=== PATIENT | male | born 1955 | race Caucasian/White ===

== ENCOUNTER 2017-07-10 15:06 | Inpatient (IN) | payer MEDICARE, SELFPAY ==
[2017-07-10 15:08] VITALS: BP 120/97; PULSE 87; RESP 18; TEMP 36.6; O2SAT 98; BMI 23.3
--- NOTE | 2017-07-10 15:22 | CT_ITS ---
STUDY: CT ABDOMEN AND PELVIS WITH CONTRAST REASON FOR EXAM: Male, 62 years old. Right flank pain RADIATION DOSAGE (If Supplied By Facility): CTDIvol = ( 12.96 ) mGy, DLP = ( 643.78 ) mGycm TECHNIQUE: Transaxial images were obtained from the dome of the diaphragm to the symphysis pubis without oral contrast. 100CC ml of Isovue 250 contrast was administered. Sagittal and coronal images were reconstructed. Individualized dose optimization techniques were used for this CT. COMPARISON: None. FINDINGS: There is a small right pleural effusion with overlying atelectasis. There are questionable filling defects in the right lower lobe segmental and subsegmental pulmonary arteries. If there is concern for pulmonary embolus, a CT angiogram can be performed. The visualized portions of the heart and pericardium are within normal limits. There are no calcified gallstones present. The liver is within normal limits. There are no suspicious hepatic lesions. There is a small amount of perisplenic fluid. The spleen is normal in size. The pancreas is within normal limits. The adrenal glands are within normal limits. There are no obstructing renal stones. There is no hydronephrosis. There are no focal renal lesions. Normal visualized stomach. There is no bowel obstruction or inflammation. There is a large amount of stool in the colon, consistent with constipation. There is soft tissue density in the sigmoid colon (image 80 series 2) and beyond this point, there is no significant constipation. Therefore, this is suspicious for a sigmoid mass causing a partial colonic obstruction with resultant constipation proximal to this lesion. The appendix is not visualized, but there are no findings to suggest acute appendicitis. The aorta is normal in caliber. There is no abdominal or pelvic free air, fluid collection or lymphadenopathy. There are no destructive osseous lesions. CT/Abdomen/Pelvis WITH Contrast IMPRESSION: No bowel obstruction or inflammation. Large amount of stool throughout most of the colon, consistent with constipation. There is prominent soft tissue density in the sigmoid colon and beyond this point the constipation resolves. Therefore, this is suspicious for a sigmoid mass causing partial obstruction with resultant proximal constipation. Questionable pulmonary emboli in the right lower lobe. If indicated a CT angiogram of the chest can be performed. Small amount of perisplenic fluid. Small right pleural effusion. N.B. : The above information has been verbally conveyed by Jaison Jones to Dr. Dmitri Rapp, Referring Physician, on 07/10/2017 18:51:49 (ET). Electronically Signed: Jaison Jones, at 18:51 EST Tel , Service support , N.B. : The above information has been verbally conveyed by Jaison Jones to Dr. Dmitri Rapp, Referring Physician, on 07/10/2017 18:51:49 (ET).
[2017-07-10 15:45] VITALS: BP 141/83; PULSE 79; RESP 12; O2SAT 99
--- NOTE | 2017-07-10 15:53 | ED.DCSUM_ITS ---
- ER Visit Summary Date of Service: 07/10/17 Chief Complaint: Atraumatic right flank/abdominal pain History of Present Illness: The patient is a 62 M depression and chronic back pain presents with pain that is different than his chronic back pain. He localizes the pain to the right flank/right side of the abdomen. He denies any radiation to the groin or testicle. He denies dysuria, frequency, urgency hematuria. He has no history of renal ureterolithiasis. He denies nausea, vomiting or diarrhea. He denies any change in the color, consistency, caliber or frequency of his bowel movements. He denies any blood or mucus in his stool. He does report a 35 pound unintentional weight loss with night sweats. He is a non-smoker. Patient denies any ocular, visual auditory symptoms. He denies any cardiac or respiratory symptoms. He denies any skin lesions. He denies prior history of pain in this area. Please read written note for complete detail Physical Examination: Patient is thin but well-developed. Vital signs remarkable blood pressure 141/83. Head is atraumatic normocephalic. Pupils are equal round reactive. Extraocular muscles are intact. TMs are pearly white with landmarks noted. Nares patent with no drainage. Posterior pharynx without erythema or exudate. Uvula is midline. There is no dysphonia or dysphasia. Trachea is midline. There is no stridor with auscultation of the neck. Heart is regular without murmur, gallop or rub. S1 and S2 are normal. Lungs are clear to auscultation with good movement of air bilaterally. Abdomen is soft and nontender. There is no guarding or peritoneal findings. There is no palpable pulsatile mass. There is no abdominal bruit. Wilhelm sign is negative. Negative Rovsing sign. There is no evidence of inguinal or umbilical hernia. There is no CVA tenderness noted. There are no skin lesions noted. He has a depressed affect. Neuro exam is nonfocal. Test Results: BC is normal. BMP is marked for CO2 33. Hepatic is remarkable and alk phos of 220 and AST of 50 which are both slightly elevated. Albumin is low at 2.5. UA is negative. CT of the abdomen and pelvis with p.o. and IV contrast reveals a questionable peripheral pulmonary embolus right lower lobe and there is a pleural effusion. The abdominal portion reveals an area of the sigmoid on image 80 that is concerning for cancer. Emergency Department Course and Treatment: Since patient reports a 35 pound unintentional weight loss with night sweats and abdominal pain a CT of the abdomen with p.o. and IV contrast was obtained to evaluate for malignancy. Appropriate blood work was ordered. Treatment Plan: Hospitalist was paged for admission for CTA in the morning after IV hydration. He will require anticoagulation because of concern for pulmonary embolus. He also will need a bowel prep for colonoscopy to evaluate this area of abnormality noted in the sigmoid colon. Disposition: Admission MedSurg Impression: 1. Unintentional weight loss with night sweats 2. Possible sigmoid mass/cancer 3. Right pleural effusion 4. Possible peripheral pulmonary embolus right lower lobe 5. Depression 6. Chronic back pain This note was generated with [employer] dictation software. It may contain incorrect words, spelling, and punctuation that were not noted in review of the chart prior to signing ED Disposition - Plan for ED Patient: Chief Complaint: Flank Pain Referrals: Sherman Cardona MD [Primary Care Provider] -
[2017-07-10 15:58] LABS: Absolute Lymphocyte Count 2.07 X10^3/ul (0.83-4.51); Absolute Neutrophil Count 3.4 X10^3/uL (2.0-7.7); Eosinophil# 0.13 X10^3/uL; Eosinophils% 2.1 % (0-5); Hematocrit 40.9 % (40-54); Hemoglobin 13.6 g/dl (13.0-16.5); Lymphocyte # 2.07 X10^3/ul (4.0); Mean Corp Hgb Conc 33.3 g/gl (32-36); Mean Corpuscular Hgb 32.4 pg (27.0-32.0); Mean Corpuscular Volume 97.4 fL (80-94); Mean Platelet Vol. 9.7 fl (6.2-12.0); Monocyte# 0.68 X10^3/uL; Monocyte% 10.8 % (0-10); Neutrophil # 3.39 X10^3/uL (2.7-7.7); Neutrophil % 53.9 % (47-70); Platelet Count 228 K/mm3 (150-450); RBC Distribution Width CV 13.2 % (11.6-14.6); RBC Distribution Width SD 46.8 fl (35.1-43.9); White Blood Count 6.3 K/mm3 (4.4-11.0)
[2017-07-10 16:00] LABS: POSITIVE COUNT NO; POSITIVE DIFFERENTIAL NO; POSITIVE MORPHOLOGY NO
[2017-07-10 16:20] LABS: Bacteria 0 SEEN /hpf (None Seen); Mucous, Urine 0 SEEN /hpf (<or=2+); Red Blood Cells-Urine 0 SEEN /hpf (0-5); Squamous Epithelial Cells - UA 0 SEEN /hpf (0-5); White Blood Cells 0 SEEN /hpf (0-5)
[2017-07-10 16:22] LABS: ALB/GLOB Ratio 0.5 RATIO (0.9-2.4); AST(SGOT) 50 U/L (15-37); Alanine Aminotransfer ALT/SGPT 47 U/L (12-78); Albumin, Serum 2.5 g/dL (3.4-5.0); Alkaline Phosphatase 220 U/L (45-117); Anion Gap 4 (5-15); BUN 9 mg/dL (7-18); BUN/Creat Ratio 10.4 RATIO (10-20); Calcium,Total 8.8 mg/dL (8.5-10.1); Chloride 102 mmol/L (98-107); Creatinine, Serum 0.86 mg/dL (0.70-1.30); EST Glomerular Filtration Rate 95 mL/min (>60); Est Glom Filt Rate - Afr Amer 115 mL/min (>60); Estimated Creatinine Clearance 91.96 ml/min; Globulin 4.7 g/dL (2.2-4.2); Glucose 100 mg/dL (70-110); Potassium 3.7 mmol/L (3.5-5.1); Protein, Total 7.2 g/dL (6.4-8.2); Sodium Level 139 mmol/L (136-145)
[2017-07-10 16:26] LABS: Color, Urine Yellow (Yellow); Glucose, Dipstick Normal (Normal); Ketone-Dipstick Negative (Negative); Leukocyte Esterase-Dipstick Negative /ul (Negative); Nitrite-Dipstick Negative (Negative); Occult Blood-Urine Negative /ul (Negative); Protein-Dipstick Negative (Negative); Urine Bilirubin Dipstick Negative (Negative); Urine Clarity Clear (Clear); Urine Urobilinogen Normal (Normal)
[2017-07-10 16:45] VITALS: BP 103/59; PULSE 68; RESP 16; O2SAT 99
[2017-07-10 17:45] VITALS: BP 128/58; PULSE 68; RESP 16; O2SAT 99
[2017-07-10 18:55] VITALS: BP 145/63; PULSE 73; RESP 14; O2SAT 99
[2017-07-10 19:18] VITALS: BMI 23.3
[2017-07-10 20:20] VITALS: BMI 22.8
[2017-07-10 20:21] VITALS: BP 128/71; PULSE 70; RESP 16; TEMP 36.5; O2SAT 98
[2017-07-10] MEDS: ALPRAZolam 0.5 MG Tablet 1 MG PO (21:37)
[2017-07-10] MEDS: 0.9% Normal Saline 1,000 ML 100 ML IV (21:37)
[2017-07-10] MEDS: oxyCODONE 5 MG Tablet 10 MG PO (21:37)
[2017-07-10] MEDS: Electrolyte Solution/Peg's 4000 ML 2000 ML PO (21:37)
[2017-07-10] MEDS: Hydroxychloroquine 200 MG Tablet PO (21:47)
[2017-07-10] MEDS: Enoxaparin 80 MG/0.8 ML Syringe 70 MG SC (21:47)
[2017-07-10] MEDS: Propranolol 10 MG Tablet 20 MG PO (21:47)
--- NOTE | 2017-07-10 22:06 | HP.PCM_ITS ---
Problem List (1) Abnormal CT scan, pelvis Status: Acute (2) Possible pulmonary embolism Status: Acute History of Present Illness Date of Admission: 07/10/17 Chief Complaint: Abnormal CT of the pelvis, possible pulmonary embolism The patient is a 62 year old M who was seen in the emergency room at [facility] with a chief complaint of right lower back pain which had been persistent for the last 4 days. Patient also complained of right lower quadrant abdominal pain in addition to the right lower back pain. Patient has been treated for chronic pain for several years due to degenerative disc disease of the cervical and lumbar spine and is being seen by pain management. Workup in the emergency room included a CT of the abdomen and pelvis which showed an abnormality in the sigmoid colon suggestive of a sigmoid mass. The scan also showed an abnormality in the right lower lung field which indicated a possible pulmonary emboli but again, the appropriate imaging testing was not performed (CTA of the chest). There is also noted to be a right pleural effusion. Patient has no complaints of any shortness of breath or chest pain. Patient's labs were unremarkable except for an elevated alkaline phosphatase at 220 and an AST of 50. There is an overlying history with the patient of severe depression, he gave the emergency room physician information that he has lost 35 pounds over the last 9 months-this weight loss may be secondary to poor oral intake from depression. Patient will be admitted to the [facility] floor for possible sigmoid colon mass and possible PE, he will undergo a CTA of the chest tomorrow and I contacted his furnace packer (Dr. Jimenez), he will perform a colonoscopy on the patient tomorrow. Patient and the patient's state that the patient underwent a colonoscopy last year but they are not sure when and to their knowledge it was normal. Past Medical History Past Medical History (Chronic Problems): Chronic Problems Anxiety disorder (Chronic) Chronic back pain (Chronic) Chronic fatigue syndrome (Chronic) COLD (chronic obstructive lung disease) (Chronic) Depression (Chronic) Gastroesophageal reflux disease (Chronic) Allergies fentanyl Allergy (Verified 07/10/17 15:28) Unknown Penicillins Allergy (Verified 07/10/17 15:28) Unknown cefdinir [From Omnicef] Adverse Reaction (Verified 07/10/17 15:28) Unknown cephalexin monohydrate [From Keflex] Adverse Reaction (Verified 07/10/17 15:28) Unknown citalopram hydrobromide [From Celexa] Adverse Reaction (Verified 07/10/17 15:28) Unknown doxycycline Adverse Reaction (Verified 07/10/17 15:28) Unknown duloxetine HCl [From Cymbalta] Adverse Reaction (Verified 07/10/17 15:28) Unknown escitalopram oxalate [From Lexapro] Adverse Reaction (Verified 07/10/17 15:28) Unknown fluoxetine HCl [From Prozac] Adverse Reaction (Verified 07/10/17 15:28) Unknown iodine Adverse Reaction (Verified 07/10/17 15:28) Unknown lithium Adverse Reaction (Verified 07/10/17 15:) Unknown mirtazapine [From Remeron] Adverse Reaction (Verified 07/10/17 15:28) Unknown moxifloxacin HCl [From Avelox] Adverse Reaction (Verified 07/10/17 15:28) Unknown oxymorphone HCl [From Opana] Adverse Reaction (Verified 07/10/17 15:28) Unknown paroxetine HCl [From Paxil] Adverse Reaction (Verified 07/10/17 15:28) Unknown prednisolone Adverse Reaction (Verified 07/10/17 15:28) Unknown quetiapine fumarate [From Seroquel] Adverse Reaction (Verified 07/10/17 15:28) Unknown sertraline HCl [From Zoloft] Adverse Reaction (Verified 07/10/17 15:28) Unknown trazodone Adverse Reaction (Verified 07/10/17 15:28) Unknown venlafaxine HCl [From Effexor] Adverse Reaction (Verified 07/10/17 15:28) Unknown Home Medications: Ambulatory Orders Medication Instructions Recorded ALPRAZolam [Xanax] 1 mg PO TID 04/08/14 BuPROPion (XL) [Wellbutrin Xl] 150 mg PO DAILY 04/08/14 Hydroxychloroquine [Plaquenil] 200 mg PO BID 04/08/14 Ketotifen Fumarate [Allergy Eye 10 ml OP DAILY 04/08/14 Drops] Lansoprazole [Prevacid] 30 mg PO DAILY 04/08/14 Mometasone Furoate [Nasonex] 1 spray NASAL DAILY 04/08/14 Oxycodone HCl [Roxicodone] 10 mg PO TID 04/08/14 Polyethylene Glycol 3350 [Miralax] 17 gm PO DAILY 04/08/14 Polyvinyl Alcohol/Povidone/Pf 1 each OP DAILY 04/08/14 [Refresh Classic Eye Drops] Propylene Glycol/Peg 400 [Systane 15 ml OP DAILY 04/08/14 Liquid Gel Eye Drops] Sodium Chloride [Saline Nasal Mist] 126 ml NS 4X/DAY 04/08/14 Tamsulosin HCl [Flomax] 0.4 mg PO DAILY 04/08/14 Zolpidem Tartrate [Ambien Cr] 10 mg PO QHS PRN PRN 04/08/14 Aripiprazole [Abilify] 10 mg PO DAILY 11/08/15 Cyclobenzaprine [Flexeril] 5 mg PO TID PRN PRN 07/10/17 Propranolol HCl [Inderal (Beta 20 mg PO BID 07/10/17 Ulises)] Temazepam [Restoril] 30 mg PO QHS PRN PRN 07/10/17 Surgical History: cataract, herniorrhaphy - Umbilical hernia repair, - - Cervical neck surgery, laminectomy, back surgery, [place] surgery Psychiatric History: Depression Lives: Spouse/ Significant Other Smoking Status: Former smoker Tobacco Use: Non-smoker Alcohol: None Drugs: None - *Family History Maternal History Items: No pertinent history Paternal History Items: Cancer - Head and neck cancer Review of Systems Constitutional: Reports: Fatigue. Denies: Anorexia, Chills, Fever, Night Sweats , Malaise, Weakness, Weight Change Eyes: Denies: Blurred vision, Cataracts, Conjunctivae Inflammation, Double vision, Drainage HEENT: Denies: Difficulty Swallowing, Dysphasia, Ear Pain, Eye Pain, Hearing Changes, Nasal bleeding, Nasal Congestion, Post Nasal Drip Cardiovascular: Denies: Chest Pain, Claudication, Chest Pressure, Chest Tightness, Edema, Heaviness, Palpitations, Paroxysmal Noc. Dyspnea, Syncope Respiratory: Denies: Cough, Hemoptysis, Pleuritic Pain, Shortness of Breath, Shortness of breath at rest, Shortness of breath upon exertion, Sputum production, Wheezing Gastrointestinal: Reports: Abdominal Pain - Right lower quadrant abdominal pain ?4 days, Constipation. Denies: Diarrhea, Hematemesis, Hematochezia, Nausea, Melena, Vomiting Genitourinary: Denies: Dysuria, Frequency, Hematuria, Hesitancy, Incontinence, Nocturia, Retention, Urgency Musculoskeletal: Reports: Back Pain, Joint Pain, Neck Pain. Denies: Foot Pain, Hand Pain, Joint stiffness, Joint swelling, Leg Pain Skin: Denies: Dryness, Jaundice, Pruritis, Rash Neurological: Denies: Blurred vision, Double vision, Slurred speech, Difficulty swallowing, Focal weakness, Headaches, Numbness, Tingling, Tremor Psychiatric: Reports: Depression. Denies: Anxiety, Homicidal Ideations, Suicidal Ideations Endocrine: Reports: Change in Body Habitus - Weight loss over the past year of 35 pounds. Denies: Heat/ Cold Intolerance, Polydipsia, Polyuria Hematologic/ Lymphatic: Denies: Adenopathy, Anemia, Easy Bruising, Easy Bleeding , Petechiae, Purpura VTE Information - Inpt Only VTE Present on Admission: No VTE Mechan Device Prophylaxis: None VTE Pharm Prophylaxis ordered?: No Reason prophylaxis not ordered:: Medical Contraindication - Patient will receive full dose Lovenox Patient Problems: Active and Suspected Problems Abnormal CT scan, pelvis (Acute) Possible pulmonary embolism (Acute) - Physical Exam General: Alert, Oriented x3, Cooperative, No apparent distress, Well developed, - - Patient appears markedly depressed HEENT: Atraumatic, PERRLA, EOMI, Normocephalic Oral: Moist Mucosa Neck: Supple, No JVD, Negative Carotid Bruits, No Nuchal Rigidity, Trachea Midline, Thyroid Normal Size and Texture Lungs: Clear to auscultation, Normal air movement, No rhonchi, No wheeze, No rales Cardiovascular: Regular rate, Regular Rhythm, Normal S1, Normal S2, No murmurs, No Ectopic Activity, PMI Normal, No rub noted, No Gallop Abdomen: Bowel Sounds Present, Soft, Non Tender, Non-Distended, No hernias noted Extremities: No clubbing, No cyanosis, No edema, Capillary Refill Less than 3 Seconds Skin: No rashes, No breakdown Musculoskeletal: No Tenderness to Palpation of Joints or Extremities Neurological: Cranial nerves II-XII grossly intact, Neuro grossly intact, Motor Exam 5/5 strength throughout, Sensory exam intact to light touch and pain, Coordination normal Psych/Mental Status: Appropriate, Flat Affect, Depressed Vital Signs Temp Pulse Resp BP Pulse Ox 97.7 F L 70 16 128/71 H 98 07/10/17 20:21 07/10/17 20:21 07/10/17 20:21 07/10/17 20:21 07/10/17 20:21 Oxygen Delivery Method Room Air Weight: 72.3 kg Body Mass Index (BMI) 22.8 Assessment/Plan Active and Suspected Problems Abnormal CT scan, pelvis (Acute) Possible pulmonary embolism (Acute) #1 possible sigmoid colon mass-patient will be admitted to [facility], he will be prepped for colonoscopy tomorrow, gastroenterology will see the patient #2 possible right pulmonary emboli-patient will undergo a CTA of the chest tomorrow, I will give the patient 1 dose of Lovenox this evening of 70 mg subcu #3 right pleural effusion-etiology unclear, patient may need this tapped if it does not resolve #4 right lower back pain-probably secondary to degenerative joint disease of the lumbar spine which is chronic in this patient #5 severe depression #6 chronic pain syndrome Code Visit Inpatient E&M: 79809 Init Hosp L3
[2017-07-10] MEDS: Magnesium Citrate 300 ML PO (23:57)
[2017-07-11] VITALS (12 sets, daily range): BP systolic 114–143; BP diastolic 57–81; PULSE 65–72; RESP 16–18; TEMP 36.1–36.9; O2SAT 96–100; BMI 22.8
--- NOTE | 2017-07-11 05:55 | CT_ITS ---
STUDY: CTA CHEST REASON FOR EXAM: Male, 62 years old. Shortness of breath. Possible right pulmonary embolism on prior CT. RADIATION DOSAGE (If Supplied By Facility): CTDIvol = ( 17.59 ) mGy, DLP = ( 710.56 ) mGycm TECHNIQUE: The examination was performed with the intravenous administration of 75ML ml of Isovue 370 contrast material. Post-processing of the angiographic images was performed, with multiplanar reformation and 3D reconstruction. Individualized dose optimization techniques were used for this CT. COMPARISON: Abdominal CT dated 07/10/2017 FINDINGS: distal segmental and subsegmental pulmonary emboli posteriorly in the right lower lobe. There are no additional pulmonary emboli. There is no evidence of thoracic aortic aneurysm or dissection. The heart is normal in size. There are coronary artery calcifications noted. There is a small right pleural effusion with overlying atelectasis. The lungs are otherwise clear. There are no destructive osseous lesions. CT/CTA Chest W/WO Contrast IMPRESSION: Distal segmental and subsegmental pulmonary emboli posteriorly in the right lower lobe. No additional pulmonary emboli. Small right pleural effusion with overlying atelectasis. Otherwise, clear lungs. N.B. : The above information has been verbally conveyed by Jaison covarrubias , Covering Physician, on 07/11/2017 17:47:30 (ET). Electronically Signed: Jaison Jones, at 17:37 EST Tel , Service support , N.B. : The above information has been verbally conveyed by Jaison covarrubias , Covering Physician, on 07/11/2017 17:47:30 (ET).
[2017-07-11] MEDS: ALPRAZolam 0.5 MG Tablet 1 MG PO ×3 (05:57→22:35)
[2017-07-11] MEDS: oxyCODONE 5 MG Tablet 10 MG PO ×3 (05:57→22:35)
[2017-07-11] MEDS: 0.9% Normal Saline 1,000 ML 100 ML IV ×3 (05:58→22:34)
[2017-07-11] MEDS: Electrolyte Solution/Peg's 4000 ML 2000 ML PO (05:58)
[2017-07-11] MEDS: Propranolol 10 MG Tablet 20 MG PO ×2 (09:04→23:08)
--- NOTE | 2017-07-11 09:23 | PCM.PROGNOTE ---
Patient Problems: Active and Suspected Problems Abnormal CT scan, pelvis (Acute) Possible pulmonary embolism (Acute) Subjective: Chief complaint: Follow-up after admission for possible sigmoid colon mass and suspected pulmonary embolism. Patient seen and examined. No acute events overnight. This morning, he complained of low back pain but this has been chronic. He denied abdominal pain, nausea vomiting. Denied chest pain or shortness of breath. Denied cough or sputum production. Denies fever or chills. Vital signs are stable. - Physical Exam General: Alert, Oriented x3, Cooperative, No apparent distress HEENT: Atraumatic, PERRLA, EOMI Oral: Moist Mucosa, No Gingival or Mucosal Lesions/ Ulcerations Neck: Supple, No JVD, Negative Carotid Bruits, Trachea Midline, Thyroid Normal Size and Texture Lungs: Clear to auscultation, No rhonchi, No wheeze, No rales, Diminished Cardiovascular: Regular rate, Regular Rhythm, Normal S1, Normal S2, PMI Normal Abdomen: Bowel Sounds Present, Soft, Non Tender, Non-Distended, No Hepato-splenomegaly Extremities: No clubbing, No cyanosis, No edema Skin: No rashes, No breakdown Lymphatic: No Cervical, Supraclavicular, or Inguinal Adenopathy Neurological: Cranial nerves II-XII grossly intact, Motor Exam 5/5 strength throughout Psych/Mental Status: Flat Affect, Alert and oriented to time, place, person, mood and affect Vital Signs Temp Pulse Resp BP Pulse Ox 98.5 F 66 18 116/73 97 07/11/17 08:52 07/11/17 08:52 07/11/17 08:52 07/11/17 08:52 07/11/17 08:52 Oxygen Delivery Method Room Air Weight: 159 lb 6.307 oz Body Mass Index (BMI) 22.8 Intake and Output for Last 24 Hours 07/09/17 07/10/17 07/11/17 23:59 23:59 23:59 Intake Total 3675 / 3675 Balance 3675 / 3675 Clinical Impression(s) from Imaging Studies Abdomen/Pelvis CT 07/10/17 15:22 IMPRESSION: No bowel obstruction or inflammation. Large amount of stool throughout most of the colon, consistent with constipation. There is prominent soft tissue density in the sigmoid colon and beyond this point the constipation resolves. Therefore, this is suspicious for a sigmoid mass causing partial obstruction with resultant proximal constipation. Questionable pulmonary emboli in the right lower lobe. If indicated a CT angiogram of the chest can be performed. Small amount of perisplenic fluid. Small right pleural effusion. N.B. : The above information has been verbally conveyed by Jaison Jones to Dr. Dmitri Rapp, Referring Physician, on 07/10/2017 18:51:49 (ET). Electronically Signed: Jaison Jones, at 18:51 EST Tel , Service support , N.B. : The above information has been verbally conveyed by Jaison Jones to Dr. Dmitri Rapp, Referring Physician, on 07/10/2017 18:51:49 (ET). Assessment/Plan Active and Suspected Problems Abnormal CT scan, pelvis (Acute) Possible pulmonary embolism (Acute) This is a 62 years old male patient presented to the emergency room because of right lower back pain and he was found to have possible sigmoid colon mass on CT scan abdomen as well as suspected pulmonary embolism. #1 possible sigmoid colon mass: This is an incidental finding on CT scan abdomen and pelvis done for low back pain. CT scan abdomen and pelvis with contrast reviewed, revealed large amount of stool/constipation, suspicious sigmoid colon mass with partial obstruction, questionable right lower lobe PE as well as small right pleural effusion. Patient reported losing weight. Malignancy is in the differential diagnosis. He is on IV fluids. Vital signs are stable. Routine blood work was unremarkable. Gastroenterology consulted, plan for colonoscopy today. #2 suspected pulmonary embolism: CT abdomen revealed possible right lower lobe PE. Patient's vital signs are stable, no tachycardia and pulse ox is normal on room air. Plan to do CTA chest after colonoscopy today to rule out pulmonary embolism. #3 small right-sided pleural effusion: Unclear etiology. No clinical evidence of pneumonia. Could be due to the suspected pulmonary embolism. Plan for CTA chest as above. #4 low back pain/chronic back pain: This is chronic. CT scan abdomen revealed no evidence of destructive bone lesions. Patient denies history of trauma or fall. He is on oxycodone as needed for pain. #5 rheumatoid arthritis: Continue Plaquenil and oxycodone. #6 anxiety/depression: Continue Xanax, Abilify, Wellbutrin and Restoril. #7 GERD: Continue Protonix. #8 DVT prophylaxis: SCDs. This note was generated with [employer] dictation software. It may contain incorrect words, spelling, and punctuation that were not noted in checking the note before signing. Code Visit Inpatient E&M: 75826 Subs Hosp L2
--- NOTE | 2017-07-11 09:32 | PN_ITS ---
Patient Problems: Active and Suspected Problems Abnormal CT scan, pelvis (Acute) Possible pulmonary embolism (Acute) Subjective: Chief complaint: Follow-up after admission for possible sigmoid colon mass and suspected pulmonary embolism. Patient seen and examined. No acute events overnight. This morning, he complained of low back pain but this has been chronic. He denied abdominal pain , nausea vomiting. Denied chest pain or shortness of breath. Denied cough or sputum production. Denies fever or chills. Vital signs are stable. - Physical Exam General: Alert, Oriented x3, Cooperative, No apparent distress HEENT: Atraumatic, PERRLA, EOMI Oral: Moist Mucosa, No Gingival or Mucosal Lesions/ Ulcerations Neck: Supple, No JVD, Negative Carotid Bruits, Trachea Midline, Thyroid Normal Size and Texture Lungs: Clear to auscultation, No rhonchi, No wheeze, No rales, Diminished Cardiovascular: Regular rate, Regular Rhythm, Normal S1, Normal S2, PMI Normal Abdomen: Bowel Sounds Present, Soft, Non Tender, Non-Distended, No Hepato- splenomegaly Extremities: No clubbing, No cyanosis, No edema Skin: No rashes, No breakdown Lymphatic: No Cervical, Supraclavicular, or Inguinal Adenopathy Neurological: Cranial nerves II-XII grossly intact, Motor Exam 5/5 strength throughout Psych/Mental Status: Flat Affect, Alert and oriented to time, place, person, mood and affect Vital Signs Temp Pulse Resp BP Pulse Ox 98.5 F 66 18 116/73 97 07/11/17 08:52 07/11/17 08:52 07/11/17 08:52 07/11/17 08:52 07/11/17 08:52 Oxygen Delivery Method Room Air Weight: 159 lb 6.307 oz Body Mass Index (BMI) 22.8 Intake and Output for Last 24 Hours 07/09/17 07/10/17 07/11/17 23:59 23:59 23:59 Intake Total 3675 / 3675 Balance 3675 / 3675 Clinical Impression(s) from Imaging Studies Abdomen/Pelvis CT 07/10/17 15:22 IMPRESSION: No bowel obstruction or inflammation. Large amount of stool throughout most of the colon, consistent with constipation. There is prominent soft tissue density in the sigmoid colon and beyond this point the constipation resolves. Therefore, this is suspicious for a sigmoid mass causing partial obstruction with resultant proximal constipation. Questionable pulmonary emboli in the right lower lobe. If indicated a CT angiogram of the chest can be performed. Small amount of perisplenic fluid. Small right pleural effusion. N.B. : The above information has been verbally conveyed by Jaison Jones to Dr. Dmitri Rapp, Referring Physician, on 07/10/2017 18:51:49 (ET). Electronically Signed: Jaison Jones, at 18:51 EST Tel , Service support , N.B. : The above information has been verbally conveyed by Jaison Jones to Dr. Dmitri Rapp, Referring Physician, on 07/10/2017 18:51:49 (ET). Assessment/Plan Active and Suspected Problems Abnormal CT scan, pelvis (Acute) Possible pulmonary embolism (Acute) This is a 62 years old male patient presented to the emergency room because of right lower back pain and he was found to have possible sigmoid colon mass on CT scan abdomen as well as suspected pulmonary embolism. #1 possible sigmoid colon mass: This is an incidental finding on CT scan abdomen and pelvis done for low back pain. CT scan abdomen and pelvis with contrast reviewed, revealed large amount of stool/constipation, suspicious sigmoid colon mass with partial obstruction, questionable right lower lobe PE as well as small right pleural effusion. Patient reported losing weight. Malignancy is in the differential diagnosis. He is on IV fluids. Vital signs are stable. Routine blood work was unremarkable. Gastroenterology consulted, plan for colonoscopy today. #2 suspected pulmonary embolism: CT abdomen revealed possible right lower lobe PE. Patient's vital signs are stable, no tachycardia and pulse ox is normal on room air. Plan to do CTA chest after colonoscopy today to rule out pulmonary embolism. #3 small right-sided pleural effusion: Unclear etiology. No clinical evidence of pneumonia. Could be due to the suspected pulmonary embolism. Plan for CTA chest as above. #4 low back pain/chronic back pain: This is chronic. CT scan abdomen revealed no evidence of destructive bone lesions. Patient denies history of trauma or fall. He is on oxycodone as needed for pain. #5 rheumatoid arthritis: Continue Plaquenil and oxycodone. #6 anxiety/depression: Continue Xanax, Abilify, Wellbutrin and Restoril. #7 GERD: Continue Protonix. #8 DVT prophylaxis: SCDs. This note was generated with [employer] dictation software. It may contain incorrect words, spelling, and punctuation that were not noted in checking the note before signing. Code Visit Inpatient E&M: 85959 Subs Hosp L2
--- NOTE | 2017-07-11 09:54 | CASEMGMT ---
DC Plan: Home on discharge. Will continue to follow and assist with dc planning if needs arise. Jennifer COLLINSN RN ACM
[2017-07-11] MEDS: CYCLOBENZAPRINE HCL 5 MG TABLET PO (10:28)
--- NOTE | 2017-07-11 13:22 | PCM.OP.BLANK ---
Operative Report Date of Procedure: 07/11/17 Preop diagnosis: [Patient with abdominal pain and abnormal CAT scan] Postop diagnosis: [Colonoscopy to the cecum multiple diverticuli to the left colon] Anesthesia:[Provided the MAC] Instrument: Olympus adjustable pediatric colonoscope] Informed consent was taken prior to procedure. The patient was brought to the endoscopy suite and placed in the left shoulder down. Anesthesia provided the MAC. Rectal exam was performed prior to inserting the scope. The colonoscope was passed into the rectum the rectal mucosa was normal moving up the left colon numerous diverticuli was myochosis noted. The splenic flexure into the transverse colon mucosa was normal down the right colon the cecum was well-visualized the appendiceal orifice was photographed the patient had an excellent preparation. No large polyps seen in the right colon back across the transverse colon mucosa was normal. Below the splenic flexure detail examination was made to the descending and sigmoid colon area there was no evidence of any mass-effect. There were numerous diverticuli down to the sigmoid retroflexion performed in the rectum showed internal hemorrhoids. Impression: Abdominal pain and obstipation multiple diverticuli of the left colon no evidence of diverticulitis Plan: Repeat a colonoscopy in 5 years CC copy: Dr. Sherman Cardona
--- NOTE | 2017-07-11 13:27 | OP.PCM_ITS ---
Operative Report Date of Procedure: 07/11/17 Preop diagnosis: [Patient with abdominal pain and abnormal CAT scan] Postop diagnosis: [Colonoscopy to the cecum multiple diverticuli to the left colon] Anesthesia:[Provided the MAC] Instrument: Olympus adjustable pediatric colonoscope] Informed consent was taken prior to procedure. The patient was brought to the endoscopy suite and placed in the left shoulder down. Anesthesia provided the MAC. Rectal exam was performed prior to inserting the scope. The colonoscope was passed into the rectum the rectal mucosa was normal moving up the left colon numerous diverticuli was myochosis noted. The splenic flexure into the transverse colon mucosa was normal down the right colon the cecum was well- visualized the appendiceal orifice was photographed the patient had an excellent preparation. No large polyps seen in the right colon back across the transverse colon mucosa was normal. Below the splenic flexure detail examination was made to the descending and sigmoid colon area there was no evidence of any mass-effect. There were numerous diverticuli down to the sigmoid retroflexion performed in the rectum showed internal hemorrhoids. Impression: Abdominal pain and obstipation multiple diverticuli of the left colon no evidence of diverticulitis Plan: Repeat a colonoscopy in 5 years CC copy: Dr. Sherman Cardona
--- NOTE | 2017-07-11 14:48 | NURSING ---
This RN called radiology and notified them that patient is ordered to have CTA to check for PE and that colonoscopy is complete and he is on the unit. Understanding verbalized.
[2017-07-11] MEDS: Tamsulosin HCl 0.4 MG Capsule PO (14:59)
[2017-07-11] MEDS: ARIPiprazole 10 MG Tablet PO (14:59)
[2017-07-11] MEDS: Pantoprazole Sodium 40 MG Tablet 30 MG PO (14:59)
[2017-07-11] MEDS: Hydroxychloroquine 200 MG Tablet PO ×2 (15:00→23:08)
[2017-07-11] MEDS: Enoxaparin 80 MG/0.8 ML Syringe 70 MG SC (18:28)
[2017-07-11] MEDS: Temazepam 15 MG Capsule 30 MG PO (23:09)
[2017-07-12 04:25] VITALS: BP 131/72; PULSE 72; RESP 16; TEMP 36.4; O2SAT 95
[2017-07-12] MEDS: Enoxaparin 80 MG/0.8 ML Syringe 70 MG SC (05:55)
[2017-07-12] MEDS: ALPRAZolam 0.5 MG Tablet 1 MG PO ×2 (05:56→14:20)
[2017-07-12] MEDS: oxyCODONE 5 MG Tablet 10 MG PO ×2 (05:56→14:20)
--- NOTE | 2017-07-12 06:02 | NURSING ---
Patient education about lovenox started, patient was able to give injection to himself with the guidance with this RN, teach back method completed and patient was able to verbalize 2 topics covered. Lovenox handout given.
[2017-07-12 07:10] LABS: Absolute Lymphocyte Count 2.25 X10^3/ul (0.83-4.51); Absolute Neutrophil Count 3.3 X10^3/uL (2.0-7.7); Eosinophil# 0.17 X10^3/uL; Eosinophils% 2.8 % (0-5); Hematocrit 36.3 % (40-54); Hemoglobin 11.9 g/dl (13.0-16.5); Lymphocyte # 2.25 X10^3/ul (4.0); Lymphocyte % 37.3 % (19-41); Mean Corp Hgb Conc 32.8 g/gl (32-36); Mean Corpuscular Hgb 31.6 pg (27.0-32.0); Mean Corpuscular Volume 96.5 fL (80-94); Mean Platelet Vol. 9.5 fl (6.2-12.0); Monocyte# 0.34 X10^3/uL; Monocyte% 5.6 % (0-10); Neutrophil # 3.27 X10^3/uL (2.7-7.7); Neutrophil % 54.1 % (47-70); Platelet Count 220 K/mm3 (150-450); RBC Distribution Width CV 13.2 % (11.6-14.6); RBC Distribution Width SD 46.2 fl (35.1-43.9); Red Blood Count 3.76 M/mm3 (4.6-6.2)
[2017-07-12 07:11] LABS: POSITIVE COUNT NO; POSITIVE DIFFERENTIAL NO; POSITIVE MORPHOLOGY NO
[2017-07-12 07:41] LABS: Anion Gap 7 (5-15); BUN 5 mg/dL (7-18); BUN/Creat Ratio 8.8 RATIO (10-20); Calcium,Total 7.6 mg/dL (8.5-10.1); Chloride 109 mmol/L (98-107); Creatinine, Serum 0.57 mg/dL (0.70-1.30); EST Glomerular Filtration Rate 155 mL/min (>60); Est Glom Filt Rate - Afr Amer 188 mL/min (>60); Estimated Creatinine Clearance 137.41 ml/min; Glucose 107 mg/dL (70-110); Potassium 3.6 mmol/L (3.5-5.1); Sodium Level 143 mmol/L (136-145)
[2017-07-12 08:10] VITALS: BP 134/70; PULSE 66; RESP 18; TEMP 36.6; O2SAT 97
--- NOTE | 2017-07-12 08:28 | PCM.DC ---
- Discharge Diagnoses Current Active Problems: Current Active and Chronic Problems Abnormal CT scan, pelvis (Acute) Possible pulmonary embolism (Acute) You will use the following diet at home:: Regular Your food should be the consistency of: Regular Discharge Activity: Return to Normal Activity Weight Bearing Status: Weight bearing as tolerated Call your doctor if you observe: Fever of 101 or Higher, Shortness of breath, Dizziness, Fainting spells, Chest pain, Increased palpitations (irregular heartbeat), Uncontrolled pain Instructions: Discharge Instructions for Pulmonary Embolism, Treating Constipation, Discharge Instructions: Eating a High Fiber Diet Allergies/Adverse Reactions: Allergies fentanyl Allergy (Verified 07/10/17 15:) Unknown Penicillins Allergy (Verified 07/10/17 15:) Unknown cefdinir [From Omnicef] Adverse Reaction (Verified 07/10/17) Unknown cephalexin monohydrate [From Keflex] Adverse Reaction (Verified 07/10/17 15:) Unknown citalopram hydrobromide [From Celexa] Adverse Reaction (Verified 07/10/17 15:) Unknown doxycycline Adverse Reaction (Verified 07/10/17:) Unknown duloxetine HCl [From Cymbalta] Adverse Reaction (Verified 07/10/17 15:28) Unknown escitalopram oxalate [From Lexapro] Adverse Reaction (Verified 07/10/17 15:) Unknown fluoxetine HCl [From Prozac] Adverse Reaction (Verified 07/10/17 15:28) Unknown iodine Adverse Reaction (Verified 07/10/17 15:28) Unknown lithium Adverse Reaction (Verified 07/10/17 15:28) Unknown mirtazapine [From Remeron] Adverse Reaction (Verified 07/10/17 15:28) Unknown moxifloxacin HCl [From Avelox] Adverse Reaction (Verified 07/10/17 15:28) Unknown oxymorphone HCl [From Opana] Adverse Reaction (Verified 07/10/17 15:28) Unknown paroxetine HCl [From Paxil] Adverse Reaction (Verified 07/10/17 15:28) Unknown prednisolone Adverse Reaction (Verified 07/10/17 15:28) Unknown quetiapine fumarate [From Seroquel] Adverse Reaction (Verified 07/10/17 15:28) Unknown sertraline HCl [From Zoloft] Adverse Reaction (Verified 07/10/17 15:28) Unknown trazodone Adverse Reaction (Verified 07/10/17 15:28) Unknown venlafaxine HCl [From Effexor] Adverse Reaction (Verified 07/10/17 15:28) Unknown Medications to take at Discharge ALPRAZolam [Xanax] 1 mg PO 4X/DAY 04/08/14 BuPROPion (XL) [Wellbutrin Xl] 150 mg PO DAILY 04/08/14 Hydroxychloroquine [Plaquenil] 200 mg PO BID 04/08/14 Ketotifen Fumarate [Allergy Eye Drops] 10 ml OP DAILY 04/08/14 Lansoprazole [Prevacid] 30 mg PO DAILY 04/08/14 Mometasone Furoate [Nasonex] 1 spray NASAL DAILY 04/08/14 Oxycodone HCl [Roxicodone] 10 mg PO TID 04/08/14 Polyethylene Glycol 3350 [Miralax] 17 gm PO DAILY 04/08/14 Polyvinyl Alcohol/Povidone/Pf [Refresh Classic Eye Drops] 1 each OP DAILY 04/08/14 Propylene Glycol/Peg 400 [Systane Liquid Gel Eye Drops] 15 ml OP DAILY 04/08/14 Sodium Chloride [Saline Nasal Mist] 126 ml NS 4X/DAY 04/08/14 Tamsulosin HCl [Flomax] 0.4 mg PO DAILY 04/08/14 Zolpidem Tartrate [Ambien Cr] 10 mg PO QHS PRN PRN 04/08/14 Aripiprazole [Abilify] 10 mg PO DAILY 11/08/15 Cyclobenzaprine [Flexeril] 5 mg PO TID PRN PRN 07/10/17 Propranolol HCl [Inderal (Beta Ulises)] 20 mg PO BID 07/10/17 Temazepam [Restoril] 30 mg PO QHS PRN PRN 07/10/17 Apixaban [Eliquis] 10 mg PO BID #90 tab 07/12/17 Magnesium Hydroxide [Milk Of Magnesia] 30 ml PO DAILY PRN PRN #30 udc 07/12/17 Senna/Docusate Sodium [Senokot-S, Sharon-Colace] 2 tab PO BID #30 tab 07/12/17 The following prescriptions were given: Magnesium Hydroxide [Milk Of Magnesia] 30 ml PO DAILY PRN PRN #30 udc PRN Reason: Constipation Apixaban [Eliquis] 10 mg PO BID #90 tab Senna/Docusate Sodium [Senokot-S, Sharon-Colace] 2 tab PO BID #30 tab Primary Care Physician: Sherman Cardona MD [Primary Care Provider] - Please follow up with your Primary Care Physician in: 2 weeks.
[2017-07-12] MEDS: Propranolol 10 MG Tablet 20 MG PO (09:50)
[2017-07-12] MEDS: Hydroxychloroquine 200 MG Tablet PO (09:50)
[2017-07-12] MEDS: Tamsulosin HCl 0.4 MG Capsule PO (09:51)
[2017-07-12] MEDS: Pantoprazole Sodium 40 MG Tablet PO (09:51)
[2017-07-12] MEDS: ARIPiprazole 10 MG Tablet PO (09:51)
--- NOTE | 2017-07-12 11:22 | CASEMGMT ---
Patient is being discharged on Eliquis. BRIT MACK called [facility] to inquire about cost. Cost is $[address] Batres updated along with 30 day free trial voucher. Dr. Batres stated he was okay with patient discharging with 30day free trial and to follow-up with PCP for continued management. BRIT MACK updated the patient regarding the cost of medication and explained and gave patient a voucher for 30-day free trial. BRIT MACK encouraged patient to follow-up with PCP in next week or 2 to discuss medication management. Patient voiced understanding.
[2017-07-12 14:20] VITALS: BP 141/70; PULSE 65; RESP 16; TEMP 36.6; O2SAT 98
--- NOTE | 2017-07-12 15:54 | PCM.DC.SUM ---
Discharge Date and Diagnosis Date of Admission: 07/10/17 Date of Discharge: 07/12/17 - Primary Discharge Diagnosis #1 right lower lobe distal segmental and subsegmental pulmonary emboli. #2 small right-sided pleural effusion/atelectasis, attributed to acute PE. #3 severe constipation. #4 Suspected sigmoid colon mass, ruled out by colonoscopy. - Secondary Discharge Diagnosis Chronic Problems Anxiety disorder (Chronic) Chronic back pain (Chronic) Chronic fatigue syndrome (Chronic) COLD (chronic obstructive lung disease) (Chronic) Depression (Chronic) Gastroesophageal reflux disease (Chronic) Hospital Course and Treatment Imaging Results: Clinical Impression(s) from Imaging Studies Abdomen/Pelvis CT 07/10/17 15:22 IMPRESSION: No bowel obstruction or inflammation. Large amount of stool throughout most of the colon, consistent with constipation. There is prominent soft tissue density in the sigmoid colon and beyond this point the constipation resolves. Therefore, this is suspicious for a sigmoid mass causing partial obstruction with resultant proximal constipation. Questionable pulmonary emboli in the right lower lobe. If indicated a CT angiogram of the chest can be performed. Small amount of perisplenic fluid. Small right pleural effusion. N.B. : The above information has been verbally conveyed by Jaison Jones to Dr. Dmitri Rapp, Referring Physician, on 07/10/2017 18:51:49 (ET). Electronically Signed: Jaison Jones, at 18:51 EST Tel , Service support , N.B. : The above information has been verbally conveyed by Jaison Jones to Dr. Dmitri Rapp, Referring Physician, on 07/10/2017 18:51:49 (ET). Chest CTA 07/11/17 05:55 IMPRESSION: Distal segmental and subsegmental pulmonary emboli posteriorly in the right lower lobe. No additional pulmonary emboli. Small right pleural effusion with overlying atelectasis. Otherwise, clear lungs. N.B. : The above information has been verbally conveyed by Jaison Jones to , Covering Physician, on 07/11/2017 17:47:30 (ET). Electronically Signed: Jaison Jones, at 17:37 EST Tel , Service support , N.B. : The above information has been verbally conveyed by Jaison Jones to , Covering Physician, on 07/11/2017 17:47:30 (ET). Dr. Jimenez, gastroenterology. Operations: None Procedures: Colonoscopy Summary of Care Provided: Patient seen and examined on the day of discharge and appeared to be stable to be discharged home. He has no complaints. Has been able to move his bowels after he received the GoLYTELY yesterday. Denied chest pain or shortness of breath. Vital signs are stable. - Physical Exam General: Alert, Oriented x3, Cooperative, No apparent distress. HEENT: Atraumatic, PERRLA, EOMI. Neck: Supple, No JVD, Negative Carotid Bruits, Trachea Midline, Thyroid Normal. Lungs: Diminished breath sounds bilateral, otherwise clear, No rhonchi, No wheeze, No rales. Cardiovascular: Regular rate, Regular Rhythm, Normal S1, Normal S2, PMI Normal. Abdomen: Bowel Sounds Present, Soft, Non Tender, Non-Distended, No Hepato-splenomegaly. Extremities: No clubbing, No cyanosis, No edema Skin: No rashes, No breakdown Neurological: Neuro grossly intact Vital Signs are stable. Hospital course: The patient is a 62 year old M admitted because of right lower back pain for evaluation. Initial CT scan abdomen and pelvis with contrast revealed large amount of stool/constipation suspicion of sigmoid colon mass and partial obstruction as well as questionable right lower lobe pulmonary embolism and small right-sided pleural effusion. Patient receiving GoLYTELY and was able to have multiple large bowel movements. He underwent colonoscopy that revealed multiple left colonic diverticula without evidence of diverticulitis and there was no evidence of sigmoid or colon mass. CTA chest done and revealed distal segmental and subsegmental right lower lobe pulmonary emboli. Patient was started on Lovenox injections twice a day for acute PE. This acute pulmonary was not considered unprovoked secondary to sedentary life, patient has been an active at home. There was no recent surgery and no history of cancer. And discharged home in a stable medical condition, discharged on Eliquis 10 mg p.o. twice daily for 7 days for loading dose followed by maintenance dose of 5 mg p.o. twice daily to complete 3 months of treatment, discharged on Senokot twice daily scheduled as well as as needed milk of magnesia for constipation, continuing his home medication without any changes, recommended follow-up with PCP in 2 weeks. Discharge Activity: Return to Normal Activity Weight Bearing Status: Weight bearing as tolerated Call your doctor if you observe: Fever of 101 or Higher, Shortness of breath, Dizziness, Fainting spells, Chest pain, Increased palpitations (irregular heartbeat), Uncontrolled pain Home Medications: Medications to take at Discharge ALPRAZolam [Xanax] 1 mg PO 4X/DAY 04/08/14 BuPROPion (XL) [Wellbutrin Xl] 150 mg PO DAILY 04/08/14 Hydroxychloroquine [Plaquenil] 200 mg PO BID 04/08/14 Ketotifen Fumarate [Allergy Eye Drops] 10 ml OP DAILY 04/08/14 Lansoprazole [Prevacid] 30 mg PO DAILY 04/08/14 Mometasone Furoate [Nasonex] 1 spray NASAL DAILY 04/08/14 Oxycodone HCl [Roxicodone] 10 mg PO TID 04/08/14 Polyethylene Glycol 3350 [Miralax] 17 gm PO DAILY 04/08/14 Polyvinyl Alcohol/Povidone/Pf [Refresh Classic Eye Drops] 1 each OP DAILY 04/08/14 Propylene Glycol/Peg 400 [Systane Liquid Gel Eye Drops] 15 ml OP DAILY 04/08/14 Sodium Chloride [Saline Nasal Mist] 126 ml NS 4X/DAY 04/08/14 Tamsulosin HCl [Flomax] 0.4 mg PO DAILY 04/08/14 Zolpidem Tartrate [Ambien Cr] 10 mg PO QHS PRN PRN 04/08/14 Aripiprazole [Abilify] 10 mg PO DAILY 11/08/15 Cyclobenzaprine [Flexeril] 5 mg PO TID PRN PRN 07/10/17 Propranolol HCl [Inderal (Beta Ulises)] 20 mg PO BID 07/10/17 Temazepam [Restoril] 30 mg PO QHS PRN PRN 07/10/17 Apixaban [Eliquis] 10 mg PO BID #90 tab 07/12/17 Magnesium Hydroxide [Milk Of Magnesia] 30 ml PO DAILY PRN PRN #30 udc 07/12/17 Senna/Docusate Sodium [Senokot-S, Sharon-Colace] 2 tab PO BID #30 tab 07/12/17 Following Prescrptions Were Given to Patient: Magnesium Hydroxide [Milk Of Magnesia] 30 ml PO DAILY PRN PRN #30 udc PRN Reason: Constipation Apixaban [Eliquis] 10 mg PO BID #90 tab Senna/Docusate Sodium [Senokot-S, Sharon-Colace] 2 tab PO BID #30 tab Primary Care Physician: Sherman Cardona MD [Primary Care Provider] - Please follow up with your Primary Care Physician in: 2 weeks. Patient Instructions: Treating Constipation, Discharge Instructions for Pulmonary Embolism, Discharge Instructions: Eating a High Fiber Diet Disposition: Home Minutes spent on discharge:: 34 Patient Condition:: Stable Meaningful Use Info Meaningful Use Diagnoses (Choose all that apply): None applicable Code Visit Inpatient E&M: 22734 Disch Hosp
--- NOTE | 2017-07-12 16:03 | DS.PCM_ITS ---
Discharge Date and Diagnosis Date of Admission: 07/10/17 Date of Discharge: 07/12/17 - Primary Discharge Diagnosis #1 right lower lobe distal segmental and subsegmental pulmonary emboli. #2 small right-sided pleural effusion/atelectasis, attributed to acute PE. #3 severe constipation. #4 Suspected sigmoid colon mass, ruled out by colonoscopy. - Secondary Discharge Diagnosis Chronic Problems Anxiety disorder (Chronic) Chronic back pain (Chronic) Chronic fatigue syndrome (Chronic) COLD (chronic obstructive lung disease) (Chronic) Depression (Chronic) Gastroesophageal reflux disease (Chronic) Hospital Course and Treatment Imaging Results: Clinical Impression(s) from Imaging Studies Abdomen/Pelvis CT 07/10/17 15:22 IMPRESSION: No bowel obstruction or inflammation. Large amount of stool throughout most of the colon, consistent with constipation. There is prominent soft tissue density in the sigmoid colon and beyond this point the constipation resolves. Therefore, this is suspicious for a sigmoid mass causing partial obstruction with resultant proximal constipation. Questionable pulmonary emboli in the right lower lobe. If indicated a CT angiogram of the chest can be performed. Small amount of perisplenic fluid. Small right pleural effusion. N.B. : The above information has been verbally conveyed by Jaison Jones to Dr. Dmitri Rapp, Referring Physician, on 07/10/2017 18:51:49 (ET). Electronically Signed: Jaison Jones, at 18:51 EST Tel , Service support , N.B. : The above information has been verbally conveyed by Jaison Jones to Dr. Dmitri Rapp, Referring Physician, on 07/10/2017 18:51:49 (ET). Chest CTA 07/11/17 05:55 IMPRESSION: Distal segmental and subsegmental pulmonary emboli posteriorly in the right lower lobe. No additional pulmonary emboli. Small right pleural effusion with overlying atelectasis. Otherwise, clear lungs. N.B. : The above information has been verbally conveyed by Jaison Jones to , Covering Physician, on 07/11/2017 17:47:30 (ET). Electronically Signed: Jaison Jones, at 17:37 EST Tel , Service support , N.B. : The above information has been verbally conveyed by Jaison Jones to , Covering Physician, on 07/11/2017 17:47:30 (ET). Dr. Jimenez, gastroenterology. Operations: None Procedures: Colonoscopy Summary of Care Provided: Patient seen and examined on the day of discharge and appeared to be stable to be discharged home. He has no complaints. Has been able to move his bowels after he received the GoLYTELY yesterday. Denied chest pain or shortness of breath. Vital signs are stable. - Physical Exam General: Alert, Oriented x3, Cooperative, No apparent distress. HEENT: Atraumatic, PERRLA, EOMI. Neck: Supple, No JVD, Negative Carotid Bruits, Trachea Midline, Thyroid Normal. Lungs: Diminished breath sounds bilateral, otherwise clear, No rhonchi, No wheeze, No rales. Cardiovascular: Regular rate, Regular Rhythm, Normal S1, Normal S2, PMI Normal. Abdomen: Bowel Sounds Present, Soft, Non Tender, Non-Distended, No Hepato- splenomegaly. Extremities: No clubbing, No cyanosis, No edema Skin: No rashes, No breakdown Neurological: Neuro grossly intact Vital Signs are stable. Hospital course: The patient is a 62 year old M admitted because of right lower back pain for evaluation. Initial CT scan abdomen and pelvis with contrast revealed large amount of stool/constipation suspicion of sigmoid colon mass and partial obstruction as well as questionable right lower lobe pulmonary embolism and small right-sided pleural effusion. Patient receiving GoLYTELY and was able to have multiple large bowel movements. He underwent colonoscopy that revealed multiple left colonic diverticula without evidence of diverticulitis and there was no evidence of sigmoid or colon mass. CTA chest done and revealed distal segmental and subsegmental right lower lobe pulmonary emboli. Patient was started on Lovenox injections twice a day for acute PE. This acute pulmonary was not considered unprovoked secondary to sedentary life, patient has been an active at home. There was no recent surgery and no history of cancer. And discharged home in a stable medical condition, discharged on Eliquis 10 mg p.o. twice daily for 7 days for loading dose followed by maintenance dose of 5 mg p.o. twice daily to complete 3 months of treatment, discharged on Senokot twice daily scheduled as well as as needed milk of magnesia for constipation, continuing his home medication without any changes, recommended follow-up with PCP in 2 weeks. Discharge Activity: Return to Normal Activity Weight Bearing Status: Weight bearing as tolerated Call your doctor if you observe: Fever of 101 or Higher, Shortness of breath, Dizziness, Fainting spells, Chest pain, Increased palpitations (irregular heartbeat), Uncontrolled pain Home Medications: Medications to take at Discharge ALPRAZolam [Xanax] 1 mg PO 4X/DAY 04/08/14 BuPROPion (XL) [Wellbutrin Xl] 150 mg PO DAILY 04/08/14 Hydroxychloroquine [Plaquenil] 200 mg PO BID 04/08/14 Ketotifen Fumarate [Allergy Eye Drops] 10 ml OP DAILY 04/08/14 Lansoprazole [Prevacid] 30 mg PO DAILY 04/08/14 Mometasone Furoate [Nasonex] 1 spray NASAL DAILY 04/08/14 Oxycodone HCl [Roxicodone] 10 mg PO TID 04/08/14 Polyethylene Glycol 3350 [Miralax] 17 gm PO DAILY 04/08/14 Polyvinyl Alcohol/Povidone/Pf [Refresh Classic Eye Drops] 1 each OP DAILY Propylene Glycol/Peg 400 [Systane Liquid Gel Eye Drops] 15 ml OP DAILY 04/08/14 Sodium Chloride [Saline Nasal Mist] 126 ml NS 4X/DAY 04/08/14 Tamsulosin HCl [Flomax] 0.4 mg PO DAILY 04/08/14 Zolpidem Tartrate [Ambien Cr] 10 mg PO QHS PRN PRN 04/08/14 Aripiprazole [Abilify] 10 mg PO DAILY 11/08/15 Cyclobenzaprine [Flexeril] 5 mg PO TID PRN PRN 07/10/17 Propranolol HCl [Inderal (Beta Ulises)] 20 mg PO BID 07/10/17 Temazepam [Restoril] 30 mg PO QHS PRN PRN 07/10/17 Apixaban [Eliquis] 10 mg PO BID #90 tab 07/12/17 Magnesium Hydroxide [Milk Of Magnesia] 30 ml PO DAILY PRN PRN #30 udc 07/12/17 Senna/Docusate Sodium [Senokot-S, Sharon-Colace] 2 tab PO BID #30 tab 07/12/17 Following Prescrptions Were Given to Patient: Magnesium Hydroxide [Milk Of Magnesia] 30 ml PO DAILY PRN PRN #30 udc PRN Reason: Constipation Apixaban [Eliquis] 10 mg PO BID #90 tab Senna/Docusate Sodium [Senokot-S, Sharon-Colace] 2 tab PO BID #30 tab Primary Care Physician: Sherman Cardona MD [Primary Care Provider] - Please follow up with your Primary Care Physician in: 2 weeks. Patient Instructions: Treating Constipation, Discharge Instructions for Pulmonary Embolism, Discharge Instructions: Eating a High Fiber Diet Disposition: Home Minutes spent on discharge:: 34 Patient Condition:: Stable Meaningful Use Info Meaningful Use Diagnoses (Choose all that apply): None applicable Code Visit Inpatient E&M: 17657 Disch Hosp
== END 2017-07-12 15:00 | disposition home or self-care (01) | DRG 176 ==
LOC: ED 15:55 → MS2 20:02
PROVIDERS: Internal Medicine Gastroenterology; Admitting Provider Internal Medicine; Emergency Provider Emergency Medicine; Family Provider Family Medicine; PCP Family Medicine; Visit Provider Hospitalist
PROC: 0DJD8ZZ Inspection of Lower Intestinal Tract, Via Natural or Artificial Opening Endoscopic (ICD-10-PCS; CPT 45378; principal; 2017-07-11 12:55)
DX: I26.99 Other pulmonary embolism without acute cor pulmonale (principal); J90 Pleural effusion, not elsewhere classified; F32.9 Major depressive disorder, single episode, unspecified; K59.00 Constipation, unspecified; F41.9 Anxiety disorder, unspecified; G89.29 Other chronic pain; M54.5 Low back pain; R53.82 Chronic fatigue, unspecified; J44.9 Chronic obstructive pulmonary disease, unspecified; K21.9 Gastro-esophageal reflux disease without esophagitis; K57.30 Diverticulosis of large intestine without perforation or abscess without bleeding; K64.8 Other hemorrhoids; M06.9 Rheumatoid arthritis, unspecified; Z87.891 Personal history of nicotine dependence
CPT/HCPCS: 36415; 71275; 74177; 80048; 80053; 81001; 85025; 97802; 99283; J7030; J7050; Q9967; A4216

== ENCOUNTER → 2017-08-13 14:01 | Outpatient (CLI) | payer MEDICARE, SELFPAY ==
[2017-08-13 15:10] LABS: Amphetamine Urine VISTA NEGATIVE (<1000 ng/mL); Barbiturate Urine VISTA NEGATIVE (< 200 ng/mL); Benzodiazepine Urine VISTA POSITIVE (< 200 ng/mL); Cocaine Urine VISTA NEGATIVE (< 300 ng/mL); Ecstacy Urine VISTA POSITIVE (< 500 ng/mL); Methadone Urine VISTA NEGATIVE (< 300 ng/mL); PCP Urine VISTA NEGATIVE (< 25 ng/mL); THC Urine VISTA NEGATIVE (< 50 ng/mL); Vista UDS pH Range 6
== END ==
PROVIDERS: Family Provider Family Medicine; PCP Family Medicine; Visit Provider Anesthesiology Pain Medicine
DX: F11.20 Opioid dependence, uncomplicated (principal)
CPT/HCPCS: 80307

== ENCOUNTER → 2018-04-16 13:45 | Outpatient (CLI) | payer MEDICARE, SELFPAY ==
[2018-04-16 15:45] LABS: Anion Gap 6 (5-15); BUN 8 mg/dL (7-18); BUN/Creat Ratio 8.4 RATIO (10-20); Calcium,Total 8.6 mg/dL (8.5-10.1); Chloride 102 mmol/L (98-107); Creatinine, Serum 0.95 mg/dL (0.70-1.30); EST Glomerular Filtration Rate 85 mL/min (>60); Est Glom Filt Rate - Afr Amer 102 mL/min (>60); Glucose 213 mg/dL (74-106); Potassium 3.6 mmol/L (3.5-5.1); Sodium Level 136 mmol/L (136-145)
== END ==
PROVIDERS: Family Provider Family Medicine; PCP Family Medicine; Referring Provider Family Medicine; Visit Provider Family Medicine
DX: G25.0 Essential tremor (principal)
CPT/HCPCS: 36415; 80048

== ENCOUNTER → 2018-07-14 11:57 | Outpatient (CLI) | payer MEDICARE, SELFPAY | PROVIDERS: Family Provider Family Medicine; PCP Family Medicine; Referring Provider Nurse Practitioner Family; Visit Provider Nurse Practitioner Family | DX: Z12.5 Encounter for screening for malignant neoplasm of prostate (principal) | CPT/HCPCS: 36415; 84153; G0103 ==

== ENCOUNTER → 2018-07-31 09:07 | Outpatient (CLI) | payer MEDICARE, SELFPAY ==
--- NOTE | 2018-07-31 09:11 | RAD_ITS ---
STUDY: X-RAY - ESOPHAGUS (BARIUM SWALLOW) WITH FLUOROSCOPY REASON FOR EXAM: Male, 63 years old. One month history of dysphagia for solids. TECHNIQUE: 20 view(s) of the esophagus were obtained following swallowing of barium. FLUOROSCOPY TIME (if supplied): (0:33) minutes/seconds COMPARISON: None. FINDINGS: There is no demonstrated esophageal foreign body. There is no demonstrated stricture or mucosal abnormality. Normal gastroesophageal junction, without a demonstrated hiatal hernia. The patient ingested a 12 mm tablet of barium without any difficulty. There is atherosclerotic calcification of the aortic arch with tortuosity of the descending aorta. Normal visualized pulmonary parenchyma. There are diffuse degenerative changes of the visualized thoracic spine. RAD/Esophagus Only IMPRESSION: Normal plain film x-ray examination (barium swallow) of the esophagus. Electronically Signed: Oz Kelly MD at 11:17 EST , Service support ,
== END ==
PROVIDERS: Family Provider Family Medicine; PCP Family Medicine; Referring Provider Family Medicine; Visit Provider Family Medicine
DX: R13.10 Dysphagia, unspecified (principal)
CPT/HCPCS: 74220

== ENCOUNTER → 2018-08-11 14:09 | Outpatient (CLI) | payer MEDICARE, SELFPAY ==
--- NOTE | 2018-08-11 14:19 | CDU_ITS ---
Reason For Study: Amaurosis Fugax Rt. Velocities/BP Lt. Velocities/BP Prox CCA 59.3/11.4 cm/sec. Prox CCA 75.6/23.5 cm/sec. Mid CCA 71.5/12.3 cm/sec. Mid CCA 104/31.4 cm/sec. Dist CCA 64.5/11.1 cm/sec. Dist CCA 81.7/27.5 cm/sec. Prox ECA 415/38.2 cm/sec. Prox ICA 526/178 cm/sec. Rt. Vert. 47.1/15.3 cm/sec. Mid ICA 209/61.3 cm/sec. Dist ICA 110/41.6 cm/sec. Lt. ICA/CCA = 6.44. Prox ECA 229/24.9 cm/sec. Lt. Vert. 74.5/27 cm/sec. Right Extracranial There is heterogeneous, irregular atherosclerotic plaque noted in the right common carotid artery. The right internal carotid artery is occluded. There is heterogeneous, irregular atherosclerotic plaque noted in the right external carotid artery. Antegrade flow is noted in the right vertebral artery. Left Extracranial There is heterogeneous, irregular atherosclerotic plaque noted in the left common carotid artery. There is heterogeneous, irregular atherosclerotic plaque noted in the left internal carotid artery. There is heterogeneous, irregular atherosclerotic plaque noted in the left external carotid artery. Antegrade flow is noted in the left vertebral artery. Procedure Carotid Duplex 54790. Exam performed in department. Interpretation Summary Irregular plague mid right common carotid artery Extensive irregular plague at the proximal right external carotid with >50% stenosis. Extensive plague at the proximal right internal carotid with no flow identified/occlusion Irregular plague within the left common carotid Extensive irregular plague within the proximal left external carotid with >50% stenosis. Extensive irregular plague within the left internal carotid with >80% stenosis. Patent and antegrade bilateral vertebrals. Ordering Physician: Sherman Cardona Referring Physician: Sherman Cardona Performed By: Lakshmi Langston RVT and Student
== END ==
PROVIDERS: Family Provider Family Medicine; PCP Family Medicine; Referring Provider Family Medicine; Visit Provider Family Medicine
DX: G45.3 Amaurosis fugax (principal)
CPT/HCPCS: 93880

== ENCOUNTER → 2018-08-13 08:19 | Outpatient (CLI) | payer MEDICARE, SELFPAY ==
[2018-08-13 07:54] VITALS: BMI 24.0
[2018-08-13 08:41] LABS: Hematocrit 45.7 % (40-54); Hemoglobin 15.5 g/dl (13.0-16.5); Mean Corp Hgb Conc 33.9 g/gl (32-36); Mean Corpuscular Volume 97.4 fL (80-94); Platelet Count 210 K/mm3 (150-450); RBC Distribution Width CV 13.4 % (11.6-14.6); RBC Distribution Width SD 47.1 fl (35.1-43.9); Red Blood Count 4.69 M/mm3 (4.6-6.2); White Blood Count 6.3 K/mm3 (4.4-11.0)
[2018-08-13 08:42] LABS: Scan Indicated on CBC? Y/N NO
[2018-08-13 08:57] LABS: ALB/GLOB Ratio 0.6 RATIO (0.9-2.4); AST(SGOT) 51 U/L (15-37); Alanine Aminotransfer ALT/SGPT 45 U/L (16-61); Albumin, Serum 2.9 g/dL (3.2-5.0); Alkaline Phosphatase 204 U/L (45-117); Anion Gap 7 (5-15); BUN 9 mg/dL (7-18); BUN/Creat Ratio 10.2 RATIO (10-20); Calcium,Total 8.8 mg/dL (8.5-10.1); Chloride 106 mmol/L (98-107); Creatinine, Serum 0.89 mg/dL (0.70-1.30); EST Glomerular Filtration Rate 92 mL/min (>60); Est Glom Filt Rate - Afr Amer 111 mL/min (>60); Glucose 125 mg/dL (74-106); Potassium 4.1 mmol/L (3.5-5.1); Protein, Total 7.9 g/dL (6.4-8.2); Sodium Level 140 mmol/L (136-145)
== END ==
PROVIDERS: Family Provider Family Medicine; PCP Family Medicine; Referring Provider Surgery; Visit Provider Surgery
DX: Z01.818 Encounter for other preprocedural examination (principal); I65.23 Occlusion and stenosis of bilateral carotid arteries
CPT/HCPCS: 36415; 80053; 85027

== ENCOUNTER → 2018-08-14 08:11 | Outpatient (CLI) | payer MEDICARE, SELFPAY ==
[2018-08-13 07:54] VITALS: BMI 24.0
--- NOTE | 2018-08-14 08:13 | CT_ITS ---
STUDY: CTA NECK WITH CONTRAST REASON FOR EXAM: Male, 63 years old. Critical carotid stenosis. RADIATION DOSAGE (If Supplied By Facility): CTDIvol = ( 21.33 ) mGy, DLP = ( 574.48 ) mGycm TECHNIQUE: CT angiography with multi-detector data acquisition was performed from the aortic arch to the skull base following intravenous administration of Isovue 370 100CC IV. MIP images were reconstructed from the axial data set. Post-processing of the angiographic images was performed, with multiplanar reformation and 3D reconstruction. Individualized dose optimization techniques were used for this CT. COMPARISON: None. FINDINGS: AORTIC ARCH: There is atherosclerotic calcific plaque formation of the aortic arch and great vessels arising from the aortic arch, without a hemodynamically significant stenosis. There is a bovine origin of the great vessels with a common origin of the brachiocephalic and left common carotid artery. Normal origin of the left subclavian artery. RIGHT CAROTID ARTERIES: There is atherosclerotic plaque formation of the common carotid artery, but without a hemodynamically significant stenosis. Normal right common carotid bulb. There is complete occlusion of the origin of the right internal carotid artery without demonstrated arterial flow. Normal visualized cervical portion of the right internal carotid artery. There is extensive atherosclerotic plaque formation of the origin of the right external carotid artery with an estimated stenosis of greater than 70%. LEFT CAROTID ARTERIES: There is atherosclerotic plaque formation of the common carotid artery, but without a hemodynamically significant stenosis. Normal left common carotid bulb. There is severe atherosclerotic plaque formation of the origin of the left internal carotid artery with a near complete occlusion. Normal visualized cervical portion of the left internal carotid artery. There is severe atherosclerotic plaque formation of the origin of the left external carotid artery with a near complete occlusion. VERTEBRAL ARTERIES: Normal bilateral vertebral arteries. CT/CTA Neck W/WO Contrast IMPRESSION: There is occlusion of the right internal carotid artery at its origin. Near occlusion of the left internal carotid artery at its origin. High-grade stenosis at the origin of the right and left external carotid arteries. Electronically Signed: Oz Kelly MD at 9:31 EST , Service support ,
== END ==
PROVIDERS: Family Provider Family Medicine; PCP Family Medicine; Referring Provider Surgery; Visit Provider Surgery
DX: I65.23 Occlusion and stenosis of bilateral carotid arteries (principal)
CPT/HCPCS: 70498; Q9967

== ENCOUNTER 2018-08-24 09:53 | Inpatient (IN) | payer MEDICARE, SELFPAY ==
[2018-08-13 07:54] VITALS: BMI 24.0
[2018-08-18 08:31] LABS: Cholesterol 154 mg/dL (200); High Density Lipoprotein 82 mg/dL; Triglycerides 76 mg/dL; Very Low Density Lipoprotein 15 mg/dL (5-40)
[2018-08-20 15:21] VITALS: BP 151/94; PULSE 95; RESP 16; TEMP 37.4; O2SAT 97; BMI 24.0
[2018-08-24] VITALS (30 sets, daily range): BP systolic 79–132; BP diastolic 38–84; PULSE 50–78; RESP 12–18; TEMP 36.2–36.8; O2SAT 97–100; BMI 24.0
--- NOTE | 2018-08-24 06:46 | DCINST_ITS ---
Discharge Diet: Light diet - advance as tolerated - if you have questions about your diet instructions, please talk to you doctor. Discharge Activity: May Not Drive - for 5-7 days or while taking narcotic pain medicine. May shower in (days): 3 - May shower on Lifting Restrictions: 10 pounds Call your doctor if your incision/area has: Continuous Slow Oozing, Sudden Increased Bleeding, Increased Pain/ Swelling, Increased Redness, Foul Smelling Discharge Call your doctor if you observe: Fever of 101 or Higher Suture Line Care: Avoid Pulling/Pushing, Avoid Pinching/Bending Additional Dressing/Incision Instructions:: Leave steri-strips in place for 1 week. You may apply a dry gauze dressing and tape to your incision as needed to protect from clothing Allergies/Adverse Reactions: Allergies fentanyl Allergy (Verified 08/20/18 15:05) Unknown Penicillins Allergy (Verified 08/20/18 15:05) Unknown cefdinir [From Omnicef] Adverse Reaction (Verified 08/20/18 15:05) Unknown cephalexin monohydrate [From Keflex] Adverse Reaction (Verified 08/20/18 15:05) Unknown citalopram hydrobromide [From Celexa] Adverse Reaction (Verified 08/20/18 15:05) Unknown doxycycline Adverse Reaction (Verified 08/20/18 15:05) Unknown duloxetine HCl [From Cymbalta] Adverse Reaction (Verified 08/20/18 15:05) Unknown escitalopram oxalate [From Lexapro] Adverse Reaction (Verified 08/20/18 15:05) Unknown fluoxetine HCl [From Prozac] Adverse Reaction (Verified 08/20/18 15:05) Unknown lithium Adverse Reaction (Verified 08/20/18 15:05) Unknown mirtazapine [From Remeron] Adverse Reaction (Verified 08/20/18 15:05) Unknown moxifloxacin HCl [From Avelox] Adverse Reaction (Verified 08/20/18 15:05) Unknown oxymorphone HCl [From Opana] Adverse Reaction (Verified 08/20/18 15:05) Unknown paroxetine HCl [From Paxil] Adverse Reaction (Verified 08/20/18 15:05) Unknown prednisolone Adverse Reaction (Verified 08/20/18 15:05) Unknown quetiapine fumarate [From Seroquel] Adverse Reaction (Verified 08/20/18 15:05) Unknown sertraline HCl [From Zoloft] Adverse Reaction (Verified 08/20/18 15:05) Unknown trazodone Adverse Reaction (Verified 08/20/18 15:05) Unknown venlafaxine HCl [From Effexor] Adverse Reaction (Verified 08/20/18 15:05) Unknown Medications to take at Discharge ALPRAZolam [Xanax] 1 mg PO 4X/DAY 04/08/14 Hydroxychloroquine [Plaquenil] 200 mg PO BID 04/08/14 Lansoprazole [Prevacid] 30 mg PO DAILY 04/08/14 Mometasone Furoate [Nasonex] 1 spray NASAL DAILY 04/08/14 Oxycodone HCl [Roxicodone] 10 mg PO 4X/DAY 04/08/14 Polyethylene Glycol 3350 [Miralax] 17 gm PO DAILY 04/08/14 Polyvinyl Alcohol/Povidone/Pf [Refresh Classic Eye Drops] 1 ea OP DAILY 04/08/14 Sodium Chloride [Saline Nasal Mist] 126 ml NS 4X/DAY 04/08/14 Tamsulosin HCl [Flomax] 0.4 mg PO DAILY 04/08/14 Zolpidem Tartrate [Ambien Cr] 10 mg PO QHS PRN PRN 04/08/14 buPROPion XL [Wellbutrin Xl] 150 mg PO DAILY 04/08/14 Aripiprazole [Abilify] 10 mg PO DAILY 11/08/15 Propranolol HCl [Inderal (Beta Ulises)] 20 mg PO BID 07/10/17 rosuvastatin 20 mg tablet 20 mg PO DAILY 08/17/18 Aspirin E.C. [Ecotrin] 81 mg PO DAILY@0800 08/20/18 Carboxymethylcellulos/Glycerin [Refresh Optive Gel Eye Drops] 10 ml OP QHS 08/20/18 Clopidogrel Bisulfate [Plavix] 75 mg PO DAILY 08/20/18 Multivitamin [Daily Multiple Vitamin] 1 each PO DAILY 08/20/18 Nortriptyline HCl [Pamelor] 25 mg PO QHS 08/20/18 Primary Care Physician: Sherman Cardona MD [Primary Care Provider] - Test Results: Test results from this visit will be discussed in further detail at your follow- up appointment, if applicable. Please Follow Up With: Gabriel Irving MD - [phone] When: Call to make an appointment to be seen in about 10 days.
--- NOTE | 2018-08-24 06:49 | OP.PCM_ITS ---
Problem List (1) Carotid stenosis, bilateral Status: Acute Report of Operation Date of Procedure: 08/24/18 Pre-Operative Diagnosis: Occlusion right internal carotid. High-grade 90% stenosis left internal carotid Post-Operative Diagnosis: Same Surgery/Procedure Performed:: Right radial arterial line placement. Left carotid endarterectomy with bovine patch angioplasty Description of Surgical Findings:: At the bedside timeout and informed consent was obtained. Elías test was performed demonstrating adequate ulnar flow. The right wrist was gently extended and prepped with Betadine. 1% lidocaine was used as local anesthetic. Under ultrasound guidance a 20-gauge aero kit Angiocath was advanced into the right radial artery but I could not advanced with seldinger technique. That d evice was removed. I then utilized a 20-gauge Angiocath and was able to nicely advanced this with good arterial flow. It was secured to the skin with 3-0 silk. It was connected to pressure tubing. OpSite dressing and Thea wrap applied. No apparent complication good waveform obtained hand was viable. He was subsequently taken the operating for planned definitive left carotid endarterectomy. Timeout and informed consent was obtained. 63-year-old gentleman was taken the operating room placed by the table and underwent general endotracheal intubation anesthesia. Clindamycin 900 g given preoperatively. The left neck was sterilely prepped and draped. An oblique incision was made along the anterior border the sternocleidomastoid. Sharp dissection carried down through the substance tissue. Platysma was incised. The sternocleidomastoid was reflected laterally. Crossing facial vein was secured with 3-0 Vicryl ligatures. Sharp and blunt dissection used to identify the common carotid circumferential control was obtained and a Dial tie Dacron tape was placed. Dissection was performed cephalad. The vagus nerve was carefully dissected free from the carotid bulb. A Dacron tape and Carley tourniquet tourniquet was placed on the internal carotid. A vessel loop around the external carotid. A Dial tie of 3-0 Vicryl around the superior thyroid. The patient received 8000 units of heparin intravenously. Peripheral vascular clamps were placed in the internal carotid common carotid and external carotid. 11 blade was used to make an arteriotomy. The plaque was very soft with large areas of plaque hemorrhage high-grade stenosis and debris. A #10 USCI style shunt was placed cephalad and proximally. Shunt was secured. An endarterectomy was performed the layer of the external elastic lamina. The plaque was sharply transected proximally. He was nicely feathered at the internal carotid and an inversion endarterectomy was performed of the external carotid. Further debris was carefully removed. The internal carotid plaque was secured with a 7-0 Prolene tacking suture. The vessel was copiously irrigated felt that I had a gross degree of plaque removed. A 8 cm x 0.8 cm piece of bovine patch Vascu-Guard was selected. Reference number of [id number] expiry date 03/11/2023, [id number]. PN number [id number] It was shaped to form. The patch angioplasty was created with running 6-0 Prolene. Prior to completion the shunt was removed the vessel was copiously irrigated there is adequate antegrade flow and retrograde flow. Patch angioplasty was completed. Initial flow was instilled from the external carotid, carotid finally internal carotid. Several repair sutures of 7-0 Prolene were placed. Patient then received an aliquot a total of 31 g of protamine. Surgicel was used however the patient had diffuse bleeding fall services so then I placed Gelfoam. Pressure continued to be held. The neck was closed in layers with a platysmal layer of running 3-0 Vicryl and then 2 subdermal layers of running 5-0 Vicryl. The kleber-incisional area was anesthetized with 0.5% Marcaine a total of 10 cc was used. Steri-Strips Telfa tape dressings applied. Sponge and instrument and needle counts were reported the surgeon be correct. Specimen is plaque. Drains none. Blood loss 200 cc. He awoke neurologically intact and he was taken to the recovery room in satisfactory condition without apparent complication. Gabriel Irving M.D., F.A.C.S. Type of Anesthesia:: General Anesthesiologist: Js Booth
--- NOTE | 2018-08-24 07:15 | PLAQ_PTH ---
PATIENT: VINCENZO SUERO LOC: MS3 U#:[id number] AGE/SX: 63/M ROOM: [facility] RE08/24/[address]: Dr. Gabriel Irving MD : 1955 BED: 3 DIS: 08/25/2018 SPEC #: [id number] RECD: 08/24/18 12:46 STATUS: GELY REPaige #: [id number] JUANIS: 08/24/18 07:[address]: Gabriel Irving DEPT: SURGICAL PATHOLOGY RECD BY: Bi Felciiano ENTERED: 08/24/18 14:54 SP TYPE: PLAQUE OTHR DR: Dr. Sherman Cardona MD Tissues: PLAQUE Procedures: Decalcification bone/plaque Surgery Specimen Level III HEADER OPERATION: Left carotid endarterectomy with patch angioplasty PRE-OP DIAGNOSIS: Carotid stenosis, bilateral; history of pulmonary embolism TISSUE SUBMITTED: Plaque, left carotid artery MICROSCOPIC DIAGNOSIS Left carotid artery, plaque: Atheromatous plaque with chronic hemorrhage and calcification. CE:kenan 08/27/18 GROSS DESCRIPTION Received in fixative is one container labeled with the patient's name and designated plaque left carotid artery. The specimen consists of a tubular piece of cain, indurated tissue measuring 2.2 cm in length and 1 cm in diameter. The specimen focally cuts with gritty sensation. The lumen is almost completely obliterated. The entire specimen is submitted in one cassette after decalcification. / SJ:kenan 08/24/18 TC: 5 CPT: 34076, 26672
[2018-08-24] MEDS: Heparin Injection (Vial) 5,000 UNIT/ML VIAL 5000 UNIT (09:30)
[2018-08-24] MEDS: Bupivacaine Mpf 0.5% 30 ML VIAL (09:49)
[2018-08-24] MEDS: oxyCODONE 5 MG Tablet 10 MG PO ×3 (12:36→22:22)
--- NOTE | 2018-08-24 12:42 | SUR.PHASEI ---
Addendum entered by Emeli Burton 08/24/18 15:52: AT 1458, SPOKE WITH DR SHAI MIRANDA ENVIRONMENTAL SUSTAINABILITY MANAGER, UPDATING PATIENT NOW HAS HAD CONSECUTIVE SBP IN 103-114, MAP >65. LEFT NECK SITE HAS HAD SOME DRAINAGE SINCE PACU ARRIVAL BUT MARKED, NOT EXCESSIVE. SITE MILDLY EDEMATOUS BEFORE, NO HEMATOMA. PATIENT ABLE TO SWALLOW, NEURO CHECKS REMAIN NEGATIVE. DR GIBBONS GAVE ORDER TO D/C PATIENT FROM PACU TO MED-SURG FLOOR PER PATITO, ENVIRONMENTAL SUSTAINABILITY MANAGER. LUNGS REMAIN CLEAR, DENIES DIFFICULTY BREATHING, SOB, OTHER C/O. DENIES URGE TO VOID. WILL D/C ARTERIAL LINE AND TRANSFER PER PROTOCOL. Original Note: Addendum entered by Emeli Burton 08/24/18 13:41: AT 1325, CALLED DR GIBBONS TO UPDATE: ART SBP MAINTAINING HIGH 90-LOW 100'S, NIBP IN MID-HIGH 80'S OFF NEOSYNEPHRINE GTT FOR ALMOST 30 MINUTES. PATIENT DENIES NECK PAIN, ABLE TO SWALLOW, SOME ADDITIONAL SEEPING TO LEFT NECK BANDAGE, NO INCREASING EDEMA OR S/S HEMATOMA. ALSO REVIEWED ALL INFO WITH DR NEWMAN, ANESTHESIA. DR GIBBONS ORDERED 500 ML NSS BOLUS AND REEVALUATE. Original Note: PACU: IMMEDIATE POST-OP, HELP PRESSURE FOR 30 MINUTES, NOTED MILDLY EDEMATOUS AROUND INCISION, SOME FIRMNESS NOTED RIGHT SIDE OF INCISION, HELD PRESSURE FOR AN ADDITIONAL 30 MINUTES. NO CHANGE IN MILD EDEMA AROUND INCISION AND FIRMNESS RESOLVED. NEURO CHECKS REMAIN INTACT, ABLE TO SWALLOW. DR GIBBONS WAS NOTIFIED THAT BP WAS BELOW 100 AT 1023, DR NEWMAN HAD ALSO BEEN CONSULTED, REMAINS ON NEOSYNEPHRINE GTT TO KEEP SBP BETWEEN 100-120. DR GIBBONS DID STOP IN TO PACU TO EVALUATE PATIENT, NO NEW ORDERS OTHER THAN TO REMAIN IN PACU UNTIL CECE GTT WEANED OFF. PATIENT REPORTS MILD SORE THROAT WHICH IS HELPED WITH ICE CHIPS/SIPS. DID REQUEST HIS NORMAL PO PAIN MEDICATION, OXYCODONE, AT HOME FOR CHRONIC BACK PAIN. ASSISTED TO REPOSITION.
--- NOTE | 2018-08-24 15:56 | SUR.PHASEI ---
AT 1548, NURSE TO NURSE HANDOFF WITH JESS MS 3 RN, AT BEDSIDE REVIEWING LEFT NECK INCISION WHICH IS SOFT, DRAINAGE MARKED, NO HEMATOMA, NEURO EXAM NEGATIVE, PATIENT ABLE TO SWALLOW WITHOUT DIFFICULTY.
[2018-08-24] MEDS: Tamsulosin HCl 0.4 MG Capsule PO (17:04)
[2018-08-24] MEDS: ALPRAZolam 0.5 MG Tablet 1 MG PO ×2 (17:08→22:22)
[2018-08-24] MEDS: Lactated Ringers 1,000 ML 30 ML IV (17:11)
[2018-08-24] MEDS: Atorvastatin Calcium 40 MG Tablet PO (22:23)
[2018-08-24] MEDS: Hydroxychloroquine 200 MG Tablet PO (22:24)
[2018-08-24] MEDS: Nortriptyline 25 MG Capsule PO (22:24)
[2018-08-24] MEDS: Zolpidem Tartrate 5 MG Tablet PO (22:27)
[2018-08-25 02:13] VITALS: BP 96/52; PULSE 76; RESP 18; TEMP 36.4; O2SAT 99
[2018-08-25 02:15] VITALS: PULSE 76
--- NOTE | 2018-08-25 07:13 | PCM.PN.SRG ---
Subjective: Patient evaluated resting comfortably in bed. He notes sore throat and slight discomfort in the left neck. He denies nausea, vomiting. He has been up and walking without balance changes. He denies numbness/tingling of his extremities. He denies vision changes. His pain is minimal. - Physical Exam General: Alert, Oriented x3, Cooperative HEENT: Atraumatic, PERRLA, EOMI, Normocephalic Neck: - - Left lateral neck with moderate amount of swelling. Steri-strips intact. Tender to palpation. Lungs: Clear to auscultation, Normal air movement Cardiovascular: Regular rate, No murmurs Neurological: Cranial nerves II-XII grossly intact Vital Signs Temp Pulse Resp BP Pulse Ox 97.5 F L 76 18 96/52 L 99 08/25/18 02:13 08/25/18 02:15 08/25/18 02:13 08/25/18 02:13 08/25/18 02:13 Oxygen Delivery Method Room Air Weight: 167 lb 12.348 oz Body Mass Index (BMI) 24.0 Intake and Output for Last 24 Hours 08/23/18 08/24/18 08/25/18 23:59 23:59 23:59 Intake Total 5918 / 5918 1969 / 1969 Output Total 450 / 450 1275 / 1275 Balance 5468 / 5468 695 / 695 Medical Necessity - Tobacco Use Smoking Status: Former smoker Assessment/Plan All Active Problems Carotid stenosis, bilateral (Acute) Sleep apnea (Acute) History of pulmonary embolism (Acute ~06/2017) Abnormal CT scan, pelvis (Acute) I am following this patient in conjunction with Dr. Irving S/p left carotid endarterectomy Patient recovering well Ready for discharge Code Visit Inpatient E&M: 37555 Subs Hosp L1 - POST-OP/NO CHARGE
[2018-08-25] MEDS: Aspirin E.C. 81 MG Tablet PO (07:52)
[2018-08-25 08:13] VITALS: BP 132/78; PULSE 69; RESP 18; TEMP 37.3; O2SAT 99
[2018-08-25] MEDS: oxyCODONE 5 MG Tablet 10 MG PO (09:06)
[2018-08-25] MEDS: Polyethylene Glycol 3350 17 GM PACKET PO (09:07)
[2018-08-25] MEDS: ARIPiprazole 10 MG Tablet PO (09:07)
[2018-08-25] MEDS: Hydroxychloroquine 200 MG Tablet PO (09:08)
[2018-08-25] MEDS: Propranolol 10 MG Tablet 20 MG PO (09:08)
[2018-08-25] MEDS: buPROPion (XL) 150 MG TABLET.XL PO (09:08)
[2018-08-25] MEDS: Pantoprazole Sodium 40 MG Tablet PO (09:09)
[2018-08-25] MEDS: ALPRAZolam 0.5 MG Tablet 1 MG PO (09:15)
--- NOTE | 2018-08-25 11:20 | CASEMGMT ---
RN FREDERICK Face to Face with patient for initial transition planning/care coordination assessment. RN CM introduced self and role at [facility]. Patient lying in bed, alert and oriented. Patient willing to participate in assessment and is able to answer all questions appropriately. Care providers, pharmacy, and demographics verified. Patient wishes to discharge home, denies need for home health at this time. Patient states he has no further needs or concerns at this time. CM to follow for discharge planning needs that may arise. PCP: Dulce Specialists: Chuckie, pain management; Tony, gastroenterology Preferred Pharmacy: [facility] Insurance: [facility] Prescription Benefit: Yes Living Will/HPOA: yes, Qiana David HPOA LNOK: Living Arrangements: Patient lives with in split level home. Patient states he is independent at home. Transportation: self/ DME/HHC: Patient states he has a cane and Cpap at home. Denies home oxygen or nebulizer. Denies previous HHC/SNF. Disposition Plan: Patient to discharge home with family support and follow-up plans in place. Nita TADEO, RN, CM
[2018-08-25 13:13] VITALS: BP 121/56; PULSE 81; RESP 18; TEMP 37.1; O2SAT 98
== END 2018-08-25 13:15 | disposition home or self-care (01) | DRG 39 ==
LOC: MS3OUT 04-08 16:24 → MS3 04-09 07:11 → MS3OUT 04-09 07:12
PROVIDERS: Admitting Provider Surgery; Family Provider Family Medicine; PCP Family Medicine; Referring Provider Surgery; Visit Provider Surgery
PROC: 03CL0ZZ Extirpation of Matter from Left Internal Carotid Artery, Open Approach (ICD-10-PCS; CPT 35301; principal; 2018-08-24 06:55)
DX: I65.23 Occlusion and stenosis of bilateral carotid arteries (principal); F32.9 Major depressive disorder, single episode, unspecified; K21.9 Gastro-esophageal reflux disease without esophagitis; F41.9 Anxiety disorder, unspecified; J44.9 Chronic obstructive pulmonary disease, unspecified; J45.909 Unspecified asthma, uncomplicated; R25.1 Tremor, unspecified; G47.30 Sleep apnea, unspecified; Z87.891 Personal history of nicotine dependence; Z86.711 Personal history of pulmonary embolism; Z79.02 Long term (current) use of antithrombotics/antiplatelets; Z79.899 Other long term (current) drug therapy; Z85.828 Personal history of other malignant neoplasm of skin; Z86.718 Personal history of other venous thrombosis and embolism
CPT/HCPCS: 00350; 35301; 36620; 36415; 80061; 88304; 88311; J7040; J7120; J2405

== ENCOUNTER → 2018-08-28 13:22 | Outpatient (CLI) | payer MEDICARE, SELFPAY ==
[2018-08-24 15:54] VITALS: BMI 24.0
[2018-08-28 12:44] VITALS: BMI 24.0
--- NOTE | 2018-08-28 13:24 | CT_ITS ---
STUDY: CT BRAIN WITHOUT CONTRAST REASON FOR EXAM: Male, 63 years old. Headaches. Recent left-sided carotid endarterectomy. RADIATION DOSAGE (If Supplied By Facility): CTDIvol = ( 60.81 ) mGy, DLP = ( 1135.50 ) mGycm TECHNIQUE: Transaxial CT imaging of the brain was performed without administration of intravenous contrast material. Individualized dose optimization techniques were used for this CT. COMPARISON: None. FINDINGS: Normal soft tissue structures. Normal calvarium. There is mild cerebral atrophy with widening of the extra-axial spaces and ventricular dilatation. Normal white matter tracts of the cerebral hemispheres. Normal basal ganglia and thalami. Normal brainstem. Normal cerebellum. There is no intracranial hemorrhage. There are no findings of an acute ischemic infarction. Atherosclerotic calcification of the cavernous portions of the internal carotid arteries bilaterally. Normal visualized paranasal sinuses. CT/Brain/Head without Contrast IMPRESSION: Chronic involutional changes of the brain. Electronically Signed: Oz Kelly, at 14:30 EST , Service support ,
== END ==
PROVIDERS: Family Provider Family Medicine; PCP Family Medicine; Referring Provider Surgery; Visit Provider Surgery
DX: H57.12 Ocular pain, left eye (principal); R51 Headache; Z98.890 Other specified postprocedural states
CPT/HCPCS: 70450

== ENCOUNTER → 2018-10-15 | Outpatient (CLI) | payer MEDICARE, SELFPAY ==
[2018-08-28 12:44] VITALS: BMI 24.0
[2018-10-15 16:08] LABS: Anion Gap 7 (5-15); BUN 9 mg/dL (7-18); BUN/Creat Ratio 9.3 RATIO (10-20); Calcium,Total 9.2 mg/dL (8.5-10.1); Chloride 104 mmol/L (98-107); Creatinine, Serum 0.97 mg/dL (0.70-1.30); EST Glomerular Filtration Rate 83 mL/min (>60); Est Glom Filt Rate - Afr Amer 101 mL/min (>60); Glucose 133 mg/dL (74-106); PSA,Total- Diagnostic 0.53 ng/mL (0.0-4.0); Potassium 4.3 mmol/L (3.5-5.1); Sodium Level 143 mmol/L (136-145)
== END | disposition home or self-care (01) ==
LOC: MFPLAB 14:11
PROVIDERS: Family Provider Family Medicine; PCP Family Medicine; Referring Provider Family Medicine; Visit Provider Family Medicine
DX: N40.0 Benign prostatic hyperplasia without lower urinary tract symptoms (principal); E78.5 Hyperlipidemia, unspecified
CPT/HCPCS: 36415; 80048; 84153

== ENCOUNTER → 2019-04-15 | Outpatient (CLI) | payer MEDICARE, SELFPAY ==
[2018-08-28 12:44] VITALS: BMI 24.0
[2019-04-15 18:43] LABS: Anion Gap 6 (5-15); BUN 11 mg/dL (7-18); BUN/Creat Ratio 10.8 RATIO (10-20); Chloride 98 mmol/L (98-107); Cholesterol 150 mg/dL (200); Creatinine, Serum 1.02 mg/dL (0.70-1.30); EST Glomerular Filtration Rate 78 mL/min (>60); Est Glom Filt Rate - Afr Amer 95 mL/min (>60); Glucose 109 mg/dL (74-106); High Density Lipoprotein 87 mg/dL; Potassium 4.7 mmol/L (3.5-5.1); Sodium Level 134 mmol/L (136-145); Triglycerides 57 mg/dL; Very Low Density Lipoprotein 11 mg/dL (5-40)
== END | disposition home or self-care (01) ==
LOC: MFPLAB 14:04
PROVIDERS: Family Provider Family Medicine; PCP Family Medicine; Referring Provider Family Medicine; Visit Provider Family Medicine
DX: I10 Essential (primary) hypertension (principal)
CPT/HCPCS: 36415; 80048; 80061

== ENCOUNTER → 2019-08-30 | Outpatient (CLI) | payer MEDICARE, SELFPAY ==
[2018-08-28 12:44] VITALS: BMI 24.0
--- NOTE | 2019-08-30 13:40 | CDU_ITS ---
Reason For Study: Stenosis Rt. Velocities/BP Lt. Velocities/BP Prox CCA 68/9 cm/sec. Prox CCA 146/30 cm/sec. Mid CCA 72/10 cm/sec. Mid CCA 110/30 cm/sec. Dist CCA 67/8 cm/sec. Dist CCA 138/28 cm/sec. Rt ICA: No Flow. Prox ICA 127/30 cm/sec. Prox ECA 418/34 cm/sec. Mid ICA 140/45 cm/sec. Rt. Vert. 50/11 cm/sec. Dist ICA 124/45 cm/sec. Lt. ICA/CCA = 1.3. Prox ECA 109/14 cm/sec. Lt. Vert. 151/41 cm/sec. Right Extracranial There is homogeneous, irregular atherosclerotic plaque noted in the right common carotid artery. There is heterogeneous, irregular atherosclerotic plaque noted in the right internal carotid artery. The right internal carotid artery is occluded. There is heterogeneous, irregular atherosclerotic plaque noted in the right external carotid artery. Antegrade flow is noted in the right vertebral artery. Left Extracranial There is heterogeneous, smooth atherosclerotic plaque noted in the left common carotid artery. There is heterogeneous, smooth atherosclerotic plaque noted in the left internal carotid artery. There is heterogeneous, irregular atherosclerotic plaque noted in the left external carotid artery. Antegrade flow is noted in the left vertebral artery. Procedure Carotid Duplex [id number]. Exam performed in department. Interpretation Summary Irregular plaque within the right common carotid and right internal carotid and external carotid with no flow identified within the right internal carotid artery. >50% stenosis right external carotid Postoperative changes of the left carotid bulb and proximal internal carotid. No hemodynamically significant plaque of the internal carotid. 50-69% stenosis left internal carotid Patent antegrade right vertebral >50% stenosis left vertebral Marked improvement left carotid from 08/11/18 Ordering Physician: Gabriel Irving Referring Physician: Sherman Cardona Performed By: Lorenza Leger, LIZETTE, RVT
== END | disposition home or self-care (01) ==
LOC: CVS 13:40
PROVIDERS: PCP Family Medicine; Referring Provider Surgery; Visit Provider Surgery
DX: I65.23 Occlusion and stenosis of bilateral carotid arteries (principal)
CPT/HCPCS: 93880

== ENCOUNTER → 2019-09-02 | Outpatient (CLI) | payer MEDICARE, SELFPAY ==
[2018-08-28 12:44] VITALS: BMI 24.0
[2019-09-02 16:25] LABS: Anion Gap 3 (5-15); BUN 20 mg/dL (7-18); BUN/Creat Ratio 18.5 RATIO (10-20); Chloride 105 mmol/L (98-107); Creatinine, Serum 1.08 mg/dL (0.70-1.30); EST Glomerular Filtration Rate 73 mL/min (>60); Est Glom Filt Rate - Afr Amer 88 mL/min (>60); Glucose 81 mg/dL (74-106); Potassium 5.1 mmol/L (3.5-5.1); Sodium Level 137 mmol/L (136-145)
== END | disposition home or self-care (01) ==
LOC: MFPLAB 13:55
PROVIDERS: PCP Family Medicine; Referring Provider Family Medicine; Visit Provider Nurse Practitioner Family
DX: I10 Essential (primary) hypertension (principal)
CPT/HCPCS: 36415; 80048

== ENCOUNTER → 2020-04-12 | Outpatient (CLI) | payer MEDICARE, SELFPAY ==
[2019-09-17 14:43] VITALS: BMI 24.0
[2020-04-12 16:15] LABS: Anion Gap 5 (5-15); BUN 17 mg/dL (7-18); Chloride 102 mmol/L (98-107); Cholesterol 156 mg/dL (200); Creatinine, Serum 1.31 mg/dL (0.70-1.30); EST Glomerular Filtration Rate 58 mL/min (>60); Est Glom Filt Rate - Afr Amer 71 mL/min (>60); Glucose 194 mg/dL (74-106); High Density Lipoprotein 90 mg/dL; Potassium 4.1 mmol/L (3.5-5.1); Sodium Level 133 mmol/L (136-145); Triglycerides 67 mg/dL; Very Low Density Lipoprotein 13 mg/dL (5-40)
== END | disposition home or self-care (01) ==
LOC: MFPLAB 14:08
PROVIDERS: PCP Family Medicine; Referring Provider Family Medicine; Visit Provider Family Medicine
DX: I10 Essential (primary) hypertension (principal)
CPT/HCPCS: 36415; 80048; 80061

== ENCOUNTER → 2020-04-28 11:53 | Outpatient (CLI) | payer MEDICARE, SELFPAY ==
[2019-09-17 14:43] VITALS: BMI 24.0
--- NOTE | 2020-04-28 14:05 | NEURO_ITS ---
NCS and/or EMG Patient Report Ordering Doctor: Cata Black DATE OF SERVICE: 04/28/20 Indication: Intermittent, bilateral hand numbness. Symptoms are most prominent at night, often awakening him from sleep. Evaluate for median neuropathy at the wrist. Of note, the patient has a history of prior neck surgery (C4-6 decompression and fusion). Findings: Nerve conduction studies were performed in the right and left upper extremities. The right median motor study recording the abductor pollicis brevis showed a normal amplitude, normal distal latency and normal conduction velocity. The right ulnar motor study recording the abductor digiti minimi showed a normal amplitude, normal distal latency and normal conduction velocity. No conduction block or focal slowing was present across the elbow. The right median sensory response recording digit two showed a normal amplitude, latency and conduction velocity. The right ulnar sensory response recording digit five showed a normal amplitude, latency and conduction velocity. The right radial sensory response recording over the extensor snuff box showed a normal am plitude, latency and conduction velocity. Right median-ulnar mixed palmar latencies showed a normal median latency compared to the ulnar. The left median motor study recording the abductor pollicis brevis showed a normal amplitude, normal distal latency and normal conduction velocity. The left ulnar motor study recording the abductor digiti minimi showed a normal amplitude, normal distal latency and normal conduction velocity. No conduction block or focal slowing was present across the elbow. The left median sensory response recording digit two showed a normal amplitude, latency and conduction velocity. The left ulnar sensory response recording digit five showed a normal amplitude, latency and conduction velocity. The left radial sensory response recording over the extensor snuff box showed a normal amplitude, latency and conduction velocity. Left median-ulnar mixed palmar latencies showed a normal median latency compared to the ulnar. Needle EMG of the right upper extremity muscles was performed. The cervical paraspinal muscles were not examined due to his history of posterior approach neck surgery. No denervation was seen in any muscle. The right abductor pollicis brevis, first dorsal interosseous and extensor indices muscles revealed motor units which were large amplitude, long duration with reduced recruitment. All other examined muscles revealed normal motor unit morphology, activation and recruitment patterns. Limited needle EMG of the left upper extremity muscles was performed. The cervical paraspinal muscles were not examined due to his history of posterior approach neck surgery. No denervation was seen in any muscle. The right abductor pollicis brevis, first dorsal interosseous and extensor indices muscles revealed motor units which were large amplitude, long duration with reduced recruitment. Impression: This is an abnormal study. There is electrophysiologic evidence of chronic, bilateral C8/T1 radiculopathies. There is no active denervation to suggest ongoing motor axonal loss. In addition. there is no electrophysiologic evidence of median neuropathy across the wrist on either side. However, the sensitivity of electrodiagnostic testing for this diagnosis is not 100%. If there remains strong clinical suspicion for carpal tunnel syndrome, a neuromuscular ultrasound of the wrist can be considered. In cases of nerve entrapment there may be increased nerve cross-sectional area as well as focal hypoechogenicity and disruption of the internal fascicular architecture. Ron Hairston D.O.
== END ==
PROVIDERS: PCP Family Medicine; Referring Provider Family Medicine; Visit Provider Family Medicine
DX: G56.03 Carpal tunnel syndrome, bilateral upper limbs (principal)
CPT/HCPCS: 95885; 95886; 95913

== ENCOUNTER → 2020-05-01 14:10 | Outpatient (CLI) | payer MEDICARE, SELFPAY ==
[2019-09-17 14:43] VITALS: BMI 24.0
[2020-05-01 14:57] LABS: Amphetamine Urine VISTA NEGATIVE (<1000 ng/mL); Barbiturate Urine VISTA NEGATIVE (< 200 ng/mL); Benzodiazepine Urine VISTA POSITIVE (< 200 ng/mL); Cocaine Urine VISTA NEGATIVE (< 300 ng/mL); Ecstacy Urine VISTA POSITIVE (< 500 ng/mL); Methadone Urine VISTA NEGATIVE (< 300 ng/mL); PCP Urine VISTA NEGATIVE (< 25 ng/mL); THC Urine VISTA NEGATIVE (< 50 ng/mL); Vista UDS pH Range 5
== END ==
PROVIDERS: PCP Family Medicine; Referring Provider Anesthesiology Pain Medicine; Visit Provider Anesthesiology Pain Medicine
DX: M51.26 Other intervertebral disc displacement, lumbar region (principal); M96.1 Postlaminectomy syndrome, not elsewhere classified; F32.2 Major depressive disorder, single episode, severe without psychotic features
CPT/HCPCS: 80307

== ENCOUNTER 2020-09-05 12:14 | Outpatient (RCR) | payer MEDICARE, SELFPAY ==
[2020-09-05] MEDS: COVID-19 VACC, MRNA(PFIZER)/PF 30 MCG/0.3 ML SYRINGE IM (14:34)
[2020-09-26] MEDS: COVID-19 VACC, MRNA(PFIZER)/PF 30 MCG/0.3 ML SYRINGE IM (14:31)
== END 2020-12-05 23:59 ==
LOC: IMMUN 12:14
PROVIDERS: PCP Family Medicine; Visit Provider Family Medicine
DX: Z23 Encounter for immunization (principal)
CPT/HCPCS: 0001A; 0002A; 91300

== ENCOUNTER → 2020-09-19 14:28 | Outpatient (CLI) | payer OTHER, MEDICARE, SELFPAY ==
[2020-09-19 18:00] LABS: Absolute Lymphocyte Count 1.55 X10^3/uL (0.83-4.51); Absolute Neutrophil Count 3.2 X10^3/uL (2.0-7.7); Basophil# 0.01 X10^3/uL; Basophil% 0.2 % (0-1); Hematocrit 39.4 % (40-54); Hemoglobin 13.5 g/dL (13.0-16.5); Lymphocyte # 1.55 X10^3/ul (4.0); Lymphocyte % 30.1 % (19-41); Mean Corp Hgb Conc 34.3 g/dL (32-36); Mean Corpuscular Hgb 32.1 pg (27.0-32.0); Mean Corpuscular Volume 93.6 fL (80-94); Mean Platelet Vol. 10.2 fl (6.2-12.0); Monocyte# 0.42 X10^3/uL; Monocyte% 8.2 % (0-10); NRBC Flagged by Analyzer 0 % (0-5); Neutrophil # 3.16 X10^3/uL (2.7-7.7); Neutrophil % 61.3 % (47-70); Platelet Count 269 K/mm3 (150-450); RBC Distribution Width CV 12.7 % (11.6-14.6); RBC Distribution Width SD 43.5 fl (35.1-43.9); Red Blood Count 4.21 M/mm3 (4.6-6.2); White Blood Count 5.2 K/mm3 (4.4-11.0)
[2020-09-19 18:31] LABS: AST(SGOT) 55 U/L (15-37); Alanine Aminotransfer ALT/SGPT 39 U/L (16-61); Albumin, Serum 3.1 g/dL (3.2-5.0); Alkaline Phosphatase 176 U/L (45-117); Amylase 62 U/L (25-115); Anion Gap 7 (5-15); BUN 12 mg/dL (7-18); BUN/Creat Ratio 8.7 RATIO (10-20); Bilirubin, Direct 0.17 mg/dL (0.00-0.30); Calcium,Total 9.4 mg/dL (8.5-10.1); Chloride 94 mmol/L (98-107); Creatinine, Serum 1.38 mg/dL (0.70-1.30); EST Glomerular Filtration Rate 55 mL/min (>60); Est Glom Filt Rate - Afr Amer 66 mL/min (>60); Globulin 4.8 g/dL (2.2-4.2); Glucose 103 mg/dL (74-106); Lipase 65 U/L (73-393); Potassium 4.6 mmol/L (3.5-5.1); Protein, Total 7.9 g/dL (6.4-8.2); Sodium Level 130 mmol/L (136-145)
== END ==
PROVIDERS: PCP Family Medicine; Visit Provider Family Medicine
DX: R11.0 Nausea (principal)
CPT/HCPCS: 36415; 80048; 80076; 82150; 83690; 85025

== ENCOUNTER → 2020-09-25 10:43 | Outpatient (CLI) | payer MEDICARE, SELFPAY ==
[2020-05-31 13:59] VITALS: BMI 29.7
--- NOTE | 2020-09-25 10:48 | US_ITS ---
STUDY: ABDOMINAL ULTRASOUND - RIGHT UPPER QUADRANT REASON FOR VISIT: Male, 65 years old. Two-month history of nausea and vomiting. TECHNIQUE: Ultrasound evaluation of the right upper quadrant was performed with real-time and static garcia-scale imaging. TECHNICAL QUALITY: Adequate. COMPARISON: None. FINDINGS: Liver: The liver measures 14.1 cm. There is normal echogenicity of the liver. The bile ducts are within normal limits. There is hepatic color flow. The direction of portal flow is hepatopetal. There is no demonstrated mass lesion. Gallbladder: Normal distended gallbladder. The gallbladder wall measures 2 mm. There is a negative sonographic Wilhelm''s sign. There is no pericholecystic fluid. There are no gallstones. Common Bile Duct (C.B.D.): The common bile duct measures 4 mm. Pancreas: Normal size of the head, body and tail of the pancreas. There is normal echogenicity of the pancreas. There is no demonstrated pancreatic mass or cyst. Right Kidney: Normal size of the right kidney. The right kidney measures 11.4 cm x 5.3 cm x 5 cm. Normal renal cortex. The right cortex measures 1.2 cm. There is no demonstrated renal mass or cyst. There is no right hydronephrosis. US/Abdomen Limited IMPRESSION: Normal right upper quadrant ultrasound examination. Electronically Signed: Oz Kelly MD at 12:26 EDT , Service support ,
== END ==
PROVIDERS: PCP Family Medicine; Referring Provider Family Medicine; Visit Provider Family Medicine
DX: R11.0 Nausea (principal)
CPT/HCPCS: 76705

== ENCOUNTER → 2020-10-02 12:31 | Outpatient (CLI) | payer MEDICARE, SELFPAY ==
--- NOTE | 2020-10-02 12:34 | NM_ITS ---
CLINICAL: 65-year-old male with reported history of chronic nausea. RADIONUCLIDE HEPATOBILIARY SCINTIGRAPHY COMPARISON: Abdominal ultrasound report 09/25/2020 FINDINGS: Following the intravenous administration of approximately 5.0 mCi of 99m Tc Mebrofenin, hepatobiliary images reveal: 1. Relatively prompt and homogeneous radiopharmaceutical concentration is noted by a normal sized liver. No parenchymal defects are identified. 2. Gallbladder activity is identified at 30 minutes post radiopharmaceutical administration. 3. Small intestinal tract is observed at 30 minutes following tracer injection. 4. Washout of the radiopharmaceutical by the hepatic parenchyma appears qualitatively normal. NM/Hepatobilliary Imaging IMPRESSION: 1. NORMAL 99m Tc Mebrofenin hepatobiliary imaging examination. A. Visualization of the gallbladder within 60 minutes post radiopharmaceutical administration excludes acute cholecystitis with 97% certitude. (Riddhi et al, Nucl Med Maureen Gali Press pg. 35, 1980). B. Further evaluation of this individual may be undertaken utilizing CCK augmented hepatobiliary scintigraphy if clinically indicated. (Fouzia Nunez et al, J Nucl Med 32: 1695, 1990). Electronically Signed: Aguila Wei DO at 22:34 EDT Tel , Service support ,
== END ==
PROVIDERS: PCP Family Medicine; Referring Provider Family Medicine; Visit Provider Family Medicine
DX: R11.0 Nausea (principal)
CPT/HCPCS: 78226; A9537

== ENCOUNTER → 2020-10-11 13:52 | Outpatient (CLI) | payer MEDICARE, SELFPAY ==
[2020-10-11 15:34] LABS: Anion Gap 3 (5-15); BUN 12 mg/dL (7-18); Calcium,Total 9.4 mg/dL (8.5-10.1); Chloride 102 mmol/L (98-107); Cholesterol 150 mg/dL (200); EST Glomerular Filtration Rate 64 mL/min (>60); Est Glom Filt Rate - Afr Amer 78 mL/min (>60); Glucose 112 mg/dL (74-106); High Density Lipoprotein 81 mg/dL; Potassium 4.6 mmol/L (3.5-5.1); Sodium Level 135 mmol/L (136-145); Triglycerides 59 mg/dL; Very Low Density Lipoprotein 12 mg/dL (5-40)
[2020-10-12 10:00] LABS: AST(SGOT) 47 U/L (15-37); Alanine Aminotransfer ALT/SGPT 35 U/L (16-61); Albumin, Serum 3.1 g/dL (3.2-5.0); Alkaline Phosphatase 208 U/L (45-117); Bilirubin, Direct 0.12 mg/dL (0.00-0.30); Globulin 4.6 g/dL (2.2-4.2); Protein, Total 7.7 g/dL (6.4-8.2)
== END ==
PROVIDERS: PCP Family Medicine; Referring Provider Family Medicine; Visit Provider Family Medicine
DX: E78.5 Hyperlipidemia, unspecified (principal)
CPT/HCPCS: 36415; 80048; 80061; 80076

== ENCOUNTER 2021-02-02 14:26 | Emergency (ER) | payer MEDICARE, SELFPAY ==
[2021-02-02 14:30] VITALS: BP 147/74; PULSE 80; RESP 17; TEMP 36.3; O2SAT 100; BMI 26.8
--- NOTE | 2021-02-02 14:53 | EKG12_ITS ---
Test Reason : Blood Pressure : / mmHG Vent. Rate : 076 BPM Atrial Rate : 076 BPM P-R Int : 190 ms QRS Dur : 094 ms QT Int : 382 ms P-R-T Axes : 085 083 052 degrees QTc Int : 429 ms Normal sinus rhythm Normal ECG Confirmed by CAROL CUETO, CIERRA ([id number]), medical transcription editor POWER PARSONS ([id number]) on 02/06/2021 8:59:28 AM Referred By: ANOOP Confirmed By:CIERRA MEDINA MD
--- NOTE | 2021-02-02 15:22 | EDS_ITS ---
HPI History of Present Illness Chief Complaint: Chest Pain Informant: patient and spouse/S.O. Onset/Context/Timing Onset: Month(s) (1) Activity at onset: unknown Timing: Continuous Quality: Positive for Aching Location: - (Right mid back) Current Severity: Mild Maximum Severity: Severe Worsened By: Movement of Arm, Movement of Torso and Breathing; Not Worsened By Palpation Relieved By: Narcotics (Takes 10 mg oxycodone 4 times daily for chronic low back pain) Associated Symptoms: Negative for Vomiting, Diaphoresis, Dyspnea, Cough, Fever, Lightheadedness and Palpitations Narrative Narrative: Patient states he has had this pain in his right mid back for 1 month, this is the first time he has had it evaluated, states he is concerned he may have a blood clot in the lung which is why he presents for it. He states initially he thought it was a muscle pain because it has been hurting to move around, but it feels like it is on the inside and he has no reason to have new musculoskeletal pain in this area; no injury, heavy lifting, obvious strain, etc. He denies any chest discomfort. The back pain is worse when he takes a deep breath. No recent cough or fever. No recent leg pain or swelling. History of pulmonary embolism but is no longer on anticoagulants, although it appears she is on clopidogrel. [facility] Medical History Anxiety disorder Carotid stenosis COLD (chronic obstructive lung disease) Depression Gastroesophageal reflux disease Home Medications bupropion HCl 150 mg PO DAILY 04/08/14 [History Last Taken 08/24/18 05:00] hydroxychloroquine 200 mg PO BID 04/08/14 [History Last Taken 07/10/17] lansoprazole 30 mg PO DAILY 04/08/14 [History Last Taken 08/24/18 05:00] oxycodone 10 mg PO 4X/DAY 04/08/14 [History Last Taken 08/24/18 05:00] polyethylene glycol 3350 17 gm PO DAILY 04/08/14 [History Last Taken 07/10/17] tamsulosin 0.4 mg PO DAILY 04/08/14 [History Last Taken 07/10/17] zolpidem 10 mg PO QHS PRN PRN 04/08/14 [History Last Taken 07/09/17] aripiprazole 10 mg PO DAILY 11/08/15 [History Last Taken 08/24/18 05:00] propranolol 20 mg PO BID 07/10/17 [History Last Taken 08/24/18 05:00] rosuvastatin 20 mg tablet 20 mg PO DAILY 08/17/18 [History Last Taken Unknown] aspirin 81 mg PO DAILY@0800 08/20/18 [History Last Taken 08/23/18] clopidogrel 75 mg PO DAILY 08/20/18 [History Last Taken 08/23/18] nortriptyline 25 mg PO QHS 08/20/18 [History Last Taken Unknown] alprazolam 0.5 mg tablet 1 mg PO TID tab 09/17/19 [History Last Taken Unknown] amlodipine 10 mg tablet 10 mg PO ONCE tab 09/17/19 [History Last Taken Unknown] lisinopril 40 mg tablet 40 mg PO DAILY tab 09/17/19 [History Last Taken Unknown] Allergy/AdvReac Type Severity Reaction Status Date / Time fentanyl Allergy Unknown Verified 02/02/21 14:27 Penicillins Allergy Unknown Verified 02/02/21 14:27 cefdinir [From Omnicef] AdvReac Unknown Verified 02/02/21 14:27 cephalexin monohydrate AdvReac Unknown Verified 02/02/21 14:27 [From Keflex] citalopram hydrobromide AdvReac Unknown Verified 02/02/21 14:27 [From Celexa] doxycycline AdvReac Unknown Verified 02/02/21 14:27 duloxetine HCl AdvReac Unknown Verified 02/02/21 14:27 [From Cymbalta] escitalopram oxalate AdvReac Unknown Verified 02/02/21 14:27 [From Lexapro] fluoxetine HCl [From Prozac] AdvReac Unknown Verified 02/02/21 14:27 lithium AdvReac Unknown Verified 02/02/21 14:27 mirtazapine [From Remeron] AdvReac Unknown Verified 02/02/21 14:27 moxifloxacin HCl AdvReac Unknown Verified 02/02/21 14:27 [From Avelox] oxymorphone HCl [From Opana] AdvReac Unknown Verified 02/02/21 14:27 paroxetine HCl [From Paxil] AdvReac Unknown Verified 02/02/21 14:27 prednisolone AdvReac Unknown Verified 02/02/21 14:27 quetiapine fumarate AdvReac Unknown Verified 02/02/21 14:27 [From Seroquel] sertraline HCl [From Zoloft] AdvReac Unknown Verified 02/02/21 14:27 trazodone AdvReac Unknown Verified 02/02/21 14:27 venlafaxine HCl AdvReac Unknown Verified 02/02/21 14:27 [From Effexor] Family History Father Heart disease Myocardial infarction Cancer oral Mother CHF (congestive heart failure) Surgical History History of cataract extraction History of colonoscopy (~2017) History of left-sided carotid endarterectomy (~07/2018) History of lumbar laminectomy History of neck surgery History of umbilical hernia repair Social History Smoking Status: Former smoker ROS ROS ED Constitutional Constitutional ED: Denies chills or fever(s) Eyes Eyes: Denies change in vision or diplopia ENT ENT ED: Denies rhinorrhea or sore throat Cardiovascular Cardiovascular: Denies chest pain or palpitations Respiratory/Chest Respiratory/Chest: Reports other Details: Pleuritic right mid back pain but no chest discomfort or dyspnea ; Denies cough or dyspnea Gastrointestinal Gastrointestinal: Denies abdominal pain, diarrhea, nausea or vomiting Genitourinary Genitourinary ED: Denies dysuria or hematuria Musculoskeletal Musculoskeletal: Reports back pain; Denies neck pain Integumentary Denies abscess or rash Neurologic Neurologic: Denies headache(s), paresthesias or weakness Psychiatric Psychiatric: Denies depression or suicidal thoughts EXAM Physical Exam Const Vital Signs: 02/02/21 14:30 02/02/21 14:44 02/02/21 17:19 Temperature 97.3 F L Temperature Source Temporal Pulse Rate 80 76 Respiratory Rate 17 12 Respiratory Effort Normal Blood Pressure 147/74 H 134/77 H Blood Pressure Mean 98 96 Pulse Ox 100 99 Oxygen Delivery Method Room Air Room Air Positive well nourished and well developed General Appearance ED: well developed and NAD HEENT Reports moist mucous membranes normocephalic and atraumatic Eyes PERRL and EOMs intact bilaterally Neck full ROM and supple Resp normal respiratory effort and clear to auscultation bilaterally Cardio regular rate, regular rhythm and no murmurs Rate: Negative for tachycardic GI non-tender and non-distended Auscultation: normoactive bowel sounds Palpation: soft Back/Spine no CVA tenderness General Back: other FROM Extremity normal to inspection and no calf tenderness General Extremety ED: Negative for edema, pulses abnormal or tenderness General Extremity: Negative for edema or pulses abnormal Neuro oriented x3, CN's II-XII intact bilaterally and no sensory deficits noted Sensorium / Orientation: awake and alert Motor Exam: strength 5/5 throughout Skin no rashes or lesions noted and no wounds MDM MDM MDM Narrative Medical decision making narrative: Chest x-ray and EKG are both normal. Given that the patient's vital signs and appearance is unremarkable/normal, D-dimer was obtained that is significantly elevated 2.52. Therefore CT angiography of the chest is obtained and as below, negative for pulmonary embolus or other acute findings. Given his history I am more suspicious now that this is musculoskeletal in etiology. He has been treating his pain successfully when he takes his oxycodone, but since it has been persistent I recommend outpatient follow-up. Lab Data Attestation: I reviewed the patient's lab results. Labs: Laboratory Results - last 24 hr 02/02/21 02/02/21 02/02/21 14:40 14:40 15:30 WBC 6.8 RBC 4.16 L Hgb 13.0 Hct 39.6 L MCV 95.2 H MCH 31.3 MCHC 32.8 RDW Std Deviation 45.2 H RDW Coeff of Scot 12.9 Plt Count 267 MPV 9.9 Immature Gran % (Auto) 0.300 Neut % (Auto) 59.7 Lymph % (Auto) 30.2 Ralls % (Auto) 7.0 Eos % (Auto) 2.5 Baso % (Auto) 0.3 Absolute Neuts (auto) 4.0 Absolute Lymphs (auto) 2.04 Nucleated RBC % 0 D-Dimer Quant (PE/DVT) 2.52 H* Sodium 135 L Potassium 4.4 Chloride 100 Carbon Dioxide 31.0 Anion Gap 4 L BUN 17 Creatinine 1.30 Estim Creat Clear Calc 58.49 Est GFR (MDRD) Af Amer 71 Est GFR (MDRD) Non-Af 59 L BUN/Creatinine Ratio 13.1 Glucose 94 Calcium 9.2 Troponin I High Sens 6.9 Radiography Chest X-Ray - ED: 1 View, Read by ED Physician and No Acute Disease Diagnostic Testing: Radiology Impression Chest X-Ray 02/02/21 15:35 IMPRESSION: No definite acute or significant abnormality seen. Electronically Signed: Mg Headley MD at 16:05 EDT , Service support , Chest CTA 02/02/21 16:37 IMPRESSION: Normal CTA chest examination, without a demonstrated pulmonary embolism or arterial dissection. There are findings consistent with COPD. There is no evidence of acute chest disease. Electronically Signed: Mg Headley MD at 17:36 EDT , Service support , EKG Initial EKG: Attestation: I personally reviewed and interpreted this EKG as follows: Interpretation: Sinus Rhythm (76) and No Acute Injury Pattern Comments: Normal EKG Discharge Plan Triage Chief Complaint: Chest Pain ED Provider: Robb Durand Dx/Rx/DC Orders Clinical Impression: Right-sided thoracic back pain Instructions: ED Back Pain (Acute or Chronic) Prescriptions: No Action amlodipine 10 mg tablet 10 mg PO ONCE RF: 0 lisinopril 40 mg tablet 40 mg PO DAILY RF: 0 polyethylene glycol 3350 17 GM packet 17 gm PO DAILY RF: 0 tamsulosin 0.4 MG capsule 0.4 mg PO DAILY RF: 0 lansoprazole 30 MG capsule 30 mg PO DAILY RF: 0 hydroxychloroquine 200 MG tablet 200 mg PO BID RF: 0 oxycodone 5 MG tablet 10 mg PO 4X/DAY RF: 0 zolpidem 12.5 MG tablet,ext release multiphase 10 mg PO QHS PRN PRN (Reason: Insomnia) RF: 0 bupropion HCl 150 MG tablet extended release 24 hr 150 mg PO DAILY RF: 0 alprazolam 0.5 mg tablet 1 mg PO TID RF: 0 aripiprazole 2 MG tablet 10 mg PO DAILY RF: 0 propranolol 20 MG tablet 20 mg PO BID RF: 0 clopidogrel 75 MG tablet 75 mg PO DAILY RF: 0 aspirin 81 MG tablet 81 mg PO DAILY@0800 RF: 0 nortriptyline 25 MG capsule 25 mg PO QHS RF: 0 rosuvastatin [Crestor] 20 mg tablet 20 mg PO DAILY RF: 0 Primary Care Provider: Sherman Cardona Referrals: Sherman Cardona MD [Primary Care Provider] - (Call for appointment to follow-up after the weekend) Disposition Disposition: Home, Self Care
--- NOTE | 2021-02-02 15:35 | RAD_ITS ---
STUDY: X-RAY CHEST REASON FOR EXAM: Male, 65 years old. pleuritic right back pain TECHNIQUE: Single AP portable view of the chest. COMPARISON: 03/04/2016 FINDINGS: The lungs are clear and expanded. There is no demonstrated pleural abnormality. Normal size heart. Normal mediastinum and rosalia. Normal visualized pulmonary arteries. Normal visualized aortic arch and descending thoracic aorta. There are diffuse degenerative changes of the visualized thoracic spine. Normal visualized ribs, clavicles, and shoulders. There is no demonstrated abnormality of the visualized soft tissue structures of the upper abdomen. RAD/Chest 1 View (Portable) IMPRESSION: No definite acute or significant abnormality seen. Electronically Signed: Mg Headley MD at 16:05 EDT , Service support ,
[2021-02-02 15:49] LABS: Absolute Lymphocyte Count 2.04 X10^3/uL (0.83-4.51); Basophil# 0.02 X10^3/uL; Basophil% 0.3 % (0-1); Eosinophil# 0.17 X10^3/uL; Eosinophils% 2.5 % (0-5); Hematocrit 39.6 % (40-54); Lymphocyte # 2.04 X10^3/ul (0.83-4.51); Lymphocyte % 30.2 % (19-41); Mean Corp Hgb Conc 32.8 g/dL (32-36); Mean Corpuscular Hgb 31.3 pg (27.0-32.0); Mean Corpuscular Volume 95.2 fL (80-94); Mean Platelet Vol. 9.9 fl (6.2-12.0); Monocyte# 0.47 X10^3/uL; NRBC Flagged by Analyzer 0 % (0-5); Neutrophil # 4.03 X10^3/uL (2.7-7.7); Neutrophil % 59.7 % (47-70); Platelet Count 267 K/mm3 (150-450); RBC Distribution Width CV 12.9 % (11.6-14.6); RBC Distribution Width SD 45.2 fl (35.1-43.9); Red Blood Count 4.16 M/mm3 (4.6-6.2); White Blood Count 6.8 K/mm3 (4.4-11.0)
[2021-02-02 16:00] LABS: Anion Gap 4 (5-15); BUN 17 mg/dL (7-18); BUN/Creat Ratio 13.1 RATIO (10-20); Calcium,Total 9.2 mg/dL (8.5-10.1); Chloride 100 mmol/L (98-107); EST Glomerular Filtration Rate 59 mL/min (>60); Est Glom Filt Rate - Afr Amer 71 mL/min (>60); Estimated Creatinine Clearance 58.49 ml/min; Glucose 94 mg/dL (74-106); Potassium 4.4 mmol/L (3.5-5.1); Sodium Level 135 mmol/L (136-145); Troponin-I HS 6.9 pg/mL (3.0-78.5)
[2021-02-02 16:37] LABS: D-Dimer Quantitative (DVT/PE) 2.52 FEU/ug/m (0.27-0.49)
--- NOTE | 2021-02-02 16:37 | CT_ITS ---
STUDY: CTA CHEST REASON FOR EXAM: Male, 65 years old. right mid-back pain, hx PE, elevated d-dimer RADIATION DOSAGE (If Supplied By Facility): CTDIvol = ( 10.37 ) mGy, DLP = ( 388.61 ) mGycm TECHNIQUE: The examination was performed with the intravenous administration of IV 100mL Isovue-370. Post-processing of the angiographic images was performed, with multiplanar reformation and 3D reconstruction. Individualized dose optimization techniques were used for this CT. COMPARISON: None. FINDINGS: Normal enhancement of the main pulmonary artery and right and left pulmonary arteries. Normal enhancement of the bilateral peripheral pulmonary arteries. There is no demonstrated pulmonary embolism. Normal thoracic aorta and visualized great vessels. There is no demonstrated aortic dissection. Normal heart and pericardium. Normal mediastinum. Normal hilar regions. Normal visualized trachea and bronchi. The lungs are hyper expanded, with flattening of the hemidiaphragms. No infiltrates. No effusions. Normal pulmonary parenchyma. Normal pleura. Normal chest wall structures. Normal osseous structures. Normal visualized upper abdomen. CT/CTA Chest W/WO Contrast IMPRESSION: Normal CTA chest examination, without a demonstrated pulmonary embolism or arterial dissection. There are findings consistent with COPD. There is no evidence of acute chest disease. Electronically Signed: Mg Headley MD at 17:36 EDT , Service support ,
[2021-02-02 17:19] VITALS: BP 134/77; PULSE 76; RESP 12; O2SAT 99
[2021-02-02 17:47] VITALS: BP 128/70; PULSE 72; RESP 16; O2SAT 98
== END 2021-02-02 17:48 | disposition home or self-care (01) ==
PROVIDERS: Emergency Provider Emergency Medicine; PCP Family Medicine
DX: M54.6 Pain in thoracic spine (principal); Z86.711 Personal history of pulmonary embolism; F41.9 Anxiety disorder, unspecified; F32.9 Major depressive disorder, single episode, unspecified; K21.9 Gastro-esophageal reflux disease without esophagitis; J44.9 Chronic obstructive pulmonary disease, unspecified; Z79.899 Other long term (current) drug therapy; Z87.891 Personal history of nicotine dependence
CPT/HCPCS: 71045; 71275; 80048; 84484; 85025; 85379; 93005; 96360; 99284; J7030; Q9967; A4216

== ENCOUNTER → 2021-03-21 13:37 | Outpatient (CLI) | payer MEDICARE, SELFPAY ==
--- NOTE | 2021-03-21 13:39 | CDU_ITS ---
Reason For Study: STENOSIS Rt. Velocities/BP Lt. Velocities/BP Prox CCA 54.4/9.1 cm/sec. Prox CCA 99.8/32.3 cm/sec. Mid CCA 68.6/15.7 cm/sec. Mid CCA 99.8/32.3 cm/sec. Dist CCA 56.3/7.2 cm/sec. Dist CCA 137.5/35.3 cm/sec. ICA IS OCCLUDED (KNOWN). Prox ICA 109.4/34.5 cm/sec. Prox ECA 406.8/29.0 cm/sec. Mid ICA 138.6/41.8 cm/sec. Rt. Vert. 40.9/10.4 cm/sec. Dist ICA 125.8/36.3 cm/sec. Lt. ICA/CCA = 125.8/99.8=1.3. Prox ECA 99.0/13.0 cm/sec. Lt. Vert. 71.0/17.1 cm/sec. Right Extracranial There is homogeneous, smooth atherosclerotic plaque noted in the right common carotid artery. The right internal carotid artery is occluded. There is heterogeneous, irregular atherosclerotic plaque noted in the right external carotid artery. Antegrade flow is noted in the right vertebral artery. There is heterogeneous, irregular atherosclerotic plaque noted in the right bulb. Left Extracranial There is heterogeneous, irregular atherosclerotic plaque noted in the left common carotid artery. There is homogeneous, smooth atherosclerotic plaque noted in the left internal carotid artery. There is homogeneous, smooth atherosclerotic plaque noted in the left external carotid artery. The left external carotid artery is not well visualized. Antegrade flow is noted in the left vertebral artery. Procedure Carotid Duplex [id number]. This is a Carotid Duplex examination using B-mode, color flow and specral Doppler. The study was technically difficult. Due to deep respirations from back pain. Exam performed in department. VL/Carotid Duplex Ultrasound Interpretation Summary Known occlusion right internal carotid artery Greater than 50% stenosis right external carotid artery Calcific plaque left proximal and mid common carotid arteries Widely patent postoperative changes of the left carotid bulb and proximal inter nal carotid artery 50 to 69% stenosis based upon velocity left internal carotid artery however thi s may simply be a flow velocity changed based upon the patch angioplasty of the carotid bulb. Less than 50% stenosis left external carotid artery Patent antegrade vertebrals bilaterally No change from the previous study of August 30, 2019 The examination was noted to be technically difficult Ordering Physician: Gabriel Irving Referring Physician: Sherman Cardona Performed By: Paulina Damico, LIZETTE, RVT
== END ==
PROVIDERS: PCP Family Medicine; Referring Provider Surgery; Visit Provider Surgery
DX: I65.23 Occlusion and stenosis of bilateral carotid arteries (principal)
CPT/HCPCS: 93880

== ENCOUNTER → 2021-04-11 14:14 | Outpatient (CLI) | payer MEDICARE, SELFPAY ==
[2021-04-11 18:00] LABS: ALB/GLOB Ratio 0.5 RATIO (0.9-2.4); AST(SGOT) 49 U/L (15-37); Alanine Aminotransfer ALT/SGPT 35 U/L (16-61); Albumin, Serum 2.9 g/dL (3.2-5.0); Alkaline Phosphatase 216 U/L (45-117); Anion Gap 6 (5-15); BUN 14 mg/dL (7-18); BUN/Creat Ratio 11.5 RATIO (10-20); Chloride 101 mmol/L (98-107); Cholesterol 162 mg/dL (200); Creatinine, Serum 1.22 mg/dL (0.70-1.30); EST Glomerular Filtration Rate 63 mL/min (>60); Est Glom Filt Rate - Afr Amer 76 mL/min (>60); Globulin 5.4 g/dL (2.2-4.2); Glucose 87 mg/dL (74-106); High Density Lipoprotein 93 mg/dL; Potassium 4.5 mmol/L (3.5-5.1); Protein, Total 8.3 g/dL (6.4-8.2); Sodium Level 137 mmol/L (136-145); Triglycerides 53 mg/dL; Very Low Density Lipoprotein 11 mg/dL (5-40)
== END ==
LOC: MFPLAB 14:16
PROVIDERS: PCP Family Medicine; Referring Provider Family Medicine; Visit Provider Family Medicine
DX: E78.5 Hyperlipidemia, unspecified (principal)
CPT/HCPCS: 36415; 80053; 80061

== ENCOUNTER 2021-07-18 14:08 | Outpatient (CLI) | payer MEDICARE, SELFPAY ==
[2021-07-18 18:24] LABS: ALB/GLOB Ratio 0.6 RATIO (0.9-2.4); AST(SGOT) 46 U/L (15-37); Alanine Aminotransfer ALT/SGPT 31 U/L (16-61); Albumin, Serum 2.9 g/dL (3.2-5.0); Alkaline Phosphatase 221 U/L (45-117); Anion Gap 4 (5-15); BUN 15 mg/dL (7-18); Calcium,Total 9.1 mg/dL (8.5-10.1); Chloride 106 mmol/L (98-107); Creatinine, Serum 1.07 mg/dL (0.70-1.30); EST Glomerular Filtration Rate 73 mL/min (>60); Est Glom Filt Rate - Afr Amer 89 mL/min (>60); Globulin 4.9 g/dL (2.2-4.2); Glucose 94 mg/dL (74-106); Potassium 4.5 mmol/L (3.5-5.1); Protein, Total 7.8 g/dL (6.4-8.2); Sodium Level 139 mmol/L (136-145)
== END 2021-07-18 23:59 | disposition short-term general hospital (02) ==
LOC: MFPLAB 14:11
PROVIDERS: PCP Family Medicine; Referring Provider Family Medicine; Visit Provider Family Medicine
DX: I10 Essential (primary) hypertension (principal)
CPT/HCPCS: 36415; 80053

== ENCOUNTER 2021-10-09 13:40 | Outpatient (CLI) | payer MEDICARE, SELFPAY ==
[2021-10-09 15:20] LABS: Absolute Lymphocyte Count 1.41 X10^3/uL (0.83-4.51); Absolute Neutrophil Count 2.8 X10^3/uL (2.0-7.7); Basophil# 0.01 X10^3/uL; Basophil% 0.2 % (0-1); Eosinophil# 0.14 X10^3/uL; Hematocrit 33.9 % (40-54); Hemoglobin 11.2 g/dL (13.0-16.5); Lymphocyte # 1.41 X10^3/ul (0.83-4.51); Lymphocyte % 29.7 % (19-41); Mean Corpuscular Hgb 28.4 pg (27.0-32.0); Mean Corpuscular Volume 85.8 fL (80-94); Mean Platelet Vol. 10.2 fl (6.2-12.0); Monocyte# 0.34 X10^3/uL; Monocyte% 7.2 % (0-10); NRBC Flagged by Analyzer 0 % (0-5); Neutrophil # 2.83 X10^3/uL (2.7-7.7); Neutrophil % 59.7 % (47-70); Platelet Count 271 K/mm3 (150-450); RBC Distribution Width CV 14.5 % (11.6-14.6); RBC Distribution Width SD 46.1 fl (35.1-43.9); Red Blood Count 3.95 M/mm3 (4.6-6.2); White Blood Count 4.7 K/mm3 (4.4-11.0)
[2021-10-09 15:28] LABS: Erythrocyte Sedimentation Rate 44 mm/hr (0-20)
[2021-10-09 15:52] LABS: Vitamin B12 364 pg/mL (211-911); Vitamin D,25 Hydroxy 16.6 ng/mL
[2021-10-09 15:57] LABS: ALB/GLOB Ratio 0.7 RATIO (0.9-2.4); AST(SGOT) 55 U/L (15-37); Alanine Aminotransfer ALT/SGPT 38 U/L (16-61); Albumin, Serum 3.1 g/dL (3.2-5.0); Alkaline Phosphatase 173 U/L (45-117); Anion Gap 6 (5-15); BUN 17 mg/dL (7-18); BUN/Creat Ratio 15.5 RATIO (10-20); Calcium,Total 8.5 mg/dL (8.5-10.1); Chloride 102 mmol/L (98-107); EST Glomerular Filtration Rate 71 mL/min (>60); Est Glom Filt Rate - Afr Amer 86 mL/min (>60); Globulin 4.5 g/dL (2.2-4.2); Glucose 117 mg/dL (74-106); Potassium 4.2 mmol/L (3.5-5.1); Protein, Total 7.6 g/dL (6.4-8.2); Sodium Level 135 mmol/L (136-145); T4 Free Direct 1.39 ng/dL (0.76-1.46); Thyroid Stim Hormone (TSH) 1.43 uIU/mL (0.358-3.74)
== END 2021-10-09 23:59 | disposition home or self-care (01) ==
LOC: MFPLAB 13:41
PROVIDERS: PCP Family Medicine; Referring Provider Family Medicine; Visit Provider Family Medicine
DX: R53.83 Other fatigue (principal); M06.4 Inflammatory polyarthropathy
CPT/HCPCS: 36415; 80053; 82306; 82607; 84439; 84443; 85025; 85652

== ENCOUNTER → 2022-07-17 | Outpatient (CLI) | payer MEDICARE, SELFPAY ==
[2022-07-17 15:30] LABS: Absolute Lymphocyte Count 2.09 X10^3/uL (0.83-4.51); Absolute Neutrophil Count 3.1 X10^3/uL (2.0-7.7); Basophil# 0.01 X10^3/uL; Basophil% 0.2 % (0-1); Eosinophil# 0.14 X10^3/uL; Eosinophils% 2.4 % (0-5); Hemoglobin 9.9 g/dL (13.0-16.5); Lymphocyte # 2.09 X10^3/ul (0.83-4.51); Lymphocyte % 36.3 % (19-41); Mean Corp Hgb Conc 30.9 g/dL (32-36); Mean Corpuscular Hgb 26.2 pg (27.0-32.0); Mean Corpuscular Volume 84.7 fL (80-94); Mean Platelet Vol. 10.1 fl (6.2-12.0); Monocyte# 0.41 X10^3/uL; Monocyte% 7.1 % (0-10); NRBC Flagged by Analyzer 0 % (0-5); Neutrophil # 3.09 X10^3/uL (2.7-7.7); Neutrophil % 53.8 % (47-70); Platelet Count 269 K/mm3 (150-450); RBC Distribution Width CV 15.6 % (11.6-14.6); RBC Distribution Width SD 47.3 fl (35.1-43.9); Red Blood Count 3.78 M/mm3 (4.6-6.2); White Blood Count 5.8 K/mm3 (4.4-11.0)
[2022-07-17 16:16] LABS: Anion Gap 6 (5-15); BUN 15 mg/dL (7-18); BUN/Creat Ratio 12.5 RATIO (10-20); Calcium,Total 8.8 mg/dL (8.5-10.1); Chloride 103 mmol/L (98-107); Cholesterol 137 mg/dL (200); EST Glomerular Filtration Rate 64 mL/min (>60); Est Glom Filt Rate - Afr Amer 78 mL/min (>60); Glucose 105 mg/dL (74-106); High Density Lipoprotein 77 mg/dL; Potassium 4.4 mmol/L (3.5-5.1); Sodium Level 139 mmol/L (136-145); Triglycerides 52 mg/dL; Very Low Density Lipoprotein 10 mg/dL (5-40)
== END | disposition home or self-care (01) ==
LOC: MFPLAB 13:55
PROVIDERS: PCP Family Medicine; Visit Provider Family Medicine
DX: I10 Essential (primary) hypertension (principal); R11.0 Nausea
CPT/HCPCS: 36415; 80048; 80061; 85025

== ENCOUNTER 2022-08-18 07:19 | Emergency (ER) | payer MEDICARE, SELFPAY ==
[2022-08-18 07:21] VITALS: BP 162/73; PULSE 73; RESP 14; TEMP 36.1; O2SAT 98; BMI 27.9
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
[2022-08-18] MEDS: HYDROmorphone 1 MG/ML Syringe IM (08:01)
[2022-08-18] MEDS: Ondansetron 4 MG/2 ML Vial IM (08:01)
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
[2022-08-18 09:40] VITALS: BP 140/79; RESP 16; O2SAT 98
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
== END 2022-08-18 10:09 | disposition home or self-care (01) ==
PROVIDERS: Emergency Provider Emergency Medicine; PCP Family Medicine; Visit Provider Emergency Medicine
DX: S09.90XA Unspecified injury of head, initial encounter (principal); J44.9 Chronic obstructive pulmonary disease, unspecified; Z87.891 Personal history of nicotine dependence; S39.012A Strain of muscle, fascia and tendon of lower back, initial encounter; G89.29 Other chronic pain; V03.00XA Pedestrian on foot injured in collision with car, pick-up truck or van in nontraffic accident, initial encounter; Y92.481 Parking lot as the place of occurrence of the external cause
CPT/HCPCS: 70450; 71045; 72100; 96372; 99282; J2405

== ENCOUNTER → 2022-10-21 | Outpatient (CLI) | payer MEDICARE, SELFPAY ==
[2022-10-21 15:13] LABS: Hematocrit 30.8 % (40-54); Hemoglobin 9.6 g/dL (13.0-16.5); Mean Corp Hgb Conc 31.2 g/dL (32-36); Mean Corpuscular Hgb 25.2 pg (27.0-32.0); Mean Corpuscular Volume 80.8 fL (80-94); Mean Platelet Vol. 10.7 fl (6.2-12.0); Platelet Count 268 K/mm3 (150-450); RBC Distribution Width CV 17.8 % (11.6-14.6); RBC Distribution Width SD 52.3 fl (35.1-43.9); Red Blood Count 3.81 M/mm3 (4.6-6.2); White Blood Count 5.7 K/mm3 (4.4-11.0)
[2022-10-21 15:37] LABS: ALB/GLOB Ratio 0.7 RATIO (0.9-2.4); AST(SGOT) 63 U/L (15-37); Alanine Aminotransfer ALT/SGPT 50 U/L (16-61); Albumin, Serum 3.2 g/dL (3.2-5.0); Alkaline Phosphatase 168 U/L (45-117); Anion Gap 3 (5-15); BUN 23 mg/dL (7-18); BUN/Creat Ratio 18.5 RATIO (10-20); Chloride 106 mmol/L (98-107); Creatinine, Serum 1.24 mg/dL (0.70-1.30); EST Glomerular Filtration Rate 62 mL/min (>60); Est Glom Filt Rate - Afr Amer 75 mL/min (>60); Globulin 4.4 g/dL (2.2-4.2); Glucose 118 mg/dL (74-106); Potassium 4.4 mmol/L (3.5-5.1); Protein, Total 7.6 g/dL (6.4-8.2); Sodium Level 135 mmol/L (136-145); Thyroid Stim Hormone (TSH) 1.85 uIU/mL (0.358-3.74)
== END | disposition home or self-care (01) ==
LOC: MTLAB 11:57
PROVIDERS: PCP Family Medicine; Referring Provider Family Medicine; Visit Provider Family Medicine
DX: R53.83 Other fatigue (principal)
CPT/HCPCS: 36415; 80053; 84443; 85027

== ENCOUNTER 2022-10-25 10:50 | Observation (INO) | payer MEDICARE, SELFPAY ==
[2022-10-25] VITALS (14 sets, daily range): BP systolic 129–154; BP diastolic 49–77; PULSE 66–81; RESP 10–18; TEMP 36.2–36.7; O2SAT 98–100; BMI 26.6; BMI 26.5; BMI 25.5
--- NOTE | 2022-10-25 10:57 | EKG12_ITS ---
Test Reason : STROKE TEAM Blood Pressure : / mmHG Vent. Rate : 070 BPM Atrial Rate : 070 BPM P-R Int : 190 ms QRS Dur : 098 ms QT Int : 406 ms P-R-T Axes : 084 085 061 degrees QTc Int : 438 ms Sinus rhythm with occasional Premature ventricular complexes Otherwise normal ECG Confirmed by SEAN CUETO, MELITA ([id number]), editor & co founder [employer] ([id number]) on 10/28/2022 11:28:31 AM Referred By: MAGGI Confirmed By:CUCO ESTRADA MD
--- NOTE | 2022-10-25 10:57 | CT_ITS ---
STUDY: CT HEAD STROKE PROTOCOL W/O CONTRAST INJECTION REASON FOR EXAM: Male, 67 years old. Neuro deficit, acute, stroke suspected RADIATION DOSAGE (If Supplied By Facility): CTDIvol = ( 44.99 ) mGy, DLP = ( 863.6 ) mGycm TECHNIQUE: Transaxial CT imaging of the brain was performed without administration of intravenous contrast material. Individualized dose optimization techniques were used for this CT. COMPARISON: Comparison is made with prior study dated August 18, 2022. FINDINGS: Normal soft tissue structures. Normal calvarium. There is mild cerebral atrophy with widening of the extra-axial spaces and ventricular dilatation. Normal white matter tracts of the cerebral hemispheres. Normal basal ganglia and thalami. Normal brainstem. Normal cerebellum. There is no intracranial hemorrhage. There are no findings of an acute ischemic infarction. Atherosclerotic calcific plaques in the cavernous portions of the internal carotid arteries bilaterally. Normal visualized paranasal sinuses. ASPECT score: 10 CT/STROKE Brain/Head without Cont IMPRESSION: Chronic involutional changes of the brain. N.B. : The above Results were Read Back by Oz Kelly MD to Dr Dionte MD, and understanding confirmed on 10/25/2022 11:14:03 (ET). Electronically Signed: Oz Kelly MD at 11:15 EDT ,
--- NOTE | 2022-10-25 11:00 | ED.VIS.STROK ---
HPI History of Present Illness Chief Complaint: Stroke Alert Detail of Chief Complaint: With speech and facial asymmetry Informant: patient and spouse/S.O. Onset/Context/Timing Onset: - (Last known well 2030 last p.m.) Context: - (Unknown) Timing: - (Unknown) Quality and Location: Positive for Left Facial Droop Onset: October 23 at 2030. Current Severity: Mild Maximum Severity: Mild Worsened by: Nothing Relieved by: Nothing Associated Symptoms Associated Symptoms: Negative for Headache, Nausea, Vomiting or Chest Pain Narrative Narrative: Patient is a 67-year-old male with history of psychiatric disorder, COPD, GERD and pulmonary embolus who presents with facial droop, trouble with speech. He is not a good informant. He has slow psychomotor skills. There is been no change in his medication. Patient denies headache, visual, ocular auditory symptoms. Patient denies problems with coordination or balance. Patient denies cardiac or respiratory symptoms. Review of prior records indicates he has a history of pulmonary embolus June 2017. Prior similar symptoms: No Recent Illness/Hospitalization: No PFSH [facility], [facility] Medical History Anxiety disorder Carotid stenosis COLD (chronic obstructive lung disease) Depression Gastroesophageal reflux disease Home Medications bupropion HCl 150 mg 24 hr tablet, extended release 150 mg PO DAILY depression 04/08/14 [History Last Taken 08/24/18 05:00] hydroxychloroquine 200 mg tablet 200 mg PO BID ARTHRITIS 04/08/14 [History Last Taken 07/10/17] lansoprazole 30 mg capsule,delayed release 30 mg PO DAILY gerd/acid reflux 04/08/14 [History Last Taken 08/24/18 05:00] oxycodone 5 mg tablet 10 mg PO 4X/DAY pain 04/08/14 [History Last Taken 08/24/18 05:00] polyethylene glycol 3350 17 gram oral powder packet 17 g PO DAILY laxative 04/08/14 [History Last Taken 07/10/17] tamsulosin 0.4 mg capsule 0.4 mg PO DAILY prostate 04/08/14 [History Last Taken 07/10/17] zolpidem 12.5 mg tablet,extended release,multiphase 10 mg PO QHS PRN PRN Insomnia 04/08/14 [History Last Taken 01/10/18] aripiprazole 2 mg tablet 10 mg PO DAILY depression 11/08/15 [History Last Taken 08/24/18 05:00] propranolol 20 mg tablet 20 mg PO BID blood pressure 07/10/17 [History Last Taken 08/24/18 05:00] rosuvastatin 20 mg tablet (Crestor) 20 mg PO DAILY CHOLESTEROL 08/17/18 [History Last Taken Unknown] aspirin 81 mg tablet,delayed release 81 mg PO DAILY@0800 BLOOD THINNER 08/20/18 [History Last Taken 08/23/18] clopidogrel 75 mg tablet 75 mg PO DAILY BLOOD THINNER 08/20/18 [History Last Taken 08/23/18] nortriptyline 25 mg capsule 25 mg PO QHS SLEEP 08/20/18 [History Last Taken Unknown] alprazolam 0.5 mg tablet 1 mg PO TID anxiety 09/17/19 [History Last Taken Unknown] amlodipine 10 mg tablet 10 mg PO ONCE 09/17/19 [History Last Taken Unknown] lisinopril 40 mg tablet 40 mg PO DAILY 09/17/19 [History Last Taken Unknown] clonidine HCl 0.1 mg tablet 0.1 mg PO QHS 03/27/21 [History Last Taken Unknown] cyclobenzaprine 10 mg tablet 10 mg PO TID PRN Muscle Spasm #20 TABLETS 08/18/22 [Rx Last Taken Unknown] Allergy/AdvReac Type Severity Reaction Status Date / Time fentanyl Allergy Unknown Verified 08/18/22 07:20 Penicillins Allergy Unknown Verified 08/18/22 07:20 cefdinir [From Omnicef] AdvReac Unknown Verified 08/18/22 07:20 cephalexin monohydrate AdvReac Unknown Verified 08/18/22 07:20 [From Keflex] citalopram hydrobromide AdvReac Unknown Verified 08/18/22 07:20 [From Celexa] doxycycline AdvReac Unknown Verified 08/18/22 07:20 duloxetine HCl AdvReac Unknown Verified 08/18/22 07:20 [From Cymbalta] escitalopram oxalate AdvReac Unknown Verified 08/18/22 07:20 [From Lexapro] fluoxetine HCl [From Prozac] AdvReac Unknown Verified 08/18/22 07:20 lithium AdvReac Unknown Verified 08/18/22 07:20 mirtazapine [From Remeron] AdvReac Unknown Verified 08/18/22 07:20 moxifloxacin HCl AdvReac Unknown Verified 08/18/22 07:20 [From Avelox] oxymorphone HCl [From Opana] AdvReac Unknown Verified 08/18/22 07:20 paroxetine HCl [From Paxil] AdvReac Unknown Verified 08/18/22 07:20 prednisolone AdvReac Unknown Verified 08/18/22 07:20 quetiapine fumarate AdvReac Unknown Verified 08/18/22 07:20 [From Seroquel] sertraline HCl [From Zoloft] AdvReac Unknown Verified 08/18/22 07:20 trazodone AdvReac Unknown Verified 08/18/22 07:20 venlafaxine HCl AdvReac Unknown Verified 08/18/22 07:20 [From Effexor] Family History Father Heart disease Myocardial infarction Cancer oral Mother CHF (congestive heart failure) Surgical History History of cataract extraction History of colonoscopy (~2017) History of left-sided carotid endarterectomy (~07/2018) History of lumbar laminectomy History of neck surgery History of umbilical hernia repair Social History (Updated 10/25/22 @ 11:[address] Dmitri Rapp MD) household members: spouse Smoking Status: Former smoker substance use type: does not use ROS ROS ED Constitutional Constitutional ED: Denies chills, fever(s), subjective, sweats or weakness Eyes Eyes: Denies blurry vision, change in vision or diplopia ENT ENT ED: Denies ear pain, rhinorrhea or sore throat Cardiovascular Cardiovascular: Denies chest pain, palpitations, paroxysmal nocturnal dyspnea or racing heartbeat Respiratory/Chest Respiratory/Chest: Denies cough, dyspnea, dyspnea on exertion or paroxysmal nocturnal dyspnea Gastrointestinal Gastrointestinal: Denies abdominal pain, constipation, melena, nausea or vomiting Genitourinary Genitourinary ED: Denies dysuria, hematuria or other Musculoskeletal Musculoskeletal: Denies arthralgias, back pain, myalgias or neck pain Integumentary Denies rash Neurologic Neurologic: Reports paresthesias and weakness; Denies headache(s) Psychiatric Psychiatric: Reports depression Endocrine Endocrinology: Denies polydipsia, polyphagia or polyuria Hematologic/Lymphatic Hematologic/Lymphatic: Denies easy bleeding or easy bruising EXAM Physical Exam Const Vital Signs: 10/25/22 10:57 10/25/22 11:12 10/25/22 10:57 Temperature 97.6 F L Temperature Source Temporal Pulse Rate 78 72 Respiratory Rate 18 14 Blood Pressure 147/67 H 154/60 H Blood Pressure Mean 93 91 Pulse Ox 100 99 Oxygen Delivery Method Room Air Room Air Room Air 10/25/22 11:18 10/25/22 11:09 10/25/22 11:27 Temperature 97.6 F L Temperature Source Temporal Pulse Rate 78 74 Respiratory Rate 18 11 L Blood Pressure 147/67 H 154/60 H 154/68 H Blood Pressure Mean 93 91 96 Pulse Ox 100 100 Oxygen Delivery Method Room Air Room Air Positive well nourished, well developed and unkempt General Appearance ED: unkempt, well developed and NAD HEENT Reports dry mucous membranes atraumatic Mouth ED: Yes dry mucous membranes Mouth: dry mucous membranes Eyes PERRL and EOMs intact bilaterally Eyes Narrative: There is no nystagmus. General Eye ED: Negative for pale conjunctiva or scleral icterus Neck no lymphadenopathy, supple and no JVD Chest Wall inspection of chest normal and palpation of chest normal Resp normal respiratory effort and clear to auscultation bilaterally Cardio no murmurs Rate: regular rate Rhythm: regular rhythm Heart Sounds: S1 normal and S2 normal GI normal to inspection, nondistended, normoactive bowel sounds, soft to palpation, non-tender, non-distended and no masses Back/Spine no CVA tenderness Extremity normal to inspection General Extremety ED: Negative for deformity, edema or tenderness General Extremity: Negative for deformity or edema Neuro oriented x3, No CN's II-XII intact bilaterally and No no sensory deficits noted Parrish Coma Scale: document GCS findings Spontaneous Obeys Commands Oriented 15 Sensorium / Orientation: Negative for alert Psych Appearance: unkempt Mood & Affect: depressed Skin no wounds General Skin Exam: Negative for jaundice Lesions: no lesions Rashes: no rashes NIHSS NIHSS Initial: 1a Level of Consciousness: 1 1b LOC Questions (Score 2 if aphasic/stupor): 0 1c LOC Commands (Only score 1st attempt): 0 2 Best Gaze (If aphasic, use reflexive mvmts.): 0 3 Visual: 0 4 Facial Palsy: 1 5 Motor Arm Right (UN = amputation/fusion): 0 5 Motor Arm Left: 0 6 Motor Leg Right: 0 6 Motor Leg Left: 1 7 Limb ataxia (Only + if out of proportion): 0 8 Sensory (Aphasia/stupor=0 or 1, coma=2): 1 9 Best Language: 0 10 Dysarthria (mute, coma=2, intubated=UN): 1 11 Extinction and Inattention (only scored if +): 0 Total Score: 5 MDM MDM MDM Narrative Medical decision making narrative: 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 Suspect patient had a stroke. Since he was last known well at [address] of the head without contrast was ordered since his deficits are minimal. Stroke work-up was initiated. Prior records were reviewed. Of note he does have history of carotid stenosis. Since he has a history of carotid stenosis and has acute stroke findings CTA of the head neck was ordered. Contacted tool grinding technician. She informed that he is already back from scan. History & Record Review Additional record(s) reviewed:: Prior outpatient record, Prior ED visit and Prior labs Lab Data Labs: Laboratory Results - last 24 hr 10/25/22 10/25/22 10/25/22 11:00 11:00 11:00 WBC 5.8 RBC 4.10 L Hgb 10.0 L Hct 33.1 L MCV 80.7 MCH 24.4 L MCHC 30.2 L RDW Std Deviation 52.1 H RDW Coeff of Scot 17.9 H Plt Count TNP MPV 10.4 Immature Gran % (Auto) 0.200 Neut % (Auto) 58.9 Lymph % (Auto) 33.2 Frederick % (Auto) 6.2 Eos % (Auto) 1.5 Baso % (Auto) 0.0 Absolute Neuts (auto) 3.4 Absolute Lymphs (auto) 1.94 Nucleated RBC % 0 Platelet Estimate ADEQUATE PT Cancelled INR Cancelled APTT Cancelled Sodium 135 L Potassium 4.4 Chloride 106 Carbon Dioxide 27.0 Anion Gap 2 L BUN 18 Creatinine 1.00 Estim Creat Clear Calc 74.01 Est GFR (MDRD) Af Amer 96 Est GFR (MDRD) Non-Af 79 BUN/Creatinine Ratio 18.0 Glucose 116 H Calcium 9.4 Troponin I High Sens 8 POC Glucose 10/25/22 10/25/22 11:06 11:33 WBC RBC Hgb Hct MCV MCH MCHC RDW Std Deviation RDW Coeff of Scot Plt Count MPV Immature Gran % (Auto) Neut % (Auto) Lymph % (Auto) Frederick % (Auto) Eos % (Auto) Baso % (Auto) Absolute Neuts (auto) Absolute Lymphs (auto) Nucleated RBC % Platelet Estimate PT 13.1 INR 1.0 APTT 27.6 Sodium Potassium Chloride Carbon Dioxide Anion Gap BUN Creatinine Estim Creat Clear Calc Est GFR (MDRD) Af Amer Est GFR (MDRD) Non-Af BUN/Creatinine Ratio Glucose Calcium Troponin I High Sens POC Glucose 101 Radiography Diagnostic Testing: Clinical Impression(s) from Imaging Studies Brain CT 10/25/22 10:57 IMPRESSION: Chronic involutional changes of the brain. N.B. : The above Results were Read Back by Oz Kelly MD to Dr Dionte MD, and understanding confirmed on 10/25/2022 11:14:03 (ET). Electronically Signed: Oz Kelly MD at 11:15 EDT , ADDENDUM: 10/25/22 1122 IMPRESSION: Chronic involutional changes of the brain. N.B. : The above Results were Read Back by Oz Kelly MD to Dr Dionte MD, and understanding confirmed on 10/25/2022 11:14:03 (ET). Electronically Signed: Oz Kelly MD at 11:15 EDT , Head/Neck CTA 10/25/22 11:07 IMPRESSION: 1. No demonstrated intraluminal thrombus or occlusion of the major intracranial arteries of the [place] or vertebrobasilar system on the current study. 2. 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 3. The right side of the [place] is supplied through the communicating arteries and left side which remain patent. 4. There is mild atherosclerotic stenosis and beading of the P3 and P4 segments of the left posterior cerebral artery but no complete occlusion or hemodynamically significant stenosis, see images 444/594 through 488/594 series 2. 5. MRI of the brain can be obtained for further assessment of small perforating vessel disease and ischemia. N.B. : The above Results were Read Back by Caio Patiño MD to Dmitri Rapp MD, and understanding confirmed on 10/25/2022 12:04:40 (ET). Electronically Signed: Caio Patiño MD at 12:08 EDT , ADDENDUM: 10/25/22 1215 IMPRESSION: 1. No demonstrated intraluminal thrombus or occlusion of the major intracranial arteries of the [place] or vertebrobasilar system on the current study. 2. 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 3. The right side of the [place] is supplied through the communicating arteries and left side which remain patent. 4. There is mild atherosclerotic stenosis and beading of the P3 and P4 segments of the left posterior cerebral artery but no complete occlusion or hemodynamically significant stenosis, see images 444/594 through 488/594 series 2. 5. MRI of the brain can be obtained for further assessment of small perforating vessel disease and ischemia. N.B. : The above Results were Read Back by Caio Patiño MD to Dmitri Rapp MD, and understanding confirmed on 10/25/2022 12:04:40 (ET). Electronically Signed: Caio Patiño MD at 12:08 EDT , EKG Initial EKG: Attestation: I personally reviewed and interpreted this EKG as follows: Interpretation: Sinus Rhythm (This rhythm with a ventricular rate of 70. There are premature ventricular complexes noted. OK interval 290 ms per cures duration 98 ms. QT duration 406 ms. Childs is normal.) Management Discussion w/another healthcare provider: Mission Support Specialist (The neurologist at [facility] Dr. Acuña recommended aspirin and stroke work-up. If there is an LVO contact him and will arrange transfer.) and Radiologist (Received call from concrete bucket hooker regarding unenhanced scan.) Critical Care Time Critical Care Time: Yes Critical care time (excluding procedures): 30-74 minutes (33), Including time spent: (History, physical, review of documentation from prior admissions, interpretation of laboratory results, discussion with concrete bucket hooker for unenhanced scan, concrete bucket hooker for and hand scan, neurologist and hospitalist), Discussing w/Patient &/or Family/Drencher, Discussing w/Consultants (Previously documented) and Arranging Admission or Transfer Discharge Plan Triage Chief Complaint: Stroke Alert Other Complaint: Weakness ED Provider: Britney Rappo Dx/Rx/DC Orders Clinical Impression: Acute cerebrovascular accident (CVA), Sleep apnea, COLD (chronic obstructive lung disease), Depression, Gastroesophageal reflux disease, Occlusion of right internal carotid artery Prescriptions: No Action amlodipine 10 mg tablet 10 mg PO ONCE Label Comments: TAKE 1 TABLET BY MOUTH EVERY DAY lisinopril 40 mg tablet 40 mg PO DAILY Label Comments: TAKE 1 TABLET BY MOUTH EVERY DAY clonidine HCl 0.1 mg tablet 0.1 mg PO QHS polyethylene glycol 3350 17 GM packet 17 g PO DAILY tamsulosin 0.4 MG capsule 0.4 mg PO DAILY lansoprazole 30 MG capsule 30 mg PO DAILY hydroxychloroquine 200 MG tablet 200 mg PO BID oxycodone 5 MG tablet 10 mg PO 4X/DAY zolpidem 12.5 MG tablet,ext release multiphase 10 mg PO QHS PRN PRN (Reason: Insomnia) bupropion HCl 150 MG tablet extended release 24 hr 150 mg PO DAILY alprazolam 0.5 mg tablet 1 mg PO TID aripiprazole 2 MG tablet 10 mg PO DAILY propranolol 20 MG tablet 20 mg PO BID clopidogrel 75 MG tablet 75 mg PO DAILY aspirin 81 MG tablet 81 mg PO DAILY@0800 nortriptyline 25 MG capsule 25 mg PO QHS cyclobenzaprine [cyclobenzaprine] 10 mg tablet 10 mg PO TID PRN (Reason: Muscle Spasm) Qty: 20 0RF rosuvastatin [Crestor] 20 mg tablet 20 mg PO DAILY Primary Care Provider: Sherman Cardona Referrals: Sherman Cardona MD [Primary Care Provider] - Disposition Disposition: Acute Care Hospital [facility]
--- NOTE | 2022-10-25 11:07 | CT_ITS ---
STUDY: CTA HEAD AND NECK WITH CONTRAST REASON FOR EXAM: Male, 67 years old. Stroke, history of carotid stenosis RADIATION DOSAGE (If Supplied By Facility): CTDIvol = ( 21.12 ) mGy, DLP = ( 796.07 ) mGycm TECHNIQUE: CT angiography was performed with a multi-detector CT scanner. Data acquisition was obtained from the skull base through the vertex following intravenous administration of IV 100mL [id number]-370. MIP images were reconstructed from the axial data set. Post-processing of the angiographic images was performed, with multiplanar reformation and 3D reconstruction. Individualized dose optimization techniques were used for this CT. COMPARISON: CTA of the neck dated August 14, 2018. CT of the brain stroke protocol dated October 25, 2022 FINDINGS: Redemonstration of a chronic thrombotic occlusion of the right extracranial internal carotid artery as well as occlusion of the petrous and cavernous segments of the right internal carotid artery. Blood flow on the right side of the [place] is via the communicating arteries in the left side. Normal left petrous segment of the internal carotid artery. There is calcified plaque formation of the left cavernous carotid artery, with a moderate stenosis (50-75%). Normal right A1 segments of the anterior cerebral artery. Normal left A1 segments of the anterior cerebral artery. Normal intact anterior communicating artery (ACOM). Normal bilateral A2 segments of the anterior cerebral arteries. Normal right M1 and M2 segments of the middle cerebral arteries, with a normal M1 bifurcation. Normal left M1 and M2 segments of the middle cerebral arteries, with a normal M1 bifurcation. Normal right posterior communicating artery (PCOM). Normal left posterior communicating artery (PCOM). Normal bilateral vertebral arteries. Normal basilar artery with a normal basilar bifurcation. The visualized bilateral superior cerebellar (SCA) arteries are normal. Normal right P1, P2 and visualized P3 segments of the posterior cerebral arteries. There is mild atherosclerotic stenosis and beading of the P3 and P4 segments of the left posterior cerebral artery but no complete occlusion or hemodynamically significant stenosis, see images 444/594 through 488/594 series 2. There is no demonstrated aneurysm of the [place]. There is no demonstrated abnormality of the visualized brain. AORTIC ARCH: There is atherosclerotic calcific plaque formation of the aortic arch and great vessels arising from the aortic arch, without a hemodynamically significant stenosis. There is a normal origin of the brachiocephalic, left common carotid, and left subclavian arteries. Normal origins of the brachiocephalic, left common carotid, and left subclavian arteries. RIGHT CAROTID ARTERIES: There is atherosclerotic tortuous elongation of the right common carotid artery. Carotid bulb: Chronic thrombotic occlusion since the August 14, 2018 study. Right internal carotid artery:Chronic thrombotic occlusion since the August 14, 2018 study. The occlusion extends into the petrous and cavernous segments of the right internal carotid artery. There is moderate atherosclerotic plaque formation of the origin of the right external carotid artery with an estimated stenosis of 50-69% stenosis. LEFT CAROTID ARTERIES: There is atherosclerotic plaque formation of the common carotid artery, but without a hemodynamically significant stenosis. Normal left common carotid bulb. Normal origin of the left internal carotid (ICA) artery without a hemodynamically significant stenosis. There is atherosclerotic tortuous elongation of the cervical portion of the left internal carotid artery. Normal origin of the left external carotid artery (ECA). VERTEBRAL ARTERIES: Normal bilateral vertebral arteries. CT/STROKE CTA Head AND Neck W/Con IMPRESSION: 1. No demonstrated intraluminal thrombus or occlusion of the major intracranial arteries of the [place] or vertebrobasilar system on the current study. 2. 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 3. The right side of the [place] is supplied through the communicating arteries and left side which remain patent. 4. There is mild atherosclerotic stenosis and beading of the P3 and P4 segments of the left posterior cerebral artery but no complete occlusion or hemodynamically significant stenosis, see images 444/594 through 488/594 series 2. 5. MRI of the brain can be obtained for further assessment of small perforating vessel disease and ischemia. N.B. : The above Results were Read Back by Caio Patiño MD to Dmitri Rapp MD, and understanding confirmed on 10/25/2022 12:04:40 (ET). Electronically Signed: Caio Patiño MD at 12:08 EDT ,
[2022-10-25 11:09] LABS: Absolute Lymphocyte Count 1.94 X10^3/uL (0.83-4.51); Absolute Neutrophil Count 3.4 X10^3/uL (2.0-7.7); Eosinophil# 0.09 X10^3/uL; Eosinophils% 1.5 % (0-5); Hematocrit 33.1 % (40-54); Lymphocyte # 1.94 X10^3/ul (0.83-4.51); Lymphocyte % 33.2 % (19-41); Mean Corp Hgb Conc 30.2 g/dL (32-36); Mean Corpuscular Hgb 24.4 pg (27.0-32.0); Mean Corpuscular Volume 80.7 fL (80-94); Mean Platelet Vol. 10.4 fl (6.2-12.0); Monocyte# 0.36 X10^3/uL; Monocyte% 6.2 % (0-10); NRBC Flagged by Analyzer 0 % (0-5); Neutrophil # 3.44 X10^3/uL (2.7-7.7); Neutrophil % 58.9 % (47-70); POSITIVE COUNT YES; RBC Distribution Width CV 17.9 % (11.6-14.6); RBC Distribution Width SD 52.1 fl (35.1-43.9); White Blood Count 5.8 K/mm3 (4.4-11.0)
[2022-10-25 11:26] LABS: Bedside Glucose 101 mg/dL (74-106)
[2022-10-25 11:27] LABS: Anion Gap 2 (5-15); BUN 18 mg/dL (7-18); Calcium,Total 9.4 mg/dL (8.5-10.1); Chloride 106 mmol/L (98-107); EST Glomerular Filtration Rate 79 mL/min (>60); Est Glom Filt Rate - Afr Amer 96 mL/min (>60); Estimated Creatinine Clearance 74.01 ml/min; Glucose 116 mg/dL (74-106); Potassium 4.4 mmol/L (3.5-5.1); Sodium Level 135 mmol/L (136-145); Troponin-I HS 8 pg/mL (3.0-78.0)
[2022-10-25 11:36] LABS: Differential Indicated SCAN CRITERIA MET; Platelet Estimate ADEQUATE (ADEQ)
[2022-10-25 11:51] LABS: Prothrombin Time (Protime)PT. 13.1 SECONDS (11.7-14.9)
[2022-10-25 11:52] LABS: Partial Thromboplast Time 27.6 Seconds (24.1-36.2)
--- NOTE | 2022-10-25 12:00 | RAD_ITS ---
STUDY: X-RAY CHEST REASON FOR EXAM: Male, 67 years old. Neuro deficit, acute, stroke suspected TECHNIQUE: To AP portable view of the chest. COMPARISON: February 02, 2021 FINDINGS: There is hyperinflation of the lungs consistent with chronic obstructive lung disease (COPD). No visualized consolidation or infiltrates. There is no demonstrated pleural abnormality. Normal size heart. Normal mediastinum and rosalia. Normal visualized pulmonary arteries. There is atherosclerotic calcification of the aortic arch with tortuosity. There are diffuse degenerative changes of the visualized thoracic spine. Normal visualized ribs, clavicles, and shoulders. There is no demonstrated abnormality of the visualized soft tissue structures of the upper abdomen. RAD/Chest 1 View IMPRESSION: COPD. Electronically Signed: Caio Patiño MD at 12:41 EDT ,
--- NOTE | 2022-10-25 12:28 | CM.ED ---
Social Work Note Referral Source: Stroke Alert Referral Reason: emotional support SW responded to stroke alert and introduced herself and role to patient's . Patient's was agreeable to speak with SW and reviewed recent events and patient's medical history. SW provided emotional support and reviewed [facility] response to stroke alert including teleconference with [facility] neurology. SW remains available if additional needs arise. Fallon Luara CLOTH HAND, VIKTORIYA
--- NOTE | 2022-10-25 13:03 | MRI_ITS ---
STUDY: MRI BRAIN WITHOUT CONTRAST REASON FOR EXAM: Male, 67 years old. CVA TECHNIQUE: Standardized multiplanar fat and water weighted pulse sequences were obtained. Multiplanar multiecho noncontrast imaging obtained. Contrast: No contrast administered COMPARISON: No relevant prior imaging available for comparison. HEMISPHERES, CEREBELLUM AND BRAINSTEM: 1. The cerebral parenchyma, ventricular system, subarachnoid spaces have normal configuration and density. There is a normal gyral pattern. There is normal garcia/white differentiation. No midline shift.. 2. Mild involutional changes and minimal chronic deep white matter changes. 3. No intraparenchymal mass, hemorrhage, or acute territorial infarct. 4. The cerebellum, brainstem, basilar and suprasellar cisterns have normal appearance. No Chiari malformation. PITUITARY: Infundibulum and pituitary have normal configuration. Midline structures appear normal. CSF SPACES: Appropriate for age. No hydrocephalus. Basal cisterns are patent. VESSELS: 1. There are flow voids present within the LEFT cavernous and petrous vessels, there is flow signal within the OBI MCA and SLITTER CREASER SLOTTER HELPER bilaterally. There is abnormal signal in the RIGHT petrous and cavernous carotid however which may represent slow flow versus occlusion. ORBITS AND PARANASAL SINUSES: 1. Both globes, extraocular muscles, optic nerves and retrobulbar fat appear unremarkable. 2. Paranasal sinuses are clear. BONY ELEMENTS: Bony elements of the cranial vault, facial skeleton and skull base have normal appearance. SCALP AND SOFT TISSUES: Normal appearance of the soft tissues of the scalp and the visualized face OTHER: None MRI/Brain without Contrast IMPRESSION: 1. Minimal involutional changes and chronic microvascular deep white matter changes consistent with age. 2. No evidence of mass, hemorrhage, or acute territorial infarct. 3. Abnormal signal within the RIGHT petrous and cavernous carotid vessels suspicious of slow flow versus occlusion and correspond to the recent CTA findings of chronic RIGHT ICA occlusion. Electronically Signed: Aguila Woods MD at 0:32 EDT ,
--- NOTE | 2022-10-25 13:03 | ECHOD_ITS ---
Reason For Study: TIA/CVA Procedure This was a 2D Doppler, Color Flow transthoracic echocardiogram. Exam performed portable in patient room. Left Ventricle Normal LV size. The estimated ejection fraction is 60 %. Normal diastology for age. No regional wall motion abnormalities noted. Right Ventricle Normal RV size. Normal systolic function. Atria Normal left atrium. Normal right atrium. No doppler evidence for ASD. Bubble contrast study negative for right to left interatrial shunt. Mitral Valve There is no mitral valve stenosis. Trivial mitral valve insufficiency. Tricuspid Valve There is no tricuspid stenosis. Trivial tricuspid valve insufficiency. Unable to estimate RV systolic pressure due to insufficient tricuspid regurgitant envelope. Aortic Valve Trisinus/trileaflet aortic valve. There is no aortic stenosis. No aortic valve insufficiency. Pulmonic Valve There is no pulmonic valvular stenosis. No pulmonic valve insufficiency. Great Vessels Normal aortic root. Pericardium/Pleural No pericardial effusion. Medication Performed a rapid injection of agitated mix of 9 cc saline and 1cc air to assess for atrial septal defect. MMode/2D Measurements & Calculations LVIDd: 5.3 cm IVSd: 0.79 cm LAV(MOD-sp4): 52.6 ml LVIDs: 3.9 cm LVPWd: 0.82 cm FS: 26.6 % LVAd ap4: 29.8 cm2 SV(MOD-sp4): 58.0 ml SV(sp4-el): 60.3 ml LVLd ap4: 7.8 cm EDV(MOD-sp4): 95.2 ml EDV(sp4-el): 95.9 ml LVAs ap4: 16.6 cm2 LVLs ap4: 6.6 cm ESV(MOD-sp4): 37.3 ml ESV(sp4-el): 35.7 ml EF(MOD-sp4): 60.9 % EF(sp4-el): 62.8 % LA A4 area: 18.2 cm2 LA dimension(2D): 3.1 cm RA A4 area: 12.8 cm2 Time Measurements MV dec time: 0.17 sec Doppler Measurements & Calculations MV E max dov: 78.4 cm/sec Lat Peak E' Dov: 8.5 cm/sec Med Peak E' Dov: 8.4 cm/sec MV A max dov: 80.9 cm/sec E/E' lat: 9.3 E/E' med: 9.3 MV E/A: 0.97 MV V2 max: 92.1 cm/sec Ao V2 max: 123.7 cm/sec MV max P.4 mmHg MV dec slope: 464.4 cm/sec2 Ao max P.1 mmHg MV V2 mean: 59.7 cm/sec Ao V2 mean: 75.8 cm/sec MV mean P.6 mmHg Ao mean P.7 mmHg MV V2 VTI: 30.6 cm Ao V2 VTI: 25.7 cm AV (velocity ratio): 0.83 LV V1 max: 115.7 cm/sec MR max dov: 267.3 cm/sec PA V2 max: 162.9 cm/sec LV V1 max P.4 mmHg MR max P.6 mmHg PA V2 mean: 106.1 cm/sec LV V1 mean P.1 mmHg LV V1 mean: 65.1 cm/sec LV V1 VTI: 21.3 cm ECHO/Echo Complete Interpretation Summary The estimated ejection fraction is 60 %. Trivial mitral valve insufficiency. Ordering Physician: Vince Smith Referring Physician: Sherman Cardona Performed By: Leeann Matthew RCS
--- NOTE | 2022-10-25 14:52 | HP.PCM.HOS_ITS ---
HPI - General General Date of Admission: 10/25/22 HPI Narrative VINCENZO SUERO, is a 67 M who presents to the hospital with slurred speech, left facial droop, and left lower extremity weakness. He says that he has been noticing some weakness periodically throughout the last week or so and he notices that it is worse in the morning after he takes his blood pressure medications but he states that last night he went to bed and was normal and then he woke up with significant more deficits. He presented to the hospital was evaluated by teleneurology who felt that he needed to be brought in for a stroke work-up, he was outside the window for thrombolytics. Lab work was unremarkable, CTA of the head and neck demonstrated chronically occluded right carotid artery and the status post endarterectomy on the left carotid. [facility] Medical History Anxiety disorder Carotid stenosis COLD (chronic obstructive lung disease) Depression Gastroesophageal reflux disease Home Medications bupropion HCl 150 mg 24 hr tablet, extended release 150 mg PO DAILY depression 04/08/14 [History Last Taken 08/24/18 05:00] hydroxychloroquine 200 mg tablet 200 mg PO BID ARTHRITIS 04/08/14 [History Last Taken 07/10/17] lansoprazole 30 mg capsule,delayed release 30 mg PO DAILY gerd/acid reflux 04/08/14 [History Last Taken 08/24/18 05:00] oxycodone 5 mg tablet 10 mg PO 4X/DAY pain 04/08/14 [History Last Taken 08/24/18 05:00] polyethylene glycol 3350 17 gram oral powder packet 34 g PO DAILY laxative 04/08/14 [History Last Taken 07/10/17] tamsulosin 0.4 mg capsule 0.4 mg PO DAILY prostate 04/08/14 [History Last Taken 07/10/17] zolpidem 12.5 mg tablet,extended release,multiphase 10 mg PO QHS PRN PRN Insomnia 04/08/14 [History Last Taken 07/09/17] aripiprazole 2 mg tablet 10 mg PO DAILY depression 11/08/15 [History Last Taken 08/24/18 05:00] propranolol 20 mg tablet 20 mg PO BID blood pressure 07/10/17 [History Last Taken 08/24/18 05:00] rosuvastatin 20 mg tablet (Crestor) 20 mg PO DAILY CHOLESTEROL 08/17/18 [History Last Taken Unknown] aspirin 81 mg tablet,delayed release 81 mg PO DAILY@0800 BLOOD THINNER 08/20/18 [History Last Taken 08/23/18] nortriptyline 25 mg capsule 25 mg PO QHS SLEEP 08/20/18 [History Last Taken Unknown] alprazolam 0.5 mg tablet 1 mg PO TID anxiety 09/17/19 [History Last Taken Unknown] lisinopril 40 mg tablet 40 mg PO DAILY 09/17/19 [History Last Taken Unknown] clonidine HCl 0.1 mg tablet 0.1 mg PO BID 03/27/21 [History Last Taken Unknown] ferrous sulfate 325 mg (65 mg iron) tablet 325 mg PO BID supplement 10/25/22 [History Last Taken Unknown] Allergy/AdvReac Type Severity Reaction Status Date / Time fentanyl Allergy Unknown Verified 08/18/22 07:20 Penicillins Allergy Unknown Verified 08/18/22 07:20 cefdinir [From Omnicef] AdvReac Unknown Verified 08/18/22 07:20 cephalexin monohydrate AdvReac Unknown Verified 08/18/22 07:20 [From Keflex] citalopram hydrobromide AdvReac Unknown Verified 08/18/22 07:20 [From Celexa] doxycycline AdvReac Unknown Verified 08/18/22 07:20 duloxetine HCl AdvReac Unknown Verified 08/18/22 07:20 [From Cymbalta] escitalopram oxalate AdvReac Unknown Verified 08/18/22 07:20 [From Lexapro] fluoxetine HCl [From Prozac] AdvReac Unknown Verified 08/18/22 07:20 lithium AdvReac Unknown Verified 08/18/22 07:20 mirtazapine [From Remeron] AdvReac Unknown Verified 08/18/22 07:20 moxifloxacin HCl AdvReac Unknown Verified 08/18/22 07:20 [From Avelox] oxymorphone HCl [From Opana] AdvReac Unknown Verified 08/18/22 07:20 paroxetine HCl [From Paxil] AdvReac Unknown Verified 08/18/22 07:20 prednisolone AdvReac Unknown Verified 08/18/22 07:20 quetiapine fumarate AdvReac Unknown Verified 08/18/22 07:20 [From Seroquel] sertraline HCl [From Zoloft] AdvReac Unknown Verified 08/18/22 07:20 trazodone AdvReac Unknown Verified 08/18/22 07:20 venlafaxine HCl AdvReac Unknown Verified 08/18/22 07:20 [From Effexor] Family History Father Heart disease Myocardial infarction Cancer oral Mother CHF (congestive heart failure) Surgical History History of cataract extraction History of colonoscopy (~2018) History of left-sided carotid endarterectomy (~07/2018) History of lumbar laminectomy History of neck surgery History of umbilical hernia repair Social History (Updated 10/25/22 @ 11:[address] Dmitri Rapp MD) household members: spouse Smoking Status: Former smoker substance use type: does not use ROS Constitutional Constitutional: Denies chills, fatigue, fever(s) or malaise Eyes Eyes: Denies blurry vision ENT HEENT: Denies headache(s) or nasal discharge Cardiovascular Cardiovascular: Denies chest pain, dyspnea on exertion or syncope Respiratory/Chest Respiratory/Chest: Denies cough, shortness of breath at rest or shortness of breath with exertion Gastrointestinal Gastrointestinal: Denies constipation, diarrhea, nausea or vomiting Genitourinary Genitourinary: Denies dysuria Neurologic Neurologic: Reports abnormal speech, focal weakness and paresthesias LLE; Denies numbness or tremor(s) Psychiatric Psychiatric: Denies anxiety or depression Vital Signs Vital Signs Vital Signs: 10/25/22 10:57 10/25/22 11:12 10/25/22 10:57 Temperature 97.6 F L Temperature Source Temporal Pulse Rate 78 72 Respiratory Rate 18 14 Respiratory Effort Respiratory Depth Respiratory Pattern Blood Pressure 147/67 H 154/60 H Blood Pressure Mean 93 91 Blood Pressure Source Blood Pressure Position Blood Pressure Location Pulse Ox 100 99 Oxygen Delivery Method Room Air Room Air Room Air 10/25/22 11:18 10/25/22 11:09 10/25/22 11:27 Temperature 97.6 F L Temperature Source Temporal Pulse Rate 78 74 Respiratory Rate 18 11 L Respiratory Effort Respiratory Depth Respiratory Pattern Blood Pressure 147/67 H 154/60 H 154/68 H Blood Pressure Mean 93 91 96 Blood Pressure Source Blood Pressure Position Blood Pressure Location Pulse Ox 100 100 Oxygen Delivery Method Room Air Room Air 10/25/22 11:30 10/25/22 12:00 10/25/22 12:24 Temperature 97.6 F L Temperature Source Temporal Pulse Rate 79 67 66 Respiratory Rate 10 L 14 14 Respiratory Effort Respiratory Depth Respiratory Pattern Blood Pressure 139/73 H 133/58 H 132/63 H Blood Pressure Mean 95 83 86 Blood Pressure Source Blood Pressure Position Blood Pressure Location Pulse Ox 99 100 100 Oxygen Delivery Method Room Air Room Air Room Air 10/25/22 12:30 10/25/22 13:06 10/25/22 13:25 Temperature 97.2 F L Temperature Source Temporal Pulse Rate 71 69 Respiratory Rate 13 18 Respiratory Effort Respiratory Depth Respiratory Pattern Blood Pressure 137/72 H 145/73 H Blood Pressure Mean 93 97 Blood Pressure Source Monitor Blood Pressure Position Semi-Fowlers Blood Pressure Location Right Arm Pulse Ox 99 99 99 Oxygen Delivery Method Room Air Room Air Room Air 10/25/22 13:34 Temperature Temperature Source Pulse Rate Respiratory Rate Respiratory Effort Normal Non-Labored Respiratory Depth Normal Respiratory Pattern Normal Blood Pressure Blood Pressure Mean Blood Pressure Source Blood Pressure Position Blood Pressure Location Pulse Ox Oxygen Delivery Method Room Air Weight Weight: 177 lb 14.609 oz Body Mass Index (BMI) 25.5 Physical Exam Narrative General: Alert, Oriented x3, Cooperative, No apparent distress HEENT: Atraumatic, PERRLA, EOMI, Normocephalic Oral: Moist Mucosa Neck: Supple, No JVD Lungs: Clear to auscultation, Normal air movement, No rhonchi, No wheeze, No rales Cardiovascular: Regular rate, Regular Rhythm, Normal S1, Normal S2, No murmurs Abdomen: Soft, Non Tender, Non-Distended, No Hepato-splenomegaly Extremities: No edema, Capillary Refill Less than 3 Seconds Skin: No rashes, No breakdown Musculoskeletal: No Tenderness to Palpation of Joints or Extremities Neurological: Left facial droop with mumbled speech, strength is 4-5 on the left lower extremity normal on his other extremities, decreased sensation on the left lower leg compared to the right Psych/Mental Status: Flat affect Results Lab / Micro Data Result Diagrams: 10/25/22 11:00 10/25/22 11:00 Labs: Laboratory Results - last 24 hr 10/25/22 11:00: WBC 5.8, RBC 4.10 L, Hgb 10.0 L, Hct 33.1 L, MCV 80.7, MCH 24.4 L, MCHC 30.2 L, RDW Std Deviation 52.1 H, RDW Coeff of Scot 17.9 H, Plt Count TNP, MPV 10.4, Immature Gran % (Auto) 0.200, Neut % (Auto) 58.9, Lymph % (Auto) 33.2, [place] % (Auto) 6.2, Eos % (Auto) 1.5, Baso % (Auto) 0.0, Absolute Neuts (auto) 3.4, Absolute Lymphs (auto) 1.94, Nucleated RBC % 0, Platelet Estimate ADEQUATE 10/25/22 11:00: PT Cancelled, INR Cancelled, APTT Cancelled 10/25/22 11:00: Sodium 135 L, Potassium 4.4, Chloride 106, Carbon Dioxide 27.0, Anion Gap 2 L, BUN 18, Creatinine 1.00, Estim Creat Clear Calc 74.01, Est GFR (MDRD) Af Amer 96, Est GFR (MDRD) Non-Af 79, BUN/Creatinine Ratio 18.0, Glucose 116 H, Calcium 9.4, Troponin I High Sens 8 10/25/22 11:06: POC Glucose 101 10/25/22 11:33: PT 13.1, INR 1.0, APTT 27.[address] 10/25/22 10:57 IMPRESSION: Chronic involutional changes of the brain. N.B. : The above Results were Read Back by Oz Kelly MD to Dr Dionte MD, and understanding confirmed on 10/25/2022 11:14:03 (ET). Electronically Signed: Oz Kelly MD at 11:15 EDT , ADDENDUM: 10/25/22 1122 IMPRESSION: Chronic involutional changes of the brain. N.B. : The above Results were Read Back by Oz Kelly MD to Dr Dionte MD, and understanding confirmed on 10/25/2022 11:14:03 (ET). Electronically Signed: Oz Kelly MD at 11:15 EDT , Head/Neck CTA 10/25/22 11:07 IMPRESSION: 1. No demonstrated intraluminal thrombus or occlusion of the major intracranial arteries of the [place] or vertebrobasilar system on the current study. 2. 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 3. The right side of the [place] is supplied through the communicating arteries and left side which remain patent. 4. There is mild atherosclerotic stenosis and beading of the P3 and P4 segments of the left posterior cerebral artery but no complete occlusion or hemodynamically significant stenosis, see images 444/594 through 488/594 series 2. 5. MRI of the brain can be obtained for further assessment of small perforating vessel disease and ischemia. N.B. : The above Results were Read Back by Caio Patiño MD to Dmitri Rapp MD, and understanding confirmed on 10/25/2022 12:04:40 (ET). Electronically Signed: Caio Patiño MD at 12:08 EDT , ADDENDUM: 10/25/22 1215 IMPRESSION: 1. No demonstrated intraluminal thrombus or occlusion of the major intracranial arteries of the [place] or vertebrobasilar system on the current study. 2. 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 3. The right side of the [place] is supplied through the communicating arteries and left side which remain patent. 4. There is mild atherosclerotic stenosis and beading of the P3 and P4 segments of the left posterior cerebral artery but no complete occlusion or hemodynamically significant stenosis, see images 444/594 through 488/594 series 2. 5. MRI of the brain can be obtained for further assessment of small perforating vessel disease and ischemia. N.B. : The above Results were Read Back by Caio Patiño MD to Dmitri Rapp MD, and understanding confirmed on 10/25/2022 12:04:40 (ET). Electronically Signed: Caio Patiño MD at 12:08 EDT , Chest X-Ray 10/25/22 12:00 IMPRESSION: COPD. Electronically Signed: Caio Patiño MD at 12:41 EDT , Assessment & Plan Assessment/Plan (1) Acute cerebrovascular accident (CVA): PLAN: Plan 1. CVA rule out/occluded right carotid artery status post left carotid en darterectomy/HTN/HLD ? We will obtain an MRI and an echo ? He is already on Crestor as well as lisinopril and propranolol, will hold his blood pressure medication secondary to permissive hypertension ? He is on aspirin so depending on the results of the MRI may add Plavix I will also keep him on telemetry to monitor for any A-fib 2. Anxiety/depression/chronic fatigue syndrome ? Stable ? Continue with all of his home medications 3. GERD ? Stable ? Continue with PPI 4. BPH ? Stable ? Continue with Flomax DVT: Lovenox 78 minutes was spent in direct patient care including chart review and collaboration with colleagues Charges/Coding Visit Charges Inpatient E&M: 40162 Init Hosp L3
[2022-10-25] MEDS: oxyCODONE 5 MG Tablet 10 MG PO ×2 (15:27→21:11)
[2022-10-25] MEDS: Hydroxychloroquine 200 MG Tablet PO (17:02)
[2022-10-25] MEDS: Ferrous Sulfate 325 MG Tablet PO (17:02)
[2022-10-25] MEDS: Atorvastatin Calcium 40 MG Tablet PO (21:13)
[2022-10-25] MEDS: Nortriptyline 25 MG Capsule PO (21:13)
[2022-10-25] MEDS: ALPRAZolam 0.5 MG Tablet 1 MG PO (21:16)
[2022-10-25] MEDS: Zolpidem Tartrate 5 MG Tablet 10 MG PO (23:48)
[2022-10-26] VITALS (9 sets, daily range): BP systolic 122–137; BP diastolic 50–75; PULSE 70–77; RESP 16–18; TEMP 36.6–36.8; O2SAT 96–98; BMI 25.5
[2022-10-26] MEDS: ALPRAZolam 0.5 MG Tablet 1 MG PO ×2 (06:09→13:31)
[2022-10-26] MEDS: Ibuprofen 400 MG Tablet PO ×2 (07:58→17:34)
[2022-10-26] MEDS: Aspirin E.C. 81 MG Tablet PO (07:59)
[2022-10-26] MEDS: Tamsulosin HCl 0.4 MG Capsule PO (08:00)
[2022-10-26] MEDS: Hydroxychloroquine 200 MG Tablet PO ×2 (08:00→16:10)
[2022-10-26] MEDS: ARIPiprazole 10 MG Tablet PO (08:00)
[2022-10-26] MEDS: Pantoprazole Sodium 40 MG Tablet PO (08:01)
[2022-10-26] MEDS: buPROPion (XL) 150 MG TABLET.XL PO (08:01)
[2022-10-26] MEDS: 0.9% Saline Lock 10 ML Syringe IV (08:01)
[2022-10-26 08:14] LABS: Absolute Lymphocyte Count 1.49 X10^3/uL (0.83-4.51); Absolute Neutrophil Count 3.6 X10^3/uL (2.0-7.7); Basophil# 0.01 X10^3/uL; Basophil% 0.2 % (0-1); Eosinophils% 3.4 % (0-5); Hematocrit 28.8 % (40-54); Hemoglobin 8.9 g/dL (13.0-16.5); Lymphocyte # 1.49 X10^3/ul (0.83-4.51); Lymphocyte % 25.6 % (19-41); Mean Corp Hgb Conc 30.9 g/dL (32-36); Mean Corpuscular Hgb 25.2 pg (27.0-32.0); Mean Corpuscular Volume 81.6 fL (80-94); Mean Platelet Vol. 9.9 fl (6.2-12.0); Monocyte# 0.48 X10^3/uL; Monocyte% 8.2 % (0-10); NRBC Flagged by Analyzer 0 % (0-5); Neutrophil # 3.63 X10^3/uL (2.7-7.7); Neutrophil % 62.4 % (47-70); Platelet Count 229 K/mm3 (150-450); RBC Distribution Width CV 18.4 % (11.6-14.6); RBC Distribution Width SD 53.5 fl (35.1-43.9); Red Blood Count 3.53 M/mm3 (4.6-6.2); White Blood Count 5.8 K/mm3 (4.4-11.0)
[2022-10-26 08:37] LABS: Anion Gap 3 (5-15); BUN 11 mg/dL (7-18); BUN/Creat Ratio 13.4 RATIO (10-20); Calcium,Total 8.9 mg/dL (8.5-10.1); Chloride 107 mmol/L (98-107); Cholesterol 122 mg/dL (200); Creatinine, Serum 0.82 mg/dL (0.70-1.30); EST Glomerular Filtration Rate 100 mL/min (>60); Est Glom Filt Rate - Afr Amer 120 mL/min (>60); Estimated Creatinine Clearance 90.26 ml/min; Glucose 110 mg/dL (74-106); High Density Lipoprotein 67 mg/dL; Potassium 3.8 mmol/L (3.5-5.1); Sodium Level 138 mmol/L (136-145); Triglycerides 44 mg/dL; Very Low Density Lipoprotein 9 mg/dL (5-40)
[2022-10-26] MEDS: Polyethylene Glycol 3350 17 GM PACKET 34 GM PO (09:12)
[2022-10-26] MEDS: oxyCODONE 5 MG Tablet 10 MG PO ×3 (09:12→17:34)
--- NOTE | 2022-10-26 09:26 | CASEMGMT ---
Social Work Pt negative for stroke so PHQ-9 not completed. TAYLOR Childers
--- NOTE | 2022-10-26 11:44 | PCM.DC ---
Discharge Instructions Diet Discharge Diet: Low fat / Low cholesterol Activity Discharge Activity: Return to Normal Activity Dressing / Incision Call your doctor if you observe: Fever of 101 or Higher, Shortness of breath, Dizziness, Fainting spells, Swelling in the ankles, Chest pain and Increased palpitations (irregular heartbeat) Follow Up Care Test Results: Test results from this visit will be discussed in further detail at your follow-up appointment, if applicable. Discharge Plan Admission Admit Date/Time: 10/25/22 12:17 Attending Provider: Vince Smith Primary Care Provider: Sherman Cardona Discharge Orders/Prescriptions Prescriptions: New clopidogrel [Plavix] 75 mg tablet 75 mg PO DAILY Qty: 30 0RF Continued lisinopril 40 mg tablet 40 mg PO DAILY Label Comments: TAKE 1 TABLET BY MOUTH EVERY DAY clonidine HCl 0.1 mg tablet 0.1 mg PO BID polyethylene glycol 3350 17 GM packet 34 g PO DAILY tamsulosin 0.4 MG capsule 0.4 mg PO DAILY lansoprazole 30 MG capsule 30 mg PO DAILY hydroxychloroquine 200 MG tablet 200 mg PO BID oxycodone 5 MG tablet 10 mg PO 4X/DAY zolpidem 12.5 MG tablet,ext release multiphase 10 mg PO QHS PRN PRN (Reason: Insomnia) bupropion HCl 150 MG tablet extended release 24 hr 150 mg PO DAILY alprazolam 0.5 mg tablet 1 mg PO TID aripiprazole 2 MG tablet 10 mg PO DAILY propranolol 20 MG tablet 20 mg PO BID aspirin 81 MG tablet 81 mg PO DAILY@0800 nortriptyline 25 MG capsule 25 mg PO QHS ferrous sulfate 325 mg (65 mg iron) tablet 325 mg PO BID Label Comments: TAKE 1 TABLET BY MOUTH TWICE A DAY rosuvastatin [Crestor] 20 mg tablet 20 mg PO DAILY Other Ambulatory Orders: Cardiac Holter Monitor, 48 Hrs (Routine) Timeframe: 2 Days Facility: [facility] - Location: Cardiovascular Services Ordered By: Dr. Vince Smith Referrals / Follow Up: Sherman Cardona MD [Primary Care Provider] - Within 1 Week Harsha Wilburn MD [Non-Staff] - Within 3 Months Disposition Disposition (needs filled in before D/C Order can be placed): Home, Self Care
--- NOTE | 2022-10-26 12:00 | CASEMGMT ---
BRIT MACK: BRIT MACK in to complete SOLIS form at this time.? RN FREDERICK explained SOLIS for to patient, patient voiced understanding.? Patient signed SOLIS Form and filed in chart.? Patient provided with copy of signed SOLIS form.? Patient had no further questions or concerns.?? Discharge planning: Discussed any potential discharge needs with Pt. Pt denies any needs and states his spouse is available to assist him as needed upon returning home. Corby Robbins RN CM
[2022-10-26] MEDS: Ferrous Sulfate 325 MG Tablet PO ×2 (12:35→16:10)
--- NOTE | 2022-10-26 14:26 | PCM.DC.SUM ---
Providers Date of Admission: 10/25/22 Primary Care Physician: Dr. Sherman Cardona MD Reason For Visit: CVA Diagnosis Discharge Diagnosis (1) Acute cerebrovascular accident (CVA): Status: Acute Code(s): I63.9 - Cerebral infarction, unspecified Medications at Discharge Home Medications bupropion HCl 150 mg 24 hr tablet, extended release 150 mg PO DAILY depression 04/08/14 hydroxychloroquine 200 mg tablet 200 mg PO BID ARTHRITIS 04/08/14 lansoprazole 30 mg capsule,delayed release 30 mg PO DAILY gerd/acid reflux 04/08/14 oxycodone 5 mg tablet 10 mg PO 4X/DAY pain 04/08/14 polyethylene glycol 3350 17 gram oral powder packet 34 g PO DAILY laxative 04/08/14 tamsulosin 0.4 mg capsule 0.4 mg PO DAILY prostate 04/08/14 zolpidem 12.5 mg tablet,extended release,multiphase 10 mg PO QHS PRN PRN Insomnia 04/08/14 aripiprazole 2 mg tablet 10 mg PO DAILY depression 11/08/15 propranolol 20 mg tablet 20 mg PO BID blood pressure 07/10/17 rosuvastatin 20 mg tablet (Crestor) 20 mg PO DAILY CHOLESTEROL 08/17/18 aspirin 81 mg tablet,delayed release 81 mg PO DAILY@0800 BLOOD THINNER 08/20/18 nortriptyline 25 mg capsule 25 mg PO QHS SLEEP 08/20/18 alprazolam 0.5 mg tablet 1 mg PO TID anxiety 09/17/19 lisinopril 40 mg tablet 40 mg PO DAILY 09/17/19 clonidine HCl 0.1 mg tablet 0.1 mg PO BID 03/27/21 ferrous sulfate 325 mg (65 mg iron) tablet 325 mg PO BID supplement 10/25/22 clopidogrel 75 mg tablet (Plavix) 75 mg PO DAILY #30 tabs 10/26/22 Hospital Course Operations None Procedures 2-D Echocardiogram Summary of Care Provided Minutes Spent on Discharge: 32 Hospital Course: Per HPI: VINCENZO SUERO, is a 67 M who presents to the hospital with slurred speech, left facial droop, and left lower extremity weakness.? He says that he has been noticing some weakness periodically throughout the last week or so and he notices that it is worse in the morning after he takes his blood pressure medications but he states that last night he went to bed and was normal and then he woke up with significant more deficits.? He presented to the hospital was evaluated by teleneurology who felt that he needed to be brought in for a stroke work-up, he was outside the window for thrombolytics.? Lab work was unremarkable, CTA of the head and neck demonstrated chronically occluded right carotid artery and the status post endarterectomy on the left carotid. Hospital Course: 1. CVA rule out/occluded right carotid artery status post left carotid endarterectomy/HTN/HLD ?The echo is unremarkable and the MRI does not show any ischemic stroke or head bleed. There is abnormal signal within the right petrous and cavernous carotid vessels which is consistent with a right ICA occlusion ? He is already on Crestor as well as lisinopril and propranolol which she can resume on discharge ? He is on aspirin, will place him on Plavix and have him follow-up with neurology as an outpatient just to be on the safe side ? We will also recommend a 48-hour Holter monitor on discharge ? I discussed with him the plan for discharge today he expressed understanding of the risk benefits going home and would like to go home today. PT and OT did evaluate him and did not feel that any further therapy was recommended. His left lower extremity weakness has improved longer has drift on my evaluation and he says that he is feeling much better today than he was yesterday. Speech therapy does recommend outpatient skilled therapy we will get that set up as well 2. Anxiety/depression/chronic fatigue syndrome ? Stable ? Continue with all of his home medications 3. GERD ? Stable ? Continue with PPI 4. BPH ? Stable ? Continue with Flomax Physical Exam Narrative General: Alert, Oriented x3, Cooperative, No apparent distress HEENT: Atraumatic, PERRLA, EOMI, Normocephalic Oral: Moist Mucosa Neck: Supple, No JVD Lungs: Clear to auscultation, Normal air movement, No rhonchi, No wheeze, No rales Cardiovascular: Regular rate, Regular Rhythm, Normal S1, Normal S2, No murmurs Abdomen: Soft, Non Tender, Non-Distended, No Hepato-splenomegaly Extremities: No edema, Capillary Refill Less than 3 Seconds Skin: No rashes, No breakdown Musculoskeletal: No Tenderness to Palpation of Joints or Extremities Neurological: Left facial droop with mumbled speech, strength is normal and equal bilaterally in his upper and lower extremities and sensation is intact Psych/Mental Status: Flat affect Weight / BMI Weight Weight: 177 lb 14.609 oz Body Mass Index (BMI) 25.5 ABG / Lab / Microbiology Data Result Diagrams: 10/26/22 07:00 10/26/22 07:00 Laboratory: Laboratory Results - last 24 hr 10/26/22 07:00: WBC 5.8, RBC 3.53 L, Hgb 8.9 L, Hct 28.8 L, MCV 81.6, MCH 25.2 L, MCHC 30.9 L, RDW Std Deviation 53.5 H, RDW Coeff of Scot 18.4 H, Plt Count 229, MPV 9.9, Immature Gran % (Auto) 0.200, Neut % (Auto) 62.4, Lymph % (Auto) 25.6, Woods % (Auto) 8.2, Eos % (Auto) 3.4, Baso % (Auto) 0.2, Absolute Neuts (auto) 3.6, Absolute Lymphs (auto) 1.49, Nucleated RBC % 0 10/26/22 07:00: Sodium 138, Potassium 3.8, Chloride 107, Carbon Dioxide 28.0, Anion Gap 3 L, BUN 11, Creatinine 0.82, Estim Creat Clear Calc 90.26, Est GFR (MDRD) Af Amer 120, Est GFR (MDRD) Non-Af 100, BUN/Creatinine Ratio 13.4, Glucose 110 H, Calcium 8.9, Triglycerides 44, Cholesterol 122, LDL Cholesterol 46, VLDL Cholesterol 9, HDL Cholesterol 67 Radiography Diagnostic Testing: Radiology Impression Brain MRI 10/25/22 13:03 IMPRESSION: 1. Minimal involutional changes and chronic microvascular deep white matter changes consistent with age. 2. No evidence of mass, hemorrhage, or acute territorial infarct. 3. Abnormal signal within the RIGHT petrous and cavernous carotid vessels suspicious of slow flow versus occlusion and correspond to the recent CTA findings of chronic RIGHT ICA occlusion. Electronically Signed: Aguila Woods MD at 0:32 EDT , Echocardiogram 10/25/22 13:03 Interpretation Summary The estimated ejection fraction is 60 %. Trivial mitral valve insufficiency. Ordering Physician: Vince Smith Referring Physician: Sherman Cardona Performed By: Leeann Matthew RCS D/C Instructions Discharge Diet: Low fat / Low cholesterol Call your doctor if you observe: Fever of 101 or Higher, Shortness of breath, Dizziness, Fainting spells, Swelling in the ankles, Chest pain and Increased palpitations (irregular heartbeat) Meaningful Use Info Meaningful Use Diagnoses (Choose all that apply): None applicable Discharge Plan Admission Admit Date/Time: 10/25/22 12:17 Attending Provider: Vince Smith Primary Care Provider: Sherman Cardona Discharge Orders/Prescriptions Prescriptions: New clopidogrel [Plavix] 75 mg tablet 75 mg PO DAILY Qty: 30 0RF Continued lisinopril 40 mg tablet 40 mg PO DAILY Label Comments: TAKE 1 TABLET BY MOUTH EVERY DAY clonidine HCl 0.1 mg tablet 0.1 mg PO BID polyethylene glycol 3350 17 GM packet 34 g PO DAILY tamsulosin 0.4 MG capsule 0.4 mg PO DAILY lansoprazole 30 MG capsule 30 mg PO DAILY hydroxychloroquine 200 MG tablet 200 mg PO BID oxycodone 5 MG tablet 10 mg PO 4X/DAY zolpidem 12.5 MG tablet,ext release multiphase 10 mg PO QHS PRN PRN (Reason: Insomnia) bupropion HCl 150 MG tablet extended release 24 hr 150 mg PO DAILY alprazolam 0.5 mg tablet 1 mg PO TID aripiprazole 2 MG tablet 10 mg PO DAILY propranolol 20 MG tablet 20 mg PO BID aspirin 81 MG tablet 81 mg PO DAILY@0800 nortriptyline 25 MG capsule 25 mg PO QHS ferrous sulfate 325 mg (65 mg iron) tablet 325 mg PO BID Label Comments: TAKE 1 TABLET BY MOUTH TWICE A DAY rosuvastatin [Crestor] 20 mg tablet 20 mg PO DAILY Other Ambulatory Orders: Cardiac Holter Monitor, 48 Hrs (Routine) Timeframe: 2 Days Facility: [facility] - Location: Cardiovascular Services Ordered By: Dr. Vince Smith Referrals / Follow Up: Sherman Cardona MD [Primary Care Provider] - Within 1 Week Harsha Wilburn MD [Non-Staff] - Within 3 Months Disposition Disposition (needs filled in before D/C Order can be placed): Home, Self Care Charges/Coding Visit Charges Inpatient E&M: 60866 Disch Hosp >30min
== END 2022-10-26 17:50 | disposition home or self-care (01) ==
LOC: ED 12:23 → PCU 12:40
PROVIDERS: Admitting Provider Family Medicine; Emergency Provider Emergency Medicine; PCP Family Medicine; Visit Provider Family Medicine
DX: I63.231 Cerebral infarction due to unspecified occlusion or stenosis of right carotid arteries (principal); J44.9 Chronic obstructive pulmonary disease, unspecified; M62.81 Muscle weakness (generalized); G47.30 Sleep apnea, unspecified; K21.9 Gastro-esophageal reflux disease without esophagitis; F41.9 Anxiety disorder, unspecified; R47.81 Slurred speech; Z87.891 Personal history of nicotine dependence; F32.A Depression, unspecified; N40.0 Benign prostatic hyperplasia without lower urinary tract symptoms; Z79.899 Other long term (current) drug therapy; Z79.82 Long term (current) use of aspirin; Z79.02 Long term (current) use of antithrombotics/antiplatelets; R29.705 NIHSS score 5; R29.898 Other symptoms and signs involving the musculoskeletal system; G93.32 Myalgic encephalomyelitis/chronic fatigue syndrome; R29.810 Facial weakness
CPT/HCPCS: 36415; 70450; 70496; 70498; 70551; 71045; 80048; 80061; 82962; 84484; 85025; 85610; 85730; 92523; 93005; 93306; 94762; 97162; 97166; 99221; 99285; Q9967; A4216; G0378

== ENCOUNTER → 2022-11-18 | Outpatient (CLI) | payer MEDICARE, SELFPAY | END | disposition home or self-care (01) | LOC: PSN 13:44 | PROVIDERS: PCP Family Medicine; Referring Provider Family Medicine; Visit Provider Family Medicine | DX: I63.9 Cerebral infarction, unspecified (principal) | CPT/HCPCS: 93225; 93226 ==

== ENCOUNTER → 2023-02-28 | Outpatient (CLI) | payer MEDICARE, SELFPAY ==
--- NOTE | 2023-02-28 12:52 | CDU_ITS ---
Reason For Study: Occlusion and Stenosis of Carotid Artery Rt. Velocities/BP Lt. Velocities/BP Prox CCA 35/5 cm/sec. Prox CCA 61/15 cm/sec. Mid CCA 42/5 cm/sec. Mid CCA 72/21 cm/sec. Dist CCA 40/4 cm/sec. Dist CCA 92/22 cm/sec. Prox ICA 0 cm/sec. Prox ICA 110/28 cm/sec. Mid ICA 0 cm/sec. Mid ICA 86/23 cm/sec. Dist ICA 0 cm/sec. Dist ICA 84/27 cm/sec. Rt. ICA/CCA = 0. Lt. ICA/CCA = 1.5. Known Occlusion SHANEKA. Prox ECA 89/14 cm/sec. Prox ECA 264/18 cm/sec. Lt. Vert. 52/15 cm/sec. Rt. Vert. 34/11 cm/sec. Right Extracranial There is heterogeneous, irregular atherosclerotic plaque noted in the right common carotid artery. There is heterogeneous, irregular atherosclerotic plaque noted in the right internal carotid artery. The right internal carotid artery is occluded. There is heterogeneous, irregular atherosclerotic plaque noted in the right external carotid artery. Antegrade flow is noted in the right vertebral artery. Left Extracranial There is heterogeneous, irregular atherosclerotic plaque noted in the left common carotid artery. There is intimal thickening but no significant atherosclerotic plaque noted in the left internal carotid artery. There is heterogeneous, smooth atherosclerotic plaque noted in the left external carotid artery. Antegrade flow is noted in the left vertebral artery. Procedure Carotid Duplex 36428. This is a Carotid Duplex examination using B-mode, color flow and specral Doppler. Exam performed in department. VL/Carotid Duplex Ultrasound Interpretation Summary Known occlusion right internal carotid artery Greater than 50% stenosis right external carotid artery Calcific plaque left proximal and mid common carotid arteries Widely patent postoperative changes of the left carotid bulb and proximal inter nal carotid artery with less than 50% stenosis Less than 50% stenosis left external carotid artery Patent antegrade vertebrals bilaterally Stable from the previous examination of March 21, 2021 Ordering Physician: Gabriel Irving Referring Physician: Sherman Cardona Performed By: Lorenza Leger, LIZETTE, RVT
== END | disposition home or self-care (01) ==
LOC: CVS 12:51
PROVIDERS: PCP Family Medicine; Referring Provider Surgery; Visit Provider Surgery
DX: I65.22 Occlusion and stenosis of left carotid artery (principal)
CPT/HCPCS: 93880

== ENCOUNTER → 2023-08-04 | Outpatient (CLI) | payer MEDICARE, SELFPAY ==
[2023-08-04 13:05] LABS: Anion Gap 4 (5-15); BUN 14 mg/dL (7-18); BUN/Creat Ratio 16.2 RATIO (10-20); Calcium,Total 9.6 mg/dL (8.5-10.1); Chloride 98 mmol/L (98-107); Cholesterol 162 mg/dL (200); Creatinine, Serum 0.86 mg/dL (0.70-1.30); EST Glomerular Filtration Rate 93 mL/min (>60); Est Glom Filt Rate - Afr Amer 113 mL/min (>60); Glucose 98 mg/dL (74-106); High Density Lipoprotein 92 mg/dL; Potassium 3.9 mmol/L (3.5-5.1); Sodium Level 131 mmol/L (136-145); Triglycerides 57 mg/dL; Very Low Density Lipoprotein 11 mg/dL (5-40)
== END | disposition home or self-care (01) ==
PROVIDERS: PCP Family Medicine; Referring Provider Family Medicine; Visit Provider Family Medicine
DX: I10 Essential (primary) hypertension (principal)
CPT/HCPCS: 36415; 80048; 80061

== ENCOUNTER → 2023-09-09 | Outpatient (CLI) | payer MEDICARE, SELFPAY ==
--- NOTE | 2023-09-09 07:40 | RAD_ITS ---
STUDY: X-RAY - ESOPHAGUS (BARIUM SWALLOW) WITH FLUOROSCOPY REASON FOR EXAM: Male, 68 years old. Dysphagia, unspecified TECHNIQUE: 17 view(s) of the esophagus were obtained following swallowing of barium. FLUOROSCOPY TIME (if supplied): (30 seconds) minutes/seconds. COMPARISON: None. FINDINGS: There is no demonstrated esophageal foreign body. There is no demonstrated stricture or mucosal abnormality. Normal gastroesophageal junction, without a demonstrated hiatal hernia. The patient ingested a 12 mm tablet of barium without any difficulty. Normal visualized aortic arch and descending thoracic aorta. Normal visualized pulmonary parenchyma. There are degenerative changes of the visualized thoracic spine. RAD/Esophagus Dual Contrast IMPRESSION: Normal plain film x-ray examination (barium swallow) of the esophagus. Electronically Signed:
== END | disposition home or self-care (01) ==
LOC: RAD 07:40
PROVIDERS: PCP Family Medicine; Referring Provider Family Medicine; Visit Provider Family Medicine
DX: R13.10 Dysphagia, unspecified (principal)
CPT/HCPCS: 74221

== ENCOUNTER → 2024-01-13 | Outpatient (CLI) | payer MEDICARE, SELFPAY ==
--- NOTE | 2024-01-13 15:18 | MRI_ITS ---
STUDY: MRI BRAIN WITH AND WITHOUT CONTRAST (ATTENTION INTERNAL AUDITORY CANALS - I.A.C.''s) REASON FOR EXAM: Male, 68 years old. RIGHT SENSORINEURAL HEARING LOSS TECHNIQUE: Standardized multiplanar fat and water weighted pulse sequences were obtained. 17ML IV CLARISCAN was administered for the contrast portion of the examination. COMPARISON: 10/25/2022 FINDINGS: Normal bilateral temporal bones. Normal bilateral internal auditory canals. There is no demonstrated intracanalicular or cisternal vestibular schwannoma (acoustic neuroma). There is no enhancement of the bilateral VIIth or VIIIth cranial nerves. Normal bilateral cochlea, vestibules and semicircular canals. There is mild cerebral atrophy with widening of the extra-axial spaces and ventricular dilatation. Normal white matter tracts of the supratentorial brain. There is no evidence for recent intracranial ischemia or other cause of cytotoxic edema on diffusion weighted imaging (DWI). Normal bilateral basal ganglia. Normal thalami. Lack of a normal flow void within the petrous and cavernous right internal carotid artery worrisome for occlusion. Normal venous enhancement. There is no enhancing intra-axial or extra-axial abnormality. There is no extra-axial fluid accumulation. Normal sella turcica, pituitary gland, infundibular stalk, optic chiasm and hypothalamus. Normal tectal plate and pineal gland. Normal midbrain, stanton and medulla. Normal cerebellum. Normal basal cisterns. There are bilateral ocular lens implants with otherwise normal intraorbital contents. Normal visualized paranasal sinuses. Normal calvarium and skull base. Normal visualized soft tissue structures. Normal visualized upper cervical spine. MRI/Brain W/WO Contrast IMPRESSION: 1. No MR evidence of vestibular schwannoma (acoustic neuroma). 2. Mild parenchymal atrophy. 3. Suspect occluded right internal carotid artery. Electronically Signed: Aguila Ruff MD at 12:38 EDT ,
[2024-01-13 15:45] LABS: CREATININE FINGERSTICK < 1.0 mg/dL (0.70-1.30); EGFR FINGERSTICK > 60.0000 mL/min (>60)
== END | disposition home or self-care (01) ==
LOC: MRI 14:55
PROVIDERS: PCP Family Medicine; Referring Provider Otolaryngology; Visit Provider Otolaryngology
DX: Z01.812 Encounter for preprocedural laboratory examination (principal); H91.21 Sudden idiopathic hearing loss, right ear
CPT/HCPCS: 70553; A9575

== ENCOUNTER → 2024-02-05 | Outpatient (CLI) | payer MEDICARE, SELFPAY ==
[2024-02-05 14:59] LABS: Anion Gap 5 (5-15); BUN 15 mg/dL (7-18); BUN/Creat Ratio 14.7 RATIO (10-20); Calcium,Total 9.7 mg/dL (8.5-10.1); Chloride 105 mmol/L (98-107); Creatinine, Serum 1.02 mg/dL (0.70-1.30); EST Glomerular Filtration Rate 77 mL/min (>60); Est Glom Filt Rate - Afr Amer 93 mL/min (>60); Glucose 93 mg/dL (74-106); Sodium Level 139 mmol/L (136-145)
== END | disposition home or self-care (01) ==
LOC: MFPLAB 13:51
PROVIDERS: PCP Family Medicine; Visit Provider Family Medicine
DX: R03.0 Elevated blood-pressure reading, without diagnosis of hypertension (principal)
CPT/HCPCS: 36415; 80048

== ENCOUNTER → 2024-08-05 | Outpatient (CLI) | payer MEDICARE, SELFPAY ==
[2024-08-05 18:31] LABS: ALB/GLOB Ratio 0.7 RATIO (0.9-2.4); AST(SGOT) 50 U/L (15-37); Alanine Aminotransfer ALT/SGPT 49 U/L (16-61); Albumin, Serum 3.3 g/dL (3.2-5.0); Alkaline Phosphatase 157 U/L (45-117); Anion Gap 8 (5-15); BUN 14 mg/dL (7-18); BUN/Creat Ratio 14.4 RATIO (10-20); Calcium,Total 9.3 mg/dL (8.5-10.1); Chloride 105 mmol/L (98-107); Cholesterol 146 mg/dL (200); Creatinine, Serum 0.97 mg/dL (0.70-1.30); EST Glomerular Filtration Rate 82 mL/min (>60); Est Glom Filt Rate - Afr Amer 99 mL/min (>60); Globulin 4.8 g/dL (2.2-4.2); Glucose 103 mg/dL (74-106); High Density Lipoprotein 89 mg/dL; PSA,Total- Diagnostic 0.39 ng/mL (0.0-4.0); Potassium 4.2 mmol/L (3.5-5.1); Protein, Total 8.1 g/dL (6.4-8.2); Sodium Level 138 mmol/L (136-145); Triglycerides 44 mg/dL; Very Low Density Lipoprotein 9 mg/dL (5-40)
== END | disposition home or self-care (01) ==
LOC: MFPLAB 13:57
PROVIDERS: PCP Family Medicine; Referring Provider Family Medicine; Visit Provider Family Medicine
DX: N40.0 Benign prostatic hyperplasia without lower urinary tract symptoms (principal); I10 Essential (primary) hypertension
CPT/HCPCS: 36415; 80053; 80061; 84153

== ENCOUNTER → 2024-09-22 | Outpatient (CLI) | payer MEDICARE, SELFPAY ==
--- NOTE | 2024-09-22 14:24 | RAD_ITS ---
EXAM: X-ray knee 4 or more views CLINICAL HISTORY: Pain, fall on concrete, bruising COMPARISON: None available TECHNIQUE: Four views right knee FINDINGS: Deformity of the medial aspect of the patella appears nonacute, clinically correlate. No associated overlying soft tissue swelling or lipohemarthrosis identified. Suggestion of possible small joint effusion. No dislocation. Mild medial compartment joint space narrowing. The joint spaces otherwise appear within limits. Spurring along the lateral tibial spine. Vascular calcifications noted. RAD/Knee 4 or More Views IMPRESSION: Deformity of the medial aspect of the patella appears nonacute, clinically timothy elate. No associated overlying soft tissue swelling or lipohemarthrosis identified. Suggestion of possible small joint effusion. No dislocation. Reading Location: [id number]
== END | disposition home or self-care (01) ==
LOC: MTRAD 14:23
PROVIDERS: PCP Family Medicine; Referring Provider Family Medicine; Visit Provider Family Medicine
DX: M25.561 Pain in right knee (principal)
CPT/HCPCS: 73564

== ENCOUNTER → 2025-01-18 | Outpatient (CLI) | payer MEDICARE, SELFPAY ==
--- NOTE | 2025-01-18 12:53 | CDU_ITS ---
Reason For Study Reason For Study: Stenosis Rt. Velocities/BP Lt. Velocities/BP Prox CCA 30.5/5 cm/sec. Prox CCA 61.7/18.2 cm/sec. Mid CCA 53.2/8.8 cm/sec. Mid CCA 78.7/22 cm/sec. Dist CCA 43.7/6.9 cm/sec. Dist CCA 104.7/27.4 cm/sec. Right ICA, Known Occlusion. Prox ICA 81.4/11.4 cm/sec. Prox ECA 272.5/13.9 cm/sec. Mid ICA 94.9/22.5 cm/sec. Rt. Vert. 41.9/9.7 cm/sec. Dist ICA 112.1/36 cm/sec. Lt. ICA/CCA = 1.42. Prox ECA 88.8/10.2 cm/sec. Lt. Vert. 51.9/12.6 cm/sec. Right Extracranial There is heterogeneous, irregular atherosclerotic plaque noted in the right common carotid artery. There is heterogeneous, irregular atherosclerotic plaque noted in the right internal carotid artery. The right internal carotid artery is occluded. There is heterogeneous, irregular atherosclerotic plaque noted in the right external carotid artery. Antegrade flow is noted in the right vertebral artery. Left Extracranial There is heterogeneous, irregular atherosclerotic plaque noted in the left common carotid artery. There is intimal thickening but no significant atherosclerotic plaque noted in the left internal carotid artery. There is homogeneous, smooth atherosclerotic plaque noted in the left external carotid artery. Antegrade flow is noted in the left vertebral artery. Procedure Carotid Duplex 99562. This is a Carotid Duplex examination using B-mode, color flow and specral Doppler. Exam performed in department. 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 Normal left extracranial internal carotid. Patent and antegrade vertebrals bilaterally. Ordering Physician: John Sales Referring Physician: Sherman Cardona Performed By: Nita Rasmussen RVT
== END | disposition home or self-care (01) ==
PROVIDERS: PCP Family Medicine; Referring Provider Surgery Trauma Surgery; Visit Provider Surgery Trauma Surgery
DX: I65.21 Occlusion and stenosis of right carotid artery (principal)
CPT/HCPCS: 93880

== ENCOUNTER 2025-02-02 14:09 | Outpatient (CLI) | payer MEDICARE, SELFPAY ==
[2025-02-02 17:53] LABS: Hematocrit 40.8 % (40-54); Hemoglobin 14.3 g/dL (13.0-16.5); Immature Granulocytes Count 0.020 X10^3/uL (0.0-0.0); Mean Corp Hgb Conc 35.0 g/dL (32-36); Mean Corpuscular Volume 95.1 fL (80-94); Mean Platelet Vol. 10.1 fl (6.2-12.0); NRBC Flagged by Analyzer 0 % (0-5); Platelet Count 238 K/mm3 (150-450); RBC Distribution Width CV 12.6 % (11.6-14.6); RBC Distribution Width SD 43.8 fl (35.1-43.9); Red Blood Count 4.29 M/mm3 (4.6-6.2); White Blood Count 5.7 K/mm3 (4.4-11.0)
[2025-02-02 18:25] LABS: AST(SGOT) 67 U/L (<=37); Alanine Aminotransfer ALT/SGPT 56 U/L (<=46); Albumin, Serum 3.8 g/dL (3.4-4.8); Alkaline Phosphatase 179 U/L (40-129); Anion Gap 12 (5-15); BUN 10 mg/dL (4-19); BUN/Creat Ratio 11.4 RATIO (10-20); Calcium,Total 9.4 mg/dL (7.6-11.0); Carbon Dioxide 23.7 mmol/L (21.0-32.0); Chloride 94 mmol/L (98-108); Cholesterol 143 mg/dL (<=200); Globulin 3.8 g/dL (2.2-4.2); Glucose 113 mg/dL (70-99); Low Density Lipoprotein Calc. 48 mg/dL; Potassium 4.5 mmol/L (3.3-5.1); Triglycerides 44 mg/dL; Very Low Density Lipoprotein 9 mg/dL (5-40); cholesterol:hdl ratio screen 1.66
== END 2025-02-02 23:59 | disposition home or self-care (01) ==
LOC: MFPLAB 14:13
PROVIDERS: PCP Family Medicine; Referring Provider Family Medicine; Visit Provider Family Medicine
DX: D64.9 Anemia, unspecified (principal); E78.5 Hyperlipidemia, unspecified
CPT/HCPCS: 36415; 80053; 80061; 85025

== ENCOUNTER → 2025-03-03 | Outpatient (CLI) | payer MEDICARE, SELFPAY ==
[2025-03-03 15:02] LABS: PSA,Total - Annual Screen 0.37 ng/mL (0.02-4.00)
== END | disposition home or self-care (01) ==
PROVIDERS: PCP Family Medicine; Referring Provider Urology; Visit Provider Urology
DX: Z12.5 Encounter for screening for malignant neoplasm of prostate (principal)
CPT/HCPCS: 36415; 84153; G0103

== ENCOUNTER 2025-03-25 02:51 | Emergency (ER) | payer MEDICARE, SELFPAY ==
[2025-03-25 02:54] VITALS: BP 119/55; PULSE 74; RESP 18; TEMP 37.2; O2SAT 98; BMI 29.7
--- NOTE | 2025-03-25 03:14 | CT_ITS ---
PROCEDURE: BRAIN/HEAD WITHOUT CONTRAST 03/25/2025 REASON FOR EXAM: FALL TECHNIQUE: Procedure Code: CTBR Modality: CT Procedure: BRAIN/HEAD WITHOUT CONTRAST Coronal and Sagittal reconstruction series were provided. One or more dose reduction techniques were used (e.g., Automated exposure control, adjustment of the mA and/or kV according to patient size, use of iterative reconstruction technique. RADIATION DOSE SUMMARY: CTDI Vol 44.99 mGy DLP :846.73 mGycm COMPARISON: 13-Jan-2024 MRI FINDINGS: Relatively accentuated bilateral cerebral periventricular deep white matter hypodensities denoting hypoperfusion. Lee-white matter differentiation is maintained. Normal CT appearance of the posterior fossa structures. No intracerebral or extra axial hemorrhage. Dilated ventricular system, cortical sulci and extra-axial CSF spaces. No definite calvarial fractures. No midline shifts or deformity. The osseous structures in the skull base are unremarkable. Paranasal sinuses are unremarkable. Vascular atheromatous calcifications. CT/Brain/Head without Contrast IMPRESSION: No acute cerebrovascular abnormalities. If clinical symptoms persist, further e valuation with MRI may be considered as clinically warranted. No intra or extra-axial acute hemorrhage. Bilateral cerebral mild microvascular ischemic changes. stable. Brain involutional changes. Stable. Reading Location: [facility]
--- NOTE | 2025-03-25 03:14 | RAD_ITS ---
PROCEDURE: PELVIS 1 OR 2 VIEWS 03/25/2025 REASON FOR EXAM: FALL TECHNIQUE: Procedure Code: RADPEL Modality: DX Procedure: PELVIS 1 OR 2 VIEWS COMPARISON: None. FINDINGS: Mild osteopenia of the visualized bones. Degenerative joint disease. No fracture or dislocation is seen. No lytic or blastic bone lesion is noted. Moderate amount of fecal residue in the large bowels. Calcified atheromatous plaques are noted. RAD/Pelvis 1 or 2 Views IMPRESSION: No evidence for acute abnormality. Reading Location: [facility]
--- NOTE | 2025-03-25 03:14 | RAD_ITS ---
PROCEDURE: LUMBAR SPINE 2 OR 3 VIEWS 03/25/2025 REASON FOR EXAM: PAIN TECHNIQUE: Procedure Code: RADSPLL Modality: DX Procedure: LUMBAR SPINE 2 OR 3 VIEWS COMPARISON: None. FINDINGS: There are diffuse spondylotic changes. Findings are demonstrated to by diffuse disc space narrowing, osteophyte formation and degenerative endplate sclerosis. There is diffuse facet joint arthropathy with secondary bilateral neural foramina narrowing. No fracture or dislocation is seen. No aggressive lytic or blastic bony lesion is noted. Calcified atheromatous plaques are noted. RAD/Lumbar Spine 2 or 3 Views IMPRESSION: No evidence for acute abnormality. Reading Location[facility]
--- NOTE | 2025-03-25 03:14 | CT_ITS ---
PROCEDURE: SPINE CERVICAL WITHOUT CONTRAS 03/25/2025 REASON FOR EXAM: FALL TECHNIQUE: Procedure Code: CTSPC Modality: CT Procedure: SPINE CERVICAL WITHOUT CONTRAS Coronal and Sagittal reconstruction series were provided. One or more dose reduction techniques were used (e.g., Automated exposure control, adjustment of the mA and/or kV according to patient size, use of iterative reconstruction technique. RADIATION DOSE SUMMARY: CTDI Vol 32.56 mGy DLP :745.4 mGycm COMPARISON: none FINDINGS: Straightened cervical curve denoting myospasm. The examined vertebral bodies show no structural collapse or posterior neural elements fractures. Intact atlanto-axial interval. Degenerative changes of the atlanto-odontoid articulation with related capsular calcifications. Cervical spondylodegenerative changes evident by marginal osteophytic lipping and multilevel subchondral sclerosis of the examined vertebral end plates with multilevel disc spaces narrowing. Multilevel degenerative unco-vertebral arthropathy with osteophytes formation seen encroaching upon the corresponding neural exit foramina. Multilevel degenerative facet arthropathy. Multilevel diffuse disc bulges with posterior osteophytes and annular calcifications indenting the theca and encroaching upon the related neural exit foramina. No paraspinal masses. Carotid atheromatous calcifications. Neck metallic clips noted. CT/Spine Cervical without Contras IMPRESSION: Straightened cervical curve denoting myospasm. No vertebral fractures, structural collapse or dislocation. Cervical spondylodegenerative changes with multilevel uncovertebral and facet a rthropathy along with diffuse disc bulges inducing spinal canal and neural exit pathway compromise. Reading Location: [facility]
[2025-03-25] MEDS: 0.9% Normal Saline (500mL Bag) 500 ML 999 ML IV (03:26)
[2025-03-25 03:29] LABS: Mucous, Urine 0 SEEN /hpf (<or=2+); Red Blood Cells-Urine 0 SEEN /hpf (0-5); Squamous Epithelial Cells - UA 0 SEEN /hpf (0-5)
[2025-03-25 03:30] LABS: Color, Urine Yellow (Yellow); Glucose, Dipstick Normal (Normal); Ketone-Dipstick Negative (Negative); Leukocyte Esterase-Dipstick Negative /ul (Negative); Nitrite-Dipstick Negative (Negative); Occult Blood-Urine Negative /ul (Negative); Protein-Dipstick 15 mg/dl (Negative); Specific Gravity, Urine 1.010 (1.002-1.030); Urine Bilirubin Dipstick Negative (Negative)
[2025-03-25 03:32] LABS: Hematocrit 37.4 % (40-54); Hemoglobin 13.4 g/dL (13.0-16.5); Immature Granulocytes Count 0.040 X10^3/uL (0.0-0.0); Mean Corp Hgb Conc 35.8 g/dL (32-36); Mean Corpuscular Volume 95.4 fL (80-94); Mean Platelet Vol. 10.0 fl (6.2-12.0); NRBC Flagged by Analyzer 0 % (0-5); POSITIVE COUNT YES; Platelet Count 189 K/mm3 (150-450); RBC Distribution Width CV 12.6 % (11.6-14.6); RBC Distribution Width SD 43.9 fl (35.1-43.9); Red Blood Count 3.92 M/mm3 (4.6-6.2); White Blood Count 7.5 K/mm3 (4.4-11.0)
--- NOTE | 2025-03-25 03:40 | RAD_ITS ---
PROCEDURE: CHEST 1 VIEW (PORTABLE) 03/25/2025 REASON FOR EXAM: FALL TECHNIQUE: Frontal view of the chest. COMPARISON: 10/25/2022. FINDINGS: Hardware: None. Heart: The heart size is normal. Lungs: The lungs are clear. Bones: The bones are unremarkable. RAD/Chest 1 View (Portable) IMPRESSION: No Acute Findings. Reading Location[facility]
[2025-03-25 03:59] LABS: Differential Comment SCANNED; Differential Indicated SCAN CRITERIA MET; Magnesium 1.9 mg/dL (1.5-2.2)
[2025-03-25 04:03] LABS: Anion Gap 9 (5-15); BUN 13 mg/dL (4-19); BUN/Creat Ratio 15.3 RATIO (10-20); Calcium,Total 8.6 mg/dL (7.6-11.0); Carbon Dioxide 24.1 mmol/L (21.0-32.0); Chloride 92 mmol/L (98-108); Estimated Creatinine Clearance 96.61 ml/min (50-250); Glucose 117 mg/dL (70-99); Potassium 5.3 mmol/L (3.3-5.1)
--- OUTSIDE RECORDS SUMMARY | 2025-03-25 04:30 | XMS RPT_ITS | CCD ---
Author Organization [facility] Care Team Providers Care Commercial Portfolio Manager Name Role Phone Dr. Sherman Moise Primary Care Provider [phone] Dmitri Rapp Emergency Provider Dr. Vince Smith Admit Provider Dr. Vince Smith Attending Provider Dr. Vince Smith Other Provider Dr. John Long Attending Provider [phone] Sherman Moise MD Primary Care Provider Ruben Hilton Unavailable Dulce CUETO, Dr. Whitaker Primary Care Provider [phone] Dulce CUETO, Dr. Whitaker Attending Provider Dulce CUETO, Dr. Whitaker Referring Provider Dulce CUETO, Dr. Whitaker Primary Care Provider [phone] Dr. John Sales MD Attending Provider [phone] John Sales MD Referring Provider [phone] Dulce CUETO, Dr. Whitaker Attending Provider Dulce CUETO, Dr. Whitaker Referring Provider Edilma German Attending Provider Sherman Moise MD Primary Care Provider ISH CARRION Attending Unavailable ROSALIA LANE Referring Unavailabl e SHERMAN MOISE Primary Care Unavailable Estela CUETO, Dr. Gunnar Stiles Attending Provider [phone] Estela CUETO, Dr. Gunnar Stiles Referring Provider John Sales Attending Unavailable [place], John Referring Unavailable Moise, Sherman Primary Care Unavailable Moise, Sherman Referring Unavailable Moise, Sherman Attending Unavailable Moise, Sherman Primary Care Unavailable Moise, Sherman Referring Unavailable Moise, Sherman Attending Unavailable Moise, Sherman Primary Care Unavailable Moise, Sherman Primary Care Unavailable Estela, Gunnar Stiles Referring Unavailable Gunnar Palmer Attending Unavailable Henrry, John Attending Unavailable Henrry, John Referring Unavailable Moise, Sherman Primary Care Unavailable Moise, Sherman Primary Care Unavailable Moise, Sherman Referring Unavailable Edilma Serrano Attending Unavailable Moise, Sherman Primary Care Unavailable Moise, Sherman Referring Unavailable Moise, Sherman Attending Unavailable Allergies Allergy Classification Reported Allergen(s) Allergy Type Date of Onset Reaction(s) Facility (17 sources) cefdinir; Translations: [CEFDINIR] Drug Allergy 3 Other: See Comments [facility] (15 sources) Cephalexin; Translations: [cephalexin monohydrate] Drug Allergy 1 Unknown [facility] (18 sources) Citalopram; Translations: [CITALOPRAM HYDROBROMIDE] Drug Allergy 3 Unknown [facility] (17 sources) Doxycycline; Translations: [DOXYCYCLINE] Drug Allergy 3 GI Upset [facility] (15 sources) DULoxetine; Translations: [duloxetine HCl] Drug Allergy 1 Unknown [facility] (18 sources) Escitalopram; Translations: [ESCITALOPRAM OXALATE] Drug Allergy 3 Unknown [facility] (16 sources) fentaNYL Drug Allergy 9 Unknown [facility] (18 sources) FLUoxetine; Translations: [FLUOXETINE HCL] Drug Allergy 3 Mental Status Change [facility] (14 sources) [place] Drug Allergy 1 Unknown [facility] (14 sources) Mirtazapine Drug Allergy 1 Unknown [facility] (18 sources) moxifloxacin; Translations: [MOXIFLOXACIN HCL] Drug Allergy 3 Other: See Comments [facility] (15 sources) oxyMORphone; Translations: [oxymorphone HCl] Drug Allergy 1 Unknown [facility] (18 sources) PARoxetine; Translations: [PAROXETINE HCL] Drug Allergy 3 Unknown [facility] (18 sources) Penicillins; Translations: [PENICILLINS] Allergy to substance 2 Unknown [facility] (14 sources) prednisoLONE Drug Allergy 1 Unknown [facility] (15 sources) QUEtiapine; Translations: [quetiapine fumarate] Drug Allergy 1 Unknown [facility] (18 sources) Sertraline; Translations: [SERTRALINE HCL] Drug Allergy 3 Unknown [facility] (14 sources) traZODone Drug Allergy 1 Unknown [facility] (15 sources) venlafaxine; Translations: [venlafaxine HCl] Drug Allergy 1 Unknown [facility] (3 sources) Cephalexin; Translations: [CEPHALEXIN] Drug Allergy 3 Other: See Comments [facility] (3 sources) DULoxetine; Translations: [DULOXETINE] Drug Allergy 3 Unknown [facility] (3 sources) Iodine; Translations: [IODINE] Drug Allergy 9 [facility] (3 sources) oxyMORphone; Translations: [OXYMORPHONE] Drug Allergy 3 [facility] (3 sources) venlafaxine; Translations: [VENLAFAXINE ANALOGUES] Drug Allergy 3 Unknown [facility] (1 source) fentaNYL; Translations: [FENTANYL (BULK)] Drug Allergy 9 [facility] [place] [facility] (1 source) cefdinir Drug Allergy 3 [facility] (1 source) Doxycycline Drug Allergy 3 [facility] (1 source) fentaNYL Drug Allergy 3 [facility] (1 source) [place] Drug Allergy 3 [facility] (1 source) Mirtazapine Drug Allergy 3 [facility] (1 source) prednisoLONE Drug Allergy 3 [facility] (1 source) traZODone Drug Allergy 3 [facility] Repository Medications Current Medications Medication Drug Class(es) Dates Sig (Normalized) Sig (Original) 200 actuat albuterol 0.09 mg/actuat metered dose inhaler (2 sources) beta2-Adrenergic Agonist Start: 01-23-2013 take 1-2 puff(s) by inhalation four times daily as needed for wheezing albuterol 90 mcg/actuation Aero Inhale 1-2 Puffs as instructed four times daily as needed (Wheezing and shortness of Breath). 1 Inhaler 0 01/23/2013 Active Albuterol / Ipratropium (2 sources) Anticholinergic, beta2-Adrenergic Agonist Start: 01-23-2013 take 2 puff(s) by inhalation every six hours as needed albuterol-ipratr opium 18-103 mcg/actuation inhaler Inhale 2 Puffs as instructed every 6 hours as needed. 1 Inhaler 0 01/23/2013 Active ALPRAZolam 0.5 mg oral tablet (20 sources) Benzodiazepine Start: 09-17-2019 take 2 tablets by mouth three times daily Alprazolam 0.5 mg tablet Active 1 mg PO THREE TIMES A DAY September 17, 2019 2:21pm anxiety Start: 09-17-2019 take 1 mg by mouth t hree times daily Alprazolam Active 1 MG PO THREE TIMES A DAY September 17, 2019 2:21pm Start: 04-08-2014 End: 09-17-2019 take 2 tablets by mouth four times daily Alprazolam 0.5 MG tablet Discontinued 1 mg PO 4 TIMES DAILY April 08, 2014 12:00am September 17, 2019 2:25pm anxiety Start: 04-08-2014 End: 09-17-2019 take 1 mg by mouth four times daily Alprazolam Discontinued 1 MG PO 4 TIMES DAILY April 08, 2014 12:00am September 17, 2019 2:25pm take 2 tablets by mo [facility] twice daily ALPRAZolam (XANAX) 0.5 mg tablet Take 1 mg by mouth twice daily. Active amitriptyline hydrochloride 25 mg oral tablet (2 sources) Tricyclic Antidepressant amitrip tyline 25 mg tablet Take 35 mg by mouth daily at bedtime. Active ARIPiprazole 10 mg oral tablet (16 sources) Atypical Antipsychotic Start: 01-20-2023 ARIPiprazole (ABILIFY) 10 mg tablet 10 mg. 01/20/2023 Active Start: 11-08-2015 take 5 tablets by mo [facility] once daily Aripiprazole 2 MG tablet Active 10 mg PO DAILY November 08, 2015 12:00am depression Start: 11-08-2015 take 10 mg by mouth once daily Aripiprazole Active 10 MG PO DAILY November 08, 2015 12:00am ascorbic acid 1000 mg oral tablet (2 sources) Vitamin C Start: 01-12-2002 VITAMIN C 1000 MG TABLET Take one(1) tablet daily. 0 01/12/2002 Active aspirin 81 mg delayed release oral tablet (16 sources) Platelet Aggregation Inhibitor, Nonsteroidal Anti-inflammatory Drug Start: 08-20-2018 take 1 tablet by mouth once daily Aspirin 81 MG tablet Active 81 mg PO DAILY@0800 August 20, 2018 1:00am BLOOD THINNER Aspirin 81 mg Ta b Take 81 mg by mouth. Active 24 hr buPROPion hydrochloride 300 mg extended release oral tablet (15 sources) Aminoketone Start: 01-25-2025 take 1 tablet by mouth once daily buPROPion XL (WELLBUTRIN XL) 300 mg 24 hr tablet Take 1 tablet by mouth once daily. 01/25/2025 Active Start: 04-08-2014 take 1 tablet by sera once daily Bupropion Hcl 150 MG tablet extended release 24 hr Active 150 mg PO DAILY April 08, 2014 12:00am depression cholecalciferol 0.05 mg oral capsule (7 sources) Vitamin D Start: 03-06-2023 take 1 capsule by mouth once daily Cholecalciferol (Vitamin D3) 50 mcg (2,000 unit) capsule Active 50 ug PO DAILY March 06, 2023 12:00am cloNIDine hydrochloride 0.1 mg oral tablet (16 sources) Central alpha-2 Adrenergic Agonist Start: 01-08-2023 take 1 tablet by mouth once daily at bedtime cloNIDine HCl (CATAPRES) 0.1 mg tablet Take 1 tablet by mouth daily at bedtime. 01/08/2023 Active Start: 03-27-2021 take 1 tablet by sera twice daily Clonidine Hcl 0.1 mg tablet Active 0.1 mg PO TWICE A DAY March 27, 2021 12:00am clopidogrel 75 mg oral tablet (15 sources) P2Y12 Platelet Inhibitor Start: 08-20-2018 take 1 tablet by mouth once daily Clopidogrel (Plavix) 75 mg tablet Active 75 mg PO DAILY October 26, 2022 12:00am cyclobenzaprine hydrochloride 10 mg oral tablet (2 sources) Muscle Relaxant Start: 08-18-2022 take 10 mg by mouth three times daily Cyclobenzaprine Active 10 MG PO THREE TIMES A DAY August 18, 2022 1:00am ferrous sulfate 325 mg oral tablet (10 sources) Start: 10-25-2022 take 1 tablet by mouth twice daily Ferrous Sulfate 325 mg (65 mg iron) tablet Active 325 mg PO TWICE A DAY October 25, 2022 12:00am supplement hydroxychloroquine sulfate 200 mg oral tablet (16 sources) Antimalarial, Antirheumatic Agent Start: 04-08-2014 take 1 tablet by mouth twice daily Hydroxychloroquine 200 MG tablet Active 200 mg PO TWICE A DAY April 08, 2014 12:00am ARTHRITIS LACTOBAC CMB #3/FOS/PANTETHINE (PROBIOTIC & ACIDOPHILUS ORAL) (2 sources) LACTOBAC CMB #3/FOS/PANTETHINE (PROBIOTIC & ACIDOPHILUS ORAL) Take by mouth. Active LACTOBAC CMB #3/ FOS/PANTETHINE (PROBIOTIC & ACIDOPHILUS ORAL) Take by mouth. 0 Active lansoprazole 30 mg delayed release oral capsule (16 sources) Proton Pump Inhibitor Start: 04-08-2014 take 1 capsule by mouth once daily Lansoprazole 30 MG capsule Active 30 mg PO DAILY April 08, 2014 12:00am gerd/acid reflux Start: 08-16-2004 [address] Take one(1) capsule twice daily. 0 08/16/2004 Active lisinopril 40 mg oral tablet (15 sources) Angiotensin Converting Enzyme Inhibitor Start: 09-17-2019 take 1 tablet by mouth once daily Lisinopril 40 mg tablet Active 40 mg PO DAILY September 17, 2019 12:00am nortriptyline 50 mg oral capsule (15 sources) Tricyclic Antidepressant Start: 01-13-2025 take 2 capsules by mouth once daily at bedtime nortriptyline (PAMELOR) 50 mg capsule Take 100 mg by mouth daily at bedtime. 01/13/2025 Active Start: 08-20-2018 take 1 capsule by mo uth at bedtime Nortriptyline 25 MG capsule Active 25 mg PO AT BEDTIME August 20, 2018 1:00am SLEEP OMEGA-3 FATTY ACIDS/FISH OIL (OMEGA 3 FISH OIL ORAL) (2 sources) take 1000 mg by mout h once daily OMEGA-3 FATTY ACIDS/FISH OIL (OMEGA 3 FISH OIL ORAL) Take 1,000 mg by mouth once daily. Active take 1000 mg by mouth once daily OMEGA-3 FATTY ACIDS/FISH OIL (OMEGA 3 FISH OIL ORAL) Take 1,000 mg by mouth once daily. 0 Active oxyCODONE hydrochloride 5 mg oral tablet (16 sources) Opioid Agonist Start: 04-08-2014 take 2 tablets by mouth four times daily Oxycodone 5 MG tablet Active 10 mg PO 4 TIMES DAILY April 08, 2014 12:00am pain Start: 04-08-2014 take 10 mg by mouth four times daily Oxycodone Active 10 MG PO 4 TIMES DAILY April 08, 2014 12:00am OXYCODONE HCL (O XYCODONE, BULK, MISC) 10 mg three times daily. Active OXYCODONE HCL (O XYCODONE, BULK, MISC) 10 mg three times daily. 0 Active phenylephrine hydrochloride 25 mg/ml ophthalmic solution (3 sources) alpha-1 Adrenergic Agonist Start: 02-22-2025 End: 02-23-2025 PHENYLephrine 2.5 % 1 drop (AK-DILATE, CECE-SYNEPHRINE) Start: 02-03-2024 End: 02-04-2024 PHENYLephrine 2.5 % 1 Drop ( AK-DILATE, CECE-SYNEPHRINE) polyethylene glycol 3350 34485 mg powder for oral solution (16 sources) Osmotic Laxative Start: 04-08-2014 take 34 g by mouth once daily Polyethylene Glycol 3350 17 GM packet Active 34 g PO DAILY April 08, 2014 12:00am laxative Start: 04-08-2014 take 17 g by mouth once daily Polyethylene Glycol 3350 Active 17 GM PO DAILY April 08, 2014 12:00am proparacaine hydrochloride 5 mg/ml ophthalmic solution (3 sources) Local Anesthetic Start: 02-22-2025 End: 02-23-2025 proparacaine 0.5 % 1 drop (ALCAINE) Start: 02-03-2024 End: 02-04-2024 proparacaine 0.5 % 1 Drop (A LCAINE) propranolol hydrochloride 60 mg oral tablet (20 sources) beta-Adrenergic Ulises Start: 12-03-2024 take 1 tablet by mouth every twelve hours propranolol (INDERAL) 60 mg tablet Take 1 tablet by mouth every 12 hours. 12/03/2024 Active Start: 03-06-2023 take 1 tablet by sera twice daily Propranolol 40 mg tablet Active 40 mg PO TWICE A DAY March 06, 2023 12:00am Start: 07-10-2017 End: 03-06-2023 take 1 tablet by mouth twice daily Propranolol 20 MG tablet Discontinued 20 mg PO TWICE A DAY July 10, 2017 1:00am March 06, 2023 2:09pm blood pressure PROPYLENE GLYCOL/PEG 400 (SY STANE ULTRA OPHTHALMIC) (2 sources) PROPYLENE GLYCOL /PEG 400 (SYSTANE ULTRA OPHTHALMIC) Use in eyes three times daily. Active PROPYLENE GLYCOL /PEG 400 (SYSTANE ULTRA OPHTHALMIC) Use in eyes three times daily. 0 Active rosuvastatin calcium 20 mg oral tablet (16 sources) HMG-CoA Reductase Inhibitor Start: 08-17-2018 take 1 tablet by mouth once daily Rosuvastatin (Crestor) 20 mg tablet Active 20 mg PO DAILY August 17, 2018 1:00am CHOLESTEROL TETRAHYDROZOLINE HCL/ZN SULF (EYE DROPS ALLERGY RELIEF OPHTHALMIC) (2 sources) TETRAHYDROZOLINE HCL/ZN SULF (EYE DROPS ALLERGY RELIEF OPHTHALMIC) Use in eyes as needed. Active TETRAHYDROZOLINE HCL/ZN SULF (EYE DROPS ALLERGY RELIEF OPHTHALMIC) Use in eyes as needed. 0 Active tiZANidine 4 mg oral tablet (2 sources) Central alpha-2 Adrenergic Agonist take 1 tablet by mouth every six hours as needed tiZANidine (ZANAFLEX) 4 mg tablet Take 4 mg by mouth every 6 hours as needed. Active tropicamide 10 mg/ml ophthalmic solution (3 sources) Anticholinergic Start: 02-23-20 End: 02-24-20 tropicamide 1 % 1 drop (MYDRIACYL) Start: 02-03-2024 End: 02-04-2024 tropicamide 1 % 1 Drop (MYDR IACYL) VITAMIN E 400IU SOFTGEL (2 sources) Start: 01-12-2002 VITAMIN E 400I U SOFTGEL Take one(1) capsule daily. 0 01/12/2002 Active zolpidem tartrate 12.5 mg extended release oral tablet (16 sources) gamma-Aminobutyr ic Acid-ergic Agonist Start: 04-08-2014 take 10 mg by mouth at bedtime as needed Zolpidem 12.5 MG tablet,ext release multiphase Active 10 mg PO AT BEDTIME NEEDED as needed for Insomnia April 08, 2014 12:00am Start: 04-08-2014 take 10 mg by mouth at bedtime as needed Zolpidem Active 10 MG PO AT BEDTIME NEEDED April 08, 2014 12:00am take 1 tablet by sera th every twenty-four hours as needed Zolpidem 12.5 mg CR tablet Take 12.5 mg by mouth at bedtime as needed. Active Completed/Discontinued Medications Medication Drug Class(es) Dates Sig (Normalized) Sig (Original) amLODIPine 5 mg oral tablet (16 sources) Dihydropyridine Calcium Channel Ulises Start: 02-10-2025 take 2 tablets by mouth once daily Amlodipine 5 mg tablet Discontinued 10 mg PO DAILY February 10, 2025 10:47am Start: 12-13-2022 End: 02-10-2025 take 1 tablet by mouth once daily Amlodipine 5 mg tablet Discontinued 5 mg PO DAILY March 06, 2023 12:00am February 10, 2025 10:53am Start: 09-17-2019 take 10 mg by mouth once Amlod ipine Active 10 MG PO ONCE September 17, 2019 12:00am apixaban 5 mg oral tablet (14 sources) Factor Xa Inhibitor Start: 07-12-2017 End: 08-13-2018 take 2 tablets by mouth twice daily, then take 1 tablet by mouth twice daily Apixaban 5 MG tablet Discontinued 10 mg PO TWICE A DAY 90 0 July 12, 2017 1:00am August 13, 2018 9:12am Take 10 mg twice a day for 7 days then take 5 mg twice a day. Start: 07-12-2017 End: 08-13-2018 take 10 mg by mouth twice daily, then take 5 mg by mouth twice daily Apixaban Discontinued 10 MG PO TWICE A DAY July 12, 2017 1:00am August 13, 2018 9:12am Take 10 mg twice a day for 7 days then take 5 mg twice a day. betamethasone 0.5 mg/ml / clotrimazole 10 mg/ml topical cream (3 sources) Azole Antifungal, Corticosteroid Start: 02-10-2025 Clotrimazole-Betamethasone 1-0.05 % cream Discontinued 1 NMA TOPICAL TWICE A DAY February 10, 2025 12:00am carboxymethylcellulose 0.01 mg/mg ophthalmic gel (5 sources) Start: 02-10-2025 apply 1 drop(s ) into the eye(s) twice daily Carboxymethylcellulose Sodium (Refresh Liquigel) 1 % drops, liquid gel Discontinued 1 NMA OPHTHALMIC TWICE A DAY February 10, 2025 12:00am CARBOXYMETHYLCEL LULOSE SODIUM (REFRESH LIQUIGEL OPHTHALMIC) Use in eyes daily at bedtime. Active CARBOXYMETHYLCEL LULOSE SODIUM (REFRESH LIQUIGEL OPHTHALMIC) Use in eyes daily at bedtime. 0 Active carboxymethylcellulose sodium 0.01 mg/mg / glycerin 0.009 mg/mg ophthalmic gel (14 sources) Non-Standardized Chemical Allergen Start: 08-20-2018 End: 09-17-2019 apply 1 mL into the eye(s) at bedtime Carboxymethylcellulose-Glycern 10 ML drops,gel Discontinued 10 mL OP AT BEDTIME August 20, 2018 1:00am September 17, 2019 2:22pm DRY EYES methylPREDNISolone acetate 40 mg/ml injectable suspension (1 source) Corticosteroid Start: 06-07-2020 End: 06-07-2020 Depo-Medrol (methylprednisol one acetate) 40 mg/mL suspension for injection Discontinued 40 MG INTRAARTIC ONCE 1 June 07, 2020 2:11pm June 07, 2020 2:47pm mometasone furoate 0.05 mg/actuat metered dose nasal spray (19 sources) Corticosteroid Start: 02-10-2025 take 50 ug nasal route once daily Mometasone (Nasonex 24hr Allergy) 50 mcg/actuation spray,non-aerosol Discontinued 2 NMA INTRANASAL daily February 10, 2025 12:00am administer into each nostril Start: 04-08-2014 End: 09-17-2019 Mometasone 1 SPRAY spray,non -aerosol Discontinued 1 NMA NASAL DAILY April 08, 2014 12:00am September 17, 2019 2:23pm allergies Start: 04-08-2014 End: 09-17-2019 Mometasone Discontinued 1 SP RAY NASAL DAILY April 08, 2014 12:00am September 17, 2019 2:23pm MOMETASONE FUROA TE (NASONEX NASAL) Use in the nose. Active MOMETASONE FUROA TE (NASONEX NASAL) Use in the nose. 0 Active Multivitamin 1 EACH tablet (5 sources) Start: 08-20-2018 End: 09-17-2019 Multivitamin 1 EACH tablet Discontinued 1 NMA PO DAILY August 20, 2018 1:00am September 17, 2019 2:23pm SUPPLEMENT Start: 08-20-2018 End: 09-17-2019 Multivitamin 1 EACH tablet D iscontinued 1 NMA PO DAILY August 20, 2018 1:00am September 17, 2019 2:23pm Multivitamin preparation (9 sources) Start: 08-20-2018 End: 09-17-2019 Multivitamin Discontinued 1 EACH PO DAILY August 20, 2018 4:05pm September 17, 2019 2:23pm Start: 08-20-2018 End: 09-17-2019 Multivitamin Discontinued 1 EACH PO DAILY August 20, 2018 1:00am September 17, 2019 2:23pm Start: 08-20-2018 End: 09-17-2019 Multivitamin Discontinued 1 EACH PO DAILY August 20, 2018 12:00am September 17, 2019 1:23pm Multivitamin tablet (3 sources) Start: 02-10-2025 Multivitamin tablet Discontinued 1 {tbl} PO daily February 10, 2025 12:00am naproxen sodium 220 mg oral capsule (7 sources) Nonsteroidal Anti-inflammatory Drug Start: 03-06-2023 End: 02-10-2025 take 1 capsule by mouth twice daily as needed Naproxen Sodium (Aleve) 220 mg capsule Discontinued 220 mg PO TWICE A DAY as needed March 06, 2023 12:00am February 10, 2025 11:04am polyvinyl alcohol 0.014 ml/ml / povidone 6 mg/ml ophthalmic solution (14 sources) Start: 04-08-2014 End: 09-17-2019 Polyvinyl Alcohol-Povidon(Pf ) 1 EACH dropperette Discontinued 1 NMA OP DAILY April 08, 2014 12:00am September 17, 2019 2:23pm dry eyes sodium chloride 0.513 meq/ml nasal spray (16 sources) Start: 04-08-2014 End: 09-17-2019 Sodium Chloride 126 ML mist Discontinued 126 mL NS 4 TIMES DAILY April 08, 2014 12:00am September 17, 2019 2:24pm allergies sodium chloride (SALINE NASAL) 0.65 % nasal spray Use 1 [place] in the nose four times daily. Active tamsulosin hydrochloride 0.4 mg oral capsule (19 sources) alpha-Adrenergic Ulises Start: 02-10-2025 take 1 capsule by mouth once daily Tamsulosin 0.4 mg capsule Discontinued 0.4 mg PO daily February 10, 2025 12:00am Start: 04-08-2014 End: 03-06-2023 take 1 capsule by mouth once daily Tamsulosin 0.4 MG capsule Discontinued 0.4 mg PO DAILY April 08, 2014 12:00am March 06, 2023 2:11pm prostate Problems Active Problems Problem Classification Problem Date Documented Date Episodic/Chronic Acute cerebrovascular disease (15 sources) Cerebrovascular accident; Translations: [Cerebral infarction, unspecified] 10-25-2022 Chronic Adjustment disorders (2 sources) Adjustment disorder with depressed mood; Translations: [Adjustment disorder with depressed mood] Onset: 12-25-2009 12-25-2009 Chronic Anxiety disorders (14 sources) Anxiety disorder; Translations: [Anxiety disorder, unspecified] 08-24-2018 Chronic Cataract (5 sources) Bilateral pseudophakia; Translations: [Presence of intraocular lens] Onset: 07-30-2018 02-03-2024 Chronic Chronic obstructive pulmonary disease and bronchiectasis (18 sources) Chronic obstructive lung disease; Translations: [Chronic obstructive pulmonary disease, unspecified] 08-24-2018 Chronic Esophageal disorders (18 sources) Gastroesophageal reflux disease; Translations: [Gastro-esophageal reflux disease without esophagitis] 08-24-2018 Chronic Essential hypertension (7 sources) Hypertensive disorder; Translations: [Essential (primary) hypertension] 03-06-2023 Chronic Glaucoma (2 sources) Preglaucoma, unspecified, bilateral; Translations: [Preglaucoma, unspecified] Onset: 02-22-2025 02-22-2025 Chronic Hyperplasia of prostate (1 source) Benign prostatic hyperplasia without lower urinary tract symptoms; Translations: [Benign prostatic hyperplasia without lower urinary tract symptoms] Onset: 08-19-2024 Chronic Malaise and fatigue (14 sources) Chronic fatigue syndrome; Translations: [Chronic fatigue, unspecified] 08-24-2018 Chronic Miscellaneous mental health disorders (2 sources) Psychalgia; Translations: [Pain disorder with related psychological factors] Onset: 12-25-2009 12-25-2009 Chronic Mood disorders (18 sources) Depressive disorder; Translations: [Depression] 08-24-2018 Chronic Occlusion or stenosis of precerebral arteries (20 sources) Bilateral stenosis of carotid arteries; Translations: [Occlusion and stenosis of bilateral carotid arteries] Onset: 01-25-2025 08-24-2018 Chronic Other aftercare (4 sources) Drug therapy finding; Translations: [Other long-term (current) drug therapy] Onset: 07-30-2018 02-03-2024 Episodic Other circulatory disease (3 sources) Disorder of carotid artery; Translations: [Disorder of arteries and arterioles, unspecified] 02-10-2025 Chronic Other eye disorders (4 sources) Bilateral vitreous floaters; Translations: [Other vitreous opacities, bilateral] Onset: 02-03-2024 02-03-2024 Chronic Other eye disorders (1 source) Other vitreous opacities, bilateral; Translations: [Floaters, bilateral] Onset: 02-03-2024 Chronic Other eye disorders (1 source) Disorder of lacrimal gland; Translations: [Dry eye syndrome of bilateral lacrimal glands] 02-22-2025 Episodic Other eye disorders (1 source) Dry eye syndrome of bilateral lacrimal glands; Translations: [Dry eye syndrome of bilateral lacrimal glands] Onset: 02-22-2025 Episodic Other injuries and conditions due to external causes (12 sources) Closed injury of head; Translations: [Unspecified injury of head, initial encounter] 08-18-2022 Episodic Other screening for suspected conditions (not mental disorders or infectious disease) (15 sources) CT of pelvis abnormal; Translations: [Abnormal findings on diagnostic imaging of other abdominal regions, including retroperitoneum] Onset: 03-09-2025 08-24-2018 Episodic Residual codes; unclassified (14 sources) Sleep apnea; Translations: [Sleep apnea, unspecified] 08-24-2018 Chronic Residual codes; unclassified (4 sources) Sleep apnea, unspecified; Translations: [Unspecified sleep apnea] 10-25-2022 Chronic Spondylosis; intervertebral disc disorders; other back problems (4 sources) Displacement of lumbar intervertebral disc without myelopathy; Translations: [Other intervertebral disc displacement, lumbar region] Onset: 01-12-2002 01-08-2024 Chronic Spondylosis; intervertebral disc disorders; other back problems (20 sources) Thoracic back pain; Translations: [Pain in thoracic spine] Onset: 01-12-2002 02-02-2021 Episodic Sprains and strains (14 sources) Low back strain; Translations: [Strain of muscle, fascia and tendon of lower back, initial encounter] Onset: 01-12-2002 08-18-2022 Episodic Transient cerebral ischemia (2 sources) Amaurosis fugax of left eye; Translations: [Amaurosis fugax] Onset: 07-30-2018 07-30-2018 Chronic Past or Other Problems Problem Classification Problem Date Documented Da te Episodic/Chronic Other aftercare (1 source) Other long-term (current) drug therapy; Translations: [Long-term use of Plaquenil] Onset: 07-30-2018 Episodic Other eye disorders (2 sources) Dry eyes; Translations: [Dry eye syndrome of bilateral lacrimal glands] Onset: 02-03-2024 02-03-2024 Episodic Other non-traumatic joint disorders (1 source) Pain in right knee; Translations: [Pain in right knee] Onset: 09-27-2024 Episodic Pulmonary heart disease (14 sources) H/O: pulmonary embolus; Translations: [Personal history of pulmonary embolism] Onset: 06-30-2017 08-24-2018 Episodic Results Test Name Value Interpretation Reference Range Facility PSA,Total - Annual Screenon 03-03-2025 PSA,TOT SCREEN 0.37 ng/mL Normal 0.02-4.00 [facility] Comment on above: Result Comment: This test was performed using the [employer] tPSA method. Measured values of a patient??sample can vary depending on the testing procedure used. PSA values determined on patient samples by different testing procedures cannot be used interchangeably. If there is a change in PSA assays while monitoring therapy, sequential testing should be performed to confirm baseline values. Performed By: #### L 501.9910 #### [facility] [address] [place], [place], [address] OCT MACULA CIRRUS OU (BOTH E YES)on 02-22-2025 [facility] Radiology Study observation (narrative[facility] FIELD 10-2 OU (BOTH E YES)on 02-22-2025 [facility] Radiology Study observation (narrative) Lisa Jones MR/Castro 02-10-2025 MR/BMS.MARICEL [facility] [address] [place] [address] OFFICE VISIT Date of Service: 02/10/25 MR#: [id number] Acct: [id number] Name: LANG SUERO #: [id number] : 1955 Provider: DARNELL Romero Age/Sex: 70/M Location: [facility] Status: Signed Intake Vital Signs 03/06/23 14:05 02/10/25 11:05 Height 5 ft 10 in Weight: 189 lb BP 128/71 H Blood Pressure Location Lt brachial Position Sitting Respiration 14 Pulse 68 Pulse Source Monitor Temp 97.8 F Temp Source Temporal Pulse Oximetry (%) 99 Oxygen Delivery Method room air Intake Visit Reasons: Carotid artery disease Chief Complaint: carotid arteries US f/u Is patient in pain?: Yes Allergies fentanyl Allergy (Verified 03/06/23 14:07) Unknown Penicillins Allergy (Verified 03/06/23 14:07) Unknown cefdinir (From Omnicef) Adverse Reaction (Verified 03/06/23 14:07) Unknown cephalexin monohydrate (From Keflex) Adverse Reaction (Verified 03/06/23 14:07) Unknown citalopram hydrobromide (From Celexa) Adverse Reaction (Verified 03/06/23 14:07) Unknown doxycycline Adverse Reaction (Verified 03/06/23 14:07) Unknown duloxetine HCl (From Cymbalta) Adverse Reaction (Verified 03/06/23 14:07) Unknown escitalopram oxalate (From Lexapro) Adverse Reaction (Verified 03/06/23 14:07) Unknown fluoxetine HCl (From Prozac) Adverse Reaction (Verified 03/06/23 14:07) Unknown lithium Adverse Reaction (Verified 03/06/23 14:07) Unknown mirtazapine (From Remeron) Adverse Reaction (Verified 03/06/23 14:07) Unknown moxifloxacin HCl (From Avelox) Adverse Reaction (Verified 03/06/23 14:07) Unknown oxymorphone HCl (From Opana) Adverse Reaction (Verified 03/06/23 14:07) Unknown paroxetine HCl (From Paxil) Adverse Reaction (Verified 03/06/23 14:07) Unknown prednisolone Adverse Reaction (Verified 03/06/23 14:07) Unknown quetiapine fumarate (From Seroquel) Adverse Reaction (Verified 03/06/23 14:07) Unknown sertraline HCl (From Zoloft) Adverse Reaction (Verified 03/06/23 14:07) Unknown trazodone Adverse Reaction (Verified 03/06/23 14:07) Unknown venlafaxine HCl (From Effexor) Adverse Reaction (Verified 03/06/23 14:07) Unknown Medications ???Medication ???Instructions ???Recorded ???Confirmed ???Type bupropion HCl 150 mg 24 hr tablet, 150 mg PO DAILY depression 04/0802/10/25 History extended release hydroxychloroquine 200 mg tablet 200 mg PO BID ARTHRITIS 04/08/14 0 02/10/25 History lansoprazole 30 mg capsule,delayed 30 mg PO DAILY gerd/acid reflux 04/08/14 02/10/25 History release oxycodone 5 mg tablet 10 mg PO 4X/DAY pain 04/08/1401/28 History polyethylene glycol 3350 17 gram 34 g PO DAILY laxative 04/08/14 History oral powder packet zolpidem 12.5 mg tablet,extended 10 mg PO QHS PRN PRN Insomnia 03/3002/10/25 History release,multiphase aripiprazole 2 mg tablet 10 mg PO DAILY depression 11/08/15 02/10/25 History rosuvastatin 20 mg tablet (Crestor) 20 mg PO DAILY CHOLESTEROL 07/3102/10/25 History aspirin 81 mg tablet,delayed 81 mg PO DAILY@0800 BLOOD THINNER 08/20/18 02/10/25 History release nortriptyline 25 mg capsule 25 mg PO QHS SLEEP 08/20/18 History alprazolam 0.5 mg tablet 1 mg PO TID anxiety 09/17/1902/10 History lisinopril 40 mg tablet 40 mg PO DAILY 09/17/19 02/10/25 H istory clonidine HCl 0.1 mg tablet 0.1 mg PO BID 03/27/21 02/10/25 Hi story ferrous sulfate 325 mg (65 mg 325 mg PO BID supplement 10/25/22 02/10/25 History iron) tablet clopidogrel 75 mg tablet (Plavix) 75 mg PO DAILY #30 tabs 10/26/22 02/10/25 Rx cholecalciferol (vitamin D3) 50 50 mcg PO DAILY 03/06/23 02/10/25 History mcg (2,000 unit) capsule propranolol 40 mg tablet 40 mg PO BID 03/06/23 02/10/25 His tory amlodipine 5 mg tablet 10 mg PO DAILY 02/10/25 02/10/25 H istory carboxymethylcellulo se sodium 1 % 1 drp ophthalmic (eye) BID 02/10/25 History eye liquid gel drops (Refresh Liquigel) clotrimazole-betamet hasone 1 1 applic topical BID 02/10/2501/28 History %-0.05 % topical cream mometasone 50 mcg/actuation nasal 2 spray intranasal QDAY 02/10/25 02/10/25 History spray (Nasonex 24hr Allergy) multivitamin 1 tab PO QDAY 02/10/25 02/10/25 Hi story tamsulosin 0.4 mg capsule 0.4 mg PO QDAY 02/10/25 02/10/25 H istory Have you fallen in the past year?: Yes PFSH Medical History Carotid stenosis Gastroesophageal reflux disease Depression COLD (chronic obstructive lung disease) Anxiety disorder Surgical History History of left-sided carotid endarterectomy ( 07/2018) History of colonoscopy ( (more content not included)... Normal [facility] Absolute lymphocyte countOrd ered By: Sherman Moise on 02-02-2025 Lymphocytes Auto (Unsp spec) [#/Vol] 1.71 10*3/uL 0.83-4.51 [facility] Absolute neutrophil countOrd ered By: Sherman Moise on 02-02-2025 Neutrophils (Bld) [#/Vol] 3.4 10*3/uL 2.0-7.7 [facility] Anion gap in Serum or Plasma Ordered By: Sherman Moise on 02-02-2025 Anion gap [Moles/Vol] 12 mmol/L 5-15 [facility] Automated lymphocyte count a s percentage of total leukocytesOrdered By: Sherman Moise on 02-02-2025 Lymphocytes/100 WBC Auto (Unsp spec) 30.1 % 19-41 [facility] BUN/creatinine ratioOrdered By: Sherman Moise on 02-02-2025 Urea nitrogen/Creatinine [Mass ratio] 11.4 mg/mg 10-20 [facility] Basophil percentageOrdered B y: Sherman Moise on 02-02-2025 Basophils/100 WBC (Bld) 0.2 % 0-1 [facility] Bilirubin, totalOrdered By: Sherman Moise on 02-02-2025 Bilirubin [Mass/Vol] 0.45 mg/dL 0.00-1.30 [facility] CBC W/Diff, Automatedon Absolute Lymph 1.71 X10 3/uL Normal 0.83-4.51 [facility] Comment on above: Performed By: #### L 100.0100, L500.4100, L500.4050 #### [facility] [address] [place], [address] Absolute Neut 3.4 X10 3/uL Normal 2.0-7.7 [facility] Comment on above: Performed By: #### L 100.0100, L500.4100, L500.4050 #### [facility] [address] [place], [address] Basophils/100 WBC (Bld) 0.2 % Normal 0-1 [facility] Comment on above: Performed By: #### L 100.0100, L500.4100, L500.4050 #### [facility] [address] [place], [address] Eosinophils/100 WBC (Bld) 3.5 % Normal 0-5 [facility] Comment on above: Performed By: #### L 100.0100, L500.4100, L500.4050 #### [facility] [address] [place], [address] Erythrocyte distribution width (RBC) [Ratio] 12.6 % Normal 11.6-14.6 [facility] Comment on above: Performed By: #### L 100.0100, L500.4100, L500.4050 #### [facility] [address] [place], [address] Hematocrit (Bld) [Volume fraction] 40.8 % Normal 40-54 [facility] Comment on above: Performed By: #### L 100.0100, L500.4100, L500.4050 #### [facility] [address] [place], [address] Hemoglobin (Bld) [Mass/Vol] 14.3 g/dL Normal 13.0-16.5 [facility] Comment on above: Performed By: #### L 100.0100, L500.4100, L500.4050 #### [facility] [address] [place], [address] IG% 0.400 Normal 0.0-0.9 [facility] Comment on above: Result Comment: IG% - Immature Granulocytes (promyelocytes, myelocytes and metamyelocytes) > 1% indicates that a LEFT SHIFT is Present. Performed By: #### L 100.0100, L500.4100, L500.4050 #### [facility] [address] [place], [address] Lymphocytes/100 WBC (Bld) 30.1 % Normal 19-41 [facility] Comment on above: Performed By: #### L 100.0100, L500.4100, L500.4050 #### [facility] [address] [place], [address] MCH (RBC) [Entitic mass] 33.3 pg High 27.0-32.0 [facility] Comment on above: Performed By: #### L 100.0100, L500.4100, L500.4050 #### [facility] [address] [place], [address] MCHC (RBC) [Mass/Vol] 35.0 g/dL Normal 32-36 [facility] Comment on above: Performed By: #### L 100.0100, L500.4100, L500.4050 #### [facility] [address] [place], [address] MCV (RBC) [Entitic vol] 95.1 fL High 80-94 [facility] Comment on above: Performed By: #### L 100.0100, L500.4100, L500.4050 #### [facility] [address] [place], [address] Monocytes/100 WBC (Bld) 6.3 % Normal 0-10 [facility] Comment on above: Performed By: #### L 100.0100, L500.4100, L500.4050 #### [facility] [address] [place], [address] Neutrophils/100 WBC (Bld) 59.5 % Normal 47-70 [facility] Comment on above: Performed By: #### L 100.0100, L500.4100, L500.4050 #### [facility] [address] [place], [address] Nucleated RBC (Bld) [#/Vol] 0 10*3/uL Normal 0-5 [facility] Comment on above: Performed By: #### L 100.0100, L500.4100, L500.4050 #### [facility] [address] [place], [address] Platelet mean volume (Bld) [Entitic vol] 10.1 fL Normal 6.2-12.0 [facility] Comment on above: Performed By: #### L 100.0100, L500.4100, L500.4050 #### [facility] [address] [place], [address] Platelets (Bld) [#/Vol] 238 10*3/uL Normal 150-450 [facility] Comment on above: Performed By: #### L 100.0100, L500.4100, L500.4050 #### [facility] [address] [place], [address] RBC (Bld) [#/Vol] 4.29 10*6/uL Low 4.6-6.2 [facility] Comment on above: Performed By: #### L 100.0100, L500.4100, L500.4050 #### [facility] [address] [place], [address] RDW SD 43.8 fl Normal 35.1-43.9 [facility] Comment on above: Performed By: #### L 100.0100, L500.4100, L500.4050 #### [facility] [address] [place], [address] WBC (Bld) [#/Vol] 5.7 10*3/uL Normal 4.4-11.0 [facility] Comment on above: Performed By: #### L 100.0100, L500.4100, L500.4050 #### [facility] [address] [place], [address] Calculated very low density lipoprotein (VLDL) cholesterol measurementOrdered By: Sherman Moise on 02-02-2025 Calculated very low density lipoprotein (VLDL) cholesterol measurement 9 mg/dL 5-40 [facility] Carbon dioxide, total [Moles /volume] in Central venous bloodOrdered By: Sherman Moise on 02-02-2025 CO2 [Moles/Vol] 23.7 mmol/L 21.0-32.0 [facility] Chloride assayOrdered By: Darnell Moise on 02-02-2025 Chloride [Moles/Vol] 94 mmol/L Low 98-108 [facility] Comprehensive Metabolic Prof ilon 02-02-2025 Albumin [Mass/Vol] 3.8 g/dL Normal 3.4-4.8 [facility] Comment on above: Performed By: #### L 100.0100, L500.4100, L500.4050 #### [facility] [address] [place], [address] Albumin/Globulin [Mass ratio] 1.0 {ratio} Normal 0.9-2.4 [facility] Comment on above: Performed By: #### L 100.0100, L500.4100, L500.4050 #### [facility] [address] [place], [address] ALK PHOS 179 U/L High 40-129 [facility] Comment on above: Performed By: #### L 100.0100, L500.4100, L500.4050 #### [facility] [address] [place], [address] ALT [Catalytic activity/Vol] 56 U/L High <=46 [facility] Comment on above: Performed By: #### L 100.0100, L500.4100, L500.4050 #### [facility] [address] [place], [address] AST [Catalytic activity/Vol] 67 U/L High <=37 [facility] Comment on above: Performed By: #### L 100.0100, L500.4100, L500.4050 #### [facility] [address] [place], [address] Bilirubin [Mass/Vol] 0.45 mg/dL Normal 0.00-1.30 [facility] Comment on above: Performed By: #### L 100.0100, L500.4100, L500.4050 #### [facility] [address] [place], [address] BUN/CRE 11.4 RATIO Normal 10-20 [facility] Comment on above: Performed By: #### L 100.0100, L500.4100, L500.4050 #### [facility] [address] [place], [address] Calcium [Mass/Vol] 9.4 mg/dL Normal 7.6-11.0 [facility] Comment on above: Performed By: #### L 100.0100, L500.4100, L500.4050 #### [facility] [address] [place], [address] Chloride [Moles/Vol] 94 mmol/L Low 98-108 [facility] Comment on above: Performed By: #### L 100.0100, L500.4100, L500.4050 #### [facility] [address] [place], [address] CO2 [Moles/Vol] 23.7 mmol/L Normal 21.0-32.0 [facility] Comment on above: Performed By: #### L 100.0100, L500.4100, L500.4050 #### [facility] [address] [place], [address] Creatinine [Mass/Vol] 0.85 mg/dL Normal 0.70-1.20 [facility] Comment on above: Performed By: #### L 100.0100, L500.4100, L500.4050 #### [facility] [address] [place], [address] GAP 12 Normal 5-15 [facility] Comment on above: Performed By: #### L 100.0100, L500.4100, L500.4050 #### [facility] [address] [place], [address] GFR/1.73 sq M.predicted among non-blacks MDRD (S/P/Bld) [Vol rate/Area] 94 mL/min/{1.73_m2} Normal >60 [facility] Comment on above: Result Comment: mL/m in/1.73m2 CKD-EPI Creatinine Equation (2020) Performed By: #### L 100.0100, L500.4100, L500.4050 #### [facility] [address] [place], [address] Globulin (S) [Mass/Vol] 3.8 g/dL Normal 2.2-4.2 [facility] Comment on above: Performed By: #### L 100.0100, L500.4100, L500.4050 #### [facility] [address] [place], [address] Glucose [Mass/Vol] 113 mg/dL High 70-99 [facility] Comment on above: Performed By: #### L 100.0100, L500.4100, L500.4050 #### [facility] [address] [place], [address] Potassium [Moles/Vol] 4.5 mmol/L Normal 3.3-5.1 [facility] Comment on above: Performed By: #### L 100.0100, L500.4100, L500.4050 #### [facility] [address] [place], [address] Sodium [Moles/Vol] 130 mmol/L Low 133-145 [facility] Comment on above: Performed By: #### L 100.0100, L500.4100, L500.4050 #### [facility] [address] [place], [address] T PROT 7.5 g/dL Normal 5.9-8.4 [facility] Comment on above: Performed By: #### L 100.0100, L500.4100, L500.4050 #### [facility] [address] [place], [address] Urea nitrogen [Mass/Vol] 10 mg/dL Normal 4-19 [facility] Comment on above: Performed By: #### L 100.0100, L500.4100, L500.4050 #### [facility] [address] [place], [address] Eosinophil percentageOrdered By: Sherman Moise on 02-02-2025 Eosinophils/100 WBC (Bld) 3.5 % 0-5 [facility] Erythrocyte distribution wid th ratioOrdered By: Sherman Moise on 02-02-2025 Erythrocyte distribution width (RBC) [Ratio] 12.6 % 11.6-14.6 [facility] Erythrocyte distribution wid th standard deviationOrdered By: Sherman Moise on 02-02-2025 Erythrocyte distribution width (RBC) [Ratio] 43.8 fl 35.1-43.9 [facility] Glomerular filtration rate ( GFR) estimation/1.73 sq m using serum, plasma, or whole bOrdered By: Sherman Moise on 02-02-2025 GFR/1.73 sq M.predicted among non-blacks MDRD (S/P/Bld) [Vol rate/Area] 94 mL/min/{1.73_m2} >60 [facility] Comment on above: mL/min/1.73m2 CKD-EP I Creatinine Equation (2020) Hematocrit Auto (Bld) [Volum e fraction]Ordered By: Sherman Moise on 02-02-2025 Hematocrit (Bld) [Volume fraction] 40.8 % 40-54 [facility] Hemoglobin measurementOrdere d By: Sherman Moise on 02-02-2025 Hemoglobin (Bld) [Mass/Vol] 14.3 g/dL 13.0-16.5 [facility] Immature granulocytes/100 WB C Auto (Bld)Ordered By: Sherman Moise on 02-02-2025 Immature granulocytes/100 WBC (Bld) 0.400 % 0.0-0.9 [facility] Comment on above: IG% - Immature Granu locytes (promyelocytes, myelocytes and metamyelocytes) > 1% indicates that a LEFT SHIFT is Present. LDL calc ser/plasOrdered By: Sherman Moise on 02-02-2025 Cholesterol in LDL [Mass/Vol] 48 mg/dL [facility] Comment on above: Dgyrphbjjw=175-726 m g/dL & Higher Dpnx=965 mg/dL or greaterFriedwald Equation for LDL-C Laboratory - Chemistry and C hemistry - challengeOrdered By: Sherman Moise on 02-02-2025 AST [Catalytic activity/Vol] 67 U/L High <38 [facility] Lipid Profileon 02-02-2025 CHOL:HDL 1.66 Normal [facility] Comment on above: Performed By: #### L 100.0100, L500.4100, L500.4050 #### [facility] [address] [place], [address] Cholesterol [Mass/Vol] 143 mg/dL Normal <=200 [facility] Comment on above: Result Comment: Chol esterol level, Desirable <200 mg/dL Borderline high cholesterol 200-239 mg/dL High cholesterol >=240 mg/dL Recommendations of the NCEP Adult Treatment Panel for the following risk-cutoff thresholds for the [place] population. Performed By: #### L 100.0100, L500.4100, L500.4050 #### [facility] [address] [place], [address] Cholesterol in HDL [Mass/Vol] 86 mg/dL Normal [facility] Comment on above: Result Comment: Christen onal Cholesterol Education Program (NCEP) guidelines: <40 mg/dL: Low HDL-cholesterol (major risk factor for CHD) >= 60 mg/dL: High HDL-cholesterol (negative risk factor for CHD) HDL-cholesterol is affected by a number of factors, e.g. smoking, exercise, hormones, sex and age. Performed By: #### L 100.0100, L500.4100, L500.4050 #### [facility] [address] [place], [address] Cholesterol in LDL [Mass/Vol] 48 mg/dL Normal [facility] Comment on above: Result Comment: Bord pagkzj=519-461 mg/dL Higher Awnh=139 mg/dL or greater Friedwald Equation for LDL-C Performed By: #### L 100.0100, L500.4100, L500.4050 #### [facility] [address] [place], [address] Cholesterol in VLDL [Mass/Vol] 9 mg/dL Normal 5-40 [facility] Comment on above: Performed By: #### L 100.0100, L500.4100, L500.4050 #### [facility] [address] [place], [address] Triglyceride [Mass/Vol] 44 mg/dL Normal [facility] Comment on above: Result Comment: The drugs N-Acetylcysteine and Metamizole may falsely depress this assay. Normal range: <150 mg/dL Borderline High: 150-199 mg/dL High: 200-499 mg/dL Very High: >500 mg/dL Performed By: #### L 100.0100, L500.4100, L500.4050 #### [facility] [address] [place], [place], [address] MCV (mean corpuscular volume ) determinationOrdered By: Sherman Moise on 02-02-2025 MCV (RBC) [Entitic vol] 95.1 fL High 80-94 [facility] Mean corpuscular hemoglobin (MCH) determinationOrdered By: Sherman Moise on 02-02-2025 MCH (RBC) [Entitic mass] 33.3 pg High 27.0-32.0 [facility] Mean corpuscular hemoglobin concentration (MCHC) determinationOrdered By: Sherman Moise on 02-02-2025 MCHC (RBC) [Mass/Vol] 35.0 g/dL 32-36 [facility] Mean platelet volume determi nationOrdered By: Sherman Moise on 02-02-2025 Platelet mean volume (Bld) [Entitic vol] 10.1 fL 6.2-12.0 [facility] Monocyte percentageOrdered B y: Sherman Moise on 02-02-2025 Monocytes/100 WBC (Bld) 6.3 % 0-10 [facility] Neutrophil percentageOrdered By: Sherman Moise on 02-02-2025 Neutrophils/100 WBC (Bld) 59.5 % 47-70 [facility] Nucleated red blood cell per centageOrdered By: Sherman Moise on 02-02-2025 Nucleated RBC/100 WBC (Bld) [Ratio] 0 % 0-5 [facility] Platelet countOrdered By: Darnell Moise on 02-02-2025 Platelets (Bld) [#/Vol] 238 10*3/uL 150-450 [facility] Potassium measurement (mass/ volume)Ordered By: Sherman Moise on 02-02-2025 Potassium (Unsp spec) [Mass/Vol] 4.5 mmol/L 3.3-5.1 [facility] RBC Auto (Bld) [#/Vol]Ordere d By: Sherman Moise on 02-02-2025 RBC (Bld) [#/Vol] 4.29 10*6/uL Low 4.6-6.2 [facility] Screening total cholesterol/ high density lipoprotein (HDL) cholesterol ratioOrdered By: Sherman Moise on 02-02-2025 Cholesterol.total/Choles terol in HDL [Mass ratio] 1.66 {ratio} [facility] Serum creatinine measurement (mass/volume)Ordered By: Sherman Moise on 02-02-2025 Creatinine [Mass/Vol] 0.85 mg/dL 0.70-1.20 [facility] Serum globulin measurementOr dered By: Sherman Moise on 02-02-2025 Globulin (S) [Mass/Vol] 3.8 g/dL 2.2-4.2 [facility] Serum glucose measurement (m ass/volume)Ordered By: Sherman Moise on 02-02-2025 Glucose [Mass/Vol] 113 mg/dL High 70-99 [facility] Serum or plasma alanine seals otransferase (ALT) measurementOrdered By: Sherman Moise on 02-02-2025 ALT [Catalytic activity/Vol] 56 U/L High <47 [facility] Serum or plasma albumin carmelo urement (mass/volume)Ordered By: Sherman Moise on 02-02-2025 Albumin [Mass/Vol] 3.8 g/dL 3.4-4.8 [facility] Serum or plasma albumin/glob ulin mass ratioOrdered By: Sherman Moise on 02-02-2025 Albumin/Globulin [Mass ratio] 1.0 {ratio} 0.9-2.4 [facility] Serum or plasma alkaline du sphatase measurementOrdered By: Sherman Moise on 02-02-2025 ALP [Catalytic activity/Vol] 179 U/L High 40-129 [facility] Serum or plasma calcium carmelo urement (mass/volume)Ordered By: Sherman Moise on 02-02-2025 Calcium [Mass/Vol] 9.4 mg/dL 7.6-11.0 [facility] Serum or plasma cholesterol in HDL measurement (mass/volume)Ordered By: Sherman Moise on 02-02-2025 Cholesterol in HDL [Mass/Vol] 86 mg/dL >40 [facility] Comment on above: National Cholesterol Education Program (NCEP) guidelines:<40 mg/dL: Low HDL-cholesterol (major risk factor for CHD)>= 60 mg/dL: High HDL-cholesterol (negative risk factor for CHD)HDL-cholesterol is affected by a number of factors, e.g. smoking, exercise, hormones, sex and age. Serum or plasma cholesterol measurement (mass/volume)Ordered By: Sherman Moise on 02-02-2025 Cholesterol [Mass/Vol] 143 mg/dL <201 [facility] Comment on above: Cholesterol level, D esirable <200 mg/dLBorderline high cholesterol 200-239 mg/dLHigh cholesterol >=240 mg/dLRecommendations of the NCEP Adult Treatment Panel for the following risk-cutoff thresholds for the [place] population. Serum or plasma urea nitroge n measurement (mass/volume)Ordered By: Sherman Moise on 02-02-2025 Urea nitrogen [Mass/Vol] 10 mg/dL 4-19 [facility] Sodium levelOrdered By: Sherman Moise on 02-02-2025 Sodium [Moles/Vol] 130 mmol/L Low 133-145 [facility] Total proteinOrdered By: Alejandra Moise on 02-02-2025 Protein [Mass/Vol] 7.5 g/dL 5.9-8.4 [facility] Triglycerides measurementOrd ered By: Sherman Moise on 02-02-2025 Triglyceride [Mass/Vol] 44 mg/dL <199 [facility] Comment on above: The drugs N-Acetylcy steine and Metamizole may falsely depress this assay. Normal range: <150 mg/dLBorderline High: 150-199 mg/dLHigh: 200-499 mg/dLVery High: >500 mg/dL White blood cell (WBC) count Ordered By: Sherman Moise on 02-02-2025 WBC (Bld) [#/Vol] 5.7 10*3/uL 4.4-11.0 [facility] Carotid Duplex Ultrasoundon 01-18-2025 Carotid Duplex Ultrasound [facility] [place] [place] [address] Carotid Duplex Ultrasound 01/18/25 1256 MR#: [id number] Acct: [id number] Name: LANG SUERO Rep #: [id number] : 1955 69 From: John Sales MD Attending Dr: Dr. John Sales MD Status: REG C LI Ordering Dr: John Sales MD Date: 01/18/25 Location: [facility] Sex: M C Admitted: Reason For Study Reason For Study: Stenosis Rt. Velocities/BP Lt. Velocities/BP Prox CCA 30.5/5 cm/sec. Prox CCA 61.7/18.2 cm/sec. Mid CCA 53.2/8.8 cm/sec. Mid CCA 78.7/22 cm/sec. Dist CCA 43.7/6.9 cm/sec. Dist CCA 104.7/27.4 cm/sec. Right ICA, Known Occlusion. Prox ICA 81.4/11.4 cm/sec. Prox ECA 272.5/13.9 cm/sec. Mid ICA 94.9/22.5 cm/sec. Rt. Vert. 41.9/9.7 cm/sec. Dist ICA 112.1/36 cm/sec. Lt. ICA/CCA = 1.42. Prox ECA 88.8/10.2 cm/sec. Lt. Vert. 51.9/12.6 cm/sec. Right Extracranial There is heterogeneous, irregular atherosclerotic plaque noted in the right common carotid artery. There is heterogeneous, irregular atherosclerotic plaque noted in the right internal carotid artery. The right internal carotid artery is occluded. There is heterogeneous, irregular atherosclerotic plaque noted in the right external carotid artery. Antegrade flow is noted in the right vertebral artery. Left Extracranial There is heterogeneous, irregular atherosclerotic plaque noted in the left common carotid artery. There is intimal thickening but no significant atherosclerotic plaque noted in the left internal carotid artery. There is homogeneous, smooth atherosclerotic plaque noted in the left external carotid artery. Antegrade flow is noted in the left vertebral artery. Procedure Carotid Duplex [id number]. This is a Carotid Duplex examination using B-mode, color flow and specral Doppler. Exam performed in department. 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 Normal left extracranial internal carotid. Patent and antegrade vertebrals bilaterally. Ordering Physician: John Sales Referring Physician: Sherman Moise Performed By: Nita Rasmussen Vani 01/18/25 1420 Date John Sales MD CC: Dr. John Sales MD; Dr. Sherman Moise MD Date Dictated: 01/18/25 1256 Date Transcribed: 01/18/25 142 [employer] Lab Technician: Signed Normal [facility] Duplex ultrasound of carotid artery reportOrdered By: John Sales on 01-18-2025 Study report [facility] [address] [place] [address]. [place] [address] Carotid Duplex Ultrasound 01/18/25 1256 MR#: [id number] Acct: [id number] Name: LANG SUERO Rep #:[id number] : 1955 69 From: John Hidalgo Attending Dr: Dr. John Sales MD S tatus: REG CLI Ordering Dr: John Sales MD Date: Location: [facility] Sex: M C Admitted: Reason For Study Reason For Study: Stenosis Rt. Velocities/BP Lt. Velocities/BP Prox CCA 30.5/5 cm/sec. Prox CCA 61.7/18.2 cm/sec. Mid CCA 53.2/8.8 cm/sec. Mid CCA 78.7/22 cm/sec. Dist CCA 43.7/6.9 cm/sec. Dist CCA 104.7/27.4 cm/sec. Right ICA, Known Occlusion. Prox ICA 81.4/11.4 cm/sec. Prox ECA 272.5/13.9 cm/sec. Mid ICA 94.9/22.5 cm/sec. Rt. Vert. 41.9/9.7 cm/sec. Dist ICA 112.1/36 cm/sec. Lt. ICA/CCA = 1.42. Prox ECA 88.8/10.2 cm/sec. Lt. Vert. 51.9/12.6 cm/sec. Right Extracranial There is heterogeneous, irregular atherosclerotic plaque noted in the right common carotid artery. There is heterogeneous, irregular atherosclerotic plaque noted in the right internal carotid artery. The right internal carotid artery is occluded. There is heterogeneous, irregular atherosclerotic plaque noted in the right external carotid artery. Antegrade flow is noted in the right vertebral artery. Left Extracranial There is heterogeneous, irregular atherosclerotic plaque noted in the left common carotid artery. There is intimal thickening but no significant atherosclerotic plaque noted in the left internal carotid artery. There is homogeneous, smooth atherosclerotic plaque noted in the left external carotid artery. Antegrade flow is noted in the left vertebral artery. Procedure Carotid Duplex [id number]. This is a Carotid Duplex examination using B-mode, color flow and specral Doppler. Exam performed in department. 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 Normal left extracranial internal carotid. Patent and antegrade vertebrals bilaterally. Ordering Physician: John Sales Referring Physician: Sherman Moise Performed By: Nita Rasmussen RVT 01/18/25 1420 Date _ John Sales MD CC: Dr. John Sales MD; Dr. Sherman Moise MD ~ Date Dictated: 01/18/25 1256 Date Transcribed: 01/18/25 1420 [employer] Ass[employer] Qa Lab Technician: Signed [facility] Work Phone: Knee 4 or More Viewson 09-22 Knee 4 or More Views [facility] Imaging Services [address] [place] [address] Knee 4 or More Views MR#: [id number] Acct: [id number] Name: LANG SUERO Rep #: [id number] : 1955 M 69 From: Gabriel Rodney MD PCP: Dr. Sherman Moise MD Status: REG CLI Study: Knee 4 or More Views Date of Exam: 09/22/24 Exam# [id number] Ordering Dr: Sherman Moise MD EXAM: X-ray knee 4 or more views CLINICAL HISTORY: Pain, fall on concrete, bruising COMPARISON: None available TECHNIQUE: Four views right knee FINDINGS: Deformity of the medial aspect of the patella appears nonacute, clinically correlate. No associated overlying soft tissue swelling or lipohemarthrosis identified. Suggestion of possible small joint effusion. No dislocation. Mild medial compartment joint space narrowing. The joint spaces otherwise appear within limits. Spurring along the lateral tibial spine. Vascular calcifications noted. RAD/Knee 4 or More Views IMPRESSION: Deformity of the medial aspect of the patella appears nonacute, clinically correlate. No associated overlying soft tissue swelling or lipohemarthrosis identified. Suggestion of possible small joint effusion. No dislocation. Reading Location: [facility] CC: Dr. Sherman Moise MD [employer] Ass[employer] Qa Lab Technician: Signed Normal [facility] Albumin to globulin ratioOrd ered By: Sherman Moise on 08-05-2024 Albumin/Globulin [Mass ratio] 0.7 {ratio} Low 0.9-2.4 [facility] Bilirubin, totalOrdered By: Sherman Moise on 08-05-2024 Bilirubin [Mass/Vol] 0.50 mg/dL 0.20-1.00 [facility] Comment on above: For patients on eltr ombopag therapy, use of Dimension [place] TBIL is not recommended. Blood urea nitrogen (BUN)/cr eatinine ratioOrdered By: Sherman Moise on 08-05-2024 Urea nitrogen/Creatinine [Mass ratio] 14.4 mg/mg 10-20 [facility] Carbon dioxide measurementOr dered By: Sherman Moise on 08-05-2024 CO2 [Moles/Vol] 25.0 mmol/L 21.0-32.0 [facility] Chloride measurementOrdered By: Sherman Moise on 08-05-2024 Chloride [Moles/Vol] 105 mmol/L 98-107 [facility] Comprehensive Metabolic Prof ilon 08-05-2024 Albumin [Mass/Vol] 3.3 g/dL Normal 3.2-5.0 [facility] Comment on above: Performed By: #### L 500.4100, L500.4050, L501.9940 #### [facility] [address] [place], [address] Albumin/Globulin [Mass ratio] 0.7 {ratio} Low 0.9-2.4 [facility] Comment on above: Performed By: #### L 500.4100, L500.4050, L501.9940 #### [facility] [address] [place], [address] ALK P 157 U/L High 45-117 [facility] Comment on above: Performed By: #### L 500.4100, L500.4050, L501.9940 #### [facility] [address] [place], [address] ALT [Catalytic activity/Vol] 49 U/L Normal 16-61 [facility] Comment on above: Performed By: #### L 500.4100, L500.4050, L501.9940 #### [facility] [address] [place], [address] AST [Catalytic activity/Vol] 50 U/L High 15-37 [facility] Comment on above: Performed By: #### L 500.4100, L500.4050, L501.9940 #### [facility] [address] [place], [address] Bilirubin [Mass/Vol] 0.50 mg/dL Normal 0.20-1.00 [facility] Comment on above: Result Comment: For patients on eltrombopag therapy, use of Dimension [place] TBIL is not recommended. Performed By: #### L 500.4100, L500.4050, L501.9940 #### [facility] [address] [place], [address] BUN/CRE 14.4 RATIO Normal 10-20 [facility] Comment on above: Performed By: #### L 500.4100, L500.4050, L501.9940 #### [facility] [address] [place], [address] CA,Total 9.3 mg/dL Normal 8.5-10.1 [facility] Comment on above: Performed By: #### L 500.4100, L500.4050, L501.9940 #### [facility] [address] [place], [address] Chloride [Moles/Vol] 105 mmol/L Normal 98-107 [facility] Comment on above: Performed By: #### L 500.4100, L500.4050, L501.9940 #### [facility] [address] [place], [address] CO2 [Moles/Vol] 25.0 mmol/L Normal 21.0-32.0 [facility] Comment on above: Performed By: #### L 500.4100, L500.4050, L501.9940 #### [facility] [address] [place], [address] Creatinine [Mass/Vol] 0.97 mg/dL Normal 0.70-1.30 [facility] Comment on above: Result Comment: The validity of the calculated GFR GFRAA in patients over 70 years has not been determined. Clinical correlation is essential. Performed By: #### L 500.4100, L500.4050, L501.9940 #### [facility] [address] [place], [address] EST GFR - AA 99 mL/min Normal >60 [facility] Comment on above: Result Comment: Afri can Afghan GFR Calc Performed By: #### L 500.4100, L500.4050, L501.9940 #### [facility] [address] [place], [address] GAP 8 Normal 5-15 [facility] Comment on above: Performed By: #### L 500.4100, L500.4050, L501.9940 #### [facility] [address] [place], [address] GFR/1.73 sq M.predicted among non-blacks MDRD (S/P/Bld) [Vol rate/Area] 82 mL/min/{1.73_m2} Normal >60 [facility] Comment on above: Result Comment: Non- GFR Calc Performed By: #### L 500.4100, L500.4050, L501.9940 #### [facility] [address] [place], [address] Globulin (S) [Mass/Vol] 4.8 g/dL High 2.2-4.2 [facility] Comment on above: Performed By: #### L 500.4100, L500.4050, L501.9940 #### [facility] [address] [place], [address] Glucose [Mass/Vol] 103 mg/dL Normal 74-106 [facility] Comment on above: Result Comment: Fast ing Glucose result from 100 to 125 mg/dL suggests IMPAIRED HOMEOSTASIS per A.D.A. criteria. Performed By: #### L 500.4100, L500.4050, L501.9940 #### [facility] [address] [place], [address] Potassium [Moles/Vol] 4.2 mmol/L Normal 3.5-5.1 [facility] Comment on above: Performed By: #### L 500.4100, L500.4050, L501.9940 #### [facility] [address] [place], [address] Sodium [Moles/Vol] 138 mmol/L Normal 136-145 [facility] Comment on above: Performed By: #### L 500.4100, L500.4050, L501.9940 #### [facility] [address] [place], [address] T PROT 8.1 g/dL Normal 6.4-8.2 [facility] Comment on above: Performed By: #### L 500.4100, L500.4050, L501.9940 #### [facility] [address] [place], [address] Urea nitrogen [Mass/Vol] 14 mg/dL Normal 7-18 [facility] Comment on above: Performed By: #### L 500.4100, L500.4050, L501.9940 #### [facility] [address] [place], [address] Diagnostic total prostate sp ecific antigen (PSA) measurementOrdered By: Sherman Moise on 08-05-2024 Prostate Specific Antigen Total 0.39 ng/mL 0.0-4.0 [facility] Comment on above: This test was perfor med using the TPSA assay method for the[facility]. Values obtained with differentassay methods cannot be used interchangably.When changing PSA assays in the course of monitoring apatient, additional sequential testing should be carriedout to confirm baseline values. Estimated glomerular filtrat ion rate (GFR) AmericanOrdered By: Sherman Moise on 08-05-2024 Estimated GFR (MDRD) Amer 99 mL/min >60 [facility] Comment on above: GFR Calc Glomerular filtration rate ( GFR) estimationOrdered By: Sherman Moise on 08-05-2024 Estimated GFR (MDRD) Non-Af Amer 82 mL/min >60 [facility] Comment on above: Non- GFR Calc Glucose measurementOrdered B y: Sherman Moise on 08-05-2024 Glucose [Mass/Vol] 103 mg/dL 74-106 [facility] Comment on above: Fasting Glucose resu lt from 100 to 125 mg/dL suggests IMPAIRED HOMEOSTASIS per A.D.A. criteria. High density lipoprotein (HD L) measurementOrdered By: Sherman Moise on 08-05-2024 Cholesterol in HDL [Mass/Vol] 89 mg/dL >40 [facility] Comment on above: The drugs N-Acetylcy steine and Metamizole may falsely depress this assay. Reference Range HDL <40 mg/dL Low HDL Cholesterol HDL >or= 60 mg/dL High HDL Cholesterol Laboratory - Chemistry and C hemistry - challengeOrdered By: Sherman Moise on 08-05-2024 AST [Catalytic activity/Vol] 50 U/L High 15-37 [facility] Lipid Profileon 08-05-2024 Cholesterol [Mass/Vol] 146 mg/dL Normal 200 [facility] Comment on above: Result Comment: <200 mg/dL Desirable 200-240 mg/dL Borderline >240 mg/dL High Risk Performed By: #### L 500.4100, L500.4050, L501.9940 #### [facility] [address] [place], [place], [address] Cholesterol in HDL [Mass/Vol] 89 mg/dL Normal [facility] Comment on above: Result Comment: The drugs N-Acetylcysteine and Metamizole may falsely depress this assay. Reference Range HDL <40 mg/dL Low HDL Cholesterol HDL >or= 60 mg/dL High HDL Cholesterol Performed By: #### L 500.4100, L500.4050, L501.9940 #### [facility] [address] [place], [address] Cholesterol in LDL [Mass/Vol] 48 mg/dL Normal 0-130 [facility] Comment on above: Performed By: #### L 500.4100, L500.4050, L501.9940 #### [facility] [address] [place], [address] Cholesterol in VLDL [Mass/Vol] 9 mg/dL Normal 5-40 [facility] Comment on above: Performed By: #### L 500.4100, L500.4050, L501.9940 #### [facility] [address] [place], [address] Triglyceride [Mass/Vol] 44 mg/dL Normal [facility] Comment on above: Result Comment: The drugs N-Acetylcysteine and Metamizole may falsely depress this assay. Serum Triglycerides Reference Interval Normal <150 mg/dL Borderline high 150 - 199 mg/dL High 200 - 499 mg/dL Very High > or = 500 mg/dL Performed By: #### L 500.4100, L500.4050, L501.9940 #### [facility] [address] [place], [address] Low density lipoprotein (LDL ) cholesterol measurementOrdered By: Sherman Moise on 08-05-2024 Cholesterol in LDL [Mass/Vol] 48 mg/dL 0-130 [facility] PSA,Total- [employer] 020 PSA, DIAGNOSTIC 0.39 ng/mL Normal 0.0-4.0 [facility] Comment on above: Result Comment: This test was performed using the TPSA assay method for the [employer] chemistry system. Values obtained with different assay methods cannot be used interchangably. When changing PSA assays in the course of monitoring a patient, additional sequential testing should be carried out to confirm baseline values. Performed By: #### L 500.4100, L500.4050, L501.9940 #### [facility] [address] [place], [address] Potassium measurementOrdered By: Sherman Moise on 08-05-2024 Potassium [Moles/Vol] 4.2 mmol/L 3.5-5.1 [facility] Serum anion gap measurementO rdered By: Sherman Moise on 08-05-2024 Anion gap [Moles/Vol] 8 mmol/L 5-15 [facility] Serum globulin measurementOr dered By: Sherman Moise on 08-05-2024 Globulin (S) [Mass/Vol] 4.8 g/dL High 2.2-4.2 [facility] Serum or plasma alanine seals otransferase (ALT) measurementOrdered By: Sherman Moise on 08-05-2024 ALT [Catalytic activity/Vol] 49 U/L 16-61 [facility] Serum or plasma albumin carmelo urement (mass/volume)Ordered By: Sherman Moise on 08-05-2024 Albumin [Mass/Vol] 3.3 g/dL 3.2-5.0 [facility] Serum or plasma alkaline du sphatase measurementOrdered By: Sherman Moise on 08-05-2024 ALP [Catalytic activity/Vol] 157 U/L High 45-117 [facility] Serum or plasma calcium carmelo urement (mass/volume)Ordered By: Sherman Moise on 08-05-2024 Calcium [Mass/Vol] 9.3 mg/dL 8.5-10.1 [facility] Serum or plasma cholesterol measurement (mass/volume)Ordered By: Sherman Moise on 08-05-2024 Cholesterol [Mass/Vol] 146 mg/dL <200 [facility] Comment on above: <200 mg/dL Desirable 200-240 mg/dL Borderline >240 mg/dL High Risk Serum or plasma creatinine m easurement (mass/volume)Ordered By: Sherman Moise on 08-05-2024 Creatinine [Mass/Vol] 0.97 mg/dL 0.70-1.30 [facility] Comment on above: The validity of the calculated GFR & GFRAA in patients over 70 years has not been determined. Clinical correlation is essential. Serum or plasma urea nitroge n measurement (mass/volume)Ordered By: Sherman Moise on 08-05-2024 Urea nitrogen [Mass/Vol] 14 mg/dL 7-18 [facility] Sodium levelOrdered By: Sherman Moise on 08-05-2024 Sodium [Moles/Vol] 138 mmol/L 136-145 [facility] Total proteinOrdered By: Alejandra Moise on 08-05-2024 Protein [Mass/Vol] 8.1 g/dL 6.4-8.2 [facility] Triglycerides measurementOrd ered By: Sherman Moise on 08-05-2024 Triglyceride [Mass/Vol] 44 mg/dL <199 [facility] Comment on above: The drugs N-Acetylcy steine and Metamizole may falsely depress this assay.Serum Triglycerides Reference Interval Normal <150 mg/dL Borderline high 150 - 199 mg/dL High 200 - 499 mg/dL Very High > or = 500 mg/dL Very low density lipoprotein (VLDL) cholesterol measurementOrdered By: Sherman Moise on 08-05-2024 VLDL Cholesterol 9 mg/dL 5-40 [facility] OCT MACULA CIRRUS OU (BOTH E YES)on 02-03-2024 [facility] Radiology Study observation (narrative) [facility] VISUAL FIELD 10-2 OU (BOTH E YES)on 02-03-2024 [facility] Radiology Study observation (narrative) [facility] Basophil percentageOrdered B y: Sherman Moise on 08-04-2023 Chloride [Moles/Vol] 98 mmol/L 98-107 [facility] Cholesterol [Mass/Vol] 162 mg/dL <200 [facility] Comment on above: <200 mg/dL Desirable 200-240 mg/dL Borderline >240 mg/dL High Risk Glucose [Mass/Vol] 98 mg/dL 74-106 [facility] Potassium [Moles/Vol] 3.9 mmol/L 3.5-5.1 [facility] Sodium [Moles/Vol] 131 mmol/L 136-145 [facility] Triglyceride [Mass/Vol] 57 mg/dL <199 [facility] Comment on above: The drugs N-Acetylcy steine and Metamizole may falsely depress this assay.Serum Triglycerides Reference Interval Normal <150 mg/dL Borderline high 150 - 199 mg/dL High 200 - 499 mg/dL Very High > or = 500 mg/dL Laboratory - Chemistry and C hemistry - challengeOrdered By: Sherman Moise on 08-04-2023 Cholesterol in HDL [Mass/Vol] 92 mg/dL >40 [facility] Comment on above: The drugs N-Acetylcy steine and Metamizole may falsely depress this assay. Reference Range HDL <40 mg/dL Low HDL Cholesterol HDL >or= 60 mg/dL High HDL Cholesterol Cholesterol in LDL [Mass/Vol] 59 mg/dL 0-130 [facility] CO2 [Moles/Vol] 29.0 mmol/L 21.0-32.0 [facility] Urea nitrogen/Creatinine [Mass ratio] 16.2 mg/mg 10-20 [facility] No Panel InformationOrdered By: Sherman Moise on 08-04-2023 Estimated GFR (MDRD) Amer 113 mL/min >60 [facility] Comment on above: GFR Calc Estimated GFR (MDRD) Non-Af Amer 93 mL/min >60 [facility] Comment on above: Non- GFR Calc VLDL Cholesterol 11 mg/dL 5-40 [facility] Serum or plasma calcium carmelo urement (mass/volume)Ordered By: Sherman Moise on 08-04-2023 Calcium [Mass/Vol] 9.6 mg/dL 8.5-10.1 [facility] Serum or plasma creatinine m easurement (mass/volume)Ordered By: Sherman Moise on 08-04-2023 Creatinine [Mass/Vol] 0.86 mg/dL 0.70-1.30 [facility] Comment on above: The validity of the calculated GFR & GFRAA in patients over 70 years has not been determined. Clinical correlation is essential. Serum or plasma urea nitroge n measurement (mass/volume)Ordered By: Sherman Moise on 08-04-2023 Urea nitrogen [Mass/Vol] 14 mg/dL 7-18 [facility] Thin prep Papanicolaou smear with manual screeningOrdered By: Sherman Moise on 08-04-2023 Thin prep Papanicolaou smear with manual screening 4 5-15 [facility] Absolute lymphocyte countOrd ered By: Dr. Smith on 10-26-2022 Lymphocytes Auto (Unsp spec) [#/Vol] 1.49 10*3/uL 0.83-4.51 [facility] Basophil percentageOrdered B y: Dr. Smith on 10-26-2022 Basophils/100 WBC (Bld) 0.2 % 0-1 [facility] Chloride [Moles/Vol] 107 mmol/L 98-107 [facility] Cholesterol [Mass/Vol] 122 mg/dL <200 [facility] Comment on above: <200 mg/dL Desirable 200-240 mg/dL Borderline >240 mg/dL High Risk Eosinophils/100 WBC (Bld) 3.4 % 0-5 [facility] Glucose [Mass/Vol] 110 mg/dL 74-106 [facility] Comment on above: Fasting Glucose resu lt from 100 to 125 mg/dL suggests IMPAIRED HOMEOSTASIS per A.D.A. criteria. Neutrophils (Bld) [#/Vol] 3.6 10*3/uL 2.0-7.7 [facility] Neutrophils/100 WBC (Bld) 62.4 % 47-70 [facility] Potassium [Moles/Vol] 3.8 mmol/L 3.5-5.1 [facility] Sodium [Moles/Vol] 138 mmol/L 136-145 [facility] Triglyceride [Mass/Vol] 44 mg/dL <199 [facility] Comment on above: The drugs N-Acetylcy steine and Metamizole may falsely depress this assay.Serum Triglycerides Reference Interval Normal <150 mg/dL Borderline high 150 - 199 mg/dL High 200 - 499 mg/dL Very High > or = 500 mg/dL WBC (Bld) [#/Vol] 5.8 10*3/uL 4.4-11.0 [facility] Blood erythrocytes count (nu mber/volume)Ordered By: Dr. Smith on 10-26-2022 RBC (Bld) [#/Vol] 3.53 10*6/uL 4.6-6.2 [facility] Blood hemoglobin measurement (mass/volume)Ordered By: Dr. Smith on 10-26-2022 Hemoglobin (Bld) [Mass/Vol] 8.9 g/dL 13.0-16.5 [facility] Blood lymphocytes/100 leukoc ytesOrdered By: Dr. Smith on 10-26-2022 Lymphocytes/100 WBC (Bld) 25.6 % 19-41 [facility] Blood monocytes/100 leukocyt esOrdered By: Dr. Smith on 10-26-2022 Monocytes/100 WBC (Bld) 8.2 % 0-10 [facility] Blood platelet mean volumeOr dered By: Dr. Smith on 10-26-2022 Platelet mean volume (Bld) [Entitic vol] 9.9 fL 6.2-12.0 [facility] Determination of erythrocyte mean corpuscular volume (MCV)Ordered By: Dr. Smith on 10-26-2022 MCV (RBC) [Entitic vol] 81.6 fL 80-94 [facility] Hematocrit Auto (Bld) [Volum e fraction]Ordered By: Dr. Smith on 10-26-2022 Hematocrit (Bld) [Volume fraction] 28.8 % 40-54 [facility] Laboratory - Chemistry and C hemistry - challengeOrdered By: Dr. Smith on 10-26-2022 CO2 [Moles/Vol] 28.0 mmol/L 21.0-32.0 [facility] Urea nitrogen/Creatinine [Mass ratio] 13.4 mg/mg 10-20 [facility] Laboratory - Hematology and Cell countsOrdered By: Dr. Smith on 10-26-2022 Erythrocyte distribution width (RBC) [Entitic vol] 53.5 fL 35.1-43.9 [facility] Erythrocyte distribution width (RBC) [Ratio] 18.4 % 11.6-14.6 [facility] Immature granulocytes/100 WBC (Bld) 0.200 % 0.0-0.9 [facility] Comment on above: IG% - Immature Granu locytes (promyelocytes, myelocytes and metamyelocytes) > 1% indicates that a LEFT SHIFT is Present. MCH (RBC) [Entitic mass] 25.2 pg 27.0-32.0 [facility] Nucleated RBC/100 WBC (Bld) [Ratio] 0 % 0-5 [facility] MCHC Auto (RBC) [Mass/Vol]Or dered By: Dr. Smith on 10-26-2022 MCHC (RBC) [Mass/Vol] 30.9 g/dL 32-36 [facility] No Panel InformationOrdered By: Dr. Smith on 10-26-2022 Estimated Creatinine Clearance Calc 90.26 ml/min [facility] Estimated GFR (MDRD) Amer 120 mL/min >60 [facility] Comment on above: GFR Calc Estimated GFR (MDRD) Non-Af Amer 100 mL/min >60 [facility] Comment on above: Non- GFR Calc Platelets bldOrdered By: Dr. Smith on 10-26-2022 Platelets (Bld) [#/Vol] 229 10*3/uL 150-450 [facility] Serum or plasma calcium carmelo urement (mass/volume)Ordered By: Dr. Smith on 10-26-2022 Calcium [Mass/Vol] 8.9 mg/dL 8.5-10.1 [facility] Serum or plasma cholesterol in HDL measurement (mass/volume)Ordered By: Dr. Smith on 10-26-2022 Cholesterol in HDL [Mass/Vol] 67 mg/dL >40 [facility] Comment on above: The drugs N-Acetylcy steine and Metamizole may falsely depress this assay. Reference Range HDL <40 mg/dL Low HDL Cholesterol HDL >or= 60 mg/dL High HDL Cholesterol Serum or plasma cholesterol in VLDL measurement (mass/volume)Ordered By: Dr. Smith on 10-26-2022 Cholesterol in VLDL [Mass/Vol] 9 mg/dL 5-40 [facility] Serum or plasma creatinine m easurement (mass/volume)Ordered By: Dr. Smith on 10-26-2022 Creatinine [Mass/Vol] 0.82 mg/dL 0.70-1.30 [facility] Comment on above: The validity of the calculated GFR & GFRAA in patients over 70 years has not been determined. Clinical correlation is essential. Serum or plasma low density lipoprotein (LDL) cholesterol measurement (mass/volume)Ordered By: Dr. Smith on 10-26-2022 Cholesterol in LDL [Mass/Vol] 46 mg/dL 0-130 [facility] Serum or plasma urea nitroge n measurement (mass/volume)Ordered By: Dr. Smith on 10-26-2022 Urea nitrogen [Mass/Vol] 11 mg/dL 7-18 [facility] Thin prep Papanicolaou smear with manual screeningOrdered By: Dr. Smith on 10-26-2022 Thin prep Papanicolaou smear with manual screening 3 5-15 [facility] Absolute lymphocyte countOrd ered By: Dr. Rapp on 10-25-2022 Lymphocytes Auto (Unsp spec) [#/Vol] 1.94 10*3/uL 0.83-4.51 [facility] Basophil percentageOrdered B y: Dr. Rapp on 10-25-2022 Basophils/100 WBC (Bld) 0.0 % 0-1 [facility] Chloride [Moles/Vol] 106 mmol/L 98-107 [facility] Eosinophils/100 WBC (Bld) 1.5 % 0-5 [facility] Glucose [Mass/Vol] 116 mg/dL 74-106 [facility] Comment on above: Fasting Glucose resu lt from 100 to 125 mg/dL suggests IMPAIRED HOMEOSTASIS per A.D.A. criteria. Neutrophils (Bld) [#/Vol] 3.4 10*3/uL 2.0-7.7 [facility] Neutrophils/100 WBC (Bld) 58.9 % 47-70 [facility] Potassium [Moles/Vol] 4.4 mmol/L 3.5-5.1 [facility] Sodium [Moles/Vol] 135 mmol/L 136-145 [facility] WBC (Bld) [#/Vol] 5.8 10*3/uL 4.4-11.0 [facility] Blood erythrocytes count (nu mber/volume)Ordered By: Dr. Rapp on 10-25-2022 RBC (Bld) [#/Vol] 4.10 10*6/uL 4.6-6.2 [facility] Blood hemoglobin measurement (mass/volume)Ordered By: Dr. Rapp on 10-25-2022 Hemoglobin (Bld) [Mass/Vol] 10.0 g/dL 13.0-16.5 [facility] Blood lymphocytes/100 leukoc ytesOrdered By: Dr. Rapp on 10-25-2022 Lymphocytes/100 WBC (Bld) 33.2 % 19-41 [facility] Blood monocytes/100 leukocyt esOrdered By: Dr. Rapp on 10-25-2022 Monocytes/100 WBC (Bld) 6.2 % 0-10 [facility] Blood platelet adequacy dete ction by light microscopyOrdered By: Dr. Rapp on 10-25-2022 Platelets LM Ql (Bld) ADEQUATE ADEQ [facility] Blood platelet mean volumeOr dered By: Dr. Rapp on 10-25-2022 Platelet mean volume (Bld) [Entitic vol] 10.4 fL 6.2-12.0 [facility] Determination of erythrocyte mean corpuscular volume (MCV)Ordered By: Dr. Rapp on 10-25-2022 MCV (RBC) [Entitic vol] 80.7 fL 80-94 [facility] Glucose Glucometer (dC) [M ass/Vol]Ordered By: Dr. Rapp on 10-25-2022 Glucose [Mass/Vol] 101 mg/dL 74-106 [facility] Comment on above: MANAGEMENT OF PATIEN T CARE PER NURSING PROTOCOL Hematocrit Auto (Bld) [Volum e fraction]Ordered By: Dr. Rapp on 10-25-2022 Hematocrit (Bld) [Volume fraction] 33.1 % 40-54 [facility] INR in Blood by Coagulation assayOrdered By: Dr. Rapp on 10-25-2022 INR Coag (Bld) [Relative time] 1.0 {INR} [facility] Laboratory - Chemistry and C hemistry - challengeOrdered By: Dr. Rapp on 10-25-2022 CO2 [Moles/Vol] 27.0 mmol/L 21.0-32.0 [facility] Urea nitrogen/Creatinine [Mass ratio] 18.0 mg/mg 10-20 [facility] Laboratory - CoagulationOrde red By: Dr. Rapp on 10-25-2022 aPTT Coag (Bld) [Time] 27.6 s 24.1-36.2 [facility] PT Coag (PPP) [Time] 13.1 s 11.7-14.9 [facility] Laboratory - Hematology and Cell countsOrdered By: Dr. Rapp on 10-25-2022 Erythrocyte distribution width (RBC) [Entitic vol] 52.1 fL 35.1-43.9 [facility] Erythrocyte distribution width (RBC) [Ratio] 17.9 % 11.6-14.6 [facility] Immature granulocytes/100 WBC (Bld) 0.200 % 0.0-0.9 [facility] Comment on above: IG% - Immature Granu locytes (promyelocytes, myelocytes and metamyelocytes) > 1% indicates that a LEFT SHIFT is Present. MCH (RBC) [Entitic mass] 24.4 pg 27.0-32.0 [facility] Nucleated RBC/100 WBC (Bld) [Ratio] 0 % 0-5 [facility] MCHC Auto (RBC) [Mass/Vol]Or dered By: Dr. Rapp on 10-25-2022 MCHC (RBC) [Mass/Vol] 30.2 g/dL 32-36 [facility] No Panel InformationOrdered By: Dr. Rapp on 10-25-2022 Estimated Creatinine Clearance Calc 74.01 ml/min [facility] Estimated GFR (MDRD) Amer 96 mL/min >60 [facility] Comment on above: GFR Calc Estimated GFR (MDRD) Non-Af Amer 79 mL/min >60 [facility] Comment on above: Non- GFR Calc Troponin I High Sensitivity 8 pg/mL 3.0-78.0 [facility] Comment on above: Please Note: New Stephanie t Units and Gender Specific Reference Ranges. For more information see Policy Stat Procedure [place] High Sensitivity Troponin (TNIH) and attachments. Platelets bldOrdered By: Dr. Rapp on 10-25-2022 Platelets (Bld) [#/Vol] TNP [facility] Comment on above: Test not performedPl ease note: For this sample, a platelet estimate is provided rather than a platelet count due to platelet clumping. Other parameters associated with this sample are not affected by platelet clumping. If a more accurate platelet count is required, a redraw of the patient will be necessary. Serum or plasma calcium carmelo urement (mass/volume)Ordered By: Dr. Rapp on 10-25-2022 Calcium [Mass/Vol] 9.4 mg/dL 8.5-10.1 [facility] Serum or plasma creatinine m easurement (mass/volume)Ordered By: Dr. Rapp on 10-25-2022 Creatinine [Mass/Vol] 1.00 mg/dL 0.70-1.30 [facility] Comment on above: The validity of the calculated GFR & GFRAA in patients over 70 years has not been determined. Clinical correlation is essential. Serum or plasma urea nitroge n measurement (mass/volume)Ordered By: Dr. Rapp on 10-25-2022 Urea nitrogen [Mass/Vol] 18 mg/dL 7-18 [facility] Thin prep Papanicolaou smear with manual screeningOrdered By: Dr. Rapp on 10-25-2022 Thin prep Papanicolaou smear with manual screening 2 5-15 [facility] Basophil percentageOrdered B y: Dr. Moise on 10-21-2022 Bilirubin [Mass/Vol] 0.30 mg/dL 0.20-1.00 [facility] Comment on above: For patients on eltr ombopag therapy, use of Dimension [place] TBIL is not recommended. Chloride [Moles/Vol] 106 mmol/L 98-107 [facility] Glucose [Mass/Vol] 118 mg/dL 74-106 [facility] Comment on above: Fasting Glucose resu lt from 100 to 125 mg/dL suggests IMPAIRED HOMEOSTASIS per A.D.A. criteria. Potassium [Moles/Vol] 4.4 mmol/L 3.5-5.1 [facility] Protein [Mass/Vol] 7.6 g/dL 6.4-8.2 [facility] Sodium [Moles/Vol] 135 mmol/L 136-145 [facility] WBC (Bld) [#/Vol] 5.7 10*3/uL 4.4-11.0 [facility] Blood erythrocytes count (nu mber/volume)Ordered By: Dr. Moise on 10-21-2022 RBC (Bld) [#/Vol] 3.81 10*6/uL 4.6-6.2 [facility] Blood hemoglobin measurement (mass/volume)Ordered By: Dr. Moise on 10-21-2022 Hemoglobin (Bld) [Mass/Vol] 9.6 g/dL 13.0-16.5 [facility] Blood platelet mean volumeOr dered By: Dr. Moise on 10-21-2022 Platelet mean volume (Bld) [Entitic vol] 10.7 fL 6.2-12.0 [facility] Determination of erythrocyte mean corpuscular volume (MCV)Ordered By: Dr. Moise on 10-21-2022 MCV (RBC) [Entitic vol] 80.8 fL 80-94 [facility] Hematocrit Auto (Bld) [Volum e fraction]Ordered By: Dr. Moise on 10-21-2022 Hematocrit (Bld) [Volume fraction] 30.8 % 40-54 [facility] Laboratory - Chemistry and C hemistry - challengeOrdered By: Dr. Moise on 10-21-2022 ALP [Catalytic activity/Vol] 168 U/L 45-117 [facility] ALT [Catalytic activity/Vol] 50 U/L 16-61 [facility] CO2 [Moles/Vol] 26.0 mmol/L 21.0-32.0 [facility] Globulin (S) [Mass/Vol] 4.4 g/dL 2.2-4.2 [facility] Urea nitrogen/Creatinine [Mass ratio] 18.5 mg/mg 10-20 [facility] Laboratory - Hematology and Cell countsOrdered By: Dr. Moise on 10-21-2022 Erythrocyte distribution width (RBC) [Entitic vol] 52.3 fL 35.1-43.9 [facility] Erythrocyte distribution width (RBC) [Ratio] 17.8 % 11.6-14.6 [facility] MCH (RBC) [Entitic mass] 25.2 pg 27.0-32.0 [facility] MCHC Auto (RBC) [Mass/Vol]Or dered By: Dr. Moise on 10-21-2022 MCHC (RBC) [Mass/Vol] 31.2 g/dL 32-36 [facility] No Panel InformationOrdered By: Dr. Moise on 10-21-2022 Estimated GFR (MDRD) Amer 75 mL/min >60 [facility] Comment on above: GFR Calc Estimated GFR (MDRD) Non-Af Amer 62 mL/min >60 [facility] Comment on above: Non- GFR Calc Thyroid Stimulating Hormone (TSH) 1.85 uIU/mL 0.358-3.74 [facility] Platelets bldOrdered By: Dr. Moise on 10-21-2022 Platelets (Bld) [#/Vol] 268 10*3/uL 150-450 [facility] Serum or plasma albumin carmelo urement (mass/volume)Ordered By: Dr. Moise on 10-21-2022 Albumin [Mass/Vol] 3.2 g/dL 3.2-5.0 [facility] Serum or plasma albumin/glob ulin mass ratioOrdered By: Dr. Moise on 10-21-2022 Albumin/Globulin [Mass ratio] 0.7 {ratio} 0.9-2.4 [facility] Serum or plasma calcium carmelo urement (mass/volume)Ordered By: Dr. Moise on 10-21-2022 Calcium [Mass/Vol] 9.0 mg/dL 8.5-10.1 [facility] Serum or plasma creatinine m easurement (mass/volume)Ordered By: Dr. Moise on 10-21-2022 Creatinine [Mass/Vol] 1.24 mg/dL 0.70-1.30 [facility] Comment on above: The validity of the calculated GFR & GFRAA in patients over 70 years has not been determined. Clinical correlation is essential. Serum or plasma urea nitroge n measurement (mass/volume)Ordered By: Dr. Moise on 10-21-2022 Urea nitrogen [Mass/Vol] 23 mg/dL 7-18 [facility] Thin prep Papanicolaou smear with manual screeningOrdered By: Dr. Moise on 10-21-2022 Thin prep Papanicolaou smear with manual screening 63 U/L 15-37 [facility] Thin prep Papanicolaou smear with manual screening 3 5-15 [facility] Absolute lymphocyte countOrd ered By: Dr. Moise on 07-17-2022 Lymphocytes Auto (Unsp spec) [#/Vol] 2.09 10*3/uL 0.83-4.51 [facility] Basophil percentageOrdered B y: Dr. Moise on 07-17-2022 Basophils/100 WBC (Bld) 0.2 % 0-1 [facility] Chloride [Moles/Vol] 103 mmol/L 98-107 [facility] Cholesterol [Mass/Vol] 137 mg/dL <200 [facility] Comment on above: <200 mg/dL Desirable 200-240 mg/dL Borderline >240 mg/dL High Risk Eosinophils/100 WBC (Bld) 2.4 % 0-5 [facility] Glucose [Mass/Vol] 105 mg/dL 74-106 [facility] Comment on above: Fasting Glucose resu lt from 100 to 125 mg/dL suggests IMPAIRED HOMEOSTASIS per A.D.A. criteria. Neutrophils (Bld) [#/Vol] 3.1 10*3/uL 2.0-7.7 [facility] Neutrophils/100 WBC (Bld) 53.8 % 47-70 [facility] Potassium [Moles/Vol] 4.4 mmol/L 3.5-5.1 [facility] Sodium [Moles/Vol] 139 mmol/L 136-145 [facility] Triglyceride [Mass/Vol] 52 mg/dL <199 [facility] Comment on above: The drugs N-Acetylcy steine and Metamizole may falsely depress this assay.Serum Triglycerides Reference Interval Normal <150 mg/dL Borderline high 150 - 199 mg/dL High 200 - 499 mg/dL Very High > or = 500 mg/dL WBC (Bld) [#/Vol] 5.8 10*3/uL 4.4-11.0 [facility] Blood erythrocytes count (nu mber/volume)Ordered By: Dr. Moise on 07-17-2022 RBC (Bld) [#/Vol] 3.78 10*6/uL 4.6-6.2 [facility] Blood hemoglobin measurement (mass/volume)Ordered By: Dr. Moise on 07-17-2022 Hemoglobin (Bld) [Mass/Vol] 9.9 g/dL 13.0-16.5 [facility] Blood lymphocytes/100 leukoc ytesOrdered By: Dr. Moise on 07-17-2022 Lymphocytes/100 WBC (Bld) 36.3 % 19-41 [facility] Blood monocytes/100 leukocyt esOrdered By: Dr. Moise on 07-17-2022 Monocytes/100 WBC (Bld) 7.1 % 0-10 [facility] Blood platelet mean volumeOr dered By: Dr. Moise on 07-17-2022 Platelet mean volume (Bld) [Entitic vol] 10.1 fL 6.2-12.0 [facility] Determination of erythrocyte mean corpuscular volume (MCV)Ordered By: Dr. Moise on 07-17-2022 MCV (RBC) [Entitic vol] 84.7 fL 80-94 [facility] Hematocrit Auto (Bld) [Volum e fraction]Ordered By: Dr. Moise on 07-17-2022 Hematocrit (Bld) [Volume fraction] 32.0 % 40-54 [facility] Laboratory - Chemistry and C hemistry - challengeOrdered By: Dr. Moise on 07-17-2022 CO2 [Moles/Vol] 30.0 mmol/L 21.0-32.0 [facility] Urea nitrogen/Creatinine [Mass ratio] 12.5 mg/mg 10-20 [facility] Laboratory - Hematology and Cell countsOrdered By: Dr. Moise on 07-17-2022 Erythrocyte distribution width (RBC) [Entitic vol] 47.3 fL 35.1-43.9 [facility] Erythrocyte distribution width (RBC) [Ratio] 15.6 % 11.6-14.6 [facility] Immature granulocytes/100 WBC (Bld) 0.200 % 0.0-0.9 [facility] Comment on above: IG% - Immature Granu locytes (promyelocytes, myelocytes and metamyelocytes) > 1% indicates that a LEFT SHIFT is Present. MCH (RBC) [Entitic mass] 26.2 pg 27.0-32.0 [facility] Nucleated RBC/100 WBC (Bld) [Ratio] 0 % 0-5 [facility] MCHC Auto (RBC) [Mass/Vol]Or dered By: Dr. Moise on 07-17-2022 MCHC (RBC) [Mass/Vol] 30.9 g/dL 32-36 [facility] No Panel InformationOrdered By: Dr. Moise on 07-17-2022 Estimated GFR (MDRD) Amer 78 mL/min >60 [facility] Comment on above: GFR Calc Estimated GFR (MDRD) Non-Af Amer 64 mL/min >60 [facility] Comment on above: Non- GFR Calc Platelets bldOrdered By: Dr. Moise on 07-17-2022 Platelets (Bld) [#/Vol] 269 10*3/uL 150-450 [facility] Serum or plasma calcium carmelo urement (mass/volume)Ordered By: Dr. Moise on 07-17-2022 Calcium [Mass/Vol] 8.8 mg/dL 8.5-10.1 [facility] Serum or plasma cholesterol in HDL measurement (mass/volume)Ordered By: Dr. Moise on 07-17-2022 Cholesterol in HDL [Mass/Vol] 77 mg/dL >40 [facility] Comment on above: The drugs N-Acetylcy steine and Metamizole may falsely depress this assay. Reference Range HDL <40 mg/dL Low HDL Cholesterol HDL >or= 60 mg/dL High HDL Cholesterol Serum or plasma cholesterol in VLDL measurement (mass/volume)Ordered By: Dr. Moise on 07-17-2022 Cholesterol in VLDL [Mass/Vol] 10 mg/dL 5-40 [facility] Serum or plasma creatinine m easurement (mass/volume)Ordered By: Dr. Moise on 07-17-2022 Creatinine [Mass/Vol] 1.20 mg/dL 0.70-1.30 [facility] Comment on above: The validity of the calculated GFR & GFRAA in patients over 70 years has not been determined. Clinical correlation is essential. Serum or plasma low density lipoprotein (LDL) cholesterol measurement (mass/volume)Ordered By: Dr. Moise on 07-17-2022 Cholesterol in LDL [Mass/Vol] 50 mg/dL 0-130 [facility] Serum or plasma urea nitroge n measurement (mass/volume)Ordered By: Dr. Moise on 07-17-2022 Urea nitrogen [Mass/Vol] 15 mg/dL 7-18 [facility] Thin prep Papanicolaou smear with manual screeningOrdered By: Dr. Moise on 07-17-2022 Thin prep Papanicolaou smear with manual screening 6 5-15 [facility] Absolute lymphocyte counton 10-09-2021 Lymphocytes Auto (Unsp spec) [#/Vol] 1.41 10*3/uL 0.83-4.51 [facility] Work Phone: Basophil percentageon 2021 Basophils/100 WBC (Bld) 0.2 % 0-1 [facility] Work Phone: Bilirubin [Mass/Vol] 0.40 mg/dL 0.20-1.00 [facility] Work Phone: Comment on above: For patients on eltr ombopag therapy, use of Dimension [place] TBIL is not recommended. Chloride [Moles/Vol] 102 mmol/L 98-107 [facility] Work Phone: Eosinophils/100 WBC (Bld) 3.0 % 0-5 [facility] Work Phone: Glucose [Mass/Vol] 117 mg/dL 74-106 [facility] Work Phone: [phone] Comment on above: Fasting Glucose resu lt from 100 to 125 mg/dL suggests IMPAIRED HOMEOSTASIS per A.D.A. criteria. Neutrophils (Bld) [#/Vol] 2.8 10*3/uL 2.0-7.7 [facility] Work Phone: Neutrophils/100 WBC (Bld) 59.7 % 47-70 [facility] Work Phone: Potassium [Moles/Vol] 4.2 mmol/L 3.5-5.1 [facility] Work Phone: Protein [Mass/Vol] 7.6 g/dL 6.4-8.2 [facility] Work Phone: Sodium [Moles/Vol] 135 mmol/L 136-145 [facility] Work Phone: WBC (Bld) [#/Vol] 4.7 10*3/uL 4.4-11.0 [facility] Work Phone: Blood erythrocytes count (nu mber/volume)on 10-09-2021 RBC (Bld) [#/Vol] 3.95 10*6/uL 4.6-6.2 [facility] Work Phone: Blood hemoglobin measurement (mass/volume)on 10-09-2021 Hemoglobin (Bld) [Mass/Vol] 11.2 g/dL 13.0-16.5 [facility] Work Phone: Blood lymphocytes/100 leukoc yteson 10-09-2021 Lymphocytes/100 WBC (Bld) 29.7 % 19-41 [facility] Work Phone: Blood monocytes/100 leukocyt eson 10-09-2021 Monocytes/100 WBC (Bld) 7.2 % 0-10 [facility] Work Phone: Blood platelet mean volumeon 10-09-2021 Platelet mean volume (Bld) [Entitic vol] 10.2 fL 6.2-12.0 [facility] Work Phone: Determination of erythrocyte mean corpuscular volume (MCV)on 10-09-2021 MCV (RBC) [Entitic vol] 85.8 fL 80-94 [facility] Work Phone: Erythrocyte sedimentation ra norma 10-09-2021 ESR (Bld) [Velocity] 44 mm/h 0-20 [facility] Work Phone: Hematocrit Auto (Bld) [Volum e fraction]on 10-09-2021 Hematocrit (Bld) [Volume fraction] 33.9 % 40-54 [facility] Work Phone: Laboratory - Chemistry and C hemistry - challengeon 10-09-2021 ALP [Catalytic activity/Vol] 173 U/L 45-117 [facility] Work Phone: ALT [Catalytic activity/Vol] 38 U/L 16-61 [facility] Work Phone: CO2 [Moles/Vol] 27.0 mmol/L 21.0-32.0 [facility] Work Phone: Cobalamin (Vitamin B12) [Mass/Vol] 364 pg/mL 211-911 [facility] Work Phone: Free T4 [Mass/Vol] 1.39 ng/dL 0.76-1.46 [facility] Work Phone: Globulin (S) [Mass/Vol] 4.5 g/dL 2.2-4.2 [facility] Work Phone: Urea nitrogen/Creatinine [Mass ratio] 15.5 mg/mg 10-20 [facility] Work Phone: Laboratory - Hematology and Cell countson 10-09-2021 Erythrocyte distribution width (RBC) [Entitic vol] 46.1 fL 35.1-43.9 [facility] Work Phone: Erythrocyte distribution width (RBC) [Ratio] 14.5 % 11.6-14.6 [facility] Work Phone: Immature granulocytes/100 WBC (Bld) 0.200 % 0.0-0.9 [facility] Work Phone: Comment on above: IG% - Immature Granu locytes (promyelocytes, myelocytes and metamyelocytes) > 1% indicates that a LEFT SHIFT is Present. MCH (RBC) [Entitic mass] 28.4 pg 27.0-32.0 [facility] Work Phone: Nucleated RBC/100 WBC (Bld) [Ratio] 0 % 0-5 [facility] Work Phone: MCHC Auto (RBC) [Mass/Vol]on 10-09-2021 MCHC (RBC) [Mass/Vol] 33.0 g/dL 32-36 [facility] Work Phone: No Panel Informationon 10-09 Estimated GFR (MDRD) Amer 86 mL/min >60 [facility] Work Phone: Comment on above: GFR Calc Estimated GFR (MDRD) Non-Af Amer 71 mL/min >60 [facility] Work Phone: Comment on above: Non- GFR Calc Thyroid Stimulating Hormone (TSH) 1.43 uIU/mL 0.358-3.74 [facility] Work Phone: Vitamin D 25-Hydroxy 16.6 ng/mL [facility] Work Phone: Comment on above: Vitamin D 25(OH) Sta tus Range Deficiency <20 ng/mL (50nmol/L) Insufficiency 20 - 30 ng/mL (50 - 75 nmol/L) Sufficiency 30 - 100 ng/mL (75 - 250 nmol/L) Toxicity >100 ng/mL (>250 nmol/L) Platelets bldon 10-09-2021 Platelets (Bld) [#/Vol] 271 10*3/uL 150-450 [facility] Work Phone: Serum or plasma albumin carmelo urement (mass/volume)on 10-09-2021 Albumin [Mass/Vol] 3.1 g/dL 3.2-5.0 [facility] Work Phone: Serum or plasma albumin/glob ulin mass ratioon 10-09-2021 Albumin/Globulin [Mass ratio] 0.7 {ratio} 0.9-2.4 [facility] Work Phone: Serum or plasma calcium carmelo urement (mass/volume)on 10-09-2021 Calcium [Mass/Vol] 8.5 mg/dL 8.5-10.1 [facility] Work Phone: Serum or plasma creatinine m easurement (mass/volume)on 10-09-2021 Creatinine [Mass/Vol] 1.10 mg/dL 0.70-1.30 [facility] Work Phone: Comment on above: The validity of the calculated GFR & GFRAA in patients over 70 years has not been determined. Clinical correlation is essential. Serum or plasma urea nitroge n measurement (mass/volume)on 10-09-2021 Urea nitrogen [Mass/Vol] 17 mg/dL 7-18 [facility] Work Phone: Thin prep Papanicolaou smear with manual screeningon 10-09-2021 Thin prep Papanicolaou smear with manual screening 55 U/L 15-37 [facility] Work Phone: Thin prep Papanicolaou smear with manual screening 6 5-15 [facility] Work Phone: Basophil percentageon 2021 Bilirubin [Mass/Vol] 0.30 mg/dL 0.20-1.00 [facility] Work Phone: Comment on above: For patients on eltr ombopag therapy, use of Dimension [place] TBIL is not recommended. Chloride [Moles/Vol] 106 mmol/L 98-107 [facility] Work Phone: Glucose [Mass/Vol] 94 mg/dL 74-106 [facility] Work Phone: Potassium [Moles/Vol] 4.5 mmol/L 3.5-5.1 [facility] Work Phone: Protein [Mass/Vol] 7.8 g/dL 6.4-8.2 [facility] Work Phone: Sodium [Moles/Vol] 139 mmol/L 136-145 [facility] Work Phone: Laboratory - Chemistry and C hemistry - challengeon 07-18-2021 ALP [Catalytic activity/Vol] 221 U/L 45-117 [facility] Work Phone: ALT [Catalytic activity/Vol] 31 U/L 16-61 [facility] Work Phone: CO2 [Moles/Vol] 29.0 mmol/L 21.0-32.0 [facility] Work Phone: Globulin (S) [Mass/Vol] 4.9 g/dL 2.2-4.2 [facility] Work Phone: Urea nitrogen/Creatinine [Mass ratio] 14.0 mg/mg 10-20 [facility] Work Phone: No Panel Informationon 07-18 Estimated GFR (MDRD) Amer 89 mL/min >60 [facility] Work Phone: Comment on above: GFR Calc Estimated GFR (MDRD) Non-Af Amer 73 mL/min >60 [facility] Work Phone: Comment on above: Non- GFR Calc Serum or plasma albumin carmelo urement (mass/volume)on 07-18-2021 Albumin [Mass/Vol] 2.9 g/dL 3.2-5.0 [facility] Work Phone: Serum or plasma albumin/glob ulin mass ratioon 07-18-2021 Albumin/Globulin [Mass ratio] 0.6 {ratio} 0.9-2.4 [facility] Work Phone: Serum or plasma calcium carmleo urement (mass/volume)on 07-18-2021 Calcium [Mass/Vol] 9.1 mg/dL 8.5-10.1 [facility] Work Phone: Serum or plasma creatinine m easurement (mass/volume)on 07-18-2021 Creatinine [Mass/Vol] 1.07 mg/dL 0.70-1.30 [facility] Work Phone: Comment on above: The validity of the calculated GFR & GFRAA in patients over 70 years has not been determined. Clinical correlation is essential. Serum or plasma urea nitroge n measurement (mass/volume)on 07-18-2021 Urea nitrogen [Mass/Vol] 15 mg/dL 7-18 [facility] Work Phone: Thin prep Papanicolaou smear with manual screeningon 07-18-2021 Thin prep Papanicolaou smear with manual screening 46 U/L 15-37 [facility] Work Phone: Thin prep Papanicolaou smear with manual screening 4 5-15 [facility] Work Phone: Vital Signs Date Time Vital Sign Value Performing Clinician Faci lity 02-10-2025 11:05-0400 Body temperature 97.8 [degF] Dr. Sherman Moise MD Work Phone: [facility] 02-10-2025 11:05-0400 Body weight 85.[address] Sherman Moise MD Work Phone: [facility] 02-10-2025 11:05-0400 Diastolic blood pressure 71 mm[Hg] Dr. Sherman Moise MD Work Phone: [facility] 02-10-2025 11:05-0400 Heart rate 68 /min Dr. Sherman Moise MD Work Phone: [facility] 02-10-2025 11:05-0400 Respiratory rate 14 /min Dr. Sherman Moise MD Work Phone: [facility] 02-10-2025 11:05-0400 SaO2% (BldA) [Mass fraction] 99 % Dr. Sherman Moise MD Work Phone: [facility] 02-10-2025 11:05-0400 Systolic blood pressure 128 mm[Hg] Dr. Sherman Moise MD Work Phone: [facility] 10-26-2022 17:45-0400 Body temperature 98.1 [degF] Dr. Sherman Moise Work Phone: [facility] 10-26-2022 17:45-0400 Diastolic blood pressure 75 mm[Hg] Dr. Sherman Moise Work Phone: [facility] 10-26-2022 17:45-0400 Heart rate 74 /min Dr. Sherman Moise Work Phone: [facility] 10-26-2022 17:45-0400 Respiratory rate 18 /min Dr. Shermna Moise Work Phone: [facility] 10-26-2022 17:45-0400 SaO2% (BldA) [Mass fraction] 96 % Dr. Sherman Moise Work Phone: [facility] 10-26-2022 17:45-0400 Systolic blood pressure 126 mm[Hg] Dr. Sherman Moise Work Phone: [facility] 10-26-2022 17:00-0400 Body mass index (BMI) [Ratio] 25.5 kg/m2 Dr. Sherman Moise Work Phone: [facility] 10-26-2022 15:07-0400 Body temperature 98 [degF] Dr. Sherman Moise Work Phone: [facility] 10-26-2022 15:07-0400 Diastolic blood pressure 75 mm[Hg] Dr. Sherman Moise Work Phone: [facility] 10-26-2022 15:07-0400 Heart rate 73 /min Dr. Sherman Moise Work Phone: [facility] 10-26-2022 15:07-0400 Respiratory rate 18 /min Dr. Sherman Moise Work Phone: [facility] 10-26-2022 15:07-0400 SaO2% (BldA) [Mass fraction] 98 % Dr. Sherman Moise Work Phone: [facility] 10-26-2022 15:07-0400 Systolic blood pressure 132 mm[Hg] Dr. Sherman Moise Work Phone: [facility] 10-25-2022 15:16-0400 Body height 177.[address] Sherman Moise Work Phone: [facility] 10-25-2022 15:16-0400 Body weight 80.[address] Sherman Moise Work Phone: [facility] 10-25-2022 13:25-0400 Body temperature 97.2 [degF] [facility] 10-25-2022 13:25-0400 Diastolic blood pressure 73 mm[Hg] [facility] 10-25-2022 13:25-0400 Heart rate 69 /min [facility] 10-25-2022 13:25-0400 Respiratory rate 18 /min [facility] 10-25-2022 13:25-0400 SaO2% (BldA) [Mass fraction] 99 % [facility] 10-25-2022 13:25-0400 Systolic blood pressure 145 mm[Hg] [facility] 10-25-2022 13:21-0400 Body height 177.8 cm [facility] 10-25-2022 13:21-0400 Body mass index (BMI) [Ratio] 25.5 kg/m2 [facility] 10-25-2022 13:21-0400 Body weight 80.7 kg [facility] 10-25-2022 13:06-0400 SaO2% (BldA) [Mass fraction] 99 % [facility] 10-25-2022 12:30-0400 Diastolic blood pressure 72 mm[Hg] [facility] 10-25-2022 12:30-0400 Heart rate 71 /min [facility] 10-25-2022 12:30-0400 Respiratory rate 13 /min [facility] 10-25-2022 12:30-0400 Systolic blood pressure 137 mm[Hg] [facility] 10-25-2022 12:24-0400 Body temperature 97.6 [degF] [facility] 08-18-2022 09:40-0500 Diastolic blood pressure 79 mm[Hg] [facility] 08-18-2022 09:40-0500 Respiratory rate 16 /min [facility] 08-18-2022 09:40-0500 SaO2% (BldA) [Mass fraction] 98 % [facility] 08-18-2022 09:40-0500 Systolic blood pressure 140 mm[Hg] [facility] 08-18-2022 07:21-0500 Body height 177.8 cm [facility] 08-18-2022 07:21-0500 Body mass index (BMI) [Ratio] 27.9 kg/m2 [facility] 08-18-2022 07:21-0500 Body temperature 96.9 [degF] [facility] 08-18-2022 07:21-0500 Body weight 88.45 kg [facility] 08-18-2022 07:21-0500 Heart rate 73 /min [facility] Encounters Encounter Date Encounter Type Care Provider Facility Start: 03-03-2025 End: 03-03-[address] Sherman Moise MD Work Phone: -Laboratory Start: 03-03-2025 End: 03-03-[address] Gunnar Palmer MD -Laboratory Work Phone: Start: 03-03-2025 End: 03-03-2025 ambulatory Sherman Moise Facility:[facility] Start: 02-22-2025 End: 02-22-2025 Patient encounter procedure Ish Carrion OD Work Phone: Ophthalmology Comment on above: Long-term use of Tom quenil (Primary Dx); Floaters, bilateral; Pseudophakia of both eyes; Glaucoma suspect of both eyes; Dry eye syndrome of bilateral lacrimal glands Start: 02-22-2025 End: 02-22-2025 ambulatory ISH CARRION Facility:[facility] Start: 02-11-2025 Encounter for genera l adult medical examination without abnormal findings Sherman Moise [facility] Start: 02-10-2025 End: 02-10-2025 Patient encounter procedure Edilma JOSEPH -[facility] Work Phone: Start: 02-10-2025 End: 02-10-[address] Sherman Moise MD Work Phone: -[facility] Start: 02-02-2025 End: 02-02-[address] Sherman Moise MD Work Phone: -Laboratory [facility] Start: 02-02-2025 End: 02-02-[address] Sherman Moise MD -Laboratory [facility] Start: 02-02-2025 End: 02-02-2025 ambulatory Sherman Moise Facility:[facility] Start: 01-18-2025 Non-patient / Non-visit Dr. John Sales MD -[facility] Start: 01-18-2025 End: 01-18-[address] Sherman Moise MD Work Phone: -Cardiovascular Services Start: 01-18-2025 End: 01-18-[address] John Sales MD -Cardiovascular Services Work Phone: Start: 01-18-2025 End: 01-18-2025 ambulatory John Sales Facility:[facility] Start: 09-22-2024 End: 09-22-[address] Sherman Moise MD Work Phone: [facility] Work Phone: Start: 09-22-2024 End: 09-22-[address] Sheramn Moise MD -Radiology, [place] Work Phone: Start: 09-22-2024 End: 09-22-2024 ambulatory Sherman Moise Facility:[facility] Start: 08-05-2024 End: 08-05-[address] [facility] Start: 08-05-2024 End: 08-05-2024 ambulatory Sherman Moise Facility:[facility] Start: 02-03-2024 End: 02-03-2024 Patient encounter procedure Rosalia Lane OD Work Phone: Ophthalmology Comment on above: Long-term use of Tom quenil (Primary Dx); Floaters, bilateral; Pseudophakia of both eyes Start: 09-09-2023 End: 09-09-2023 ambulatory [facility] Work Phone: Start: 09-09-2023 End: 09-09-2023 Patient encounter procedure [facility] Work Phone: Start: 08-04-2023 End: 08-04-2023 ambulatory [facility] Work Phone: Start: 08-04-2023 End: 08-04-2023 [facility] Start: 11-18-2022 End: 11-18-[address] Sherman Moise Work Phone: [facility] Work Phone: Start: 11-18-2022 End: 11-18-[address] Sherman Moise Work Phone: [facility]-Pulmonary Services/Neurology Start: 10-26-2022 Non-patient / Non-visit Dr. Sherman Moise Work Phone: [facility] Start: 10-25-2022 Non-patient / Non-visit Dr. Sherman Moise Work Phone: [facility] Start: 10-25-2022 Non-patient / Non-visit Dr. Sherman Moise Work Phone: [facility] Start: 10-25-2022 End: 10-26-2022 [facility] Start: 10-25-2022 End: 10-26-[address] Sherman Moise Work Phone: [facility] Work Phone: Start: 10-21-2022 End: 10-21-2022 ambulatory [facility] Work Phone: Start: 10-21-2022 End: 10-21-2022 Patient encounter procedure [facility] Start: 08-18-2022 End: 08-18-2022 [facility] Start: 07-17-2022 End: 07-17-2022 ambulatory [facility] Work Phone: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 Right Eye Stable. Left Eye Stable.[id number] NoteDate of Procedure 02/03/2024. 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 Interpretation Right Eye Normal. Left Eye Normal. Interval Change Right Eye Stable. Left Eye Stable.[id number] Smith [facility] October 26, 2022 2:33pm Note Date/Time October 26, 2022 2:3 3pm [facility] Medical Records Department [address] [place] [id number] Discharge Summary 10/26/22 1426 MR#: [id number] Acct: [id number] Name: LANG SUERO Rep #:[id number] : 1955 67 From: Vince lino MD PCP: Dr. Sherman Moise MD Status:ADM I NO Location: [place] [address] Providers Date of Admission: 10/25/22 Primary Care Physician: Dr. Sherman oMise MD Reason For Visit: CVA Diagnosis Discharge Diagnosis (1) Acute cerebrovascular accident (CVA): Status: Acute Code(s): I63.9 - Cerebral infarction, unspecified Medications at Discharge Home Medications bupropion HCl 150 mg 24 hr tablet, extended release 150 mg PO DAILY depression 04/08/14 hydroxychloroquine 200 mg tablet 200 mg PO BID ARTHRITIS 04/08/14 lansoprazole 30 mg capsule,delayed release 30 mg PO DAILY gerd/acid reflux 04/08/14 oxycodone 5 mg tablet 10 mg PO 4X/DAY pain 04/08/14 polyethylene glycol 3350 17 gram oral powder packet 34 g PO DAILY laxative 04/08/14 tamsulosin 0.4 mg capsule 0.4 mg PO DAILY prostate 04/08/14 zolpidem 12.5 mg tablet,extended release,multiphase 10 mg PO QHS PRN PRN Insomnia 04/08/14 aripiprazole 2 mg tablet 10 mg PO DAILY depression 11/08/15 propranolol 20 mg tablet 20 mg PO BID blood pressure 07/10/17 rosuvastatin 20 mg tablet (Crestor) 20 mg PO DAILY CHOLESTEROL 08/17/18 aspirin 81 mg tablet,delayed release 81 mg PO DAILY@0800 BLOOD THINNER 08/20/18 nortriptyline 25 mg capsule 25 mg PO QHS SLEEP 08/20/18 alprazolam 0.5 mg tablet 1 mg PO TID anxiety 09/17/19 lisinopril 40 mg tablet 40 mg PO DAILY 09/17/19 clonidine HCl 0.1 mg tablet 0.1 mg PO BID 03/27/21 ferrous sulfate 325 mg (65 mg iron) tablet 325 mg PO BID supplement 10/25/22 clopidogrel 75 mg tablet (Plavix) 75 mg PO DAILY #30 tabs 10/26/22 Hospital Course Operations None Procedures 2-D Echocardiogram Summary of Care Provided Minutes Spent on Discharge: 32 Hospital Course: Per HPI: LANG SUERO, is a 67 M who presents to the hospital with slurred speech, left facial droop, and left lower extremity weakness.? He says that he has been noticing some weakness periodically throughout the last week or so and he notices that it is worse in the morning after he takes his blood pressure medications but he states that last night he went to bed and was normal and thenhe woke up with significant more deficits.? He presented to the hospital was evaluated by teleneurology who felt that he needed to be brought in for a strokework-up, he was outside the window for thrombolytics.? Lab work was unremarkable, CTA of the head and neck demonstrated chronically occluded right carotid artery and the status post endarterectomy on the left carotid. Hospital Course: 1. CVA rule out/occluded right carotid artery status post left carotid endarterectomy/HTN/HLD ?The echo is unremarkable and the MRI does not show any ischemic stroke or head bleed. There is abnormal signal within the right petrous and cavernous carotid vessels which is consistent with a right ICA occlusion ? He is already on Crestor as well as lisinopril and propranolol which she can resume on discharge ? He is on aspirin, will place him on Plavix and have him follow-up with neurology as an outpatient just to be on the safe side ? We will also recommend a 48-hour Holter monitor on discharge ? I discussed with him the plan for discharge today he expressed understanding of the risk benefits going home and would like to go home today. PT and OT did evaluate him and did not feel that any further therapy was recommended. His left lower extremity weakness has improved longer has drift on my evaluation andhe says that he is feeling much better today than he was yesterday. Speech therapy does recommend outpatient skilled therapy we will get that set up as well 2. Anxiety/depression/chronic fatigue syndrome ? Stable ? Continue with all of his home medications 3. GERD ? Stable ? Continue with PPI 4. BPH ? Stable ? Continue with Flomax Physical Exam Narrative General: Alert, Oriented x3, Cooperative, No apparent distress HEENT: Atraumatic, PERRLA, EOMI, Normocephalic Oral: Moist Mucosa Neck: Supple, No JVD Lungs: Clear to auscultation, Normal air movement, No rhonchi, No wheeze, No rales Cardiovascular: Regular rate, Regular Rhythm, Normal S1, Normal S2, No murmurs Abdomen: Soft, Non Tender, Non-Distended, No Hepato-splenomegaly Extremities: No edema, Capillary Refill Less than 3 Seconds Skin: No rashes, No breakdown Musculoskeletal: No Tenderness to Palpation of Joints or Extremities Neurological: Left facial droop with mumbled speech, strength is normal and equal bilaterally in his upper and lower extremities and sensation is intact Psych/Mental Status: Flat affect Weight / BMI Weight Weight: 177 lb 14.609 oz Body Mass Index (BMI) 25.5 ABG / Lab / Microbiology Data Result Diagrams: 10/26/22 07:00 10/26/22 07:00 Laboratory: Laboratory Results - last 24 hr 10/26/22 07:00: WBC 5.8, RBC 3.53 L, Hgb 8.9 L, Hct 28.8 L, MCV 81.6, MCH 25.2 L, MCHC 30.9 L, RDW Std Deviation 53.5 H, RDW Coeff of Scot 18.4 H, Plt Count 229,MPV 9.9, Immature Gran % (Auto) 0.200, Neut % (Auto) 62.4, Lymph % (Auto) 25.6, Hardy % (Auto) 8.2, Eos % (Auto) 3.4, Baso % (Auto) 0.2, Absolute Neuts (auto) 3.6, Absolute Lymphs (auto) 1.49, Nucleated RBC % 0 10/26/22 07:00: Sodium 138, Potassium 3.8, Chloride 107, Carbon Dioxide 28.0, Anion Gap 3 L, BUN 11, Creatinine 0.82, Estim Creat Clear Calc 90.26, Est GFR (MDRD) Af Amer 120, Est GFR (MDRD) Non-Af 100, BUN/Creatinine Ratio 13.4, Glucose 110 H, Calcium 8.9, Triglycerides 44, Cholesterol 122, LDL Cholesterol 46, VLDL Cholesterol 9, HDL Cholesterol 67 Radiography Diagnostic Testing: Radiology Impression Brain MRI 10/25/22 13:03 IMPRESSION: 1. Minimal involutional changes and chronic microvascular deep white matter changes consistent with age. 2. No evidence of mass, hemorrhage, or acute territorial infarct. 3. Abnormal signal within the RIGHT petrous and cavernous carotid vessels suspicious of slow flow versus occlusion and correspond to the recent CTA findings of chronic RIGHT ICA occlusion. Electronically Signed: Aguila Woods MD at 0:32 EDT , Echocardiogram 10/25/22 13:03 Interpretation Summary The estimated ejection fraction is 60 %. Trivial mitral valve insufficiency. Ordering Physician: Vince Smith Referring Physician: Sherman Moise Performed By: Leeann Matthew RCS D/C Instructions Discharge Diet: Low fat / Low cholesterol Call your doctor if you observe: Fever of 101 or Higher, Shortness of breath, Dizziness, Fainting spells, Swelling in the ankles, Chest pain and Increased palpitations (irregular heartbeat) Meaningful Use Info Meaningful Use Diagnoses (Choose all that apply): None applicable Discharge Plan Admission Admit Date/Time: 10/25/22 12:17 Attending Provider: Vince Smith Primary Care Provider: Sherman Moise Discharge Orders/Prescriptions Prescriptions: New clopidogrel [Plavix] 75 mg tablet 75 mg PO DAILY Qty: 30 0RF Continued lisinopril 40 mg tablet 40 mg PO DAILY Label Comments: TAKE 1 TABLET BY MOUTH EVERY DAY clonidine HCl 0.1 mg tablet 0.1 mg PO BID polyethylene glycol 3350 17 GM packet 34 g PO DAILY tamsulosin 0.4 MG capsule 0.4 mg PO DAILY lansoprazole 30 MG capsule 30 mg PO DAILY hydroxychloroquine 200 MG tablet 200 mg PO BID oxycodone 5 MG tablet 10 mg PO 4X/DAY zolpidem 12.5 MG tablet,ext release multiphase 10 mg PO QHS PRN PRN (Reason: Insomnia) bupropion HCl 150 MG tablet extended release 24 hr 150 mg PO DAILY alprazolam 0.5 mg tablet 1 mg PO TID aripiprazole 2 MG tablet 10 mg PO DAILY propranolol 20 MG tablet 20 mg PO BID aspirin 81 MG tablet 81 mg PO DAILY@0800 nortriptyline 25 MG capsule 25 mg PO QHS ferrous sulfate 325 mg (65 mg iron) tablet 325 mg PO BID Label Comments: TAKE 1 TABLET BY MOUTH TWICE A DAY rosuvastatin [Crestor] 20 mg tablet 20 mg PO DAILY Other Ambulatory Orders: Cardiac Holter Monitor, 48 Hrs (Routine) Timeframe: 2 Days Facility: [facility] - Location: Cardiovascular Services Ordered By: Dr. Vince Smith Referrals / Follow Up: Sherman Moise MD [Primary Care Provider] - Within 1 Week Harsha Wilburn MD [Non-Staff] - Within 3 Months Disposition Disposition (needs filled in before D/C Order can be placed): Home, Self Care Charges/Coding Visit Charges Inpatient E&M: 99618 Disch Hosp >30min 10/26/22 1433 <Electronically signed by Vince Smith MD> Cosigner Signature (if applicable): CC: Dr. Vince Smith MD; Dr. Sherman Moise MD~ Signed [facility] Work Phone: [phone]) 693-289404-29-[address] Smith [facility] October 26, 2022 12:06pm Note Date/Time October 26, 2022 11: 46am [facility] Medical Records Department [address] [place] [address] Instructions for Home/Discharge Instructions 10/26/22 1144 MR#: [id number] Acct: [id number] Name: LANG SUERO Rep #:[id number] : 1955 67 From: Vince lino MD PCP: Dr. Sherman Moise MD Status:ADM I NO Discharge Instructions Diet Discharge Diet: Low fat / Low cholesterol Activity Discharge Activity: Return to Normal Activity Dressing / Incision Call your doctor if you observe: Fever of 101 or Higher, Shortness of breath, Dizziness, Fainting spells, Swelling in the ankles, Chest pain and Increased palpitations (irregular heartbeat) Follow Up Care Test Results: Test results from this visit will be discussed in further detail at your follow- up appointment, if applicable. Discharge Plan Admission Admit Date/Time: 10/25/22 12:17 Attending Provider: Vince Smith Primary Care Provider: Sherman Moise Discharge Orders/Prescriptions Prescriptions: New clopidogrel [Plavix] 75 mg tablet 75 mg PO DAILY Qty: 30 0RF Continued lisinopril 40 mg tablet 40 mg PO DAILY Label Comments: TAKE 1 TABLET BY MOUTH EVERY DAY clonidine HCl 0.1 mg tablet 0.1 mg PO BID polyethylene glycol 3350 17 GM packet 34 g PO DAILY tamsulosin 0.4 MG capsule 0.4 mg PO DAILY lansoprazole 30 MG capsule 30 mg PO DAILY hydroxychloroquine 200 MG tablet 200 mg PO BID oxycodone 5 MG tablet 10 mg PO 4X/DAY zolpidem 12.5 MG tablet,ext release multiphase 10 mg PO QHS PRN PRN (Reason: Insomnia) bupropion HCl 150 MG tablet extended release 24 hr 150 mg PO DAILY alprazolam 0.5 mg tablet 1 mg PO TID aripiprazole 2 MG tablet 10 mg PO DAILY propranolol 20 MG tablet 20 mg PO BID aspirin 81 MG tablet 81 mg PO DAILY@0800 nortriptyline 25 MG capsule 25 mg PO QHS ferrous sulfate 325 mg (65 mg iron) tablet 325 mg PO BID Label Comments: TAKE 1 TABLET BY MOUTH TWICE A DAY rosuvastatin [Crestor] 20 mg tablet 20 mg PO DAILY Other Ambulatory Orders: Cardiac Holter Monitor, 48 Hrs (Routine) Timeframe: 2 Days Facility: [facility] - Location: Cardiovascular Services Ordered By: Dr. Vince Smith Referrals / Follow Up: Sherman Moise MD [Primary Care Provider] - Within 1 Week Harsha Wilburn MD [Non-Staff] - Within 3 Months Disposition Disposition (needs filled in before D/C Order can be placed): Home, Self Care 10/26/22 1206<Electronically signed by Vince Smith MD>Vince Smith MD CC: Dr. Sherman Moise MD ~ Signed [facility] Work Phone: [phone] 175-117904-28-2023 History and physical note Author Dr. Smith [facility] October 25, 2022 2:58pm Note Date/Time October 25, 2022 2:5 8pm [facility] Medical Records Department [address] [place] [address] H&P Exam - Hospitalist 10/25/22 1452 MR#: [id number] Acct: [id number] Name: LANG SUERO Rep #:[id number] : 1955 67 From: Vince lino MD PCP: Dr. Sherman Moise MD Status:ADM I NO [facility] - General General Date of Admission: 10/25/22 HPI Narrative LANG SUERO, is a 67 M who presents to the hospital with slurred speech, left facial droop, and left lower extremity weakness. He says that he has been noticing some weakness periodically throughout the last week or so and he notices that it is worse in the morning after he takes his blood pressure medications but he states that last night he went to bed and was normal and thenhe woke up with significant more deficits. He presented to the hospital was evaluated by teleneurology who felt that he needed to be brought in for a strokework-up, he was outside the window for thrombolytics. Lab work was unremarkable, CTA of the head and neck demonstrated chronically occluded right carotid artery and the status post endarterectomy on the left carotid. [facility] Medical History Anxiety disorder Carotid stenosis COLD (chronic obstructive lung disease) Depression Gastroesophageal reflux disease Home Medications bupropion HCl 150 mg 24 hr tablet, extended release 150 mg PO DAILY depression 04/08/14 [History Last Taken 08/24/18 05:00] hydroxychloroquine 200 mg tablet 200 mg PO BID ARTHRITIS 04/08/14 [History Last Taken 07/10/17] lansoprazole 30 mg capsule,delayed release 30 mg PO DAILY gerd/acid reflux 04/08/14 [History Last Taken 08/24/18 05:00] oxycodone 5 mg tablet 10 mg PO 4X/DAY pain 04/08/14 [History Last Taken 08/24/18 05:00] polyethylene glycol 3350 17 gram oral powder packet 34 g PO DAILY laxative 04/08/14 [History Last Taken 07/10/17] tamsulosin 0.4 mg capsule 0.4 mg PO DAILY prostate 04/08/14 [History Last Taken 07/10/17] zolpidem 12.5 mg tablet,extended release,multiphase 10 mg PO QHS PRN PRN Insomnia 04/08/14 [History Last Taken 07/09/17] aripiprazole 2 mg tablet 10 mg PO DAILY depression 11/08/15 [History Last Taken 08/24/18 05:00] propranolol 20 mg tablet 20 mg PO BID blood pressure 07/10/17 [History Last Taken 08/24/18 05:00] rosuvastatin 20 mg tablet (Crestor) 20 mg PO DAILY CHOLESTEROL 08/17/18 [History Last Taken Unknown] aspirin 81 mg tablet,delayed release 81 mg PO DAILY@0800 BLOOD THINNER 08/20/18 [History Last Taken 08/23/18] nortriptyline 25 mg capsule 25 mg PO QHS SLEEP 08/20/18 [History Last Taken Unknown] alprazolam 0.5 mg tablet 1 mg PO TID anxiety 09/17/19 [History Last Taken Unknown] lisinopril 40 mg tablet 40 mg PO DAILY 09/17/19 [History Last Taken Unknown] clonidine HCl 0.1 mg tablet 0.1 mg PO BID 03/27/21 [History Last Taken Unknown] ferrous sulfate 325 mg (65 mg iron) tablet 325 mg PO BID supplement 10/25/22 [History Last Taken Unknown] Allergy/AdvReac Type Severity Reaction Status Date / Time fentanyl Allergy Unknown Verified 08/18/22 07:20 Penicillins Allergy Unknown Verified 08/18/22 07:20 cefdinir [From Omnicef] AdvReac Unknown Verified 08/18/22 07:20 cephalexin monohydrate AdvReac Unknown Verified 08/18/22 07:20 [From Keflex] citalopram hydrobromide AdvReac Unknown Verified 08/18/22 07:20 [From Celexa] doxycycline AdvReac Unknown Verified 08/18/22 07:20 duloxetine HCl AdvReac Unknown Verified 08/18/22 07:20 [From Cymbalta] escitalopram oxalate AdvReac Unknown Verified 08/18/22 07:20 [From Lexapro] fluoxetine HCl [From Prozac] AdvReac Unknown Verified 08/18/22 07:20 lithium AdvReac Unknown Verified 08/18/22 07:20 mirtazapine [From Remeron] AdvReac Unknown Verified 08/18/22 07:20 moxifloxacin HCl AdvReac Unknown Verified 08/18/22 07:20 [From Avelox] oxymorphone HCl [From Opana] AdvReac Unknown Verified 08/18/22 07:20 paroxetine HCl [From Paxil] AdvReac Unknown Verified 08/18/22 07:20 prednisolone AdvReac Unknown Verified 08/18/22 07:20 quetiapine fumarate AdvReac Unknown Verified 08/18/22 07:20 [From Seroquel] sertraline HCl [From Zoloft] AdvReac Unknown Verified 08/18/22 07:20 trazodone AdvReac Unknown Verified 08/18/22 07:20 venlafaxine HCl AdvReac Unknown Verified 08/18/22 07:20 [From Effexor] Family History Father Heart disease Myocardial infarction Cancer oral Mother CHF (congestive heart failure) Surgical History History of cataract extraction History of colonoscopy (~2018) History of left-sided carotid endarterectomy (~07/2018) History of lumbar laminectomy History of neck surgery History of umbilical hernia repair Social History (Updated 10/25/22 @ 11:[address] Dmitri Rapp MD) household members: spouse Smoking Status: Former smoker substance use type: does not use ROS Constitutional Constitutional: Denies chills, fatigue, fever(s) or malaise Eyes Eyes: Denies blurry vision ENT HEENT: Denies headache(s) or nasal discharge Cardiovascular Cardiovascular: Denies chest pain, dyspnea on exertion or syncope Respiratory/Chest Respiratory/Chest: Denies cough, shortness of breath at rest or shortness of breath with exertion Gastrointestinal Gastrointestinal: Denies constipation, diarrhea, nausea or vomiting Genitourinary Genitourinary: Denies dysuria Neurologic Neurologic: Reports abnormal speech, focal weakness and paresthesias LLE; Deniesnumbness or tremor(s) Psychiatric Psychiatric: Denies anxiety or depression Vital Signs Vital Signs Vital Signs: 10/25/22 10:57 10/25/22 11:12 10/25/22 10:57 Temperature 97.6 F L Temperature Source Temporal Pulse Rate 78 72 Respiratory Rate 18 14 Respiratory Effort Respiratory Depth Respiratory Pattern Blood Pressure 147/67 H 154/60 H Blood Pressure Mean 93 91 Blood Pressure Source Blood Pressure Position Blood Pressure Location Pulse Ox 100 99 Oxygen Delivery Method Room Air Room Air Room Air 10/25/22 11:18 10/25/22 11:09 10/25/22 11:27 Temperature 97.6 F L Temperature Source Temporal Pulse Rate 78 74 Respiratory Rate 18 11 L Respiratory Effort Respiratory Depth Respiratory Pattern Blood Pressure 147/67 H 154/60 H 154/68 H Blood Pressure Mean 93 91 96 Blood Pressure Source Blood Pressure Position Blood Pressure Location Pulse Ox 100 100 Oxygen Delivery Method Room Air Room Air 10/25/22 11:30 10/25/22 12:00 10/25/22 12:24 Temperature 97.6 F L Temperature Source Temporal Pulse Rate 79 67 66 Respiratory Rate 10 L 14 14 Respiratory Effort Respiratory Depth Respiratory Pattern Blood Pressure 139/73 H 133/58 H 132/63 H Blood Pressure Mean 95 83 86 Blood Pressure Source Blood Pressure Position Blood Pressure Location Pulse Ox 99 100 100 Oxygen Delivery Method Room Air Room Air Room Air 10/25/22 12:30 10/25/22 13:06 10/25/22 13:25 Temperature 97.2 F L Temperature Source Temporal Pulse Rate 71 69 Respiratory Rate 13 18 Respiratory Effort Respiratory Depth Respiratory Pattern Blood Pressure 137/72 H 145/73 H Blood Pressure Mean 93 97 Blood Pressure Source Monitor Blood Pressure Position Semi-Fowlers Blood Pressure Location Right Arm Pulse Ox 99 99 99 Oxygen Delivery Method Room Air Room Air Room Air 10/25/22 13:34 Temperature Temperature Source Pulse Rate Respiratory Rate Respiratory Effort Normal Non-Labored Respiratory Depth Normal Respiratory Pattern Normal Blood Pressure Blood Pressure Mean Blood Pressure Source Blood Pressure Position Blood Pressure Location Pulse Ox Oxygen Delivery Method Room Air Weight Weight: 177 lb 14.609 oz Body Mass Index (BMI) 25.5 Physical Exam Narrative General: Alert, Oriented x3, Cooperative, No apparent distress HEENT: Atraumatic, PERRLA, EOMI, Normocephalic Oral: Moist Mucosa Neck: Supple, No JVD Lungs: Clear to auscultation, Normal air movement, No rhonchi, No wheeze, No rales Cardiovascular: Regular rate, Regular Rhythm, Normal S1, Normal S2, No murmurs Abdomen: Soft, Non Tender, Non-Distended, No Hepato-splenomegaly Extremities: No edema, Capillary Refill Less than 3 Seconds Skin: No rashes, No breakdown Musculoskeletal: No Tenderness to Palpation of Joints or Extremities Neurological: Left facial droop with mumbled speech, strength is 4-5 on the leftlower extremity normal on his other extremities, decreased sensation on the leftlower leg compared to the right Psych/Mental Status: Flat affect Results Lab / Micro Data Result Diagrams: 10/25/22 11:00 10/25/22 11:00 Labs: Laboratory Results - last 24 hr 10/25/22 11:00: WBC 5.8, RBC 4.10 L, Hgb 10.0 L, Hct 33.1 L, MCV 80.7, MCH 24.4 L, MCHC 30.2 L, RDW Std Deviation 52.1 H, RDW Coeff of Scot 17.9 H, Plt Count TNP, MPV 10.4, Immature Gran % (Auto) 0.200, Neut % (Auto) 58.9, Lymph % (Auto) 33.2, Hardy % (Auto) 6.2, Eos % (Auto) 1.5, Baso % (Auto) 0.0, Absolute Neuts (auto) 3.4, Absolute Lymphs (auto) 1.94, Nucleated RBC % 0, Platelet Estimate ADEQUATE 10/25/22 11:00: PT Cancelled, INR Cancelled, APTT Cancelled 10/25/22 11:00: Sodium 135 L, Potassium 4.4, Chloride 106, Carbon Dioxide 27.0, Anion Gap 2 L, BUN 18, Creatinine 1.00, Estim Creat Clear Calc 74.01, Est GFR (MDRD) Af Amer 96, Est GFR (MDRD) Non-Af 79, BUN/Creatinine Ratio 18.0, Glucose 116 H, Calcium 9.4, Troponin I High Sens 8 10/25/22 11:06: POC Glucose 101 10/25/22 11:33: PT 13.1, INR 1.0, APTT 27.[address] 10/25/22 10:57 IMPRESSION: Chronic involutional changes of the brain. N.B. : The above Results were Read Back by Oz Kelly MD to Dr Dionte MD, and understanding confirmed on 10/25/2022 11:14:03 (ET). Electronically Signed: Oz Kelly MD at 11:15 EDT , ADDENDUM: 10/25/22 1122 IMPRESSION: Chronic involutional changes of the brain. N.B. : The above Results were Read Back by Oz Kelly MD to Dr Dionte MD, and understanding confirmed on 10/25/2022 11:14:03 (ET). Electronically Signed: Oz Kelly MD at 11:15 EDT , Head/Neck CTA 10/25/22 11:07 IMPRESSION: 1. No demonstrated intraluminal thrombus or occlusion of the major intracranial arteries of the [place] of [place] or vertebrobasilar system on the current study. 2. 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 3. The right side of the [place] is supplied through the communicating arteries and left side which remain patent. 4. There is mild atherosclerotic stenosis and beading of the P3 and P4 segments of the left posterior cerebral artery but no complete occlusion or hemodynamically significant stenosis, see images 444/594 through 488/594 series 2. 5. MRI of the brain can be obtained for further assessment of small perforating vessel disease and ischemia. N.B. : The above Results were Read Back by Caio Patiño MD to Dmitri Rapp MD, and understanding confirmed on 10/25/2022 12:04:40 (ET). Electronically Signed: Caio Patiño MD at 12:08 EDT , ADDENDUM: 10/25/22 1215 IMPRESSION: 1. No demonstrated intraluminal thrombus or occlusion of the major intracranial arteries of the [place] of [place] or vertebrobasilar system on the current study. 2. 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 3. The right side of the [place] of [place] is supplied through the communicating arteries and left side which remain patent. 4. There is mild atherosclerotic stenosis and beading of the P3 and P4 segments of the left posterior cerebral artery but no complete occlusion or hemodynamically significant stenosis, see images 444/594 through 488/594 series 2. 5. MRI of the brain can be obtained for further assessment of small perforating vessel disease and ischemia. N.B. : The above Results were Read Back by Caio Patiño MD to Dmitri Rapp MD, and understanding confirmed on 10/25/2022 12:04:40 (ET). Electronically Signed: Caio Patiño MD at 12:08 EDT , Chest X-Ray 10/25/22 12:00 IMPRESSION: COPD. Electronically Signed: Caio Patiño MD at 12:41 EDT , Assessment & Plan Assessment/Plan (1) Acute cerebrovascular accident (CVA): PLAN: Plan 1. CVA rule out/occluded right carotid artery status post left carotid endarterectomy/HTN/HLD ? We will obtain an MRI and an echo ? He is already on Crestor as well as lisinopril and propranolol, will hold his blood pressure medication secondary to permissive hypertension ? He is on aspirin so depending on the results of the MRI may add Plavix I will also keep him on telemetry to monitor for any A-fib 2. Anxiety/depression/chronic fatigue syndrome ? Stable ? Continue with all of his home medications 3. GERD ? Stable ? Continue with PPI 4. BPH ? Stable ? Continue with Flomax DVT: Lovenox 78 minutes was spent in direct patient care including chart review and collaboration with colleagues Charges/Coding Visit Charges Inpatient E&M: 37555 Init Hosp L3 10/25/22 1458 <Electronically signed by Vince Smith MD> Cosigner Signature (if applicable): CC: Dr. Vince Smith MD; Dr. Sherman Moise MD~ Signed [facility] Work Phone: [phone] 176-208904-28-[address] Rapp [facility] October 25, 2022 12:24pm Note Date/Time October 25, 2022 11: 07am [facility] Medical Records Department [address] [place] [address] Emergency Department Summary 10/25/22 MR#: [id number] Acct: [id number] Name: LANG SUERO Rep #:[id number] : 1955 67 From: Dmitri Rapp MD PCP: Dr. Sherman Moise MD Status:REG E R Location: ED HPI History of Present Illness Chief Complaint: Stroke Alert Detail of Chief Complaint: With speech and facial asymmetry Informant: patient and spouse/S.O. Onset/Context/Timing Onset: - (Last known well 2030 last p.m.) Context: - (Unknown) Timing: - (Unknown) Quality and Location: Positive for Left Facial Droop Onset: October 23 at 2030. Current Severity: Mild Maximum Severity: Mild Worsened by: Nothing Relieved by: Nothing Associated Symptoms Associated Symptoms: Negative for Headache, Nausea, Vomiting or Chest Pain Narrative Narrative: Patient is a 67-year-old male with history of psychiatric disorder, COPD, GERD and pulmonary embolus who presents with facial droop, trouble with speech. He is not a good informant. He has slow psychomotor skills. There is been no change in his medication. Patient denies headache, visual, ocular auditory symptoms. Patient denies problems with coordination or balance. Patient denies cardiac or respiratory symptoms. Review of prior records indicates he has a history of pulmonary embolus June 2017. Prior similar symptoms: No Recent Illness/Hospitalization: No PFSH PFS Medical History Anxiety disorder Carotid stenosis COLD (chronic obstructive lung disease) Depression Gastroesophageal reflux disease Home Medications bupropion HCl 150 mg 24 hr tablet, extended release 150 mg PO DAILY depression 04/08/14 [History Last Taken 08/24/18 05:00] hydroxychloroquine 200 mg tablet 200 mg PO BID ARTHRITIS 04/08/14 [History Last Taken 07/10/17] lansoprazole 30 mg capsule,delayed release 30 mg PO DAILY gerd/acid reflux 04/08/14 [History Last Taken 08/24/18 05:00] oxycodone 5 mg tablet 10 mg PO 4X/DAY pain 04/08/14 [History Last Taken 08/24/18 05:00] polyethylene glycol 3350 17 gram oral powder packet 17 g PO DAILY laxative 04/08/14 [History Last Taken 07/10/17] tamsulosin 0.4 mg capsule 0.4 mg PO DAILY prostate 04/08/14 [History Last Taken 07/10/17] zolpidem 12.5 mg tablet,extended release,multiphase 10 mg PO QHS PRN PRN Insomnia 04/08/14 [History Last Taken 07/09/17] aripiprazole 2 mg tablet 10 mg PO DAILY depression 11/08/15 [History Last Taken 08/24/18 05:00] propranolol 20 mg tablet 20 mg PO BID blood pressure 07/10/17 [History Last Taken 08/24/18 05:00] rosuvastatin 20 mg tablet (Crestor) 20 mg PO DAILY CHOLESTEROL 08/17/18 [History Last Taken Unknown] aspirin 81 mg tablet,delayed release 81 mg PO DAILY@0800 BLOOD THINNER 08/20/18 [History Last Taken 08/23/18] clopidogrel 75 mg tablet 75 mg PO DAILY BLOOD THINNER 08/20/18 [History Last Taken 08/23/18] nortriptyline 25 mg capsule 25 mg PO QHS SLEEP 08/20/18 [History Last Taken Unknown] alprazolam 0.5 mg tablet 1 mg PO TID anxiety 09/17/19 [History Last Taken Unknown] amlodipine 10 mg tablet 10 mg PO ONCE 09/17/19 [History Last Taken Unknown] lisinopril 40 mg tablet 40 mg PO DAILY 09/17/19 [History Last Taken Unknown] clonidine HCl 0.1 mg tablet 0.1 mg PO QHS 03/27/21 [History Last Taken Unknown] cyclobenzaprine 10 mg tablet 10 mg PO TID PRN Muscle Spasm #20 TABLETS 08/18/22 [Rx Last Taken Unknown] Allergy/AdvReac Type Severity Reaction Status Date / Time fentanyl Allergy Unknown Verified 08/18/22 07:20 Penicillins Allergy Unknown Verified 08/18/22 07:20 cefdinir [From Omnicef] AdvReac Unknown Verified 08/18/22 07:20 cephalexin monohydrate AdvReac Unknown Verified 08/18/22 07:20 [From Keflex] citalopram hydrobromide AdvReac Unknown Verified 08/18/22 07:20 [From Celexa] doxycycline AdvReac Unknown Verified 08/18/22 07:20 duloxetine HCl AdvReac Unknown Verified 08/18/22 07:20 [From Cymbalta] escitalopram oxalate AdvReac Unknown Verified 08/18/22 07:20 [From Lexapro] fluoxetine HCl [From Prozac] AdvReac Unknown Verified 08/18/22 07:20 lithium AdvReac Unknown Verified 08/18/22 07:20 mirtazapine [From Remeron] AdvReac Unknown Verified 08/18/22 07:20 moxifloxacin HCl AdvReac Unknown Verified 08/18/22 07:20 [From Avelox] oxymorphone HCl [From Opana] AdvReac Unknown Verified 08/18/22 07:20 paroxetine HCl [From Paxil] AdvReac Unknown Verified 08/18/22 07:20 prednisolone AdvReac Unknown Verified 08/18/22 07:20 quetiapine fumarate AdvReac Unknown Verified 08/18/22 07:20 [From Seroquel] sertraline HCl [From Zoloft] AdvReac Unknown Verified 08/18/22 07:20 trazodone AdvReac Unknown Verified 08/18/22 07:20 venlafaxine HCl AdvReac Unknown Verified 08/18/22 07:20 [From Effexor] Family History Father Heart disease Myocardial infarction Cancer oral Mother CHF (congestive heart failure) Surgical History History of cataract extraction History of colonoscopy (~2017) History of left-sided carotid endarterectomy (~07/2018) History of lumbar laminectomy History of neck surgery History of umbilical hernia repair Social History (Updated 10/25/22 @ 11:[address] Dmitri Rapp MD) household members: spouse Smoking Status: Former smoker substance use type: does not use ROS ROS ED Constitutional Constitutional ED: Denies chills, fever(s), subjective, sweats or weakness Eyes Eyes: Denies blurry vision, change in vision or diplopia ENT ENT ED: Denies ear pain, rhinorrhea or sore throat Cardiovascular Cardiovascular: Denies chest pain, palpitations, paroxysmal nocturnal dyspnea orracing heartbeat Respiratory/Chest Respiratory/Chest: Denies cough, dyspnea, dyspnea on exertion or paroxysmal nocturnal dyspnea Gastrointestinal Gastrointestinal: Denies abdominal pain, constipation, melena, nausea or vomiting Genitourinary Genitourinary ED: Denies dysuria, hematuria or other Musculoskeletal Musculoskeletal: Denies arthralgias, back pain, myalgias or neck pain Integumentary Denies rash Neurologic Neurologic: Reports paresthesias and weakness; Denies headache(s) Psychiatric Psychiatric: Reports depression Endocrine Endocrinology: Denies polydipsia, polyphagia or polyuria Hematologic/Lymphatic Hematologic/Lymphatic: Denies easy bleeding or easy bruising EXAM Physical Exam Const Vital Signs: 10/25/22 10:57 10/25/22 11:12 10/25/22 10:57 Temperature 97.6 F L Temperature Source Temporal Pulse Rate 78 72 Respiratory Rate 18 14 Blood Pressure 147/67 H 154/60 H Blood Pressure Mean 93 91 Pulse Ox 100 99 Oxygen Delivery Method Room Air Room Air Room Air 10/25/22 11:18 10/25/22 11:09 10/25/22 11:27 Temperature 97.6 F L Temperature Source Temporal Pulse Rate 78 74 Respiratory Rate 18 11 L Blood Pressure 147/67 H 154/60 H 154/68 H Blood Pressure Mean 93 91 96 Pulse Ox 100 100 Oxygen Delivery Method Room Air Room Air Positive well nourished, well developed and unkempt General Appearance ED: unkempt, well developed and NAD HEENT Reports dry mucous membranes atraumatic Mouth ED: Yes dry mucous membranes Mouth: dry mucous membranes Eyes PERRL and EOMs intact bilaterally Eyes Narrative: There is no nystagmus. General Eye ED: Negative for pale conjunctiva or scleral icterus Neck no lymphadenopathy, supple and no JVD Chest Wall inspection of chest normal and palpation of chest normal Resp normal respiratory effort and clear to auscultation bilaterally Cardio no murmurs Rate: regular rate Rhythm: regular rhythm Heart Sounds: S1 normal and S2 normal GI normal to inspection, nondistended, normoactive bowel sounds, soft to palpation,non-tender, non-distended and no masses Back/Spine no CVA tenderness Extremity normal to inspection General Extremety ED: Negative for deformity, edema or tenderness General Extremity: Negative for deformity or edema Neuro oriented x3, No CN's II-XII intact bilaterally and No no sensory deficits noted [place] Coma Scale: document GCS findings Spontaneous Obeys Commands Oriented 15 Sensorium / Orientation: Negative for alert Psych Appearance: unkempt Mood & Affect: depressed Skin no wounds General Skin Exam: Negative for jaundice Lesions: no lesions Rashes: no rashes NIHSS NIHSS Initial: 1a Level of Consciousness: 1 1b LOC Questions (Score 2 if aphasic/stupor): 0 1c LOC Commands (Only score 1st attempt): 0 2 Best Gaze (If aphasic, use reflexive mvmts.): 0 3 Visual: 0 4 Facial Palsy: 1 5 Motor Arm Right (UN = amputation/fusion): 0 5 Motor Arm Left: 0 6 Motor Leg Right: 0 6 Motor Leg Left: 1 7 Limb ataxia (Only + if out of proportion): 0 8 Sensory (Aphasia/stupor=0 or 1, coma=2): 1 9 Best Language: 0 10 Dysarthria (mute, coma=2, intubated=UN): 1 11 Extinction and Inattention (only scored if +): 0 Total Score: 5 MDM MDM MDM Narrative Medical decision making narrative: Patient's facial droop is new 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 Suspect patient had a stroke. Since he was last known well at [address] of the head without contrast was ordered since his deficits are minimal. Stroke work-up wasinitiated. Prior records were reviewed. Of note he does have history of carotid stenosis. Since he has a history of carotid stenosis and has acute stroke findings CTA of the head neck was ordered. Contacted gameroom technician. She informed that he is already back from scan. History & Record Review Additional record(s) reviewed:: Prior outpatient record, Prior ED visit and Prior labs Lab Data Labs: Laboratory Results - last 24 hr 10/25/22 10/25/22 10/25/22 11:00 11:00 11:00 WBC 5.8 RBC 4.10 L Hgb 10.0 L Hct 33.1 L MCV 80.7 MCH 24.4 L MCHC 30.2 L RDW Std Deviation 52.1 H RDW Coeff of Scot 17.9 H Plt Count TNP MPV 10.4 Immature Gran % (Auto) 0.200 Neut % (Auto) 58.9 Lymph % (Auto) 33.2 Hardy % (Auto) 6.2 Eos % (Auto) 1.5 Baso % (Auto) 0.0 Absolute Neuts (auto) 3.4 Absolute Lymphs (auto) 1.94 Nucleated RBC % 0 Platelet Estimate ADEQUATE PT Cancelled INR Cancelled APTT Cancelled Sodium 135 L Potassium 4.4 Chloride 106 Carbon Dioxide 27.0 Anion Gap 2 L BUN 18 Creatinine 1.00 Estim Creat Clear Calc 74.01 Est GFR (MDRD) Af Amer 96 Est GFR (MDRD) Non-Af 79 BUN/Creatinine Ratio 18.0 Glucose 116 H Calcium 9.4 Troponin I High Sens 8 POC Glucose 10/25/22 10/25/22 11:06 11:33 WBC RBC Hgb Hct MCV MCH MCHC RDW Std Deviation RDW Coeff of Scot Plt Count MPV Immature Gran % (Auto) Neut % (Auto) Lymph % (Auto) Hardy % (Auto) Eos % (Auto) Baso % (Auto) Absolute Neuts (auto) Absolute Lymphs (auto) Nucleated RBC % Platelet Estimate PT 13.1 INR 1.0 APTT 27.6 Sodium Potassium Chloride Carbon Dioxide Anion Gap BUN Creatinine Estim Creat Clear Calc Est GFR (MDRD) Af Amer Est GFR (MDRD) Non-Af BUN/Creatinine Ratio Glucose Calcium Troponin I High Sens POC Glucose 101 Radiography Diagnostic Testing: Clinical Impression(s) from Imaging Studies Brain CT 10/25/22 10:57 IMPRESSION: Chronic involutional changes of the brain. N.B. : The above Results were Read Back by Oz Kelly MD to Dr Dionte MD, and understanding confirmed on 10/25/2022 11:14:03 (ET). Electronically Signed: Oz Kelly MD at 11:15 EDT , ADDENDUM: 10/25/22 1122 IMPRESSION: Chronic involutional changes of the brain. N.B. : The above Results were Read Back by Oz Kelly MD to Dr Dionte MD, and understanding confirmed on 10/25/2022 11:14:03 (ET). Electronically Signed: Oz Kelly MD at 11:15 EDT , Head/Neck CTA 10/25/22 11:07 IMPRESSION: 1. No demonstrated intraluminal thrombus or occlusion of the major intracranial arteries of the [place] of [place] or vertebrobasilar system on the current study. 2. 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 3. The right side of the [place] of [place] is supplied through the communicating arteries and left side which remain patent. 4. There is mild atherosclerotic stenosis and beading of the P3 and P4 segments of the left posterior cerebral artery but no complete occlusion or hemodynamically significant stenosis, see images 444/594 through 488/594 series 2. 5. MRI of the brain can be obtained for further assessment of small perforating vessel disease and ischemia. N.B. : The above Results were Read Back by Caio Patiño MD to Dmitri Rapp MD, and understanding confirmed on 10/25/2022 12:04:40 (ET). Electronically Signed: Caio Patiño MD at 12:08 EDT , ADDENDUM: 10/25/22 1215 IMPRESSION: 1. No demonstrated intraluminal thrombus or occlusion of the major intracranial arteries of the [place] of [place] or vertebrobasilar system on the current study. 2. 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 3. The right side of the [place] of [place] is supplied through the communicating arteries and left side which remain patent. 4. There is mild atherosclerotic stenosis and beading of the P3 and P4 segments of the left posterior cerebral artery but no complete occlusion or hemodynamically significant stenosis, see images 444/594 through 488/594 series 2. 5. MRI of the brain can be obtained for further assessment of small perforating vessel disease and ischemia. N.B. : The above Results were Read Back by Caio Patiño MD to Dmitri Rapp MD, and understanding confirmed on 10/25/2022 12:04:40 (ET). Electronically Signed: Caio Patiño MD at 12:08 EDT , EKG Initial EKG: Attestation: I personally reviewed and interpreted this EKG as follows: Interpretation: Sinus Rhythm (This rhythm with a ventricular rate of 70. There are premature ventricular complexes noted. MA interval 290 ms per cures duration 98 ms. QT duration 406 ms. Portis is normal.) Management Discussion w/another healthcare provider: Cement Finisher Helper (The neurologist at [facility] recommended aspirin and stroke work-up. If there is an LVO contact him and will arrange transfer.) and Radiologist (Received call from hotel clerk regarding unenhanced scan.) Critical Care Time Critical Care Time: Yes Critical care time (excluding procedures): 30-74 minutes (33), Including time spent: (History, physical, review of documentation from prior admissions, interpretation of laboratory results, discussion with hotel clerk for unenhanced scan, hotel clerk for and hand scan, neurologist and hospitalist), Discussing w/Patient &/or Family/Facilities Operations Technician, Discussing w/Consultants (Previously documented) and Arranging Admission or Transfer Discharge Plan Triage Chief Complaint: Stroke Alert Other Complaint: Weakness ED Provider: Dmitri Rapp Dx/Rx/DC Orders Clinical Impression: Acute cerebrovascular accident (CVA), Sleep apnea, COLD (chronic obstructive lung disease), Depression, Gastroesophageal reflux disease, Occlusion of right internal carotid artery Prescriptions: No Action amlodipine 10 mg tablet 10 mg PO ONCE Label Comments: TAKE 1 TABLET BY MOUTH EVERY DAY lisinopril 40 mg tablet 40 mg PO DAILY Label Comments: TAKE 1 TABLET BY MOUTH EVERY DAY clonidine HCl 0.1 mg tablet 0.1 mg PO QHS polyethylene glycol 3350 17 GM packet 17 g PO DAILY tamsulosin 0.4 MG capsule 0.4 mg PO DAILY lansoprazole 30 MG capsule 30 mg PO DAILY hydroxychloroquine 200 MG tablet 200 mg PO BID oxycodone 5 MG tablet 10 mg PO 4X/DAY zolpidem 12.5 MG tablet,ext release multiphase 10 mg PO QHS PRN PRN (Reason: Insomnia) bupropion HCl 150 MG tablet extended release 24 hr 150 mg PO DAILY alprazolam 0.5 mg tablet 1 mg PO TID aripiprazole 2 MG tablet 10 mg PO DAILY propranolol 20 MG tablet 20 mg PO BID clopidogrel 75 MG tablet 75 mg PO DAILY aspirin 81 MG tablet 81 mg PO DAILY@0800 nortriptyline 25 MG capsule 25 mg PO QHS cyclobenzaprine [cyclobenzaprine] 10 mg tablet 10 mg PO TID PRN (Reason: Muscle Spasm) Qty: 20 0RF rosuvastatin [Crestor] 20 mg tablet 20 mg PO DAILY Primary Care Provider: Sherman Moise Referrals: Sherman Moise MD [Primary Care Provider] - Disposition Disposition: Acute Care Hospital [facility] What to do if you have Problems For any increased pain, shortness of breath, bleeding, nausea or vomiting, chestpain, or any unexpected problems, contact your Primary Care Provider. Call [facility] ([phone]) or report to the closest Emergency Room. Call 911 if necessary. 10/25/22 1224 <Electronically signed by Dmitri Rapp MD> Cosigner Signature (if applicable): CC: Dr. Sherman Moise MD ~ Signed [facility] Work Phone: [phone] Rapp [facility] October 25, 2022 12:24pm Note Date/Time October 25, 2022 11: 07am [facility] Medical Records Department [address] [place] [address] Emergency Department Summary 10/25/22 MR#: [id number] Acct: [id number] Name: LANG SUERO Rep #:[id number] : 1955 67 From: Dmitri Rapp MD PCP: Dr. Sherman Moise MD Status:REG E R Location: ED HPI History of Present Illness Chief Complaint: Stroke Alert Detail of Chief Complaint: With speech and facial asymmetry Informant: patient and spouse/S.O. Onset/Context/Timing Onset: - (Last known well 2030 last p.m.) Context: - (Unknown) Timing: - (Unknown) Quality and Location: Positive for Left Facial Droop Onset: October 23 at 2030. Current Severity: Mild Maximum Severity: Mild Worsened by: Nothing Relieved by: Nothing Associated Symptoms Associated Symptoms: Negative for Headache, Nausea, Vomiting or Chest Pain Narrative Narrative: Patient is a 67-year-old male with history of psychiatric disorder, COPD, GERD and pulmonary embolus who presents with facial droop, trouble with speech. He is not a good informant. He has slow psychomotor skills. There is been no change in his medication. Patient denies headache, visual, ocular auditory symptoms. Patient denies problems with coordination or balance. Patient denies cardiac or respiratory symptoms. Review of prior records indicates he has a history of pulmonary embolus June 2017. Prior similar symptoms: No Recent Illness/Hospitalization: No PFSH PFSH Medical History Anxiety disorder Carotid stenosis COLD (chronic obstructive lung disease) Depression Gastroesophageal reflux disease Home Medications bupropion HCl 150 mg 24 hr tablet, extended release 150 mg PO DAILY depression 04/08/14 [History Last Taken 08/24/18 05:00] hydroxychloroquine 200 mg tablet 200 mg PO BID ARTHRITIS 04/08/14 [History Last Taken 07/10/17] lansoprazole 30 mg capsule,delayed release 30 mg PO DAILY gerd/acid reflux 04/08/14 [History Last Taken 08/24/18 05:00] oxycodone 5 mg tablet 10 mg PO 4X/DAY pain 04/08/14 [History Last Taken 08/24/18 05:00] polyethylene glycol 3350 17 gram oral powder packet 17 g PO DAILY laxative 04/08/14 [History Last Taken 07/10/17] tamsulosin 0.4 mg capsule 0.4 mg PO DAILY prostate 04/08/14 [History Last Taken 07/10/17] zolpidem 12.5 mg tablet,extended release,multiphase 10 mg PO QHS PRN PRN Insomnia 04/08/14 [History Last Taken 07/09/17] aripiprazole 2 mg tablet 10 mg PO DAILY depression 11/08/15 [History Last Taken 08/24/18 05:00] propranolol 20 mg tablet 20 mg PO BID blood pressure 07/10/17 [History Last Taken 08/24/18 05:00] rosuvastatin 20 mg tablet (Crestor) 20 mg PO DAILY CHOLESTEROL 08/17/18 [History Last Taken Unknown] aspirin 81 mg tablet,delayed release 81 mg PO DAILY@0800 BLOOD THINNER 08/20/18 [History Last Taken 08/23/18] clopidogrel 75 mg tablet 75 mg PO DAILY BLOOD THINNER 08/20/18 [History Last Taken 08/23/18] nortriptyline 25 mg capsule 25 mg PO QHS SLEEP 08/20/18 [History Last Taken Unknown] alprazolam 0.5 mg tablet 1 mg PO TID anxiety 09/17/19 [History Last Taken Unknown] amlodipine 10 mg tablet 10 mg PO ONCE 09/17/19 [History Last Taken Unknown] lisinopril 40 mg tablet 40 mg PO DAILY 09/17/19 [History Last Taken Unknown] clonidine HCl 0.1 mg tablet 0.1 mg PO QHS 03/27/21 [History Last Taken Unknown] cyclobenzaprine 10 mg tablet 10 mg PO TID PRN Muscle Spasm #20 TABLETS 08/18/22 [Rx Last Taken Unknown] Allergy/AdvReac Type Severity Reaction Status Date / Time fentanyl Allergy Unknown Verified 08/18/22 07:20 Penicillins Allergy Unknown Verified 08/18/22 07:20 cefdinir [From Omnicef] AdvReac Unknown Verified 08/18/22 07:20 cephalexin monohydrate AdvReac Unknown Verified 08/18/22 07:20 [From Keflex] citalopram hydrobromide AdvReac Unknown Verified 08/18/22 07:20 [From Celexa] doxycycline AdvReac Unknown Verified 08/18/22 07:20 duloxetine HCl AdvReac Unknown Verified 08/18/22 07:20 [From Cymbalta] escitalopram oxalate AdvReac Unknown Verified 08/18/22 07:20 [From Lexapro] fluoxetine HCl [From Prozac] AdvReac Unknown Verified 08/18/22 07:20 lithium AdvReac Unknown Verified 08/18/22 07:20 mirtazapine [From Remeron] AdvReac Unknown Verified 08/18/22 07:20 moxifloxacin HCl AdvReac Unknown Verified 08/18/22 07:20 [From Avelox] oxymorphone HCl [From Opana] AdvReac Unknown Verified 08/18/22 07:20 paroxetine HCl [From Paxil] AdvReac Unknown Verified 08/18/22 07:20 prednisolone AdvReac Unknown Verified 08/18/22 07:20 quetiapine fumarate AdvReac Unknown Verified 08/18/22 07:20 [From Seroquel] sertraline HCl [From Zoloft] AdvReac Unknown Verified 08/18/22 07:20 trazodone AdvReac Unknown Verified 08/18/22 07:20 venlafaxine HCl AdvReac Unknown Verified 08/18/22 07:20 [From Effexor] Family History Father Heart disease Myocardial infarction Cancer oral Mother CHF (congestive heart failure) Surgical History History of cataract extraction History of colonoscopy (~2017) History of left-sided carotid endarterectomy (~07/2018) History of lumbar laminectomy History of neck surgery History of umbilical hernia repair Social History (Updated 10/25/22 @ 11:[address] Dmitri Rapp MD) household members: spouse Smoking Status: Former smoker substance use type: does not use ROS ROS ED Constitutional Constitutional ED: Denies chills, fever(s), subjective, sweats or weakness Eyes Eyes: Denies blurry vision, change in vision or diplopia ENT ENT ED: Denies ear pain, rhinorrhea or sore throat Cardiovascular Cardiovascular: Denies chest pain, palpitations, paroxysmal nocturnal dyspnea orracing heartbeat Respiratory/Chest Respiratory/Chest: Denies cough, dyspnea, dyspnea on exertion or paroxysmal nocturnal dyspnea Gastrointestinal Gastrointestinal: Denies abdominal pain, constipation, melena, nausea or vomiting Genitourinary Genitourinary ED: Denies dysuria, hematuria or other Musculoskeletal Musculoskeletal: Denies arthralgias, back pain, myalgias or neck pain Integumentary Denies rash Neurologic Neurologic: Reports paresthesias and weakness; Denies headache(s) Psychiatric Psychiatric: Reports depression Endocrine Endocrinology: Denies polydipsia, polyphagia or polyuria Hematologic/Lymphatic Hematologic/Lymphatic: Denies easy bleeding or easy bruising EXAM Physical Exam Const Vital Signs: 10/25/22 10:57 10/25/22 11:12 10/25/22 10:57 Temperature 97.6 F L Temperature Source Temporal Pulse Rate 78 72 Respiratory Rate 18 14 Blood Pressure 147/67 H 154/60 H Blood Pressure Mean 93 91 Pulse Ox 100 99 Oxygen Delivery Method Room Air Room Air Room Air 10/25/22 11:18 10/25/22 11:09 10/25/22 11:27 Temperature 97.6 F L Temperature Source Temporal Pulse Rate 78 74 Respiratory Rate 18 11 L Blood Pressure 147/67 H 154/60 H 154/68 H Blood Pressure Mean 93 91 96 Pulse Ox 100 100 Oxygen Delivery Method Room Air Room Air Positive well nourished, well developed and unkempt General Appearance ED: unkempt, well developed and NAD HEENT Reports dry mucous membranes atraumatic Mouth ED: Yes dry mucous membranes Mouth: dry mucous membranes Eyes PERRL and EOMs intact bilaterally Eyes Narrative: There is no nystagmus. General Eye ED: Negative for pale conjunctiva or scleral icterus Neck no lymphadenopathy, supple and no JVD Chest Wall inspection of chest normal and palpation of chest normal Resp normal respiratory effort and clear to auscultation bilaterally Cardio no murmurs Rate: regular rate Rhythm: regular rhythm Heart Sounds: S1 normal and S2 normal GI normal to inspection, nondistended, normoactive bowel sounds, soft to palpation,non-tender, non-distended and no masses Back/Spine no CVA tenderness Extremity normal to inspection General Extremety ED: Negative for deformity, edema or tenderness General Extremity: Negative for deformity or edema Neuro oriented x3, No CN's II-XII intact bilaterally and No no sensory deficits noted [place] Coma Scale: document GCS findings Spontaneous Obeys Commands Oriented 15 Sensorium / Orientation: Negative for alert Psych Appearance: unkempt Mood & Affect: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
[2025-03-25 04:51] VITALS: BP 141/70; PULSE 81; RESP 16; O2SAT 100
--- NOTE | 2025-03-25 05:47 | EDS_ITS ---
HPI History of Present Illness Chief Complaint: Fall Informant: patient and EMS Narrative Narrative: Patient is a 70-year-old male with history of anxiety depression and chronic fatigue syndrome. He states that he has difficulty sleeping and was out walking this evening. He states he tripped and fell. He states he did strike his head but denies any loss of consciousness. He states that he was having difficulty getting up so he was able to crawl over to a tree. He states that he felt if he used the tree as leverage he would be able to stand but was unable to do so. Therefore he was able to take his cell phone out of his pocket and called EMS. Patient states that he feels sore from the fall. He states that there has been no recent sick symptoms and has been taking his medications as directed. However as he did strike his head and has had increased fatigue he was brought to the ER for further workup. [facility] Medical History Carotid stenosis Gastroesophageal reflux disease Depression COLD (chronic obstructive lung disease) Anxiety disorder Home Medications ?Medication ?Instructions ?Recorded ?Last Taken ?Type bupropion HCl 150 mg 24 hr tablet, 150 mg PO DAILY dep ression 04/08/14 08/24/18 05:00 History extended release hydroxychloroquine 200 mg tablet 200 mg PO BID ARTHRIT IS 04/08/14 07/10/17 History lansoprazole 30 mg capsule,delayed 30 mg PO DAILY gerd /acid reflux 04/08/14 08/24/18 05:00 History release oxycodone 5 mg tablet 10 mg PO 4X/DAY pain 4 08/24/18 05:00 History polyethylene glycol 3350 17 gram 34 g PO DAILY laxativ e 04/08/14 07/10/17 History oral powder packet zolpidem 12.5 mg tablet,extended 10 mg PO QHS PRN PRN Insomnia 04/08/14 07/09/17 History release,multiphase aripiprazole 2 mg tablet 10 mg PO DAILY depression 08/24/18 05:00 History rosuvastatin 20 mg tablet (Crestor) 20 mg PO DAILY CHO LESTEROL 08/17/18 Unknown History aspirin 81 mg tablet,delayed 81 mg PO DAILY@0800 BLOOD THINNER 08/20/18 08/23/18 History release nortriptyline 25 mg capsule 25 mg PO QHS SLEEP 9 Unknown History alprazolam 0.5 mg tablet 1 mg PO TID anxiety 09/17/19 Unknown History lisinopril 40 mg tablet 40 mg PO DAILY 09/17/19 Unkn own History clonidine HCl 0.1 mg tablet 0.1 mg PO BID 03/27/21 Unk nown History ferrous sulfate 325 mg (65 mg 325 mg PO BID supplement 10/25/22 Unknown History iron) tablet clopidogrel 75 mg tablet (Plavix) 75 mg PO DAILY #30 t abs 10/26/22 Unknown Rx cholecalciferol (vitamin D3) 50 50 mcg PO DAILY Unknown History mcg (2,000 unit) capsule propranolol 40 mg tablet 40 mg PO BID 03/06/23 Unknow n History amlodipine 5 mg tablet 10 mg PO DAILY 02/10/25 Unkn own History carboxymethylcellulose sodium 1 % 1 drp ophthalmic (ey e) BID 02/10/25 Unknown History eye liquid gel drops (Refresh Liquigel) clotrimazole-betamethasone 1 1 applic topical BID 01/28 10/22 Unknown History %-0.05 % topical cream mometasone 50 mcg/actuation nasal 2 spray intranasal Q DAY 02/10/25 Unknown History spray (Nasonex 24hr Allergy) multivitamin 1 tab PO QDAY 02/10/25 Unkno wn History tamsulosin 0.4 mg capsule 0.4 mg PO QDAY 02/10/25 Unkn own History Allergy/AdvReac Type Severity Reaction Status Date / Time fentanyl Allergy Unknown Verified 03/25/25 02:53 Penicillins Allergy Unknown Verified 03/25/25 02:53 cefdinir (From Omnicef) AdvReac Unknown Verified 03/25/25 02:53 cephalexin monohydrate (From AdvReac Unknown Verified 03/25/25 02:53 Keflex) citalopram hydrobromide AdvReac Unknown Verified 03/25/25 02:53 (From Celexa) doxycycline AdvReac Unknown Verified 03/25/25 02:53 duloxetine HCl (From AdvReac Unknown Verified 03/25/25 02:53 Cymbalta) escitalopram oxalate (From AdvReac Unknown Verified 03/25/25 02:53 Lexapro) fluoxetine HCl (From Prozac) AdvReac Unknown Verified 03/25/25 02:53 lithium AdvReac Unknown Verified 03/25/25 02:53 mirtazapine (From Remeron) AdvReac Unknown Verified 03/25/25 02:53 moxifloxacin HCl (From AdvReac Unknown Verified 03/25/25 02:53 Avelox) oxymorphone HCl (From Opana) AdvReac Unknown Verified 03/25/25 02:53 paroxetine HCl (From Paxil) AdvReac Unknown Verified 03/25/25 02:53 prednisolone AdvReac Unknown Verified 03/25/25 02:53 quetiapine fumarate (From AdvReac Unknown Verified 03/25/25 02:53 Seroquel) sertraline HCl (From Zoloft) AdvReac Unknown Verified 03/25/25 02:53 trazodone AdvReac Unknown Verified 03/25/25 02:53 venlafaxine HCl (From AdvReac Unknown Verified 03/25/25 02:53 Effexor) Family History Father Heart disease Myocardial infarction Cancer oral Mother CHF (congestive heart failure) Surgical History History of left-sided carotid endarterectomy (~07/2018) History of colonoscopy (~2017) History of cataract extraction History of umbilical hernia repair History of neck surgery History of lumbar laminectomy Social History household members: spouse Smoking Status: Former smoker substance use type: does not use ROS ROS ED Constitutional Constitutional ED: Reports other Details: Positive fatigue ; Denies chills or fever(s) Eyes Eyes: Denies change in vision ENT ENT ED: Denies sore throat Cardiovascular Cardiovascular: Reports other Details: Negative syncope ; Denies chest pain Respiratory/Chest Respiratory/Chest: Denies cough or dyspnea Gastrointestinal Gastrointestinal: Denies abdominal pain, diarrhea, nausea or vomiting Genitourinary Genitourinary ED: Denies dysuria Musculoskeletal Musculoskeletal: Denies back pain or neck pain Integumentary Reports Abrasions; Denies rash Neurologic Neurologic: Reports weakness; Denies headache(s) Hematologic/Lymphatic Hematologic/Lymphatic: Denies easy bleeding or easy bruising EXAM Physical Exam Const Vital Signs: 03/25/25 02:54 03/25/25 02:58 03/25/25 04:51 Temperature 99.0 F Temperature Source Oral Pulse Rate 74 81 Respiratory Rate 18 16 Respiratory Effort Normal Blood Pressure 119/55 L 141/70 H Blood Pressure Mean 76 93 Pulse Ox 98 100 Oxygen Delivery Method Room Air Room Air Room Air Positive well nourished and well developed General Appearance ED: well developed; Negative for pallor HEENT HEENT Narrative: Patient has a superficial abrasion along the left side of the forehead consistent with report of fall Otherwise no signs of depressed or basilar skull fracture No septal hematoma noted Eyes PERRL and EOMs intact bilaterally Eyes Narrative: No hyphema present Neck supple Neck Narrative: No bony deformity or step-off of the cervical spine No midline tenderness to palpation Chest Wall palpation of chest normal Chest Narrative: No bony deformity or crepitance There is mild pain on palpation of the left anterior lateral chest wall rib regions 4-7 Resp normal respiratory effort and clear to auscultation bilaterally Cardio regular rate and regular rhythm GI normal to inspection, nondistended, normoactive bowel sounds, non-tender, non- distended and no masses GI Narrative: No voluntary guarding or rigidity or pulsatile mass No abrasions or ecchymosis over top of the abdominal wall noted Auscultation: normoactive bowel sounds Palpation: soft Back/Spine Back/Spine Narrative: No bony deformity or step-off of the thoracic or lumbar spine There is mild pain on palpation of the lumbar spine Extremity normal to inspection Extremity Narrative: Pelvis is stable there is no shortening or external rotation of either lower extremity No signs of long bone injury such as bony deformity or joint effusion All compartments are soft and compressible going against compartment syndrome Neuro oriented x3 and CN's II-XII intact bilaterally Sensorium / Orientation: alert Psych Psych Narrative: Patient has a flat affect Skin no rashes or lesions noted General Skin Exam: Negative for jaundice or pallor MDM MDM MDM Narrative Medical decision making narrative: Patient reported mechanical fall and therefore I felt no need for cardiac or syncope workup. However he did strike his head and there is concern for underlying skull fracture versus traumatic subdural or subarachnoid hemorrhage. Patient could also potential cervical compression fracture and therefore CTs of the head and cervical spine were ordered. As the patient had reported fatigue and could not stand there is concern for acute blood loss anemia or acute kidney injury or electrolyte abnormality or potential secondary infection causing his symptoms. Therefore I did elect to perform basic laboratory studies and urine sample. With pain along the lumbar spine he could have a potential lumbar compression fracture and with pain along the chest wall there is concern for rib fracture. Basic blood work revealed hyponatremia at 125 but chart review reveals this is chronic in nature per patient and near his baseline. Remainder the labs revealed no clinically significant findings and there is no signs of secondary infection. Imaging studies revealed no sign of acute rib fracture or pneumothorax or bony injury. After being in the ER the patient was able to stand and walk with a steady gait. Therefore at this time as he is now ambulatory there is no signs of internal trauma and workup reveals no acute findings I do not feel need for admission or further intervention in the ER and is otherwise safe for discharge. History & Record Review Discussion w/independent historian: EMS personnel and Patient Lab Data Attestation: I reviewed the patient's lab results. Labs: Laboratory Results - last 24 hr 03/25/25 03/25/25 03:23 03:24 WBC 7.5 RBC 3.92 L Hgb 13.4 Hct 37.4 L MCV 95.4 H MCH 34.2 H MCHC 35.8 RDW Std Deviation 43.9 RDW Coeff of Scot 12.6 Plt Count 189 MPV 10.0 Immature Gran % (Auto) 0.500 Neut % (Auto) 69.1 Lymph % (Auto) 20.8 [place] % (Auto) 6.4 Eos % (Auto) 2.9 Baso % (Auto) 0.3 Absolute Neuts (auto) 5.2 Absolute Lymphs (auto) 1.56 Nucleated RBC % 0 Differential Comment SCANNED Sodium 125 L Potassium 5.3 H Chloride 92 L Carbon Dioxide 24.1 Anion Gap 9 BUN 13 Creatinine 0.82 Estim Creat Clear Calc 96.61 Est GFR (MDRD) Non-Af 95 BUN/Creatinine Ratio 15.3 Glucose 117 H Calcium 8.6 Magnesium 1.9 TSH 4.010 Urine Color Yellow Urine Clarity Clear Urine pH 6.0 Ur Specific [place] 1.010 Urine Protein 15 H Urine Glucose (UA) Normal Urine Ketones Negative Urine Occult Blood Negative Urine Nitrite Negative Urine Bilirubin Negative Urine Urobilinogen Normal Ur Leukocyte Esterase Negative Urine RBC 0 SEEN Urine WBC 0 SEEN Ur Squamous Epith Cells 0 SEEN Urine Bacteria 0 SEEN Urine Mucus 0 SEEN Radiography Diagnostic Testing: Clinical Impression(s) from Imaging Studies Brain CT 03/25/25 03:14 IMPRESSION: No acute cerebrovascular abnormalities. If clinical symptoms persist, further evaluation with MRI may be considered as clinically warranted. No intra or extra-axial acute hemorrhage. Bilateral cerebral mild microvascular ischemic changes. stable. Brain involutional changes. Stable. [facility] Cervical Spine CT 03/25/25 03:14 IMPRESSION: Straightened cervical curve denoting myospasm. No vertebral fractures, structural collapse or dislocation. Cervical spondylodegenerative changes with multilevel uncovertebral and facet arthropathy along with diffuse disc bulges inducing spinal canal and neural exit pathway compromise. Reading [facility] Lum[facility]-Ray 03/25/25 03:14 IMPRESSION: No evidence for acute abnormality. [facility] Pelvis X-Ray 03/25/25 03:14 IMPRESSION: No evidence for acute abnormality. Reading [facility] Chest X-Ray 03/25/25 03:40 IMPRESSION: No Acute Findings. [facility] Chest x-ray as interpreted by the emergency medicine physician reveals no acute rib fracture pneumothorax or pleural effusion Pelvis x-ray as interpreted by the emergency medicine system reveals no acute fracture or dislocation Lumbar spine x-ray as interpreted by the emergency medicine physician reveals no acute compression fracture or spondylolisthesis Discharge Plan Triage Chief Complaint: Fall ED Provider: Devante Solares Dx/Rx/DC Orders Clinical Impression: Accidental fall, Closed head injury, Hyponatremia, HTN (hypertension), Chronic fatigue syndrome Instructions: ED Head Injury (Adult), ED Hyponatremia Prescriptions: No Action lisinopril 40 mg tablet 40 mg PO DAILY Patient Comments: TAKE 1 TABLET BY MOUTH EVERY DAY clonidine HCl 0.1 mg tablet 0.1 mg PO BID propranolol 40 mg tablet 40 mg PO BID cholecalciferol (vitamin D3) 50 mcg (2,000 unit) capsule 50 mcg PO DAILY polyethylene glycol 3350 17 GM packet 34 g PO DAILY lansoprazole 30 MG capsule 30 mg PO DAILY hydroxychloroquine 200 MG tablet 200 mg PO BID oxycodone 5 MG tablet 10 mg PO 4X/DAY zolpidem 12.5 MG tablet,ext release multiphase 10 mg PO QHS PRN PRN (Reason: Insomnia) bupropion HCl 150 MG tablet extended release 24 hr 150 mg PO DAILY alprazolam 0.5 mg tablet 1 mg PO TID aripiprazole 2 MG tablet 10 mg PO DAILY aspirin 81 MG tablet 81 mg PO DAILY@0800 nortriptyline 25 MG capsule 25 mg PO QHS ferrous sulfate 325 mg (65 mg iron) tablet 325 mg PO BID Patient Comments: TAKE 1 TABLET BY MOUTH TWICE A DAY clopidogrel [Plavix] 75 mg tablet 75 mg PO DAILY Qty: 30 0RF rosuvastatin [Crestor] 20 mg tablet 20 mg PO DAILY Primary Care Provider: Sherman Cardona Referrals: Sherman Cardona MD [Primary Care Provider, Family Practice] Activity Restrictions/Additional Instructions: Your imaging studies today revealed no sign of brain bleed or broken bone. Your labs showed that your sodium level is slightly low and therefore please have this rechecked in the next week to ensure it is back to your normal range of approximately 130. Please continue all of your home medications as directed by your doctor and return to the ER should you have any further concerns Print Language: Finnish Disposition Disposition: Home, Self Care Discharge Date/Time: 03/25/25 06:06
== END 2025-03-25 06:06 | disposition home or self-care (01) ==
PROVIDERS: Emergency Provider Emergency Medicine; PCP Family Medicine; Visit Provider Emergency Medicine
DX: S09.90XA Unspecified injury of head, initial encounter (principal); J44.9 Chronic obstructive pulmonary disease, unspecified; Z87.891 Personal history of nicotine dependence; E87.1 Hypo-osmolality and hyponatremia; K21.9 Gastro-esophageal reflux disease without esophagitis; W19.XXXA Unspecified fall, initial encounter
CPT/HCPCS: 70450; 71045; 72100; 72125; 72170; 80048; 81001; 83735; 84443; 85025; 96360; 99284; A4216

== ENCOUNTER → 2025-05-09 | Outpatient (CLI) | payer MEDICARE, SELFPAY ==
--- NOTE | 2025-05-09 15:51 | RAD_ITS ---
PROCEDURE: CERV SPINE OBL/FLEX/EXT COMP 05/09/2025 REASON FOR EXAM: NECK PAIN AND INJURIES TECHNIQUE: Procedure Code: RADSPCFE Modality: DX Procedure: CERV SPINE OBL/FLEX/EXT COMP COMPARISON: 05/31/2020. FINDINGS: No evidence acute fracture or dislocation. Moderate degenerative changes of the visualized spine. Vertebral body heights are maintained. Normal alignment. RAD/Cerv Spine Obl/Flex/Ext Comp IMPRESSION: Spondylosis. Reading Location: [id number]
--- NOTE | 2025-05-09 15:51 | RAD_ITS ---
PROCEDURE: SACRUM-COCCYX MIN 2 VIEWS 05/09/2025 REASON FOR EXAM: COCCYX PAIN TECHNIQUE: Procedure Code: RADSAC Modality: DX Procedure: SACRUM-COCCYX MIN 2 VIEWS COMPARISON: None FINDINGS: Bones: No fracture seen. Joints: Degenerative changes of the symphysis pubis Other: RAD/Sacrum-Coccyx min 2 Views IMPRESSION: Degenerative changes. No acute fracture seen. Reading Location: [facility]
--- OUTSIDE RECORDS SUMMARY | 2025-05-09 19:18 | XMS RPT_ITS | CCD ---
Author Organization [facility] CliniSyor Care Team Providers Care Senior Financial Consultant Name Role Phone Dr. Sherman Moise Primary [...] [phone] Dr. John Sales MD Attending Provider Dr. John Sales MD Referring Provider [phone] Dulce CUETO, Dr. Whitaker Attending Provider Dulce CUETO, Dr. Whitaker Referring Provider Edilma German Attending Provider Sherman Moise MD Primary Care Provider ISH CARRION Attending Unavailable JULISA LANE Referring Unavailabl e SHERMAN MOISE Primary Care Unavailable Estela CUETO, Dr. Gunnar Stiles Attending Provider Estela CUETO, Dr. Gunnar Stiles Referring Provider [phone] Dulce, Sherman Primary Care Unavailable Moise, Sherman Attending Unavailable Moise, Sherman Referring Unavailable Moise, Sherman Primary Care Unavailable Moise, Sherman Attending Unavailable Moise, Sherman Referring Unavailable Edilma Serrano Attending Unavailable Moise, Sherman Referring Unavailable Moise, Sherman Primary Care Unavailable Henrry, John Attending Unavailable Henrry, John Referring Unavailable Moise, Sherman Primary Care Unavailable Henrry, John Attending Unavailable Moise, Sherman Primary Care Unavailable Henrry, John Referring Unavailable Moise, Sherman Attending Unavailable Moise, Sherman Referring Unavailable Moise, Sherman Primary Care Unavailable Devante Solares Attending Unavailable Moise, Sherman Primary Care Unavailable Estela, Gunnar Stiles Attending Unavailable Estela, Gunnar Stiles Referring Unavailable Moise, Sherman Primary Care Unavailable Moise , Dr. Whitaker Primary Care Physician Henrry CUETO, Dr. Lopez Attending Physician Dulce CUETO, Dr. Whitaker Attending Physician Edilma German Attending Physician Estela CUETO, Dr. Gunnar Stiles Attending Physician Dr. Devante Solares DO Emergency Department Physic forrest Allergies Allergy Classification Reported Allergen(s) Allergy Type Date of Onset Reaction(s) Facility (18 sources) cefdinir; Translations: [CEFDINIR] Drug Allergy 3 Other: See Comments [facility] (16 sources) Cephalexin; Translations: [cephalexin monohydrate] Drug Allergy 1 Unknown [facility] (19 sources) Citalopram; Translations: [CITALOPRAM HYDROBROMIDE] Drug Allergy 3 Unknown [facility] (18 sources) Doxycycline; Translations: [DOXYCYCLINE] Drug Allergy 3 GI Upset [facility] (16 sources) DULoxetine; Translations: [duloxetine HCl] Drug Allergy 1 Unknown [facility] (19 sources) Escitalopram; Translations: [ESCITALOPRAM OXALATE] Drug Allergy 3 Unknown [facility] (17 sources) fentaNYL Drug Allergy 9 Unknown [facility] (19 sources) FLUoxetine; Translations: [FLUOXETINE HCL] Drug Allergy 3 Mental Status Change [facility] (15 sources) [place] Drug Allergy 1 Unknown [facility] (15 sources) Mirtazapine Drug Allergy 1 Unknown [facility] (19 sources) moxifloxacin; Translations: [MOXIFLOXACIN HCL] Drug Allergy 3 Other: See Comments [facility] (16 sources) oxyMORphone; Translations: [oxymorphone HCl] Drug Allergy 1 Unknown [facility] (19 sources) PARoxetine; Translations: [PAROXETINE HCL] Drug Allergy 3 Unknown [facility] (19 sources) Penicillins; Translations: [PENICILLINS] Allergy to substance 2 Unknown [facility] (15 sources) prednisoLONE Drug Allergy 1 Unknown [facility] (16 sources) QUEtiapine; Translations: [quetiapine fumarate] Drug Allergy 1 Unknown [facility] (19 sources) Sertraline; Translations: [SERTRALINE HCL] Drug Allergy 3 Unknown [facility] (15 sources) traZODone Drug Allergy 1 Unknown [facility] (16 sources) venlafaxine; Translations: [venlafaxine HCl] Drug Allergy 1 Unknown [facility] (3 sources) Cephalexin; Translations: [CEPHALEXIN] Drug Allergy 3 Other: See Comments [facility] (3 sources) DULoxetine; Translations: [DULOXETINE] Drug Allergy 3 Unknown [facility] (3 sources) Iodine; Translations: [IODINE] Drug Allergy 9 Unknown [facility] (3 sources) oxyMORphone; Translations: [OXYMORPHONE] Drug Allergy 3 Unknown [facility] (3 sources) venlafaxine; Translations: [VENLAFAXINE ANALOGUES] Drug Allergy 3 Unknown [facility] (1 source) fentaNYL; Translations: [FENTANYL (BULK)] Drug Allergy 9 [facility] (1 source) cefdinir Drug Allergy 5 [facility] (1 source) Doxycycline Drug Allergy 5 [facility] (1 source) fentaNYL Drug Allergy 5 [facility] (1 source) [place] Drug Allergy 5 [facility] (1 source) Mirtazapine Drug Allergy 5 [facility] (1 source) prednisoLONE Drug Allergy 5 [facility] (1 source) traZODone Drug Allergy 5 [facility] Medications Current Medications Medication Drug [...] 2 tablets by mouth three times daily Start: 09-17-2019 take 1 mg by mouth [...] 2019 2:25pm take 2 tablets by mo uth twice daily ALPRAZolam (XANAX) 0.5 mg tablet Take 1 mg by mouth twice daily. Active amitriptyline hydrochloride 25 mg oral tablet (2 sources) Tricyclic Antidepressant amitrip tyline 25 mg tablet Take 35 mg by mouth daily at bedtime. Active ARIPiprazole 10 mg oral tablet (17 sources) Atypical Antipsychotic Start: 01-20-2023 ARIPiprazole (ABILIFY) 10 mg tablet 10 mg. 01/20/2023 Active Start: 11-08-2015 take 5 tablets by [facility] once daily Start: 11-08-2015 take 10 mg by mouth once daily Aripiprazole Active 10 MG PO DAILY November 08, 2015 12:00am ascorbic acid 1000 mg oral tablet (2 sources) Vitamin C Start: 01-12-2002 VITAMIN C 1000 MG TABLET Take one(1) tablet daily. 0 01/12/2002 Active aspirin 81 mg delayed release oral tablet (17 sources) Platelet Aggregation Inhibitor, Nonsteroidal Anti-inflammatory Drug Start: 08-20-2018 take 1 tablet by mouth once daily Aspirin 81 mg Ta b Take 81 mg by mouth. Active 24 hr buPROPion hydrochloride 300 mg extended release oral tablet (16 sources) Aminoketone Start: 01-25-2025 take 1 tablet by mouth once daily buPROPion XL (WELLBUTRIN XL) 300 mg 24 hr tablet Take 1 tablet by mouth once daily. 01/25/2025 Active Start: 04-08-2014 take 1 tablet by mouth once da debbi cholecalciferol 0.05 mg oral capsule (8 sources) Vitamin D Start: 03-06-2023 take 1 capsule by mouth once daily cloNIDine hydrochloride 0.1 mg oral tablet (17 sources) Central alpha-2 Adrenergic Agonist Start: 01-08-2023 take 1 tablet by mouth once daily at bedtime cloNIDine HCl (CATAPRES) 0.1 mg tablet Take 1 tablet by mouth daily at bedtime. 01/08/2023 Active Start: 03-27-2021 take 1 tablet by mouth twice d aily clopidogrel 75 mg oral tablet (16 sources) P2Y12 Platelet Inhibitor Start: 08-20-2018 take 1 tablet by mouth once daily cyclobenzaprine hydrochloride 10 mg oral tablet (2 sources) Muscle Relaxant Start: 08-18-2022 take 10 mg by mouth three times daily Cyclobenzaprine Active 10 MG PO THREE TIMES A DAY August 18, 2022 1:00am ferrous sulfate 325 mg oral tablet (11 sources) Start: 10-25-2022 take 1 tablet by mouth twice daily hydroxychloroquine sulfate 200 mg oral tablet (17 sources) Antimalarial, Antirheumatic Agent Start: 04-08-2014 take 1 tablet by mouth twice daily LACTOBAC CMB #3/FOS/PANTETHINE (PROBIOTIC & ACIDOPHILUS ORAL) (2 sources) LACTOBAC CMB #3/FOS/PANTETHINE (PROBIOTIC & ACIDOPHILUS ORAL) Take by mouth. Active LACTOBAC CMB #3/ FOS/PANTETHINE (PROBIOTIC & ACIDOPHILUS ORAL) Take by mouth. 0 Active lansoprazole 30 mg delayed release oral capsule (17 sources) Proton Pump Inhibitor Start: 04-08-2014 take 1 capsule by mouth once daily Start: 08-16-2004 [address] Take one(1) capsule twice daily. 0 08/16/2004 Active lisinopril 40 mg oral tablet (16 sources) Angiotensin Converting Enzyme Inhibitor Start: 09-17-2019 take 1 tablet by mouth once daily nortriptyline 50 mg oral capsule (16 sources) Tricyclic Antidepressant Start: 01-13-2025 take 2 capsules by mouth once daily at bedtime nortriptyline (PAMELOR) 50 mg capsule Take 100 mg by mouth daily at bedtime. 01/13/2025 Active Start: 08-20-2018 take 1 capsule by mouth at bed time OMEGA-3 FATTY ACIDS/FISH OIL (OMEGA 3 FISH [...] Active oxyCODONE hydrochloride 5 mg oral tablet (17 sources) Opioid Agonist Start: 04-08-2014 take 2 tablets by mouth four times daily Start: 04-08-2014 take 10 mg by mouth [...] Drop ( AK-DILATE, CECE-SYNEPHRINE) polyethylene glycol 3350 46255 mg powder for oral solution (17 sources) Osmotic Laxative Start: 04-08-2014 take 34 g by mouth once daily Start: 04-08-2014 take 17 g by mouth [...] take 1 tablet by sera twice daily Start: 07-10-2017 End: 03-06-2023 take 1 tablet [...] Active rosuvastatin calcium 20 mg oral tablet (17 sources) HMG-CoA Reductase Inhibitor Start: 08-17-2018 take 1 tablet by mouth once daily TETRAHYDROZOLINE HCL/ZN SULF (EYE DROPS ALLERGY RELIEF [...] tartrate 12.5 mg extended release oral tablet (17 sources) gamma-Aminobutyr ic Acid-ergic Agonist Start: 04-08-2014 take 10 mg by mouth at bedtime as needed Start: 04-08-2014 take 10 mg by mouth [...] Sig (Original) amLODIPine 5 mg oral tablet (18 sources) Dihydropyridine Calcium Channel Ulises Start: 02-10-2025 [...] 2019 12:00am apixaban 5 mg oral tablet (15 sources) Factor Xa Inhibitor Start: 07-12-2017 End: [...] Discontinued 10 MG PO TWICE A DAY 90 July 12, 2017 1:00am August 13, 2018 9:12am Take 10 mg twice a day for 7 days then take 5 mg twice a day. betamethasone 0.5 mg/ml / clotrimazole 10 mg/ml topical cream (4 sources) Azole Antifungal, Corticosteroid Start: 02-10-2025 Clotrimazole-Betamethasone 1-0.05 % cream Discontinued 1 NMA TOPICAL TWICE A DAY February 10, 2025 12:00am carboxymethylcellulose 0.01 mg/mg ophthalmic gel (6 sources) Start: 02-10-2025 apply 1 drop(s ) [...] mg/mg / glycerin 0.009 mg/mg ophthalmic gel (15 sources) Non-Standardized Chemical Allergen Start: 08-20-2018 End: 09-17-2019 apply 1 mL into the eye(s) at bedtime Carboxymethylcellulose-Glycern 10 ML drops,gel Discontinued 10 mL OP AT BEDTIME August 20, 2018 1:00am September 17, 2019 2:22pm DRY EYES methylPREDNISolone acetate 40 mg/ml injectable suspension (1 source) Corticosteroid Start: 06-07-2020 End: 06-07-2020 Depo-Medrol (methylprednisol one acetate) 40 mg/mL suspension for injection Discontinued 40 MG INTRAARTIC ONCE June 07, 2020 2:11pm June 07, 2020 2:47pm mometasone furoate 0.05 mg/actuat metered dose nasal spray (20 sources) Corticosteroid Start: 02-10-2025 take 50 ug [...] nose. 0 Active Multivitamin 1 EACH tablet (6 sources) Start: 08-20-2018 End: 09-17-2019 Multivitamin 1 [...] 12:00am September 17, 2019 1:23pm Multivitamin tablet (4 sources) Start: 02-10-2025 Multivitamin tablet Discontinued 1 {tbl} PO daily February 10, 2025 12:00am naproxen sodium 220 mg oral capsule (8 sources) Nonsteroidal Anti-inflammatory Drug Start: 03-06-2023 End: 02-10-2025 take 1 capsule by mouth twice daily as needed Naproxen Sodium (Aleve) 220 mg capsule Discontinued 220 mg PO TWICE A DAY as needed March 06, 2023 12:00am February 10, 2025 11:04am polyvinyl alcohol 0.014 ml/ml / povidone 6 mg/ml ophthalmic solution (15 sources) Start: 04-08-2014 End: 09-17-2019 Polyvinyl Alcohol-Povidon(Pf ) 1 EACH dropperette Discontinued 1 NMA OP DAILY April 08, 2014 12:00am September 17, 2019 2:23pm dry eyes sodium chloride 0.513 meq/ml nasal spray (17 sources) Start: 04-08-2014 End: 09-17-2019 Sodium Chloride 126 ML mist Discontinued 126 mL NS 4 TIMES DAILY April 08, 2014 12:00am September 17, 2019 2:24pm allergies sodium chloride (SALINE NASAL) 0.65 % nasal spray Use 1 Luebbering in the nose four times daily. Active tamsulosin hydrochloride 0.4 mg oral capsule (20 sources) alpha-Adrenergic Ulises Start: 02-10-2025 take 1 [...] Date Documented Date Episodic/Chronic Acute cerebrovascular disease (16 sources) Cerebrovascular accident; Translations: [Cerebral infarction, unspecified] 10-25-2022 Chronic Adjustment disorders (2 sources) Adjustment disorder with depressed mood; Translations: [Adjustment disorder with depressed mood] Onset: 12-25-2009 12-25-2009 Chronic Anxiety disorders (15 sources) Anxiety disorder; Translations: [Anxiety disorder, unspecified] 08-24-2018 Chronic Cataract (5 sources) Bilateral pseudophakia; Translations: [Presence of intraocular lens] Onset: 07-30-2018 02-03-2024 Chronic Chronic obstructive pulmonary disease and bronchiectasis (19 sources) Chronic obstructive lung disease; Translations: [Chronic obstructive pulmonary disease, unspecified] 08-24-2018 Chronic E Codes: Fall (1 source) Accidental fall ; Translations: [Unspecified fall, initial encounter] 03-25-2025 Episodic Esophageal disorders (19 sources) Gastroesophageal reflux disease; Translations: [Gastro-esophageal reflux disease without esophagitis] 08-24-2018 Chronic Essential hypertension (8 sources) Hypertensive disorder; Translations: [Essential (primary) hypertension] 03-06-2023 Chronic Fluid and electrolyte disorders (1 source) Hyponatremia; Translations: [Hypo-osmolality and hyponatremia] 03-25-2025 Episodic Glaucoma (2 sources) Preglaucoma, unspecified, bilateral; Translations: [Preglaucoma, unspecified] Onset: 02-22-2025 02-22-2025 Chronic Hyperplasia of prostate (1 source) Benign prostatic hyperplasia without lower urinary tract symptoms; Translations: [Benign prostatic hyperplasia without lower urinary tract symptoms] Onset: 08-19-2024 Chronic Malaise and fatigue (15 sources) Chronic fatigue syndrome; Translations: [Chronic fatigue, unspecified] 08-24-2018 Chronic Miscellaneous mental health disorders (2 sources) Psychalgia; Translations: [Pain disorder with related psychological factors] Onset: 12-25-2009 12-25-2009 Chronic Mood disorders (19 sources) Depressive disorder; Translations: [Depression] 08-24-2018 Chronic Occlusion or stenosis of precerebral arteries (20 sources) Bilateral stenosis of carotid arteries; Translations: [Occlusion and stenosis of bilateral carotid arteries] Onset: 01-25-2025 08-24-2018 Chronic Other aftercare (4 sources) Drug therapy finding; Translations: [Other correction (current) drug therapy] Onset: 07-30-2018 02-03-2024 Episodic Other circulatory disease (4 sources) Disorder of carotid artery; Translations: [Disorder [...] injuries and conditions due to external causes (14 sources) Closed injury of head; Translations: [Unspecified injury of head, initial encounter] 08-18-2022 Episodic Other injuries and conditions due to external causes (1 source) Encounter for examination and observation following other accident; Translations: [Encounter for examination and observation following other accident] Onset: 03-30-2025 Episodic Other screening for suspected conditions (not mental disorders or infectious disease) (16 sources) CT of pelvis abnormal; Translations: [Abnormal findings on diagnostic imaging of other abdominal regions, including retroperitoneum] Onset: 03-09-2025 08-24-2018 Episodic Residual codes; unclassified (15 sources) Sleep apnea; Translations: [Sleep apnea, unspecified] [...] Onset: 01-12-2002 02-02-2021 Episodic Sprains and strains (15 sources) Low back strain; Translations: [Strain of muscle, fascia and tendon of lower back, initial encounter] Onset: 01-12-2002 08-18-2022 Episodic Transient cerebral ischemia (2 sources) Amaurosis fugax of left eye; Translations: [Amaurosis fugax] Onset: 07-30-2018 07-30-2018 Chronic Past or Other Problems Problem Classification Problem Date Documented Da te Episodic/Chronic Other aftercare (1 source) Other vermin exterminator (current) drug therapy; Translations: [Long-term use of Plaquenil] Onset: 07-30-2018 Episodic Other eye disorders (2 sources) Dry eyes; Translations: [Dry eye syndrome of bilateral lacrimal glands] Onset: 02-03-2024 02-03-2024 Episodic Other non-traumatic joint disorders (1 source) Pain in right knee; Translations: [Pain in right knee] Onset: 09-27-2024 Episodic Pulmonary heart disease (15 sources) H/O: pulmonary embolus; Translations: [Personal history of pulmonary embolism] Onset: 06-30-2017 08-24-2018 Episodic Results Test Name Value Interpretation Reference Range Facility Absolute lymphocyte countOrd ered By: Devante Solares on 03-25-2025 Lymphocytes Auto (Unsp spec) [#/Vol] 1.56 10*3/uL 0.83-4.51 [facility] Absolute neutrophil countOrd ered By: Devante Solares on 03-25-2025 Neutrophils (Bld) [#/Vol] 5.2 10*3/uL 2.0-7.7 [facility] Anion gap in Serum or Plasma Ordered By: Devante Solares on 03-25-2025 Anion gap [Moles/Vol] 9 mmol/L - [facility] Automated lymphocyte count a s percentage of total leukocytesOrdered By: Devante Solares on 03-25-2025 Lymphocytes/100 WBC Auto (Unsp spec) 20.8 % [facility] BUN/creatinine ratioOrdered By: Devante Solares on 03-25-2025 Urea nitrogen/Creatinine [Mass ratio] 15.3 mg/mg - [facility] Basic Metabolic Profile (BMP )on 03-25-2025 BUN/CRE 15.3 RATIO Normal - [facility] Comment on above: Performed By: #### L 500.2500, L501.9520, L501.5200 ####[facility] [address] [place], [address] Calcium [Mass/Vol] 8.6 mg/dL Normal 7.6-11.0 [facility] Comment on above: Performed By: #### L 500.2500, L501.9520, L501.5200 ####[facility] [address] [place], [address] Chloride [Moles/Vol] 92 mmol/L Low 98-108 [facility] Comment on above: Performed By: #### L 500.2500, L501.9520, L501.5200 ####[facility] [address] [place], [address] CO2 [Moles/Vol] 24.1 mmol/L Normal 21.0-32.0 [facility] Comment on above: Performed By: #### L 500.2500, L501.9520, L501.5200 ####[facility] [address] [place], [address] Creatinine [Mass/Vol] 0.82 mg/dL Normal 0.70-1.20 [facility] Comment on above: Performed By: #### L 500.2500, L501.9520, L501.5200 ####[facility] [address] [place], [address] ECRCL 96.61 ml/min Normal 50-250 [facility] Comment on above: Performed By: #### L 500.2500, L501.9520, L501.5200 ####[facility] [address] [place], [address] GAP 9 Normal 5-15 [facility] Comment on above: Performed By: #### L 500.2500, L501.9520, L501.5200 ####[facility] [address] [place], [address] GFR/1.73 sq M.predicted among non-blacks MDRD (S/P/Bld) [Vol rate/Area] 95 mL/min/{1.73_m2} Normal >60 [facility] Comment on above: Result Comment: mL/m in/1.73m2 CKD-EPI Creatinine Equation (2020) Performed By: #### L 500.2500, L501.9520, L501.5200 ####[facility] [address] [place], [address] Glucose [Mass/Vol] 117 mg/dL High 70-99 [facility] Comment on above: Performed By: #### L 500.2500, L501.9520, L501.5200 ####[facility] [address] [place], [address] Potassium [Moles/Vol] 5.3 mmol/L High 3.3-5.1 [facility] Comment on above: Result Comment: Hemo lysis present, Results??could be affected. ?? Performed By: #### L 500.2500, L501.9520, L501.5200 ####[facility] [address] [place], [address] Sodium [Moles/Vol] 125 mmol/L Low 133-145 [facility] Comment on above: Performed By: #### L 500.2500, L501.9520, L501.5200 ####[facility] [address] [place], [address] Urea nitrogen [Mass/Vol] 13 mg/dL Normal 4-19 [facility] Comment on above: Performed By: #### L 500.2500, L501.9520, L501.5200 ####[facility] [address] [place], [address] Basophil percentageOrdered B y: Devante Solares on 03-25-2025 Basophils/100 WBC (Bld) 0.3 % 0-1 [facility] Bilirubin Test strip Ql (U)O rdered By: Devante Solares on 03-25-2025 Bilirubin Ql (U) Negative Negative [facility] Blood manual differential co mment interpretation (narrative result)Ordered By: Devante Solares on 03-25-2025 Manual differential comment Willian (Bld) [Interp] SCANNED [facility] Brain/Head without Contrasto n 03-25-2025 Brain/Head without Contrast [facility] Imaging Services [address] [place] [address] Brain/Head without Contrast MR#: [id number] Acct: [id number] Name: LANG CARIAS Dominick Rep #: [id number] : 1955 M 70 From: Evan cooper MD PCP: Dr. Sherman Moise MD Status: REG ER Study: Brain/Head without Contrast Date of Exam: 03/01 12/22 Exam# [id number] Ordering Dr: Devante Solares DO PROCEDURE: BRAIN/HEAD WITHOUT CONTRAST 03/25/2025 REASON FOR EXAM: FALL TECHNIQUE: Procedure Code: CTBR Modality: CT Procedure: BRAIN/HEAD WITHOUT CONTRAST Coronal and Sagittal reconstruction series were provided. One or more dose reduction techniques were used (e.g., Automated exposure control, adjustment of the mA and/or kV according to patient size, use of iterative reconstruction technique. RADIATION DOSE SUMMARY: CTDI Vol 44.99 mGy DLP :846.73 mGycm COMPARISON: 13-Jan-2024 MRI FINDINGS: Relatively accentuated bilateral cerebral periventricular deep white matter hypodensities denoting hypoperfusion. Lee-white matter differentiation is maintained. Normal CT appearance of the posterior fossa structures. No intracerebral or extra axial hemorrhage. Dilated ventricular system, cortical sulci and extra-axial CSF spaces. No definite calvarial fractures. No midline shifts or deformity. The osseous structures in the skull base are unremarkable. Paranasal sinuses are unremarkable. Vascular atheromatous calcifications. CT/Brain/Head without Contrast IMPRESSION: No acute cerebrovascular abnormalities. If clinical symptoms persist, further evaluation with MRI may be considered as clinically warranted. No intra or extra-axial acute hemorrhage. Bilateral cerebral mild microvascular ischemic changes. stable. Brain involutional changes. Stable. Reading Location: [place] [address] CC: Dr. Sherman Moise MD; Devante Solares DO Zigzagger: Signed Normal [facility] CBC W/Diff, Automatedon 03-01 SMEAR COMMENT SCANNED Normal [facility] Comment on above: Performed By: #### L 100.0100 #### [facility] [address] [facility] [place], [address] Carbon dioxide, total [Moles /volume] in Central venous bloodOrdered By: Devante Solares on 03-25-2025 CO2 [Moles/Vol] 24.1 mmol/L 21.0-32.0 [facility] Chest 1 View (Portable)on Chest 1 View (Portable) [facility] Imaging Services [address] [place], [place] [id number] Chest 1 View (Portable) MR#: [id number] Acct: [id number] Name: LANG CARIAS Rep #: [id number] : 1955 M 70 From: Rogelio Watt MD PCP: Dr. Sherman Moise MD Status: REG ER Study: Chest 1 View (Portable) Date of Exam: 03/25/25 Exam# [id number] Ordering Dr: Devante Solares DO PROCEDURE: CHEST 1 VIEW (PORTABLE) 03/25/2025 REASON FOR EXAM: FALL TECHNIQUE: Frontal view of the chest. COMPARISON: 10/25/2022. FINDINGS: Hardware: None. Heart: The heart size is normal. Lungs: The lungs are clear. Bones: The bones are unremarkable. RAD/Chest 1 View (Portable) IMPRESSION: No Acute Findings. Reading Location: [facility] CC: Dr. Sherman Moise MD; Devante Solares DO Zigzagger: Signed Normal [facility] Chloride assayOrdered By: Emilie Solares on 03-25-2025 Chloride [Moles/Vol] 92 mmol/L Low 98-108 [facility] Emergency Department Summary on 03-25-2025 Emergency Department Summary [facility] Medical Records Department [address] [place] [address] Emergency Department Summary 03/25/25 MR#: [id number] Acct: [id number] Name: LANG CARIAS Rep #: [id number] : 1955 70 From: Devante Solares DO PCP: Dr. Sherman Moise MD Status:DEP ER Location: ED HPI History of Present Illness Chief Complaint: Fall Informant: patient and EMS Narrative Narrative: Patient is a 70-year-old male with history of anxiety depression and chronic fatigue syndrome. He states that he has difficulty sleeping and was out walking this evening. He states he tripped and fell. He states he did strike his head but denies any loss of consciousness. He states that he was having difficulty getting up so he was able to crawl over to a tree. He states that he felt if he used the tree as leverage he would be able to stand but was unable to do so. Therefore he was able to take his cell phone out of his pocket and called EMS. Patient states that he feels sore from the fall. He states that there has been no recent sick symptoms and has been taking his medications as directed. However as he did strike his head and has had increased fatigue he was brought to the ER for further workup. [facility] Medical History Carotid stenosis Gastroesophageal reflux disease Depression COLD (chronic obstructive lung disease) Anxiety disorder Home Medications ???Medication ???Instructions ???Recorded ???Last Taken ???Type bupropion HCl 150 mg 24 hr tablet, 150 mg PO DAILY depression 04/0808/24/18 05:00 History extended release hydroxychloroquine 200 mg tablet 200 mg PO BID ARTHRITIS 04/08/14 0 07/10/17 History lansoprazole 30 mg capsule,delayed 30 mg PO DAILY gerd/acid reflux 04/08/14 08/24/18 05:00 History release oxycodone 5 mg tablet 10 mg PO 4X/DAY pain 04/08/14/11/15 05:00 History polyethylene glycol 3350 17 gram 34 g PO DAILY laxative 04/08/14 History oral powder packet zolpidem 12.5 mg tablet,extended 10 mg PO QHS PRN PRN Insomnia 03/3007/09/17 History release,multiphase aripiprazole 2 mg tablet 10 mg PO DAILY depression 11/08/15 08/24/18 05:00 History rosuvastatin 20 mg tablet (Crestor) 20 mg PO DAILY CHOLESTEROL 07/31 02/15 Unknown History aspirin 81 mg tablet,delayed 81 mg PO DAILY@0800 BLOOD THINNER 08/20/18 08/23/18 History release nortriptyline 25 mg capsule 25 mg PO QHS SLEEP 08/20/18 Unknow n History alprazolam 0.5 mg tablet 1 mg PO TID anxiety 09/17/19 Unkno wn History lisinopril 40 mg tablet 40 mg PO DAILY 09/17/19 Unknown Hi story clonidine HCl 0.1 mg tablet 0.1 mg PO BID 03/27/21 Unknown His tory ferrous sulfate 325 mg (65 mg 325 mg PO BID supplement 10/25/22 Unknown History iron) tablet clopidogrel 75 mg tablet (Plavix) 75 mg PO DAILY #30 tabs 10/26/22 Unknown Rx cholecalciferol (vitamin D3) 50 50 mcg PO DAILY 03/06/23 Unknown H istory mcg (2,000 unit) capsule propranolol 40 mg tablet 40 mg PO BID 03/06/23 Unknown Hist ory amlodipine 5 mg tablet 10 mg PO DAILY 02/10/25 Unknown Hi story carboxymethylcellulose sodium 1 % 1 drp ophthalmic (eye) BID Unknown History eye liquid gel drops (Refresh Liquigel) clotrimazole-betamethas one 1 1 applic topical BID 02/10/25 Unkn own History %-0.05 % topical cream mometasone 50 mcg/actuation nasal 2 spray intranasal QDAY 02/10/25 Unknown History spray (Nasonex 24hr Allergy) multivitamin 1 tab PO QDAY 02/10/25 Unknown His tory tamsulosin 0.4 mg capsule 0.4 mg PO QDAY 02/10/25 Unknown Hi story Allergy/AdvReac Type Severity Reaction Status Date / Time fentanyl Allergy Unknown Verified 03/25/25 02:53 Penicillins Allergy Unknown Verified 03/25/25 02:53 cefdinir (From Omnicef) AdvReac Unknown Verified 03/25/25 02:53 cephalexin monohydrate (From AdvReac Unknown Verified 03/25/25 02:53 Keflex) citalopram hydrobromide AdvReac Unknown Verified 03/25/25 02:53 (From Celexa) doxycycline AdvReac Unknown Verified 03/25/25 02:53 duloxetine HCl (From AdvReac Unknown Verified 03/25/25 02:53 Cymbalta) escitalopram oxalate (From AdvReac Unknown Verified 03/25/25 02:53 Lexapro) fluoxetine HCl (From Prozac) AdvReac Unknown Verified 03/25/25 02:53 lithium AdvReac Unknown Verified 03/25/25 02:53 mirtazapine (From Remeron) AdvReac Unknown Verified 03/25/25 02:53 moxifloxacin HCl (From AdvReac Unknown Verified 03/25/25 02:53 Avelox) oxymorphone HCl (From Opana) AdvReac Unknown Verified 03/25/25 02:53 paroxetine HCl (From Paxil) AdvReac Unknown Verified 03/25/25 02:53 prednisolone AdvReac Unknown Verified 03/25/25 02:53 quetiapine fumarate (From AdvReac Unknown Verified 03/25/25 02:53 Seroquel) sertraline HCl (From Zoloft) AdvReac (more content not included)... Normal [facility] Eosinophil percentageOrdered By: Devante Solares on 03-25-2025 Eosinophils/100 WBC (Bld) 2.9 % 0-5 [facility] Erythrocyte distribution wid th ratioOrdered By: Devante Solares on 03-25-2025 Erythrocyte distribution width (RBC) [Ratio] 12.6 % 11.6-14.6 [facility] Erythrocyte distribution wid th standard deviationOrdered By: Devante Solares on 03-25-2025 Erythrocyte distribution width (RBC) [Ratio] 43.9 fl 35.1-43.9 [facility] Glomerular filtration rate ( GFR) estimation/1.73 sq m using serum, plasma, or whole bOrdered By: Devante Solares on 03-25-2025 GFR/1.73 sq M.predicted among non-blacks MDRD (S/P/Bld) [Vol rate/Area] 95 mL/min/{1.73_m2} >60 [facility] Comment on above: mL/min/1.73m2 CKD-EP I Creatinine Equation (2020) Hematocrit Auto (Bld) [Volum e fraction]Ordered By: Devante Solares on 03-25-2025 Hematocrit (Bld) [Volume fraction] 37.4 % Low 40-54 [facility] Hemoglobin measurementOrdere d By: Devante Solares on 03-25-2025 Hemoglobin (Bld) [Mass/Vol] 13.4 g/dL 13.0-16.5 [facility] Immature granulocytes/100 WB C Auto (Bld)Ordered By: Devante Solares on 03-25-2025 Immature granulocytes/100 WBC (Bld) 0.500 % 0.0-0.9 [facility] Comment on above: IG% - Immature Granu locytes (promyelocytes, myelocytes and metamyelocytes) > 1% indicates that a LEFT SHIFT is Present. Ketones Test strip Ql (U)Ord ered By: Devante Solares on 03-25-2025 Ketones Ql (U) Negative Negative [facility] Lumbar Spine 2 or 3 Viewson 03-25-2025 Lumbar Spine 2 or 3 Views [facility] Imaging Services [address] [place], [place] [address] Lumbar Spine 2 or 3 Views MR#: [id number] Acct: [id number] Name: LANG CARIAS Rep #: [id number] : 1955 M 70 From: Evan cooper MD PCP: Dr. Sherman Moise MD Status: REG ER Study: Lumbar Spine 2 or 3 Views Date of Exam: Exam# [id number] Ordering Dr: Devante Solares DO PROCEDURE: LUMBAR SPINE 2 OR 3 VIEWS 03/25/2025 REASON FOR EXAM: PAIN TECHNIQUE: Procedure Code: RADSPLL Modality: DX Procedure: LUMBAR SPINE 2 OR 3 VIEWS COMPARISON: None. FINDINGS: There are diffuse spondylotic changes. Findings are demonstrated to by diffuse disc space narrowing, osteophyte formation and degenerative endplate sclerosis. There is diffuse facet joint arthropathy with secondary bilateral neural foramina narrowing. No fracture or dislocation is seen. No aggressive lytic or blastic bony lesion is noted. Calcified atheromatous plaques are noted. RAD/Lumbar Spine 2 or 3 Views IMPRESSION: No evidence for acute abnormality. Reading Location: [place] [address] CC: Dr. Sherman Moise MD; Devante Solares DO Zigzagger: Signed Normal [facility] MCV (mean corpuscular volume ) determinationOrdered By: Devante Solares on 03-25-2025 MCV (RBC) [Entitic vol] 95.4 fL High 80-94 [facility] Magnesiumon 03-25-2025 Magnesium [Mass/Vol] 1.9 mg/dL Normal 1.5-2.2 [facility] Comment on above: Performed By: #### L 500.2500, L501.9520, L501.5200 ####[facility] [address] [place], [place], [address] Magnesium measurement (mass/ volume)Ordered By: Devante Solares on 03-25-2025 Magnesium (Unsp spec) [Mass/Vol] 1.9 mg/dL 1.5-2.2 [facility] Mean corpuscular hemoglobin (MCH) determinationOrdered By: Devante Solares on 03-25-2025 MCH (RBC) [Entitic mass] 34.2 pg High 27.0-32.0 [facility] Mean corpuscular hemoglobin concentration (MCHC) determinationOrdered By: Devante Solares on 03-25-2025 MCHC (RBC) [Mass/Vol] 35.8 g/dL 32-36 [facility] Mean platelet volume determi nationOrdered By: Devante Solares on 03-25-2025 Platelet mean volume (Bld) [Entitic vol] 10.0 fL 6.2-12.0 [facility] Microscopic analysis of urin e for red blood cells (RBC)Ordered By: Devante Solares on 03-25-2025 Microscopic analysis of urine for red blood cells (RBC) 0 SEEN /hpf 0-5 [facility] Monocyte percentageOrdered B y: Devante Solares on 03-25-2025 Monocytes/100 WBC (Bld) 6.4 % 0-10 [facility] Mucus LM Ql (Urine sed)Order ed By: Devante Solares on 03-25-2025 Mucus Ql (Urine sed) 0 SEEN /hpf [facility] Neutrophil percentageOrdered By: Devante Solares on 03-25-2025 Neutrophils/100 WBC (Bld) 69.1 % 47-70 [facility] Nitrite Test strip Ql (U)Ord ered By: Devante Solares on 03-25-2025 Nitrite Ql (U) Negative Negative [facility] Nucleated red blood cell per centageOrdered By: Devante Solares on 03-25-2025 Nucleated RBC/100 WBC (Bld) [Ratio] 0 % 0-5 [facility] Pelvis 1 or 2 Viewson 2024 Pelvis 1 or 2 Views [facility] Imaging Services [facility] [address] [place], [place] [address] Pelvis 1 or 2 Views MR#: [id number] Acct: [id number] Name: LANG CARIAS Rep #: [id number] : 1955 M 70 From: Evan cooper MD PCP: Dr. Sherman Moise MD Status: REG ER Study: Pelvis 1 or 2 Views Date of Exam: 03/25/25 Exam# [id number] Ordering Dr: Devante Solares DO PROCEDURE: PELVIS 1 OR 2 VIEWS 03/25/2025 REASON FOR EXAM: FALL TECHNIQUE: Procedure Code: RADPEL Modality: DX Procedure: PELVIS 1 OR 2 VIEWS COMPARISON: None. FINDINGS: Mild osteopenia of the visualized bones. Degenerative joint disease. No fracture or dislocation is seen. No lytic or blastic bone lesion is noted. Moderate amount of fecal residue in the large bowels. Calcified atheromatous plaques are noted. RAD/Pelvis 1 or 2 Views IMPRESSION: No evidence for acute abnormality. Reading Location: [place] [address] CC: Dr. Sherman Moise MD; Devante Solares DO Zigzagger: Signed Normal [facility] Platelet countOrdered By: Emilie Solares on 03-25-2025 Platelets (Bld) [#/Vol] 189 10*3/uL 150-450 [facility] Potassium measurement (mass/ volume)Ordered By: Devante Solares on 03-25-2025 Potassium (Unsp spec) [Mass/Vol] 5.3 mmol/L High 3.3-5.1 [facility] Comment on above: Hemolysis present, R esults could be affected. Protein Test strip Ql (U)Ord ered By: Devante Solares on 03-25-2025 Protein Ql (U) 15 mg/dl High Negative [facility] RBC Auto (Bld) [#/Vol]Ordere d By: Devante Solares on 03-25-2025 RBC (Bld) [#/Vol] 3.92 10*6/uL Low 4.6-6.2 [facility] Serum creatinine measurement (mass/volume)Ordered By: Devante Solares on 03-25-2025 Creatinine [Mass/Vol] 0.82 mg/dL 0.70-1.20 [facility] Serum glucose measurement (m ass/volume)Ordered By: Devante Solares on 03-25-2025 Glucose [Mass/Vol] 117 mg/dL High 70-99 [facility] Serum or plasma calcium carmelo urement (mass/volume)Ordered By: Devante Solares on 03-25-2025 Calcium [Mass/Vol] 8.6 mg/dL 7.6-11.0 [facility] Serum or plasma urea nitroge n measurement (mass/volume)Ordered By: Devante Solares on 03-25-2025 Urea nitrogen [Mass/Vol] 13 mg/dL 4-19 [facility] Sodium levelOrdered By: Kai Solares on 03-25-2025 Sodium [Moles/Vol] 125 mmol/L Low 133-145 [facility] Spine Cervical without Contr ason 03-25-2025 Spine Cervical without Contras [facility] Imaging Services [address] [place], [place] [address] Spine Cervical without Contras MR#: [id number] Acct: [id number] Name: LANG CARIAS Rep #: [id number] : 1955 M 70 From: Evan cooper MD PCP: Dr. Sherman Moise MD Status: REG ER Study: Spine Cervical without Contras Date of Exam: 0 03/25/25 Exam# [id number] Ordering Dr: Devante Solares DO PROCEDURE: SPINE CERVICAL WITHOUT CONTRAS 03/25/2025 REASON FOR EXAM: FALL TECHNIQUE: Procedure Code: CTSPC Modality: CT Procedure: SPINE CERVICAL WITHOUT CONTRAS Coronal and Sagittal reconstruction series were provided. One or more dose reduction techniques were used (e.g., Automated exposure control, adjustment of the mA and/or kV according to patient size, use of iterative reconstruction technique. RADIATION DOSE SUMMARY: CTDI Vol 32.56 mGy DLP :745.4 mGycm COMPARISON: none FINDINGS: Straightened cervical curve denoting myospasm. The examined vertebral bodies show no structural collapse or posterior neural elements fractures. Intact atlanto-axial interval. Degenerative changes of the atlanto-odontoid articulation with related capsular calcifications. Cervical spondylodegenerative changes evident by marginal osteophytic lipping and multilevel subchondral sclerosis of the examined vertebral end plates with multilevel disc spaces narrowing. Multilevel degenerative unco-vertebral arthropathy with osteophytes formation seen encroaching upon the corresponding neural exit foramina. Multilevel degenerative facet arthropathy. Multilevel diffuse disc bulges with posterior osteophytes and annular calcifications indenting the theca and encroaching upon the related neural exit foramina. No paraspinal masses. Carotid atheromatous calcifications. Neck metallic clips noted. CT/Spine Cervical without Contras IMPRESSION: Straightened cervical curve denoting myospasm. No vertebral fractures, structural collapse or dislocation. Cervical spondylodegenerative changes with multilevel uncovertebral and facet arthropathy along with diffuse disc bulges inducing spinal canal and neural exit pathway compromise. Reading Location: [place] [address] CC: Dr. Sherman Moise MD; Devante Solares DO Zigzagger: Signed Normal [facility] Squamous epithelial cells de tection in urine sediment by light microscopyOrdered By: Devante Solares on 03-25-2025 Epithelial cells.squamous LM Ql (Urine sed) 0 SEEN /hpf 0-5 [facility] TSH DL <= 0.005 mIU/L QnOrde red By: Devante Solares on 03-25-2025 TSH Qn 4.010 uIU/mL 0.300-4.200 [facility] Thyroid Stim Hormone (TSH)on 03-25-2025 TSH 4.010 uIU/mL Normal 0.300-4.200 [facility] Comment on above: Performed By: #### L 500.2500, L501.9520, L501.5200 ####[facility] [address] [place], [place], [id number] Urinalysis, Completeon 03-25 BACTERIA 0 SEEN Normal None Seen [facility] Comment on above: Order Comment: COLLE CTOR TO SPECIFY Performed By: #### L 400.0001 ####[facility] [address] [place], [place], [id number] EPI,SQUAMOUS 0 SEEN Normal 0-5 [facility] Comment on above: Order Comment: COLLE CTOR TO SPECIFY Performed By: #### L 400.0001 ####[facility] [address] [place], [address] Mucus Ql (Urine sed) 0 SEEN Normal [facility] Comment on above: Order Comment: MICHELLE CTOR TO SPECIFY Performed By: #### L 400.0001 ####[facility] [address] [place], [address] RBC 0 SEEN Normal 0-5 [facility] Comment on above: Order Comment: MICHELLE CTOR TO SPECIFY Performed By: #### L 400.0001 ####[facility] [address] [place], [address] WBC 0 SEEN Normal 0-5 [facility] Comment on above: Order Comment: MICHELLE CTOR TO SPECIFY Performed By: #### L 400.0001 ####[facility] [address] [place], [address] Urine clarityOrdered By: Chema Solares on 03-25-2025 Clarity (U) Clear Clear [facility] Urine color determinationOrd ered By: Devante Solares on 03-25-2025 Color (U) Yellow Yellow [facility] Urine glucose detectionOrder ed By: Devante Solares on 03-25-2025 Glucose Ql (U) Normal mg/dl Normal [facility] Urine leukocyte esterase det ection by dipstickOrdered By: Devante Solares on 03-25-2025 Leukocyte esterase Test strip Ql (U) Negative Negative [facility] Urine pHOrdered By: Devante pretty on 03-25-2025 pH (U) 6.0 [pH] 5.0 - 8.0 [facility] Urine sediment bacteria coun t by microscopy (number/high power field)Ordered By: Devante Solares on 03-25-2025 Bacteria LM.HPF (Urine sed) [#/Area] 0 /[HPF] None Seen [facility] Urine specific gravity measu rementOrdered By: Devante Solares on 03-25-2025 Specific gravity (U) [Rel density] 1.010 1.002-1.030 [facility] Urine urobilinogen measureme ntOrdered By: Devante Solares on 03-25-2025 Urobilinogen Ql (U) Normal mg/dl Normal [facility] White blood cell (WBC) count Ordered By: Devante Solares on 03-25-2025 WBC (Bld) [#/Vol] 7.5 10*3/uL 4.4-11.0 [facility] White blood cell countOrdere d By: Devante Solares on 03-25-2025 White blood cell count 0 SEEN /hpf 0-5 [facility] PSA,Total - Annual Screenon 03-03-2025 PSA,TOT SCREEN 0.37 ng/mL Normal 0.02-4.00 [facility] Comment on above: Result Comment: This test was performed using the [employer] tPSA method. Measured values of a patient??sample can vary depending on the testing procedure used. PSA values determined on patient samples by different testing procedures cannot be used interchangeably. If there is a change in PSA assays while monitoring therapy, sequential testing should be performed to confirm baseline values. Performed By: #### L 501.9910 ####[facility] [address] [place], [place], [address] OCT MACULA CIRRUS OU (BOTH E YES)on 02-22-2025 [facility] Radiology Study observation (narrative) [facility] VISUAL FIELD 10-2 OU (BOTH E YES)on 02-22-2025 [facility] Radiology Study observation (narrative) [facility] MR/BMSFlora 02-10-2025 MR/BMS.BVS [facility] [address] [place] [address] OFFICE VISIT Date of Service: 02/10/25 MR#: [id number] Acct: [id number] Name: LANG CARIAS Rep #: [id number] : 1955 Provider: JAKE Romero Age/Sex: 70/M Location: [facility] Status: Signed Intake Vital Signs 03/06/23 14:05 [...] hr tablet, 150 mg PO DAILY depression 10/10 /14 08/14/25 History extended release hydroxychloroquine 200 mg tablet [...] mg PO DAILY 02/10/25 02/10/25 H istory carboxymethylcellulose sodium 1 % 1 drp ophthalmic (eye) BID 02/10/25 History eye liquid gel drops (Refresh Liquigel) clotrimazole-betamethas one 1 1 applic topical BID 02/10/2501/28 History [...] colonoscopy ( (more content not included)... Normal [facility] Absolute lymphocyte countOrd ered By: Sherman Moise on 02-02-2025 Lymphocytes Auto (Unsp spec) [#/Vol] 1.71 10*3/uL 0.83-4.51 [facility] Absolute neutrophil countOrd ered By: Sherman Moise on 02-02-2025 Neutrophils (Bld) [#/Vol] 3.4 10*3/uL 2.0-7.7 [facility] Anion gap in Serum or Plasma Ordered By: Sherman Moise on 02-02-2025 Anion gap [Moles/Vol] 12 mmol/L 5-15 [facility] Automated lymphocyte count a s percentage of total leukocytesOrdered By: Sherman Moise on 02-02-2025 Lymphocytes/100 WBC Auto (Unsp spec) 30.1 % 19-41 [facility] BUN/creatinine ratioOrdered By: Sherman Moise on 02-02-2025 Urea nitrogen/Creatinine [Mass ratio] 11.4 mg/mg 10-20 [facility] Basophil percentageOrdered B y: Sherman Moise on 02-02-2025 Basophils/100 WBC (Bld) 0.2 % 0-1 [facility] Bilirubin, totalOrdered By: Sherman Moise on 02-02-2025 Bilirubin [Mass/Vol] 0.45 mg/dL 0.00-1.30 [facility] CBC W/Diff, Automatedon 08-0 6-2025 Absolute Lymph 1.71 X10 3/uL Normal 0.83-4.51 [facility] Comment on above: Performed By: #### L 500.4050, L100.0100, L500.4100 #### [facility] [address] [place], [address] Absolute Neut 3.4 X10 3/uL Normal 2.0-7.7 [facility] Comment on above: Performed By: #### L 500.4050, L100.0100, L500.4100 #### [facility] [address] [place], [address] Basophils/100 WBC (Bld) 0.2 % Normal 0-1 [facility] Comment on above: Performed By: #### L 500.4050, L100.0100, L500.4100 #### [facility] [address] [place], [address] Eosinophils/100 WBC (Bld) 3.5 % Normal 0-5 [facility] Comment on above: Performed By: #### L 500.4050, L100.0100, L500.4100 #### [facility] [address] [place], [address] Erythrocyte distribution width (RBC) [Ratio] 12.6 % Normal 11.6-14.6 [facility] Comment on above: Performed By: #### L 500.4050, L100.0100, L500.4100 #### [facility] [address] [place], [address] Hematocrit (Bld) [Volume fraction] 40.8 % Normal 40-54 [facility] Comment on above: Performed By: #### L 500.4050, L100.0100, L500.4100 #### [facility] [address] [place], [address] Hemoglobin (Bld) [Mass/Vol] 14.3 g/dL Normal 13.0-16.5 [facility] Comment on above: Performed By: #### L 500.4050, L100.0100, L500.4100 #### [facility] [address] [place], [address] IG% 0.400 Normal 0.0-0.9 [facility] Comment on above: Result Comment: IG% - Immature Granulocytes (promyelocytes, myelocytes and metamyelocytes) > 1% indicates that a LEFT SHIFT is Present. Performed By: #### L 500.4050, L100.0100, L500.4100 #### [facility] [address] [place], [address] Lymphocytes/100 WBC (Bld) 30.1 % Normal 19-41 [facility] Comment on above: Performed By: #### L 500.4050, L100.0100, L500.4100 #### [facility] [address] [place], [address] MCH (RBC) [Entitic mass] 33.3 pg High 27.0-32.0 [facility] Comment on above: Performed By: #### L 500.4050, L100.0100, L500.4100 #### [facility] [address] [place], [address] MCHC (RBC) [Mass/Vol] 35.0 g/dL Normal 32-36 [facility] Comment on above: Performed By: #### L 500.4050, L100.0100, L500.4100 #### [facility] [address] [place], [address] MCV (RBC) [Entitic vol] 95.1 fL High 80-94 [facility] Comment on above: Performed By: #### L 500.4050, L100.0100, L500.4100 #### [facility] [address] [place], [address] Monocytes/100 WBC (Bld) 6.3 % Normal 0-10 [facility] Comment on above: Performed By: #### L 500.4050, L100.0100, L500.4100 #### [facility] [address] [place], [address] Neutrophils/100 WBC (Bld) 59.5 % Normal 47-70 [facility] Comment on above: Performed By: #### L 500.4050, L100.0100, L500.4100 #### [facility] [address] [place], [address] Nucleated RBC (Bld) [#/Vol] 0 10*3/uL Normal 0-5 [facility] Comment on above: Performed By: #### L 500.4050, L100.0100, L500.4100 #### [facility] [address] [place], [address] Platelet mean volume (Bld) [Entitic vol] 10.1 fL Normal 6.2-12.0 [facility] Comment on above: Performed By: #### L 500.4050, L100.0100, L500.4100 #### [facility] [address] [place], [address] Platelets (Bld) [#/Vol] 238 10*3/uL Normal 150-450 [facility] Comment on above: Performed By: #### L 500.4050, L100.0100, L500.4100 #### [facility] [address] [place], [address] RBC (Bld) [#/Vol] 4.29 10*6/uL Low 4.6-6.2 [facility] Comment on above: Performed By: #### L 500.4050, L100.0100, L500.4100 #### [facility] [address] [place], [address] RDW SD 43.8 fl Normal 35.1-43.9 [facility] Comment on above: Performed By: #### L 500.4050, L100.0100, L500.4100 #### [facility] [address] [place], [address] WBC (Bld) [#/Vol] 5.7 10*3/uL Normal 4.4-11.0 [facility] Comment on above: Performed By: #### L 500.4050, L100.0100, L500.4100 #### [facility] [address] [place], [address] Calculated very low density lipoprotein (VLDL) cholesterol measurementOrdered By: Sherman Moise on 02-02-2025 Calculated very low density lipoprotein (VLDL) cholesterol measurement 9 mg/dL 5-40 [facility] Carbon dioxide, total [Moles /volume] in Central venous bloodOrdered By: Sherman Moise on 02-02-2025 CO2 [Moles/Vol] 23.7 mmol/L 21.0-32.0 [facility] Chloride assayOrdered By: Jake Moise on 02-02-2025 Chloride [Moles/Vol] 94 mmol/L Low 98-108 [facility] Comprehensive Metabolic Prof ilon 02-02-2025 Albumin [Mass/Vol] 3.8 g/dL Normal 3.4-4.8 [facility] Comment on above: Performed By: #### L 500.4050, L100.0100, L500.4100 #### [facility] [address] [place], [address] Albumin/Globulin [Mass ratio] 1.0 {ratio} Normal 0.9-2.4 [facility] Comment on above: Performed By: #### L 500.4050, L100.0100, L500.4100 #### [facility] [address] [place], [address] ALK PHOS 179 U/L High 40-129 [facility] Comment on above: Performed By: #### L 500.4050, L100.0100, L500.4100 #### [facility] [address] [place], [address] ALT [Catalytic activity/Vol] 56 U/L High <=46 [facility] Comment on above: Performed By: #### L 500.4050, L100.0100, L500.4100 #### [facility] [address] [place], [address] AST [Catalytic activity/Vol] 67 U/L High <=37 [facility] Comment on above: Performed By: #### L 500.4050, L100.0100, L500.4100 #### [facility] [address] [place], [address] Bilirubin [Mass/Vol] 0.45 mg/dL Normal 0.00-1.30 [facility] Comment on above: Performed By: #### L 500.4050, L100.0100, L500.4100 #### [facility] [address] [place], [address] BUN/CRE 11.4 RATIO Normal 10-20 [facility] Comment on above: Performed By: #### L 500.4050, L100.0100, L500.4100 #### [facility] [address] [place], [address] Calcium [Mass/Vol] 9.4 mg/dL Normal 7.6-11.0 [facility] Comment on above: Performed By: #### L 500.4050, L100.0100, L500.4100 #### [facility] [address] [place], [address] Chloride [Moles/Vol] 94 mmol/L Low 98-108 [facility] Comment on above: Performed By: #### L 500.4050, L100.0100, L500.4100 #### [facility] [address] [place], [address] CO2 [Moles/Vol] 23.7 mmol/L Normal 21.0-32.0 [facility] Comment on above: Performed By: #### L 500.4050, L100.0100, L500.4100 #### [facility] [address] [place], [address] Creatinine [Mass/Vol] 0.85 mg/dL Normal 0.70-1.20 [facility] Comment on above: Performed By: #### L 500.4050, L100.0100, L500.4100 #### [facility] [address] [place], [address] GAP 12 Normal 5-15 [facility] Comment on above: Performed By: #### L 500.4050, L100.0100, L500.4100 #### [facility] [address] [place], [address] GFR/1.73 sq M.predicted among non-blacks MDRD (S/P/Bld) [Vol rate/Area] 94 mL/min/{1.73_m2} Normal >60 [facility] Comment on above: Result Comment: mL/m in/1.73m2 CKD-EPI Creatinine Equation (2020) Performed By: #### L 500.4050, L100.0100, L500.4100 #### [facility] [address] [place], [address] Globulin (S) [Mass/Vol] 3.8 g/dL Normal 2.2-4.2 [facility] Comment on above: Performed By: #### L 500.4050, L100.0100, L500.4100 #### [facility] [address] [place], [address] Glucose [Mass/Vol] 113 mg/dL High 70-99 [facility] Comment on above: Performed By: #### L 500.4050, L100.0100, L500.4100 #### [facility] [address] [place], [address] Potassium [Moles/Vol] 4.5 mmol/L Normal 3.3-5.1 [facility] Comment on above: Performed By: #### L 500.4050, L100.0100, L500.4100 #### [facility] [address] [place], [address] Sodium [Moles/Vol] 130 mmol/L Low 133-145 [facility] Comment on above: Performed By: #### L 500.4050, L100.0100, L500.4100 #### [facility] [address] [place], [address] T PROT 7.5 g/dL Normal 5.9-8.4 [facility] Comment on above: Performed By: #### L 500.4050, L100.0100, L500.4100 #### [facility] [address] [place], [address] Urea nitrogen [Mass/Vol] 10 mg/dL Normal 4-19 [facility] Comment on above: Performed By: #### L 500.4050, L100.0100, L500.4100 #### [facility] [address] [place], [address] Eosinophil percentageOrdered By: Sherman Moise on 02-02-2025 Eosinophils/100 WBC (Bld) 3.5 % 0-5 [facility] Erythrocyte distribution wid th ratioOrdered By: Sherman Moise on 02-02-2025 Erythrocyte distribution width (RBC) [Ratio] 12.6 % 11.6-14.6 [facility] [facility] Erythrocyte distribution wid th standard deviationOrdered By: Sherman Moise on 02-02-2025 Erythrocyte distribution width (RBC) [Ratio] 43.8 fl 35.1-43.9 [facility] Glomerular filtration rate ( GFR) estimation/1.73 sq m using serum, plasma, or whole bOrdered By: Sherman Moise on 02-02-2025 GFR/1.73 sq M.predicted among non-blacks MDRD (S/P/Bld) [Vol rate/Area] 94 mL/min/{1.73_m2} >60 [facility] Comment on above: mL/min/1.73m2 CKD-EP I Creatinine Equation (2020) Hematocrit Auto (Bld) [Volum e fraction]Ordered By: Sherman Moise on 02-02-2025 Hematocrit (Bld) [Volume fraction] 40.8 % 40-54 [facility] Hemoglobin measurementOrdere d By: Sherman Moise on 02-02-2025 Hemoglobin (Bld) [Mass/Vol] 14.3 g/dL 13.0-16.5 [facility] Immature granulocytes/100 WB C Auto (Bld)Ordered By: Sherman Moise on 02-02-2025 Immature granulocytes/100 WBC (Bld) 0.400 % 0.0-0.9 [facility] Comment on above: IG% - Immature Granu locytes (promyelocytes, myelocytes and metamyelocytes) > 1% indicates that a LEFT SHIFT is Present. LDL calc ser/plasOrdered By: Sherman Moise on 02-02-2025 Cholesterol in LDL [Mass/Vol] 48 mg/dL [facility] Comment on above: Vtrgidhztc=877-786 m g/dL & Higher Bbuy=387 mg/dL or greaterFriedwald Equation for LDL-C Laboratory - Chemistry and C hemistry - challengeOrdered By: Sherman Moise on 02-02-2025 AST [Catalytic activity/Vol] 67 U/L High <38 [facility] Lipid Profileon 02-02-2025 CHOL:HDL 1.66 Normal [facility] Comment on above: Performed By: #### L 500.4050, L100.0100, L500.4100 #### [facility] [place], [address] Cholesterol [Mass/Vol] 143 mg/dL Normal <=200 [facility] Comment on above: Result Comment: Chol esterol level, Desirable <200 mg/dL Borderline high cholesterol 200-239 mg/dL High cholesterol >=240 mg/dL Recommendations of the NCEP Adult Treatment Panel for the following risk-cutoff thresholds for the [place] population. Performed By: #### L 500.4050, L100.0100, L500.4100 #### [facility] [address] [place], [address] Cholesterol in HDL [Mass/Vol] 86 mg/dL Normal [facility] Comment on above: Result Comment: Christen onal Cholesterol Education Program (NCEP) guidelines: <40 mg/dL: Low HDL-cholesterol (major risk factor for CHD) >= 60 mg/dL: High HDL-cholesterol (negative risk factor for CHD) HDL-cholesterol is affected by a number of factors, e.g. smoking, exercise, hormones, sex and age. Performed By: #### L 500.4050, L100.0100, L500.4100 #### [facility] [address] [place], [address] Cholesterol in LDL [Mass/Vol] 48 mg/dL Normal [facility] Comment on above: Result Comment: Bord hdgmty=392-461 mg/dL Higher Ioxv=630 mg/dL or greater Friedwald Equation for LDL-C Performed By: #### L 500.4050, L100.0100, L500.4100 #### [facility] [address] [place], [address] Cholesterol in VLDL [Mass/Vol] 9 mg/dL Normal 5-40 [facility] Comment on above: Performed By: #### L 500.4050, L100.0100, L500.4100 #### [facility] [address] [place], [address] Triglyceride [Mass/Vol] 44 mg/dL Normal [facility] Comment on above: Result Comment: The drugs N-Acetylcysteine and Metamizole may falsely depress this assay. Normal range: <150 mg/dL Borderline High: 150-199 mg/dL High: 200-499 mg/dL Very High: >500 mg/dL Performed By: #### L 500.4050, L100.0100, L500.4100 #### [facility] [place], [address] MCV (mean corpuscular volume ) determinationOrdered By: Sherman Moise on 02-02-2025 MCV (RBC) [Entitic vol] 95.1 fL High 80-94 [facility] Mean corpuscular hemoglobin (MCH) determinationOrdered By: Sherman Moise on 02-02-2025 MCH (RBC) [Entitic mass] 33.3 pg High 27.0-32.0 [facility] Mean corpuscular hemoglobin concentration (MCHC) determinationOrdered By: Sherman Moise on 02-02-2025 MCHC (RBC) [Mass/Vol] 35.0 g/dL 32-36 [facility] Mean platelet volume determi nationOrdered By: Sherman Moise on 02-02-2025 Platelet mean volume (Bld) [Entitic vol] 10.1 fL 6.2-12.0 [facility] Monocyte percentageOrdered B y: Sherman Moise on 02-02-2025 Monocytes/100 WBC (Bld) 6.3 % 0-10 [facility] Neutrophil percentageOrdered By: Sherman Moise on 02-02-2025 Neutrophils/100 WBC (Bld) 59.5 % 47-70 [facility] Nucleated red blood cell per centageOrdered By: Sherman Moise on 02-02-2025 Nucleated RBC/100 WBC (Bld) [Ratio] 0 % 0-5 [facility] Platelet countOrdered By: Jake ul Dulce on 02-02-2025 Platelets (Bld) [#/Vol] 238 10*3/uL 150-450 [facility] Potassium measurement (mass/ volume)Ordered By: Sherman Moise on 02-02-2025 Potassium (Unsp spec) [Mass/Vol] 4.5 mmol/L 3.3-5.1 [facility] RBC Auto (Bld) [#/Vol]Ordere d By: Sherman Moise on 02-02-2025 RBC (Bld) [#/Vol] 4.29 10*6/uL Low 4.6-6.2 [facility] Screening total cholesterol/ high density lipoprotein (HDL) cholesterol ratioOrdered By: Sherman Moise on 02-02-2025 Cholesterol.total/Maria D sterol in HDL [Mass ratio] 1.66 {ratio} [facility] Serum creatinine measurement (mass/volume)Ordered By: Sherman Moise on 02-02-2025 Creatinine [Mass/Vol] 0.85 mg/dL 0.70-1.20 [facility] Serum globulin measurementOr dered By: Sherman Moise on 02-02-2025 Globulin (S) [Mass/Vol] 3.8 g/dL 2.2-4.2 [facility] Serum glucose measurement (m ass/volume)Ordered By: Sherman Moise on 02-02-2025 Glucose [Mass/Vol] 113 mg/dL High 70-99 [facility] Serum or plasma alanine seals otransferase (ALT) measurementOrdered By: Sherman Moise on 02-02-2025 ALT [Catalytic activity/Vol] 56 U/L High <47 [facility] Serum or plasma albumin carmelo urement (mass/volume)Ordered By: Sherman Moise on 02-02-2025 Albumin [Mass/Vol] 3.8 g/dL 3.4-4.8 [facility] Serum or plasma albumin/glob ulin mass ratioOrdered By: Sherman Moise on 02-02-2025 Albumin/Globulin [Mass ratio] 1.0 {ratio} 0.9-2.4 [facility] Serum or plasma alkaline du sphatase measurementOrdered By: Sherman Moise on 02-02-2025 ALP [Catalytic activity/Vol] 179 U/L High 40-129 [facility] Serum or plasma calcium carmelo urement (mass/volume)Ordered By: Sherman Moise on 02-02-2025 Calcium [Mass/Vol] 9.4 mg/dL 7.6-11.0 [facility] Serum or plasma cholesterol in HDL measurement (mass/volume)Ordered By: Sherman Moise on 02-02-2025 Cholesterol in HDL [Mass/Vol] 86 mg/dL >40 [facility] Comment on above: National Cholesterol Education Program (NCEP) guidelines:<40 mg/dL: Low HDL-cholesterol (major risk factor for CHD)>= 60 mg/dL: High HDL-cholesterol (negative risk factor for CHD)HDL-cholesterol is affected by a number of factors, e.g. smoking, exercise, hormones, sex and age. Serum or plasma cholesterol measurement (mass/volume)Ordered By: Sherman Moise on 02-02-2025 Cholesterol [Mass/Vol] 143 mg/dL <201 [facility] Comment on above: Cholesterol level, D esirable <200 mg/dLBorderline high cholesterol 200-239 mg/dLHigh cholesterol >=240 mg/dLRecommendations of the NCEP Adult Treatment Panel for the following risk-cutoff thresholds for the [place] population. Serum or plasma urea nitroge n measurement (mass/volume)Ordered By: Sherman Moise on 02-02-2025 Urea nitrogen [Mass/Vol] 10 mg/dL 4-19 [facility] Sodium levelOrdered By: Sherman Moise on 02-02-2025 Sodium [Moles/Vol] 130 mmol/L Low 133-145 [facility] Total proteinOrdered By: Alejandra Moise on 02-02-2025 Protein [Mass/Vol] 7.5 g/dL 5.9-8.4 [facility] Triglycerides measurementOrd ered By: Sherman Moise on 02-02-2025 Triglyceride [Mass/Vol] 44 mg/dL <199 [facility] Comment on above: The drugs N-Acetylcy steine and Metamizole may falsely depress this assay. Normal range: <150 mg/dLBorderline High: 150-199 mg/dLHigh: 200-499 mg/dLVery High: >500 mg/dL White blood cell (WBC) count Ordered By: Sherman Moise on 02-02-2025 WBC (Bld) [#/Vol] 5.7 10*3/uL 4.4-11.0 [facility] Carotid Duplex Ultrasoundon 01-18-2025 Carotid Duplex Ultrasound [facility] [place] [address] Carotid Duplex Ultrasound 01/18/25 1256 MR#: [id number] Acct: [id number] Name: LANG CARIAS Rep #: [id number] : 1955 69 From: John Sales MD Attending Dr: Dr. John Sales MD Status: JULES Wright ESTEVAN Ordering Dr: John Sales MD Date: 01/18/25 Location: [facility] Sex: M C Admitted: Reason For Study [...] the left vertebral artery. Procedure Carotid Duplex 12952. This is a Carotid Duplex examination using B-mode, color flow and specral Doppler. Exam performed in department. 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 Normal left extracranial internal carotid. Patent and antegrade vertebrals bilaterally. Ordering Physician: John Sales Referring Physician: Sherman Moise Performed By: Nita Rasmussen, RVT 01/18/25 1420 Date John Sales MD CC: Dr. John Sales MD; Dr. Sherman Moise MD Date Dictated: 01/18/25 1256 Date Transcribed: 01/18/25 1420 Zigzagger: Signed Normal [facility] Duplex ultrasound of carotid artery reportOrdered By: John Sales on 01-18-2025 Study report [facility] [address] [place] [address] Carotid Duplex Ultrasound 01/18/25 1256 MR#: [id number] Acct: [id number] Name: LANG CARIAS Rep #:[id number] : 1955 69 From: John Hidalgo Attending Dr: Dr. John Sales MD S tatus: REG CLI Ordering Dr: John Sales MD Date: Location: [facility] Sex: M C Admitted: Reason [...] the left vertebral artery. Procedure Carotid Duplex 69388. This is a Carotid Duplex examination using [...] Dictated: 01/18/25 1256 Date Transcribed: 01/18/25 142 Zigzagger: Signed [facility] Work Phone: Knee 4 or More Viewson 09-22 Knee 4 or More Views [facility] Services [address] [place], [place] [address] Knee 4 or More Views MR#: [id number] Acct: [id number] Name: LANG CARIAS Rep #: [id number] : 1955 M 69 From: Gabriel Rodney MD PCP: Dr. Sherman Moise MD Status: REG CLI Study: Knee 4 or More Views Date of Exam: 09/22/24 Exam# [id number] Ordering Dr: Sherman Moise MD EXAM: X-ray [...] small joint effusion. No dislocation. Reading Location: [facility] CC: Dr. Sherman Moise MD Zigzagger: Signed Normal [facility] Albumin to globulin ratioOrd ered By: Sherman Moise on 08-05-2024 Albumin/Globulin [Mass ratio] 0.7 {ratio} Low 0.9-2.4 [facility] Bilirubin, totalOrdered By: Sherman Moise on 08-05-2024 Bilirubin [Mass/Vol] 0.50 mg/dL 0.20-1.00 [facility] Comment on above: For patients on eltr ombopag therapy, use of Dimension [place] TBIL is not recommended. Blood urea nitrogen (BUN)/cr eatinine ratioOrdered By: Sherman Moise on 08-05-2024 Urea nitrogen/Creatinine [Mass ratio] 14.4 mg/mg 10-20 [facility] Carbon dioxide measurementOr dered By: Sherman Moise on 08-05-2024 CO2 [Moles/Vol] 25.0 mmol/L 21.0-32.0 [facility] Chloride measurementOrdered By: Sherman Moise on 08-05-2024 Chloride [Moles/Vol] 105 mmol/L 98-107 [facility] Comprehensive Metabolic Prof ilon 08-05-2024 Albumin [Mass/Vol] 3.3 g/dL Normal 3.2-5.0 [facility] Comment on above: Performed By: #### L 500.4100, L500.4050, L501.9940 #### [facility] [address] [place], [address] Albumin/Globulin [Mass ratio] 0.7 {ratio} Low 0.9-2.4 [facility] Comment on above: Performed By: #### L 500.4100, L500.4050, L501.9940 #### [facility] [address] [place], [address] ALK P 157 U/L High 45-117 [facility] Comment on above: Performed By: #### L 500.4100, L500.4050, L501.9940 #### [facility] [address] [place], [address] ALT [Catalytic activity/Vol] 49 U/L Normal 16-61 [facility] Comment on above: Performed By: #### L 500.4100, L500.4050, L501.9940 #### [facility] [address] [place], [address] AST [Catalytic activity/Vol] 50 U/L High 15-37 [facility] Comment on above: Performed By: #### L 500.4100, L500.4050, L501.9940 #### [facility] [address] [place], [address] Bilirubin [Mass/Vol] 0.50 mg/dL Normal 0.20-1.00 [facility] Comment on above: Result Comment: For patients on eltrombopag therapy, use of Dimension [place] TBIL is not recommended. Performed By: #### L 500.4100, L500.4050, L501.9940 #### [facility] [address] [place], [address] BUN/CRE 14.4 RATIO Normal 10-20 [facility] Comment on above: Performed By: #### L 500.4100, L500.4050, L501.9940 #### [facility] [address] [place], [address] CA,Total 9.3 mg/dL Normal 8.5-10.1 [facility] Comment on above: Performed By: #### L 500.4100, L500.4050, L501.9940 #### [facility] [address] [place], [address] Chloride [Moles/Vol] 105 mmol/L Normal 98-107 [facility] Comment on above: Performed By: #### L 500.4100, L500.4050, L501.9940 #### [facility] [address] [place], [address] CO2 [Moles/Vol] 25.0 mmol/L Normal 21.0-32.0 [facility] Comment on above: Performed By: #### L 500.4100, L500.4050, L501.9940 #### [facility] [address] [place], [address] Creatinine [Mass/Vol] 0.97 mg/dL Normal 0.70-1.30 [facility] Comment on above: Result Comment: The validity of the calculated GFR GFRAA in patients over 70 years has not been determined. Clinical correlation is essential. Performed By: #### L 500.4100, L500.4050, L501.9940 #### [facility] [address] [place], [address] EST GFR - AA 99 mL/min Normal >60 [facility] Comment on above: Result Comment: Afri can [place] GFR Calc Performed By: #### L 500.4100, L500.4050, L501.9940 #### [facility] [address] [place], [address] GAP 8 Normal 5-15 [facility] Comment on above: Performed By: #### L 500.4100, L500.4050, L501.9940 #### [facility] [address] [place], [address] GFR/1.73 sq M.predicted among non-blacks MDRD (S/P/Bld) [Vol rate/Area] 82 mL/min/{1.73_m2} Normal >60 [facility] Comment on above: Result Comment: Non- GFR Calc Performed By: #### L 500.4100, L500.4050, L501.9940 #### [facility] [address] [place], [address] Globulin (S) [Mass/Vol] 4.8 g/dL High 2.2-4.2 [facility] Comment on above: Performed By: #### L 500.4100, L500.4050, L501.9940 #### [facility] [address] [place], [address] Glucose [Mass/Vol] 103 mg/dL Normal 74-106 [facility] Comment on above: Result Comment: Fast ing Glucose result from 100 to 125 mg/dL suggests IMPAIRED HOMEOSTASIS per A.D.A. criteria. Performed By: #### L 500.4100, L500.4050, L501.9940 #### [facility] [address] [place], [address] Potassium [Moles/Vol] 4.2 mmol/L Normal 3.5-5.1 [facility] Comment on above: Performed By: #### L 500.4100, L500.4050, L501.9940 #### [facility] [address] [place], [address] Sodium [Moles/Vol] 138 mmol/L Normal 136-145 [facility] Comment on above: Performed By: #### L 500.4100, L500.4050, L501.9940 #### [facility] [address] [place], [address] T PROT 8.1 g/dL Normal 6.4-8.2 [facility] Comment on above: Performed By: #### L 500.4100, L500.4050, L501.9940 #### [facility] [address] [place], [address] Urea nitrogen [Mass/Vol] 14 mg/dL Normal 7-18 [facility] Comment on above: Performed By: #### L 500.4100, L500.4050, L501.9940 #### [facility] [address] [place], [address] Diagnostic total prostate sp ecific antigen (PSA) measurementOrdered By: Sherman Moise on 08-05-2024 Prostate Specific Antigen Total 0.39 ng/mL 0.0-4.0 [facility] Comment on above: This test was perfor med using the TPSA assay method for the[facility] chemistry system. Values obtained with differentassay methods cannot be used interchangably.When changing PSA assays in the course of monitoring apatient, additional sequential testing should be carriedout to confirm baseline values. Estimated glomerular filtrat ion rate (GFR) AmericanOrdered By: Sherman Moise on 08-05-2024 Estimated GFR (MDRD) Amer 99 mL/min >60 [facility] Comment on above: GFR Calc Glomerular filtration rate ( GFR) estimationOrdered By: Sherman Moise on 08-05-2024 Estimated GFR (MDRD) Non-Af Amer 82 mL/min >60 [facility] Comment on above: Non- GFR Calc Glucose measurementOrdered B y: Sherman Moise on 08-05-2024 Glucose [Mass/Vol] 103 mg/dL 74-106 [facility] Comment on above: Fasting Glucose resu lt from 100 to 125 mg/dL suggests IMPAIRED HOMEOSTASIS per A.D.A. criteria. High density lipoprotein (HD L) measurementOrdered By: Sherman Moise on 08-05-2024 Cholesterol in HDL [Mass/Vol] 89 mg/dL >40 [facility] Comment on above: The drugs N-Acetylcy steine and Metamizole may falsely depress this assay. Reference Range HDL <40 mg/dL Low HDL Cholesterol HDL >or= 60 mg/dL High HDL Cholesterol Laboratory - Chemistry and C hemistry - challengeOrdered By: Sherman Moise on 08-05-2024 AST [Catalytic activity/Vol] 50 U/L High 15-37 [facility] Lipid Profileon 08-05-2024 Cholesterol [Mass/Vol] 146 mg/dL Normal 200 [facility] Comment on above: Result Comment: <200 mg/dL Desirable 200-240 mg/dL Borderline >240 mg/dL High Risk Performed By: #### L 500.4100, L500.4050, L501.9940 ####[facility] [address] [place], [address] Cholesterol in HDL [Mass/Vol] 89 mg/dL Normal [facility] Comment on above: Result Comment: The drugs N-Acetylcysteine and Metamizole may falsely depress this assay. Reference Range HDL <40 mg/dL Low HDL Cholesterol HDL >or= 60 mg/dL High HDL Cholesterol Performed By: #### L 500.4100, L500.4050, L501.9940 ####[facility] [address] [place], [address] Cholesterol in LDL [Mass/Vol] 48 mg/dL Normal 0-130 [facility] Comment on above: Performed By: #### L 500.4100, L500.4050, L501.9940 ####[facility] [address] [place], [address] Cholesterol in VLDL [Mass/Vol] 9 mg/dL Normal 5-40 [facility] Comment on above: Performed By: #### L 500.4100, L500.4050, L501.9940 ####[facility] [address] [place], [address] Triglyceride [Mass/Vol] 44 mg/dL Normal [facility] Comment on above: Result Comment: The drugs N-Acetylcysteine and Metamizole may falsely depress this assay. Serum Triglycerides Reference Interval Normal <150 mg/dL Borderline high 150 - 199 mg/dL High 200 - 499 mg/dL Very High > or = 500 mg/dL Performed By: #### L 500.4100, L500.4050, L501.9940 ####[facility] [address] [place], [address] Low density lipoprotein (LDL ) cholesterol measurementOrdered By: Sherman Moise on 08-05-2024 Cholesterol in LDL [Mass/Vol] 48 mg/dL 0-130 [facility] PSA,Total- Diagnosticon 02-0 -2024 PSA, DIAGNOSTIC 0.39 ng/mL Normal 0.0-4.0 [facility] Comment on above: Result Comment: This test was performed using the TPSA assay method for the [employer] chemistry system. Values obtained with different assay methods cannot be used interchangably. When changing PSA assays in the course of monitoring a patient, additional sequential testing should be carried out to confirm baseline values. Performed By: #### L 500.4100, L500.4050, L501.9940 ####[facility] [address] [place], [address] Potassium measurementOrdered By: Sherman Moise on 08-05-2024 Potassium [Moles/Vol] 4.2 mmol/L 3.5-5.1 [facility] Serum anion gap measurementO rdered By: Sherman Moise on 08-05-2024 Anion gap [Moles/Vol] 8 mmol/L 5-15 [facility] Serum globulin measurementOr dered By: Sherman Moise on 08-05-2024 Globulin (S) [Mass/Vol] 4.8 g/dL High 2.2-4.2 [facility] Serum or plasma alanine seals otransferase (ALT) measurementOrdered By: Sherman Moise on 08-05-2024 ALT [Catalytic activity/Vol] 49 U/L 16-61 [facility] Serum or plasma albumin carmelo urement (mass/volume)Ordered By: Sherman Moise on 08-05-2024 Albumin [Mass/Vol] 3.3 g/dL 3.2-5.0 [facility] Serum or plasma alkaline du sphatase measurementOrdered By: Sherman Moise on 08-05-2024 ALP [Catalytic activity/Vol] 157 U/L High 45-117 [facility] Serum or plasma calcium carmelo urement (mass/volume)Ordered By: Sherman Moise on 08-05-2024 Calcium [Mass/Vol] 9.3 mg/dL 8.5-10.1 [facility] Serum or plasma cholesterol measurement (mass/volume)Ordered By: Sherman Moise on 08-05-2024 Cholesterol [Mass/Vol] 146 mg/dL <200 [facility] Comment on above: <200 mg/dL Desirable 200-240 mg/dL Borderline >240 mg/dL High Risk Serum or plasma creatinine m easurement (mass/volume)Ordered By: Sherman Moise on 08-05-2024 Creatinine [Mass/Vol] 0.97 mg/dL 0.70-1.30 [facility] Comment on above: The validity of the calculated GFR & GFRAA in patients over 70 years has not been determined. Clinical correlation is essential. Serum or plasma urea nitroge n measurement (mass/volume)Ordered By: Sherman Moise on 08-05-2024 Urea nitrogen [Mass/Vol] 14 mg/dL 7-18 [facility] Sodium levelOrdered By: Sherman Moise on 08-05-2024 Sodium [Moles/Vol] 138 mmol/L 136-145 [facility] Total proteinOrdered By: Alejandra Moise on 08-05-2024 Protein [Mass/Vol] 8.1 g/dL 6.4-8.2 [facility] Triglycerides measurementOrd ered By: Sherman Moise on 08-05-2024 Triglyceride [Mass/Vol] 44 mg/dL <199 [facility] Comment on above: The drugs N-Acetylcy steine and Metamizole may falsely depress this assay.Serum Triglycerides Reference Interval Normal <150 mg/dL Borderline high 150 - 199 mg/dL High 200 - 499 mg/dL Very High > or = 500 mg/dL Very low density lipoprotein (VLDL) cholesterol measurementOrdered By: Sherman Moise on 08-05-2024 VLDL Cholesterol 9 mg/dL 5-40 [facility] OCT MACULA CIRRUS OU (BOTH E YES)on 02-03-2024 [facility] Radiology Study observation (narrative) [facility] VISUAL FIELD 10-2 OU (BOTH E YES)on 02-03-2024 [facility] Radiology Study observation (narrative) [facility] Basophil percentageOrdered B y: Sherman Moise on 08-04-2023 Chloride [Moles/Vol] 98 mmol/L 98-107 [facility] Cholesterol [Mass/Vol] 162 mg/dL <200 [facility] Comment on above: <200 mg/dL Desirable 200-240 mg/dL Borderline >240 mg/dL High Risk Glucose [Mass/Vol] 98 mg/dL 74-106 [facility] Potassium [Moles/Vol] 3.9 mmol/L 3.5-5.1 [facility] Sodium [Moles/Vol] 131 mmol/L 136-145 [facility] Triglyceride [Mass/Vol] 57 mg/dL <199 [facility] Comment on above: The drugs N-Acetylcy steine and Metamizole may falsely depress this assay.Serum Triglycerides Reference Interval Normal <150 mg/dL Borderline high 150 - 199 mg/dL High 200 - 499 mg/dL Very High > or = 500 mg/dL Laboratory - Chemistry and C hemistry - challengeOrdered By: Sherman Moise on 08-04-2023 Cholesterol in HDL [Mass/Vol] 92 mg/dL >40 [facility] Comment on above: The drugs N-Acetylcy steine and Metamizole may falsely depress this assay. Reference Range HDL <40 mg/dL Low HDL Cholesterol HDL >or= 60 mg/dL High HDL Cholesterol Cholesterol in LDL [Mass/Vol] 59 mg/dL 0-130 [facility] CO2 [Moles/Vol] 29.0 mmol/L 21.0-32.0 [facility] Urea nitrogen/Creatinine [Mass ratio] 16.2 mg/mg 10-20 [facility] No Panel InformationOrdered By: Sherman Moise on 08-04-2023 Estimated GFR (MDRD) Amer 113 mL/min >60 [facility] Comment on above: GFR Calc Estimated GFR (MDRD) Non-Af Amer 93 mL/min >60 [facility] Comment on above: Non- GFR Calc VLDL Cholesterol 11 mg/dL 5-40 [facility] Serum or plasma calcium carmelo urement (mass/volume)Ordered By: Sherman Moise on 08-04-2023 Calcium [Mass/Vol] 9.6 mg/dL 8.5-10.1 [facility] Serum or plasma creatinine m easurement (mass/volume)Ordered By: Sherman Moise on 08-04-2023 Creatinine [Mass/Vol] 0.86 mg/dL 0.70-1.30 [facility] Comment on above: The validity of the calculated GFR & GFRAA in patients over 70 years has not been determined. Clinical correlation is essential. Serum or plasma urea nitroge n measurement (mass/volume)Ordered By: Sherman Moise on 08-04-2023 Urea nitrogen [Mass/Vol] 14 mg/dL 7-18 [facility] Thin prep Papanicolaou smear with manual screeningOrdered By: Sherman Moise on 08-04-2023 Thin prep Papanicolaou smear with manual screening 4 5-15 [facility] Absolute lymphocyte countOrd ered By: Dr. Smith on 10-26-2022 Lymphocytes Auto (Unsp spec) [#/Vol] 1.49 10*3/uL 0.83-4.51 [facility] Basophil percentageOrdered B y: Dr. Smith on 10-26-2022 Basophils/100 WBC (Bld) 0.2 % 0-1 [facility] Chloride [Moles/Vol] 107 mmol/L 98-107 [facility] Cholesterol [Mass/Vol] 122 mg/dL <200 [facility] Comment on above: <200 mg/dL Desirable 200-240 mg/dL Borderline >240 mg/dL High Risk Eosinophils/100 WBC (Bld) 3.4 % 0-5 [facility] Glucose [Mass/Vol] 110 mg/dL 74-106 [facility] Comment on above: Fasting Glucose resu lt from 100 to 125 mg/dL suggests IMPAIRED HOMEOSTASIS per A.D.A. criteria. Neutrophils (Bld) [#/Vol] 3.6 10*3/uL 2.0-7.7 [facility] Neutrophils/100 WBC (Bld) 62.4 % 47-70 [facility] Potassium [Moles/Vol] 3.8 mmol/L 3.5-5.1 [facility] Sodium [Moles/Vol] 138 mmol/L 136-145 [facility] Triglyceride [Mass/Vol] 44 mg/dL <199 [facility] Comment on above: The drugs N-Acetylcy steine and Metamizole may falsely depress this assay.Serum Triglycerides Reference Interval Normal <150 mg/dL Borderline high 150 - 199 mg/dL High 200 - 499 mg/dL Very High > or = 500 mg/dL WBC (Bld) [#/Vol] 5.8 10*3/uL 4.4-11.0 [facility] Blood erythrocytes count (nu mber/volume)Ordered By: Dr. Smith on 10-26-2022 RBC (Bld) [#/Vol] 3.53 10*6/uL 4.6-6.2 [facility] Blood hemoglobin measurement (mass/volume)Ordered By: Dr. Smith on 10-26-2022 Hemoglobin (Bld) [Mass/Vol] 8.9 g/dL 13.0-16.5 [facility] Blood lymphocytes/100 leukoc ytesOrdered By: Dr. Smith on 10-26-2022 Lymphocytes/100 WBC (Bld) 25.6 % 19-41 [facility] Blood monocytes/100 leukocyt esOrdered By: Dr. Smith on 10-26-2022 Monocytes/100 WBC (Bld) 8.2 % 0-10 [facility] Blood platelet mean volumeOr dered By: Dr. Smith on 10-26-2022 Platelet mean volume (Bld) [Entitic vol] 9.9 fL 6.2-12.0 [facility] Determination of erythrocyte mean corpuscular volume (MCV)Ordered By: Dr. Smith on 10-26-2022 MCV (RBC) [Entitic vol] 81.6 fL 80-94 [facility] Hematocrit Auto (Bld) [Volum e fraction]Ordered By: Dr. Smith on 10-26-2022 Hematocrit (Bld) [Volume fraction] 28.8 % 40-54 [facility] Laboratory - Chemistry and C hemistry - challengeOrdered By: Dr. Smith on 10-26-2022 CO2 [Moles/Vol] 28.0 mmol/L 21.0-32.0 [facility] Urea nitrogen/Creatinine [Mass ratio] 13.4 mg/mg 10-20 [facility] Laboratory - Hematology and Cell countsOrdered By: Dr. Smith on 10-26-2022 Erythrocyte distribution width (RBC) [Entitic vol] 53.5 fL 35.1-43.9 [facility] Erythrocyte distribution width (RBC) [Ratio] 18.4 % 11.6-14.6 [facility] Immature granulocytes/100 WBC (Bld) 0.200 % 0.0-0.9 [facility] Comment on above: IG% - Immature Granu locytes (promyelocytes, myelocytes and metamyelocytes) > 1% indicates that a LEFT SHIFT is Present. MCH (RBC) [Entitic mass] 25.2 pg 27.0-32.0 [facility] Nucleated RBC/100 WBC (Bld) [Ratio] 0 % 0-5 [facility] MCHC Auto (RBC) [Mass/Vol]Or dered By: Dr. Smith on 10-26-2022 MCHC (RBC) [Mass/Vol] 30.9 g/dL 32-36 [facility] No Panel InformationOrdered By: Dr. Smith on 10-26-2022 Estimated Creatinine Clearance Calc 90.26 ml/min [facility] Estimated GFR (MDRD) Amer 120 mL/min >60 [facility] Comment on above: GFR Calc Estimated GFR (MDRD) Non-Af Amer 100 mL/min >60 [facility] Comment on above: Non- GFR Calc Platelets bldOrdered By: Dr. Smith on 10-26-2022 Platelets (Bld) [#/Vol] 229 10*3/uL 150-450 [facility] Serum or plasma calcium carmelo urement (mass/volume)Ordered By: Dr. Smith on 10-26-2022 Calcium [Mass/Vol] 8.9 mg/dL 8.5-10.1 [facility] Serum or plasma cholesterol in HDL measurement (mass/volume)Ordered By: Dr. Smith on 10-26-2022 Cholesterol in HDL [Mass/Vol] 67 mg/dL >40 [facility] Comment on above: The drugs N-Acetylcy steine and Metamizole may falsely depress this assay. Reference Range HDL <40 mg/dL Low HDL Cholesterol HDL >or= 60 mg/dL High HDL Cholesterol Serum or plasma cholesterol in VLDL measurement (mass/volume)Ordered By: Dr. Smith on 10-26-2022 Cholesterol in VLDL [Mass/Vol] 9 mg/dL 5-40 [facility] Serum or plasma creatinine m easurement (mass/volume)Ordered By: Dr. Smith on 10-26-2022 Creatinine [Mass/Vol] 0.82 mg/dL 0.70-1.30 [facility] Comment on above: The validity of the calculated GFR & GFRAA in patients over 70 years has not been determined. Clinical correlation is essential. Serum or plasma low density lipoprotein (LDL) cholesterol measurement (mass/volume)Ordered By: Dr. Smith on 10-26-2022 Cholesterol in LDL [Mass/Vol] 46 mg/dL 0-130 [facility] Serum or plasma urea nitroge n measurement (mass/volume)Ordered By: Dr. Smith on 10-26-2022 Urea nitrogen [Mass/Vol] 11 mg/dL 7-18 [facility] Thin prep Papanicolaou smear with manual screeningOrdered By: Dr. Smith on 10-26-2022 Thin prep Papanicolaou smear with manual screening 3 5-15 [facility] Absolute lymphocyte countOrd ered By: Dr. Rapp on 10-25-2022 Lymphocytes Auto (Unsp spec) [#/Vol] 1.94 10*3/uL 0.83-4.51 [facility] Basophil percentageOrdered B y: Dr. Rapp on 10-25-2022 Basophils/100 WBC (Bld) 0.0 % 0-1 [facility] Chloride [Moles/Vol] 106 mmol/L 98-107 [facility] Eosinophils/100 WBC (Bld) 1.5 % 0-5 [facility] Glucose [Mass/Vol] 116 mg/dL 74-106 [facility] Comment on above: Fasting Glucose resu lt from 100 to 125 mg/dL suggests IMPAIRED HOMEOSTASIS per A.D.A. criteria. Neutrophils (Bld) [#/Vol] 3.4 10*3/uL 2.0-7.7 [facility] Neutrophils/100 WBC (Bld) 58.9 % 47-70 [facility] Potassium [Moles/Vol] 4.4 mmol/L 3.5-5.1 [facility] Sodium [Moles/Vol] 135 mmol/L 136-145 [facility] WBC (Bld) [#/Vol] 5.8 10*3/uL 4.4-11.0 [facility] Blood erythrocytes count (nu mber/volume)Ordered By: Dr. Rapp on 10-25-2022 RBC (Bld) [#/Vol] 4.10 10*6/uL 4.6-6.2 [facility] Blood hemoglobin measurement (mass/volume)Ordered By: Dr. Rapp on 10-25-2022 Hemoglobin (Bld) [Mass/Vol] 10.0 g/dL 13.0-16.5 [facility] Blood lymphocytes/100 leukoc ytesOrdered By: Dr. Rapp on 10-25-2022 Lymphocytes/100 WBC (Bld) 33.2 % 19-41 [facility] Blood monocytes/100 leukocyt esOrdered By: Dr. Rapp on 10-25-2022 Monocytes/100 WBC (Bld) 6.2 % 0-10 [facility] Blood platelet adequacy dete ction by light microscopyOrdered By: Dr. Rapp on 10-25-2022 Platelets LM Ql (Bld) ADEQUATE ADEQ [facility] Blood platelet mean volumeOr dered By: Dr. Rapp on 10-25-2022 Platelet mean volume (Bld) [Entitic vol] 10.4 fL 6.2-12.0 [facility] Determination of erythrocyte mean corpuscular volume (MCV)Ordered By: Dr. Rapp on 10-25-2022 MCV (RBC) [Entitic vol] 80.7 fL 80-94 [facility] Glucose Glucometer (BldC) [M ass/Vol]Ordered By: Dr. Rapp on 10-25-2022 Glucose [Mass/Vol] 101 mg/dL 74-106 [facility] Comment on above: MANAGEMENT OF PATIEN T CARE PER NURSING PROTOCOL Hematocrit Auto (Bld) [Volum e fraction]Ordered By: Dr. Rapp on 10-25-2022 Hematocrit (Bld) [Volume fraction] 33.1 % 40-54 [facility] INR in Blood by Coagulation assayOrdered By: Dr. Rapp on 10-25-2022 INR Coag (Bld) [Relative time] 1.0 {INR} [facility] Laboratory - Chemistry and C hemistry - challengeOrdered By: Dr. Rapp on 10-25-2022 CO2 [Moles/Vol] 27.0 mmol/L 21.0-32.0 [facility] Urea nitrogen/Creatinine [Mass ratio] 18.0 mg/mg 10-20 [facility] Laboratory - CoagulationOrde red By: Dr. Rapp on 10-25-2022 aPTT Coag (Bld) [Time] 27.6 s 24.1-36.2 [facility] PT Coag (PPP) [Time] 13.1 s 11.7-14.9 [facility] Laboratory - Hematology and Cell countsOrdered By: Dr. Rapp on 10-25-2022 Erythrocyte distribution width (RBC) [Entitic vol] 52.1 fL 35.1-43.9 [facility] Erythrocyte distribution width (RBC) [Ratio] 17.9 % 11.6-14.6 [facility] Immature granulocytes/100 WBC (Bld) 0.200 % 0.0-0.9 [facility] Comment on above: IG% - Immature Granu locytes (promyelocytes, myelocytes and metamyelocytes) > 1% indicates that a LEFT SHIFT is Present. MCH (RBC) [Entitic mass] 24.4 pg 27.0-32.0 [facility] Nucleated RBC/100 [facility] (Bld) [[facility]] 0 [facility] [Mass/Vol]Or dered By: Dr. Rapp on 10-25-2022 MCHC (RBC) [Mass/Vol] 30.2 g/dL 32-36 [facility] No Panel InformationOrdered By: Dr. Rapp on 10-25-2022 Estimated Creatinine Clearance Calc 74.01 ml/min [facility] Estimated GFR (MDRD) Amer 96 mL/min >60 [facility] Comment on above: GFR Calc Estimated GFR (MDRD) Non-Af Amer 79 mL/min >60 [facility] Comment on above: Non- GFR Calc Troponin I High Sensitivity 8 pg/mL 3.0-78.0 [facility] Comment on above: Please Note: New Stephanie t Units and Gender Specific Reference Ranges. For more information see Policy Stat Procedure [place] High Sensitivity Troponin (TNIH) and attachments. Platelets bldOrdered By: Dr. Rapp on 10-25-2022 Platelets (Bld) [#/Vol] TNP [facility] Comment on above: Test not [...] on 10-25-2022 Calcium [Mass/Vol] 9.4 mg/dL 8.5-10.1 [facility] Serum or plasma creatinine m easurement (mass/volume)Ordered By: Dr. Rapp on 10-25-2022 Creatinine [Mass/Vol] 1.00 mg/dL 0.70-1.30 [facility] Comment on above: The validity of the calculated GFR & GFRAA in patients over 70 years has not been determined. Clinical correlation is essential. Serum or plasma urea nitroge n measurement (mass/volume)Ordered By: Dr. Rapp on 10-25-2022 Urea nitrogen [Mass/Vol] 18 mg/dL 7-18 [facility] Thin prep Papanicolaou smear with manual screeningOrdered By: Dr. Rapp on 10-25-2022 Thin prep Papanicolaou smear with manual screening 2 5-15 [facility] Basophil percentageOrdered B y: Dr. Moise on 10-21-2022 Bilirubin [Mass/Vol] 0.30 mg/dL 0.20-1.00 [facility] Comment on above: For patients on eltr ombopag therapy, use of Dimension [place] TBIL is not recommended. Chloride [Moles/Vol] 106 mmol/L 98-107 [facility] Glucose [Mass/Vol] 118 mg/dL 74-106 [facility] Comment on above: Fasting Glucose resu lt from 100 to 125 mg/dL suggests IMPAIRED HOMEOSTASIS per A.D.A. criteria. Potassium [Moles/Vol] 4.4 mmol/L 3.5-5.1 [facility] Protein [Mass/Vol] 7.6 g/dL 6.4-8.2 [facility] Sodium [Moles/Vol] 135 mmol/L 136-145 [facility] WBC (Bld) [#/Vol] 5.7 10*3/uL 4.4-11.0 [facility] Blood erythrocytes count (nu mber/volume)Ordered By: Dr. Moise on 10-21-2022 RBC (Bld) [#/Vol] 3.81 10*6/uL 4.6-6.2 [facility] Blood hemoglobin measurement (mass/volume)Ordered By: Dr. Moise on 10-21-2022 Hemoglobin (Bld) [Mass/Vol] 9.6 g/dL 13.0-16.5 [facility] Blood platelet mean volumeOr dered By: Dr. Moise on 10-21-2022 Platelet mean volume (Bld) [Entitic vol] 10.7 fL 6.2-12.0 [facility] Determination of erythrocyte mean corpuscular volume (MCV)Ordered By: Dr. Moise on 10-21-2022 MCV (RBC) [Entitic vol] 80.8 fL 80-94 [facility] Hematocrit Auto (Bld) [Volum e fraction]Ordered By: Dr. Moise on 10-21-2022 Hematocrit (Bld) [Volume fraction] 30.8 % 40-54 [facility] Laboratory - Chemistry and C hemistry - challengeOrdered By: Dr. Moise on 10-21-2022 ALP [Catalytic activity/Vol] 168 U/L 45-117 [facility] ALT [Catalytic activity/Vol] 50 U/L 16-61 [facility] CO2 [Moles/Vol] 26.0 mmol/L 21.0-32.0 [facility] Globulin (S) [Mass/Vol] 4.4 g/dL 2.2-4.2 [facility] Urea nitrogen/Creatinine [Mass ratio] 18.5 mg/mg 10-20 [facility] Laboratory - Hematology and Cell countsOrdered By: Dr. Moise on 10-21-2022 Erythrocyte distribution width (RBC) [Entitic vol] 52.3 fL 35.1-43.9 [facility] Erythrocyte distribution width (RBC) [Ratio] 17.8 % 11.6-14.6 [facility] MCH (RBC) [Entitic mass] 25.2 pg 27.0-32.0 [facility] MCHC Auto (RBC) [Mass/Vol]Or dered By: Dr. Moise on 10-21-2022 MCHC (RBC) [Mass/Vol] 31.2 g/dL 32-36 [facility] No Panel InformationOrdered By: Dr. Moise on 10-21-2022 Estimated GFR (MDRD) Amer 75 mL/min >60 [facility] Comment on above: GFR Calc Estimated GFR (MDRD) Non-Af Amer 62 mL/min >60 [facility] Comment on above: Non- GFR Calc Thyroid Stimulating Hormone (TSH) 1.85 uIU/mL 0.358-3.74 [facility] Platelets bldOrdered By: Dr. Moise on 10-21-2022 Platelets (Bld) [#/Vol] 268 10*3/uL 150-450 [facility] Serum or plasma albumin carmelo urement (mass/volume)Ordered By: Dr. Moise on 10-21-2022 Albumin [Mass/Vol] 3.2 g/dL 3.2-5.0 [facility] Serum or plasma albumin/glob ulin mass ratioOrdered By: Dr. Moise on 10-21-2022 Albumin/Globulin [Mass ratio] 0.7 {ratio} 0.9-2.4 [facility] Serum or plasma calcium carmelo urement (mass/volume)Ordered By: Dr. Moise on 10-21-2022 Calcium [Mass/Vol] 9.0 mg/dL 8.5-10.1 [facility] Serum or plasma creatinine m easurement (mass/volume)Ordered By: Dr. Moise on 10-21-2022 Creatinine [Mass/Vol] 1.24 mg/dL 0.70-1.30 [facility] Comment on above: The validity of the calculated GFR & GFRAA in patients over 70 years has not been determined. Clinical correlation is essential. Serum or plasma urea nitroge n measurement (mass/volume)Ordered By: Dr. Moise on 10-21-2022 Urea nitrogen [Mass/Vol] 23 mg/dL 7-18 [facility] Thin prep Papanicolaou smear with manual screeningOrdered By: Dr. Moise on 10-21-2022 Thin prep Papanicolaou smear with manual screening 63 U/L 15-37 [facility] Thin prep Papanicolaou smear with manual screening 3 5-15 [facility] Absolute lymphocyte countOrd ered By: Dr. Moise on 07-17-2022 Lymphocytes Auto (Unsp spec) [#/Vol] 2.09 10*3/uL 0.83-4.51 [facility] Basophil percentageOrdered B y: Dr. Moise on 07-17-2022 Basophils/100 WBC (Bld) 0.2 % 0-1 [facility] Chloride [Moles/Vol] 103 mmol/L 98-107 [facility] Cholesterol [Mass/Vol] 137 mg/dL <200 [facility] Comment on above: <200 mg/dL Desirable 200-240 mg/dL Borderline >240 mg/dL High Risk Eosinophils/100 WBC (Bld) 2.4 % 0-5 [facility] Glucose [Mass/Vol] 105 mg/dL 74-106 [facility] Comment on above: Fasting Glucose resu lt from 100 to 125 mg/dL suggests IMPAIRED HOMEOSTASIS per A.D.A. criteria. Neutrophils (Bld) [#/Vol] 3.1 10*3/uL 2.0-7.7 [facility] Neutrophils/100 WBC (Bld) 53.8 % 47-70 [facility] Potassium [Moles/Vol] 4.4 mmol/L 3.5-5.1 [facility] Sodium [Moles/Vol] 139 mmol/L 136-145 [facility] Triglyceride [Mass/Vol] 52 mg/dL <199 [facility] Comment on above: The drugs N-Acetylcy steine and Metamizole may falsely depress this assay.Serum Triglycerides Reference Interval Normal <150 mg/dL Borderline high 150 - 199 mg/dL High 200 - 499 mg/dL Very High > or = 500 mg/dL WBC (Bld) [#/Vol] 5.8 10*3/uL 4.4-11.0 [facility] Blood erythrocytes count (nu mber/volume)Ordered By: Dr. Moise on 07-17-2022 RBC (Bld) [#/Vol] 3.78 10*6/uL 4.6-6.2 [facility] Blood hemoglobin measurement (mass/volume)Ordered By: Dr. Moise on 07-17-2022 Hemoglobin (Bld) [Mass/Vol] 9.9 g/dL 13.0-16.5 [facility] Blood lymphocytes/100 leukoc ytesOrdered By: Dr. Moise on 07-17-2022 Lymphocytes/100 WBC (Bld) 36.3 % 19-41 [facility] Blood monocytes/100 leukocyt esOrdered By: Dr. Moise on 07-17-2022 Monocytes/100 WBC (Bld) 7.1 % 0-10 [facility] Blood platelet mean volumeOr dered By: Dr. Moise on 07-17-2022 Platelet mean volume (Bld) [Entitic vol] 10.1 fL 6.2-12.0 [facility] Determination of erythrocyte mean corpuscular volume (MCV)Ordered By: Dr. Moise on 07-17-2022 MCV (RBC) [Entitic vol] 84.7 fL 80-94 [facility] Hematocrit Auto (Bld) [Volum e fraction]Ordered By: Dr. Moise on 07-17-2022 Hematocrit (Bld) [Volume fraction] 32.0 % 40-54 [facility] Laboratory - Chemistry and C hemistry - challengeOrdered By: Dr. Moise on 07-17-2022 CO2 [Moles/Vol] 30.0 mmol/L 21.0-32.0 [facility] Urea nitrogen/Creatinine [Mass ratio] 12.5 mg/mg 10-20 [facility] Laboratory - Hematology and Cell countsOrdered By: Dr. Moise on 07-17-2022 Erythrocyte distribution width (RBC) [Entitic vol] 47.3 fL 35.1-43.9 [facility] Erythrocyte distribution width (RBC) [Ratio] 15.6 % 11.6-14.6 [facility] Immature granulocytes/100 WBC (Bld) 0.200 % 0.0-0.9 [facility] Comment on above: IG% - Immature Granu locytes (promyelocytes, myelocytes and metamyelocytes) > 1% indicates that a LEFT SHIFT is Present. MCH (RBC) [Entitic mass] 26.2 pg 27.0-32.0 [facility] Nucleated RBC/100 WBC (Bld) [Ratio] 0 % 0-5 [facility] MCHC Auto (RBC) [Mass/Vol]Or dered By: Dr. Moise on 07-17-2022 MCHC (RBC) [Mass/Vol] 30.9 g/dL 32-36 [facility] No Panel InformationOrdered By: Dr. Moise on 07-17-2022 Estimated GFR (MDRD) Amer 78 mL/min >60 [facility] Comment on above: GFR Calc Estimated GFR (MDRD) Non-Af Amer 64 mL/min >60 [facility] Comment on above: Non- GFR Calc Platelets bldOrdered By: Dr. Moise on 07-17-2022 Platelets (Bld) [#/Vol] 269 10*3/uL 150-450 [facility] Serum or plasma calcium carmelo urement (mass/volume)Ordered By: Dr. Moise on 07-17-2022 Calcium [Mass/Vol] 8.8 mg/dL 8.5-10.1 [facility] Serum or plasma cholesterol in HDL measurement (mass/volume)Ordered By: Dr. Moise on 07-17-2022 Cholesterol in HDL [Mass/Vol] 77 mg/dL >40 [facility] Comment on above: The drugs N-Acetylcy steine and Metamizole may falsely depress this assay. Reference Range HDL <40 mg/dL Low HDL Cholesterol HDL >or= 60 mg/dL High HDL Cholesterol Serum or plasma cholesterol in VLDL measurement (mass/volume)Ordered By: Dr. Moise on 07-17-2022 Cholesterol in VLDL [Mass/Vol] 10 mg/dL 5-40 [facility] Serum or plasma creatinine m easurement (mass/volume)Ordered By: Dr. Moise on 07-17-2022 Creatinine [Mass/Vol] 1.20 mg/dL 0.70-1.30 [facility] Comment on above: The validity of the calculated GFR & GFRAA in patients over 70 years has not been determined. Clinical correlation is essential. Serum or plasma low density lipoprotein (LDL) cholesterol measurement (mass/volume)Ordered By: Dr. Moise on 07-17-2022 Cholesterol in LDL [Mass/Vol] 50 mg/dL 0-130 [facility] Serum or plasma urea nitroge n measurement (mass/volume)Ordered By: Dr. Moise on 07-17-2022 Urea nitrogen [Mass/Vol] 15 mg/dL 7-18 [facility] Thin prep Papanicolaou smear with manual screeningOrdered By: Dr. Moise on 07-17-2022 Thin prep Papanicolaou smear with manual screening 6 5-15 [facility] Absolute lymphocyte counton 10-09-2021 Lymphocytes Auto (Unsp spec) [#/Vol] 1.41 10*3/uL 0.83-4.51 [facility] Work Phone: Basophil percentageon 2021 Basophils/100 WBC (Bld) 0.2 % 0-1 [facility] Work Phone: Bilirubin [Mass/Vol] 0.40 mg/dL 0.20-1.00 [facility] Work Phone: Comment on above: For patients on eltr ombopag therapy, use of Dimension [place] TBIL is not recommended. Chloride [Moles/Vol] 102 mmol/L 98-107 [facility] Work Phone: Eosinophils/100 WBC (Bld) 3.0 % 0-5 [facility] Work Phone: Glucose [Mass/Vol] 117 mg/dL 74-106 [facility] Work Phone: Comment on above: Fasting Glucose resu lt from 100 to 125 mg/dL suggests IMPAIRED HOMEOSTASIS per A.D.A. criteria. Neutrophils (Bld) [#/Vol] 2.8 10*3/uL 2.0-7.7 [facility] Work Phone: Neutrophils/100 WBC (Bld) 59.7 % 47-70 [facility] Work Phone: Potassium [Moles/Vol] 4.2 mmol/L 3.5-5.1 [facility] Work Phone: Protein [Mass/Vol] 7.6 g/dL 6.4-8.2 [facility] Work Phone: Sodium [Moles/Vol] 135 mmol/L 136-145 [facility] Work Phone: WBC (Bld) [#/Vol] 4.7 10*3/uL 4.4-11.0 [facility] Work Phone: Blood erythrocytes count (nu mber/volume)on 10-09-2021 RBC (Bld) [#/Vol] 3.95 10*6/uL 4.6-6.2 [facility] Work Phone: Blood hemoglobin measurement (mass/volume)on 10-09-2021 Hemoglobin (Bld) [Mass/Vol] 11.2 g/dL 13.0-16.5 [facility] Work Phone: Blood lymphocytes/100 leukoc yteson 10-09-2021 Lymphocytes/100 WBC (Bld) 29.7 % 19-41 [facility] Work Phone: Blood monocytes/100 leukocyt eson 10-09-2021 Monocytes/100 WBC (Bld) 7.2 % 0-10 [facility] Work Phone: Blood platelet mean volumeon 10-09-2021 Platelet mean volume (Bld) [Entitic vol] 10.2 fL 6.2-12.0 [facility] Work Phone: Determination of erythrocyte mean corpuscular volume (MCV)on 10-09-2021 MCV (RBC) [Entitic vol] 85.8 fL 80-94 [facility] Work Phone: Erythrocyte sedimentation ra norma 10-09-2021 ESR (Bld) [Velocity] 44 mm/h 0-20 [facility]: Hematocrit Auto (Bld) [Volum e fraction]on 10-09-2021 Hematocrit (Bld) [Volume fraction] 33.9 % 40-54 [facility] Work Phone: [phone] Laboratory - Chemistry and C hemistry - challengeon 10-09-2021 ALP [Catalytic activity/Vol] 173 U/L 45-117 [facility] Work Phone: ALT [Catalytic activity/Vol] 38 U/L 16-61 [facility] Work Phone: [phone] CO2 [Moles/Vol] 27.0 mmol/L 21.0-32.0 [facility] Work Phone: Cobalamin (Vitamin B12) [Mass/Vol] 364 pg/mL 211-911 [facility] Work Phone: Free T4 [Mass/Vol] 1.39 ng/dL 0.76-1.46 [facility] Work Phone: [phone] Globulin (S) [Mass/Vol] 4.5 g/dL 2.2-4.2 [facility] Work Phone: Urea nitrogen/Creatinine [Mass ratio] 15.5 mg/mg 10-20 [facility] Work Phone: [phone] Laboratory - Hematology and Cell countson 10-09-2021 Erythrocyte distribution width (RBC) [Entitic vol] 46.1 fL 35.1-43.9 [facility] Work Phone: [phone] Erythrocyte distribution width (RBC) [Ratio] 14.5 % 11.6-14.6 [facility] Work Phone: Immature granulocytes/100 WBC (Bld) 0.200 % 0.0-0.9 [facility] Work Phone: Comment on above: IG% - Immature Granu locytes (promyelocytes, myelocytes and metamyelocytes) > 1% indicates that a LEFT SHIFT is Present. MCH (RBC) [Entitic mass] 28.4 pg 27.0-32.0 [facility] Work Phone: Nucleated RBC/100 WBC (Bld) [Ratio] 0 % 0-5 [facility] Work Phone: MCHC Auto (RBC) [Mass/Vol]on 10-09-2021 MCHC (RBC) [Mass/Vol] 33.0 g/dL 32-36 [facility] Work Phone: No Panel Informationon 10-09 Estimated GFR (MDRD) Amer 86 mL/min >60 [facility] Work Phone: Comment on above: GFR Calc Estimated GFR (MDRD) Non-Af Amer 71 mL/min >60 [facility] Work Phone: Comment on above: Non- GFR Calc Thyroid Stimulating Hormone (TSH) 1.43 uIU/mL 0.358-3.74 [facility] Work Phone: Vitamin D 25-Hydroxy 16.6 ng/mL [facility] Work Phone: [phone] Comment on above: Vitamin D 25(OH) Sta tus Range Deficiency <20 ng/mL (50nmol/L) Insufficiency 20 - 30 ng/mL (50 - 75 nmol/L) Sufficiency 30 - 100 ng/mL (75 - 250 nmol/L) Toxicity >100 ng/mL (>250 nmol/L) Platelets bldon 10-09-2021 Platelets (Bld) [#/Vol] 271 10*3/uL 150-450 [facility] Work Phone: [phone] Serum or plasma albumin carmelo urement (mass/volume)on 10-09-2021 Albumin [Mass/Vol] 3.1 g/dL 3.2-5.0 [facility] Work Phone: Serum or plasma albumin/glob ulin mass ratioon 10-09-2021 Albumin/Globulin [Mass ratio] 0.7 {ratio} 0.9-2.4 [facility] Work Phone: Serum or plasma calcium carmelo urement (mass/volume)on 10-09-2021 Calcium [Mass/Vol] 8.5 mg/dL 8.5-10.1 [facility] Work Phone: Serum or plasma creatinine m easurement (mass/volume)on 10-09-2021 Creatinine [Mass/Vol] 1.10 mg/dL 0.70-1.30 [facility] Work Phone: Comment on above: The validity of the calculated GFR & GFRAA in patients over 70 years has not been determined. Clinical correlation is essential. Serum or plasma urea nitroge n measurement (mass/volume)on 10-09-2021 Urea nitrogen [Mass/Vol] 17 mg/dL 7-18 [facility] Work Phone: Thin prep Papanicolaou smear with manual screeningon 10-09-2021 Thin prep Papanicolaou smear with manual screening 55 U/L 15-37 [facility] Work Phone: Thin prep Papanicolaou smear with manual screening 6 5-15 [facility] Work Phone: Basophil percentageon 2021 Bilirubin [Mass/Vol] 0.30 mg/dL 0.20-1.00 [facility] Work Phone: Comment on above: For patients on eltr ombopag therapy, use of Dimension [place] TBIL is not recommended. Chloride [Moles/Vol] 106 mmol/L 98-107 [facility] Work Phone: Glucose [Mass/Vol] 94 mg/dL 74-106 [facility] Work Phone: [phone] Potassium [Moles/Vol] 4.5 mmol/L 3.5-5.1 [facility] Work Phone: Protein [Mass/Vol] 7.8 g/dL 6.4-8.2 [facility] Work Phone: Sodium [Moles/Vol] 139 mmol/L 136-145 [facility] Work Phone: Laboratory - Chemistry and C hemistry - challengeon 07-18-2021 ALP [Catalytic activity/Vol] 221 U/L 45-117 [facility] Work Phone: ALT [Catalytic activity/Vol] 31 U/L 16-61 [facility] Work Phone: CO2 [Moles/Vol] 29.0 mmol/L 21.0-32.0 [facility] Work Phone: Globulin (S) [Mass/Vol] 4.9 g/dL 2.2-4.2 [facility] Work Phone: Urea nitrogen/Creatinine [Mass ratio] 14.0 mg/mg 10-20 [facility] Work Phone: No Panel Informationon 07-18 Estimated GFR (MDRD) Amer 89 mL/min >60 [facility] Work Phone: Comment on above: GFR Calc Estimated GFR (MDRD) Non-Af Amer 73 mL/min >60 [facility] Work Phone: Comment on above: Non- GFR Calc Serum or plasma albumin carmelo urement (mass/volume)on 07-18-2021 Albumin [Mass/Vol] 2.9 g/dL 3.2-5.0 [facility] Work Phone: Serum or plasma albumin/glob ulin mass ratioon 07-18-2021 Albumin/Globulin [Mass ratio] 0.6 {ratio} 0.9-2.4 [facility] Work Phone: Serum or plasma calcium carmelo urement (mass/volume)on 07-18-2021 Calcium [Mass/Vol] 9.1 mg/dL 8.5-10.1 [facility] Work Phone: Serum or plasma creatinine m easurement (mass/volume)on 07-18-2021 Creatinine [Mass/Vol] 1.07 mg/dL 0.70-1.30 [facility] Work Phone: Comment on above: The validity of the calculated GFR & GFRAA in patients over 70 years has not been determined. Clinical correlation is essential. Serum or plasma urea nitroge n measurement (mass/volume)on 07-18-2021 Urea nitrogen [Mass/Vol] 15 mg/dL 7-18 [facility] Work Phone: Thin prep Papanicolaou smear with manual screeningon 07-18-2021 Thin prep Papanicolaou smear with manual screening 46 U/L 15-37 [facility] Work Phone: Thin prep Papanicolaou smear with manual screening 4 5-15 [facility] Work Phone: Vital Signs Date Time Vital Sign Value Performing Clinician Faci lity 03-25-2025 04:51-0400 Diastolic blood pressure 70 mm[Hg] Dr. Sherman Moise MD Work Phone: [facility] 03-25-2025 04:51-0400 Heart rate 81 /min Dr. Sherman Moise MD Work Phone: [facility] 03-25-2025 04:51-0400 Respiratory rate 16 /min Dr. Sherman Moise MD Work Phone: [facility] 03-25-2025 04:51-0400 SaO2% (BldA) [Mass fraction] 100 % Dr. Sherman Moise MD Work Phone: [facility] 03-25-2025 04:51-0400 Systolic blood pressure 141 mm[Hg] Dr. Sherman Moise MD Work Phone: [facility] 03-25-2025 02:54-0400 Body height 177.[address] Sherman Moise MD Work Phone: [facility] 03-25-2025 02:54-0400 Body mass index (BMI) [Ratio] 29.7 kg/m2 Dr. Sherman Moise MD Work Phone: [facility] 03-25-2025 02:54-0400 Body temperature 99 [degF] Dr. Sherman Moise MD Work Phone: [facility] 03-25-2025 02:54-0400 Body weight 94.[address] Sherman Moise MD Work Phone: [phone] [place] [address] 02-10-2025 11:05-0400 Body temperature 97.8 [degF] Dr. Sherman Moise MD Work Phone: [phone])530-561061 [address] 02-10-2025 11:05-0400 Body weight 85.[address] Sherman Moise MD Work Phone: [phone])010-688195 [place] [address] 02-10-2025 11:05-0400 Diastolic blood pressure 71 mm[Hg] Dr. Sherman Moise MD Work Phone: [phone])132-161495 [place] [address] 02-10-2025 11:05-0400 Heart rate 68 /min Dr. Sherman Moise MD Work Phone: 1(886)478-156861 [address] 02-10-2025 11:05-0400 Respiratory rate 14 /min Dr. Sherman Moise MD Work Phone: [phone])968-461895 [place] [address] 02-10-2025 11:05-0400 SaO2% (BldA) [Mass fraction] 99 % Dr. Sherman Moise MD Work Phone: [phone])[phone] [place] [address] 02-10-2025 11:05-0400 Systolic blood pressure 128 mm[Hg] Dr. Sherman Moise MD Work Phone: [facility] 10-26-2022 17:45-0400 Body temperature 98.1 [degF] Dr. Sherman Moise Work Phone: [facility] 10-26-2022 17:45-0400 Diastolic blood pressure 75 mm[Hg] Dr. Sherman Moise Work Phone: [facility] 10-26-2022 17:45-0400 Heart rate 74 /min Dr. Sherman Moise Work Phone: [facility] 10-26-2022 17:45-0400 Respiratory rate 18 /min Dr. Sherman Moise Work Phone: [facility] 10-26-2022 17:45-0400 SaO2% (BldA) [Mass fraction] 96 % Dr. Sherman Moise Work Phone: [facility] 10-26-2022 17:45-0400 Systolic blood pressure 126 mm[Hg] Dr. Sherman Moise Work Phone: [facility] 10-26-2022 17:00-0400 Body mass index (BMI) [Ratio] 25.5 kg/m2 Dr. Sherman Moise Work Phone: [facility] 10-26-2022 15:07-0400 Body temperature 98 [degF] Dr. Sherman Moise Work Phone: [facility] 10-26-2022 15:07-0400 Diastolic blood pressure 75 mm[Hg] Dr. Sherman Moise Work Phone: [facility] 10-26-2022 15:07-0400 Heart rate 73 /min Dr. Sherman Moise Work Phone: [facility] 10-26-2022 15:07-0400 Respiratory rate 18 /min Dr. Sherman Moise Work Phone: [facility] 10-26-2022 15:07-0400 SaO2% (BldA) [Mass fraction] 98 % Dr. Sherman Moise Work Phone: [facility] 10-26-2022 15:07-0400 Systolic blood pressure 132 mm[Hg] Dr. Sherman Moise Work Phone: [facility] 10-25-2022 15:16-0400 Body height 177.[address] Sherman Moise Work Phone: [facility] 10-25-2022 15:16-0400 Body weight 80.[address] Sherman Moise Work Phone: [facility] 10-25-2022 13:25-0400 Body temperature 97.2 [degF] [facility] 10-25-2022 13:25-0400 Diastolic blood pressure 73 mm[Hg] [facility] 10-25-2022 13:25-0400 Heart rate 69 /min [facility] 10-25-2022 13:25-0400 Respiratory rate 18 /min [facility] 10-25-2022 13:25-0400 SaO2% (BldA) [Mass fraction] 99 % [facility] 10-25-2022 13:25-0400 Systolic blood pressure 145 mm[Hg] [facility] 10-25-2022 13:21-0400 Body height 177.8 cm [facility] 10-25-2022 13:21-0400 Body mass index (BMI) [Ratio] 25.5 kg/m2 [facility] 10-25-2022 13:21-0400 Body weight 80.7 kg [facility] 10-25-2022 13:06-0400 SaO2% (BldA) [Mass fraction] 99 % [facility] 10-25-2022 12:30-0400 Diastolic blood pressure 72 mm[Hg] [facility] 10-25-2022 12:30-0400 Heart rate 71 /min [facility] 10-25-2022 12:30-0400 Respiratory rate 13 /min [facility] 10-25-2022 12:30-0400 Systolic blood pressure 137 mm[Hg] [facility] 10-25-2022 12:24-0400 Body temperature 97.6 [degF] [facility] 08-18-2022 09:40-0500 Diastolic blood pressure 79 mm[Hg] [facility] 08-18-2022 09:40-0500 Respiratory rate 16 /min [facility] 08-18-2022 09:40-0500 SaO2% (BldA) [Mass fraction] 98 % [facility] 08-18-2022 09:40-0500 Systolic blood pressure 140 mm[Hg] [facility] 08-18-2022 07:21-0500 Body height 177.8 cm [facility] 08-18-2022 07:21-0500 Body mass index (BMI) [Ratio] 27.9 kg/m2 [facility] 08-18-2022 07:050 Body temperature 96.9 [degF] [facility] 08-18-2022 07:0500 Body weight 88.45 kg [facility] 08-18-2022 07:0500 Heart rate 73 /min [facility] Encounters Encounter Date Encounter Type Care Provider Facility Start: 03-25-2025 End: 03-25-2025 Emergency department patient visit Devante Solares Facility:[facility] Start: 03-03-2025 End: 03-03-[address] Sherman Moise MD Work Phone: -Laboratory Start: 03-03-2025 End: 03-03-[address] Gunnar Palmer MD -Laboratory Work Phone: Start: 03-03-2025 End: 03-03-2025 ambulatory Gunnar Palmer Facility:[facility] Start: 02-22-2025 End: 02-22-2025 Patient encounter procedure Ish Carrion OD Work Phone: Ophthalmology Comment on above: Long-term use of Tom quenil (Primary Dx); Floaters, bilateral; Pseudophakia of both eyes; Glaucoma suspect of both eyes; Dry eye syndrome of bilateral lacrimal glands Start: 02-22-2025 End: 02-22-2025 ambulatory ISH CARRION Facility:[facility] Start: 02-11-2025 Encounter for genera l adult medical examination without abnormal findings Sherman Moise [facility] Start: 02-10-2025 End: 02-10-2025 Patient encounter procedure Edilma JOSEPH -[facility] Work Phone: Start: 02-10-2025 End: 02-10-[address] Sherman Moise MD Work Phone: -[facility] Start: 02-02-2025 End: 02-02-[address] Sherman Moise MD Work Phone: -Laboratory [facility] Start: 02-02-2025 End: 02-02-[address] Sherman Moise MD -Laboratory [facility] Start: 02-02-2025 End: 02-02-2025 ambulatory Sherman Moise Facility:[facility] Start: 01-18-2025 Non-patient / Non-visit Dr. John Sales MD -[facility] Start: 01-18-2025 End: 01-18-[address] Sherman Moise MD Work Phone: -Cardiovascular Services Start: 01-18-2025 End: 01-18-[address] John Sales MD -Cardiovascular Services Work Phone: Start: 01-18-2025 End: 01-18-2025 ambulatory John Sales Facility:[facility] Start: 09-22-2024 End: 09-22-[address] Sherman Moise MD Work Phone: [facility] Work Phone: Start: 09-22-2024 End: 09-22-[address] Sherman Moise MD -Radiology, [place] Work Phone: Start: 09-22-2024 End: 09-22-2024 ambulatory Sherman Moise Facility:[facility] Start: 08-05-2024 End: 08-05-[address] Sherman Moise MD -Laboratory, [facility] Start: 08-05-2024 End: 08-05-2024 ambulatory Sherman Moise Facility:[facility] Start: 02-03-2024 End: 02-03-2024 Patient encounter procedure Julisa Lane OD Work Phone: Ophthalmology Comment on above: Long-term use of Tom quenil (Primary Dx); Floaters, bilateral; Pseudophakia of both eyes Start: 09-09-2023 End: 09-09-2023 ambulatory [facility] Work Phone: Start: 09-09-2023 End: 09-09-2023 Patient encounter procedure [facility]-Radiology, [facility] Work Phone: Start: 08-04-2023 End: 08-04-2023 ambulatory [facility] Work Phone: Start: 08-04-2023 End: 08-04-2023 Patient encounter procedure [facility] Work Phone: Start: 11-18-2022 End: 11-18-[address] Sherman Moise Work Phone: [facility] Work Phone: Start: 11-18-2022 End: 11-18-[address] Sherman Moise Work Phone: [facility]-Pulmonary Services/Neurology Start: 10-26-2022 Non-patient / Non-visit Dr. Sherman Moise Work Phone: [facility] Start: 10-25-2022 Non-patient / Non-visit Dr. Sherman Moise Work Phone: [facility] Start: 10-25-2022 Non-patient / Non-visit Dr. Sherman Moise Work Phone: [facility] Start: 10-25-2022 End: 10-26-2022 Evaluation and management of inpatient [facility]-Progressive Care Unit Start: 10-25-2022 End: 10-26-[address] Sherman Moise Work Phone: [facility] Work Phone: Start: 10-21-2022 End: 10-21-2022 ambulatory [facility] Work Phone: Start: 10-21-2022 End: 10-21-2022 Patient encounter procedure [facility] Start: 08-18-2022 End: 08-18-2022 Emergency department patient visit [facility]Emergency Department Start: 07-17-2022 End: 07-17-2022 ambulatory [facility] Work Phone: Start: 07-17-2022 End: 07-17-2022 Patient encounter procedure [facility] Start: 10-09-2021 End: 10-09-2021 Patient encounter procedure [facility] Start: 07-18-2021 End: 07-18-2021 Patient encounter procedure [facility] Procedures Date Procedure Procedure Detail Performing Clinician Start: 03-25-2025 End: 03-25-2025 Plain chest X-ray Dr. Sherman Moise MD Work Phone: Start: 03-25-[address] Sherman Moise MD Work Phone: Start: 03-25-2025 Urnls dip stick/tabl et reagent auto microscopy Dr. Sherman Moise MD Work Phone: Start: 03-25-2025 CT cervical spine wi thout contrast Dr. Sherman Moise MD Work Phone: Start: 03-25-2025 CT of head without contrast Dr. Sherman Moise MD Work Phone: Start: 03-25-2025 Plain radiography of pelvis Dr. Sherman Moise MD Work Phone: Start: 03-03-2025 Prostate specific an tigen measurement [...] 02-22-2025 Computerized ophthalmic imaging retina Ish Carrion OD Work Phone: Start: 09-22-2024 X-ray of knee, four or more views Dr[address] Sherman Moise MD Work Phone: Start: 02-03-2024 End: 02-03-2024 Computerized ophthalmic imaging retina Julisa Lane OD Work Phone: Start: 09-09-2023 Radiography [...] isted in situ keratomileusis Hx of LASIK Julisa Lane OD Work Phone: Plan of Treatment Date Care Activity Detail Author Start: 04-15-2029 Urine microalbumin profile DTaP,Tdap,Td Vaccine (2 - Td or Tdap) [facility] Start: 08-30-2025 End: 08-30-2025 Patient encounter procedure 08/30/2025 1:15 PM EST Office Visit [facility] [address] [place] [address] Ish Carrion, OD [address] [place] [address] IOP/OCT/VF Ophthalmology Comment on above: IOP/OCT/VF Start: 03-25-2025 [facility] Start: 02-28-2025 Influenza vaccination Influenza Vacc ine (#1) [facility] Start: 02-22-2025 End: 02-22-2025 Patient encounter procedure 02/22/2025 1:00 PM EDT Office Visit [facility] [address] [place] [address], OD [address] [place] [address] plaquinel 1 year Ophthalmology Comment on above: plaquinel 1 year Start: 06-30-2024 Advance Directive Discussion Advance Directive Discussion [facility] Start: 06-30-2024 Medicare Advantage Annual Wellness Visit Medicare [facility] Annual Wellness Visit [facility] Start: 02-29-2024 Influenza vaccination Influenza Vacc ine (#1) [facility] Start: 08-31-2023 Covid-19 Vaccine ( season) Covid-19 Vaccine () [facility] Start: 06-30-2023 Advance Directive Discussion Advance Directive Discussion [facility] Start: 10-26-2022 Patient discharge [facility] Start: 10-26-2022 Blood chemistry [facility] Start: 10-25-2022 Following clinical pathway protocol [facility] Start: 10-25-2022 Ambulation without limitation [facility] Start: 10-25-2022 Assessment of risk o f venous thromboembolism [facility] Start: 10-25-2022 Cardiac monitoring [facility] Start: 10-25-2022 Catheterization of vein [facility] Start: 10-25-2022 Continuous pulse oximetry [facility] Start: 10-25-2022 Elevation of head of bed [facility] Start: 10-25-2022 Exercises [facility] Start: 10-25-2022 Implementation of planned interventions [facility] Start: 10-25-2022 Insertion of cathete r into peripheral vein [facility] Start: 10-25-2022 Measuring intake and output [facility] Start: 10-25-2022 MRI of brain without contrast Brain without Contrast [facility] Start: 10-25-2022 Notification of physician [facility] Start: 10-25-2022 Oxygen therapy [facility] Start: 10-25-2022 Patient referral to dietitian [facility] Start: 10-25-2022 Providing care accor ding to standard [facility] Start: 10-25-2022 Referral to occupati onal therapist [facility] Start: 10-25-2022 Referral to service [facility] Start: 10-25-2022 Speech therapy assessment [facility] Start: 10-25-2022 Tobacco use cessatio n education [facility] Start: 10-25-2022 [facility] Start: 10-25-2022 Verification routine [facility] Start: 10-25-2022 Admission procedure [facility] Start: 02-10-2020 Pneumococcal Vaccine : 65+ (1 of 1 - PCV) Pneumococcal Vaccine: 65+ (1 of 1 - PCV) [facility] Start: 01-24-2016 Diabetes Screening Diabetes Screenin g [facility] Start: 2010 Prostate specific antigen measurement Prostate Cancer Screening Discussion [facility] Start: 2005 Pneumococcal Vaccine : 50+ (1 of 1 - PCV) Pneumococcal Vaccine: 50+ (1 of 1 - PCV) [facility] Start: 02-10-2000 Screening for malign ant neoplasm of colon [facility] Start: 1990 Lipid panel Lipid Screening [facility] Start: 1973 Anxiety Screening Anxiety Screening [facility] Start: 1973 Depression Screening Depression Scre ening [facility] Start: 1973 Hepatitis C screening Hepatitis C Sc reening [facility] Start: 1955 Abdominal aortic aneurysm screening Abdominal Aortic Aneurysm Screening [facility] Ambulatory ECG [facility] Anion gap measurement [facility] BUN/Creatinine ratio [facility] Calcium [Mass/volume ] in Serum or Plasma [facility] Carbon dioxide, tota l [Moles/volume] in Serum or Plasma [facility] Chloride [Moles/volu me] in Serum or Plasma [facility] Cholesterol [Mass/volume] in Serum or Plasma [facility] Cholesterol in HDL [Mass/volume] in Serum or Plasma [facility] Cholesterol in LDL [Mass/volume] in Serum or Plasma [facility] Creatinine [Moles/volume] in Serum or Plasma [facility] Glucose [Mass/volume ] in Serum or Plasma [facility] Hematocrit [Volume Fraction] of Blood [facility] Hemoglobin [Mass/vol ume] in Blood [facility] Leukocytes [#/volume ] in Blood [facility] Mean corpuscular hemoglobin concentration determination [facility] Mean corpuscular hemoglobin determination [facility] Measurement of renal function [facility] Neutrophil count [facility] Neutrophil percent differential count [facility] Patient Education [facility] Work Phone: Patient referral [facility] Work Phone: Platelets [#/volume] in Blood [facility] Potassium [Moles/vol ume] in Serum or Plasma [facility] Red blood cell count [facility] Red cell distributio n width determination [facility] Sodium [Moles/volume ] in Serum or Plasma [facility] Triglycerides measurement [facility] Urea nitrogen [Mass/volume] in Serum or Plasma [facility] VLDL cholesterol measurement [facility] Immunizations Immunization Date Immunization Notes Care Provider Jimenez rose 04-21-2024 influenza virus vaccine, unspecified formulation Ish Barraganjanice OD Work Phone: [facility] 04-25-2023 influenza virus vaccine, unspecified formulation Julisa Beattygabo OD Work Phone: [facility] 09-26-2020 Covid (Pfizer) [facility] 09-05-2020 Covid (Pfizer) [facility] 03-31-2017 Influenza virus vaccine [facility] 03-30-2013 Influenza virus vaccine [facility] Payers Date Payer Category Payer Medicare (Managed Care) MAVERICK PRADO [id number] 2024 Medicare [id number] 2024 Self-pay [id number] 2018 Medicare MMO MEDICARE MMO MEDADVANTAGE PPO [id number] 2018-Present [phone] [address] [place] [address] O [id number] 2016 Unknown [id number] Medicare [id number] Private Health Insurance [id number] Unknown [id number] Unknown [id number] Unknown [id number] Unknown [id number] Unknown [id number] Unknown [id number] Unknown [id number] Unknown [id number] Social History Date Type Detail Facility Start: 03-27-2021 End: 03-06-2023 Tobacco smoking status [facility] Unknown if ever smoked [facility] Start: 07-10-2017 None [facility] Start: 07-10-2017 Spouse/ Signif icant Other [facility] Start: 02-02-2021 Non-smoker [facility] Start: 1955 Sex Assigned At Male [facility] Start: 07-30-2018 End: 03-25-2025 Tobacco smoking status NHIS Ex-smoker [facility] Start: 07-30-1978 End: 07-30-2008 History of tobacco use Current smoker [facility] Start: 07-30-1978 End: 07-30-2008 History of tobacco use Cigarette Smoker [facility] Start: 07-30-2018 End: 01-21-2023 Cigarettes smoked current (pack per day) - Reported 0.5 [facility] Start: 07-30-2018 Tobacco use and exposure Smokeless tobacco non-user [facility] Start: 02-03-2024 End: 02-22-2025 Alcohol intake Current non-drinker of alcohol (finding) [facility] Start: 01-21-2023 End: 02-22-2025 Tobacco use panel [facility] Start: 05-31-2012 National Score (1-10 0), lower number is lower risk 71 [facility] Start: 1955 Sex Assigned At Not on file C [facility] Start: 09-27-2024 Sex Male (finding) [facility] Medical Equipment Procedure Code Equipment Code [...] Facility 10-26-2022 Functional status Ambulates;Up ad daniel [facility] Work Phone: 10-25-2022 Functional status Activity Abili ty Unable to Assess [facility] Work Phone: Mental Status Date Assessment Result Facility 10-26-2022 Cognitive function Voice/Name [facility] Work Phone: 10-25-2022 Cognitive function Voice/Name [facility] Work Phone: 10-25-2022 Cognitive function Voice/Name [facility] Work Phone: Clinical Notes 10-25-2022 to 03-25-2025 Ish Carrion, OD - 02/22/2025 12:56 PM EDT Note Date & Type Note Facility 03-25-2025 Radiology Diagnostic study note [facility] Imaging Services [address] [place] [address] Pelvis 1 or 2 Views MR#: [id number] Acct: [id number] Name: LANG CARIAS Rep #: [id number] : 1955 M 70 From: Benoit Mcdaniels MD PCP: Dr. Sherman Moise MD Status: REG E R Study:Pelvis 1 or 2 Views Date of Exam: 03/25/25 Exam# [id number] Ordering Dr: Emilie Solares DO PROCEDURE: PELVIS 1 OR 2 VIEWS 03/25/2025 REASON FOR EXAM: FALL TECHNIQUE: Procedure Code: RADPEL Modality: DX Procedure: PELVIS 1 OR 2 VIEWS COMPARISON: None. FINDINGS: Mild osteopenia of the visualized bones. Degenerative joint disease. No fracture or dislocation is seen. No lytic or blastic bone lesion is noted. Moderate amount of fecal residue in the large bowels. Calcified atheromatous plaques are noted. RAD/Pelvis 1 or 2 Views IMPRESSION: No evidence for acute abnormality. Reading Location: [place] [address] CC: Dr. Sherman Moise MD; Devante Solares DO ~ Zigzagger: Signed [facility] 03-25-2025 Radiology Diagnostic study note [facility] Imaging Services [address] [place] [address] Lumbar Spine 2 or 3 Views MR#: [id number] Acct: [id number] Name: LANG CARIAS Rep #: [id number] : 1955 M 70 From: Benoit Mcdaniels MD PCP: Dr. Sherman Moise MD Status: REG E R Study:Lumbar Spine 2 or 3 Views Date of Exam: 03/25/25 Exam# [id number] Ordering Dr: Emilie Solares DO PROCEDURE: LUMBAR SPINE 2 OR 3 VIEWS 03/25/2025 REASON FOR EXAM: PAIN TECHNIQUE: Procedure Code: RADSPLL Modality: DX Procedure: LUMBAR SPINE 2 OR 3 VIEWS COMPARISON: None. FINDINGS: There are diffuse spondylotic changes. Findings are demonstrated to by diffuse disc space narrowing, osteophyte formation and degenerative endplate sclerosis. There is diffuse facet joint arthropathy with secondary bilateral neural foramina narrowing. No fracture or dislocation is seen. No aggressive lytic or blastic bony lesion is noted. Calcified atheromatous plaques are noted. RAD/Lumbar Spine 2 or 3 Views IMPRESSION: No evidence for acute abnormality. Reading Location: [place] [address] CC: Dr. Sherman Moise MD; Devante Solares DO ~ Zigzagger: Signed [facility] 03-25-2025 Radiology Diagnostic study note [facility] Imaging Services [address] [place] [address] [id number] Chest 1 View (Portable) MR#: [id number] Acct: [id number] Name: LANG CARIAS Rep #: [id number] : 1955 M 70 From: Rogelio Watt MD PCP: Dr. Sherman Moise MD Status: REG E R Study:Chest 1 View (Portable) Date of Exam: 03/25/25 Exam# [id number] Ordering Dr: Emilie Solares DO PROCEDURE: CHEST 1 VIEW (PORTABLE) 03/25/2025 REASON FOR EXAM: FALL TECHNIQUE: Frontal view of the chest. COMPARISON: 10/25/2022. FINDINGS: Hardware: None. Heart: The heart size is normal. Lungs: The lungs are clear. Bones: The bones are unremarkable. RAD/Chest 1 View (Portable) IMPRESSION: No Acute Findings. Reading Location: [facility] CC: Dr. Sherman Moise MD; Devante Solares DO ~ Zigzagger: Signed [facility] 03-25-2025 Radiology Diagnostic study note [facility] Imaging Services [address] [place] [id number] Brain/Head without Contrast MR#: [id number] Acct: [id number] Name: LANG CARIAS Rep #: [id number] : 1955 M 70 From: Benoit Mcdaniels MD PCP: Dr. Sherman Moise MD Status: REG E R Study:Brain/Head without Contrast Date of Exa m: 03/25/25 Exam# [id number] Ordering Dr: Emilie Solares DO PROCEDURE: BRAIN/HEAD WITHOUT CONTRAST 03/25/2025 REASON FOR EXAM: FALL TECHNIQUE: Procedure Code: CTBR Modality: CT Procedure: BRAIN/HEAD WITHOUT CONTRAST Coronal and Sagittal reconstruction series were provided. One or more dose reduction techniques were used (e.g., Automated exposure control, adjustment of the mA and/or kV according to patient size, use of iterative reconstruction technique. RADIATION DOSE SUMMARY: CTDI Vol 44.99 mGy DLP :846.73 mGycm COMPARISON: 13-Jan-2024 MRI FINDINGS: Relatively accentuated bilateral cerebral periventricular deep white matter hypodensities denoting hypoperfusion. Lee-white matter differentiation is maintained. Normal CT appearance of the posterior fossa structures. No intracerebral or extra axial hemorrhage. Dilated ventricular system, cortical sulci and extra-axial CSF spaces. No definite calvarial fractures. No midline shifts or deformity. The osseous structures in the skull base are unremarkable. Paranasal sinuses are unremarkable. Vascular atheromatous calcifications. CT/Brain/Head without Contrast IMPRESSION: No acute cerebrovascular abnormalities. If clinical symptoms persist, further evaluation with MRI may be considered as clinically warranted. No intra or extra-axial acute hemorrhage. Bilateral cerebral mild microvascular ischemic changes. stable. Brain involutional changes. Stable. Reading Location: [place] [address] CC: Dr. Sherman Moise MD; Devante Solares DO ~ Zigzagger: Signed [facility] 03-25-2025 Radiology Diagnostic study note [facility] Imaging Services [address] [place], [place] [id number] Spine Cervical without Contras MR#: [id number] Acct: [id number] Name: LANG CARIAS Rep #: [id number] : 1955 M 70 From: Benoit Mcdaniels MD PCP: Dr. Sherman Moise MD Status: REG E R Study:Spine Cervical without Contras Date of Exam: 03/25/25 Exam# [id number] Ordering Dr: Emilie Solares DO PROCEDURE: SPINE CERVICAL WITHOUT CONTRAS 03/25/2025 REASON FOR EXAM: FALL TECHNIQUE: Procedure Code: CTSPC Modality: CT Procedure: SPINE CERVICAL WITHOUT CONTRAS Coronal and Sagittal reconstruction series were provided. One or more dose reduction techniques were used (e.g., Automated exposure control, adjustment of the mA and/or kV according to patient size, use of iterative reconstruction technique. RADIATION DOSE SUMMARY: CTDI Vol 32.56 mGy DLP :745.4 mGycm COMPARISON: none FINDINGS: Straightened cervical curve denoting myospasm. The examined vertebral bodies show no structural collapse or posterior neural elements fractures. Intact atlanto-axial interval. Degenerative changes of the atlanto-odontoid articulation with related capsular calcifications. Cervical spondylodegenerative changes evident by marginal osteophytic lipping and multilevel subchondral sclerosis of the examined vertebral end plates with multilevel disc spaces narrowing. Multilevel degenerative unco-vertebral arthropathy with osteophytes formation seen encroaching upon the corresponding neural exit foramina. Multilevel degenerative facet arthropathy. Multilevel diffuse disc bulges with posterior osteophytes and annular calcifications indenting the theca and encroaching upon the related neural exit foramina. No paraspinal masses. Carotid atheromatous calcifications. Neck metallic clips noted. CT/Spine Cervical without Contras IMPRESSION: Straightened cervical curve denoting myospasm. No vertebral fractures, structural collapse or dislocation. Cervical spondylodegenerative changes with multilevel uncovertebral and facet arthropathy along with diffuse disc bulges inducing spinal canal and neural exit pathway compromise. Reading [facility] CC: Dr. Sherman Moise MD; Devante Solares DO ~ Zigzagger: Signed [facility] 02-22-2025 Note Date of Procedure 02/22/2025. Reliability Right Eye Good. Left Eye Good. Interpretation Right Eye Non-specific defect. Left Eye Non-specific defect. Interval Change Right Eye Stable. Left Eye Stable. ZEISS 02-22-2025 Note Date of Procedure 02/22/2025. OCT Macula Interpretation Right Eye Normal without fluid. Left Eye Normal without fluid. OCT Measurement Right Eye DIRECTOR OF ACADEMIC: 261. Macular Volume: 9.6. Left Eye DIRECTOR OF ACADEMIC: 260. Macular Volume: 9.5. Interval Change Right Eye Stable. Left Eye Stable. ZEISS 02-22-2025 Note HNO ID: [id number] Author: ISH CARRION OD Service: ? Author Type: Clip Baker Type: Progress Notes Filed: 02/22/2025 13:53 Note [...] Carrion, OD February 22, 2025 1:52 PM [facility] 08-26-2025 History of Present illness Narrative ASSESSMENT/PLAN: 1. [...] 2025 1:52 PM documented in this encounter [facility] 02-10-2025 Evaluation note Diagnosis Onset Date Resolution Carotid artery disease noneactive February 10 10:37am [facility] Work Phone: 1(235) 973-665003-27-2025 Radiology Diagnostic study note [facility] Imaging Services [address] [place], [place] [address] Knee 4 or More Views MR#: [id number] Acct: [id number] Name: LANG CARIAS Rep #: [id number] : 1955 M 69 From: Ramez Rodney MD PCP: Dr. Sherman Moise MD Status: REG C ESTEVAN Study:Knee 4 or More Views Date of Exam: 09/22/24 Exam# [id number] Ordering Dr: Sherman Moise MD EXAM: X-ray [...] small joint effusion. No dislocation. Reading Location: [id number] CC: Dr. Sherman Moise MD ~ Zigzagger: Signed [facility]08-06-2024 Instructions* Patient Instructions* Julisa Lane, OD - 02/03/2024 2:07 PM EDT [...] Follow up in one year/sooner if needed Julisa Lane, CAROLINE [facility] History of Present illness Narrative* Julisa Lane, OD - 02/03/2024 2:04 PM EDT [...] Follow up in one year/sooner if needed Julisa Lane, CAROLINE I have confirmed and edited as necessary the relevant ophthalmic history, ROS, and the neuro exam findings as obtained by others. [facility] NoteDate of Procedure 02/03/2024. Night Guard Information Dialysis Social Worker: gilberto. Interpretation Right Eye Normal foveal contour. Left Eye Normal foveal contour. Interval Change Right Eye Stable. Left Eye Stable.[id number] NoteDate of Procedure 02/03/2024. Night Guard Information Dialysis Social Worker: gilberto. Interpretation Right Eye Normal. Left Eye Normal. Interval Change Right Eye Stable. Left Eye Stable.[id number] Smith [facility] October 26, 2022 2:33pm Note Date/Time October 26, 2022 2:3 3pm [facility] Medical Records Department [address] [place] [address] Discharge Summary 10/26/22 1426 MR#: [id number] Acct: [id number] Name: LANG CARIAS Rep #:[id number] : 1955 67 From: Vince lino MD PCP: Dr. Sherman Moise MD Status:ADM I NO [facility] Prov[facility] Date of Admission: 10/25/22 Primary Care Physician: Dr. Sherman Moise MD Reason For Visit: CVA Diagnosis Discharge [...] Discharge: 32 Hospital Course: Per HPI: LANG CARIAS, is a 67 M who presents to [...] % (Auto) 62.4, Lymph % (Auto) 25.6, Barber % (Auto) 8.2, Eos % (Auto) 3.4, [...] 48 Hrs (Routine) Timeframe: 2 Days Facility: [facility] - Location: Cardiovascular Services Ordered By: Dr. Vince Smith Referrals / Follow Up: Sherman Moise MD [Primary Care Provider] - Within 1 Week Harsha Wilburn MD [Non-Staff] - Within 3 Months Disposition Disposition (needs filled in before D/C Order can be placed): Home, Self Care Charges/Coding Visit Charges Inpatient E&M: 64052 Disch Hosp >30min 10/26/22 1433 <Electronically signed by Vince Smith MD> Cosigner Signature (if applicable): CC: Dr. Vince Smith MD; Dr. Sherman Moise MD~ Signed [facility] Work Phone: 1(568) 603-397904-29-[address] Smith [facility] October 26, 2022 12:06pm Note Date/Time October 26, 2022 11: 46am [facility] Medical Records Department [address] [place] [address] Instructions for Home/Discharge Instructions 10/26/22 1144 MR#: [id number] Acct: [id number] Name: LANG CARIAS Rep #:[id number] : 1955 67 From: Vince lino MD [...] 48 Hrs (Routine) Timeframe: 2 Days Facility: [facility] - Location: Cardiovascular Services Ordered By: Dr. Vince Smith Referrals / Follow Up: Sherman Moise MD [Primary Care Provider] - Within 1 Week Harsha Wilburn MD [Non-Staff] - Within 3 Months Disposition Disposition (needs filled in before D/C Order can be placed): Home, Self Care 10/26/22 1206<Electronically signed by Vince Smith MD>Vince Smith MD CC: Dr. Sherman Moise MD ~ Signed [facility] Work Phone: 1(467) 785-273304-28-2023 History and physical note Author Dr. Smith [facility] October 25, 2022 2:58pm Note Date/Time October 25, 2022 2:5 8pm [facility] Medical Records Department [address] [place] [address] H&P Exam - Hospitalist 10/25/22 1452 MR#: [id number] Acct: [id number] Name: LANG CARIAS Rep #:[id number] : 1955 67 From: Vince lino MD PCP: Dr. Sherman Moise MD Status:ADM I NO Location: [place] [id number]- 1 HPI - General General Date of Admission: 10/25/22 HPI Narrative LANG CARIAS, is a 67 M who presents to [...] status post endarterectomy on the left carotid. [facility]LY [facility], [facility] Medical History Anxiety disorder Carotid stenosis COLD [...] % (Auto) 58.9, Lymph % (Auto) 33.2, Barber % (Auto) 6.2, Eos % (Auto) 1.5, [...] of the major intracranial arteries of the [place] or vertebrobasilar system on the current study. 2. 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 3. The right side of the [place] is supplied through the communicating [...] of the major intracranial arteries of the [place] or vertebrobasilar system on the current study. 2. 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 3. The right side of the [place] is supplied through the communicating [...] with colleagues Charges/Coding Visit Charges Inpatient E&M: 83312 Init Hosp L3 10/25/22 1458 <Electronically signed by Vince Smith MD> Cosigner Signature (if applicable): CC: Dr. Vince Smith MD; Dr. Sherman Moise MD~ Signed [facility] Work Phone: 1(618) 506-136304-28-[address] Rapp [facility] October 25, 2022 12:24pm Note Date/Time October 25, 2022 11: 07am [facility] Medical Records Department [address] [place] [address] Emergency Department Summary 10/25/22 MR#: [id number] Acct: [id number] Name: LANG CARIAS Rep #:[id number] : 1955 67 From: Dmitri Rapp MD [...] Prior similar symptoms: No Recent Illness/Hospitalization: No [facility] Medical History Anxiety disorder Carotid stenosis COLD [...] bilaterally and No no sensory deficits noted [place] Coma Scale: document GCS findings Spontaneous Obeys [...] narrative: 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 Suspect patient had [...] of the head neck was ordered. Contacted remediation technician. She informed that he is already [...] % (Auto) 58.9 Lymph % (Auto) 33.2 Barber % (Auto) 6.2 Eos % (Auto) 1.5 [...] (Auto) Neut % (Auto) Lymph % (Auto) Barber % (Auto) Eos % (Auto) Baso % [...] of the major intracranial arteries of the [place] or vertebrobasilar system on the current study. 2. 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 3. The right side of the [place] is supplied through the communicating [...] of the major intracranial arteries of the [place] or vertebrobasilar system on the current study. 2. 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 3. The right side of the [place] is supplied through the communicating [...] 70. There are premature ventricular complexes noted. KS interval 290 ms per cures duration 98 ms. QT duration 406 ms. [place] is normal.) Management Discussion w/another healthcare provider: Telemetry Monitor (The neurologist at [facility] recommended aspirin and stroke work-up. If there is an LVO contact him and will arrange transfer.) and Radiologist (Received call from dough maker regarding unenhanced scan.) Critical Care Time Critical Care Time: Yes Critical care time (excluding procedures): 30-74 minutes (33), Including time spent: (History, physical, review of documentation from prior admissions, interpretation of laboratory results, discussion with dough maker for unenhanced scan, dough maker for and hand scan, neurologist and hospitalist), Discussing w/Patient &/or Family/Wholesale Account Executive, Discussing w/Consultants (Previously documented) and Arranging Admission [...] Provider] - Disposition Disposition: Acute Care Hospital [facility] What to do if you have Problems For any increased pain, shortness of breath, bleeding, nausea or vomiting, chestpain, or any unexpected problems, contact your Primary Care Provider. Call [facility] ([phone]) or report to the closest Emergency Room. Call 911 if necessary. 10/25/22 1224 <Electronically signed by Dmitri Rapp MD> Cosigner Signature (if applicable): CC: Dr. Sherman Moise MD ~ Signed [facility] Work Phone: 1(328) 400-138704-28-[address] Rapp [facility] October 25, 2022 12:24pm Note Date/Time October 25, 2022 11: 07am [facility] Medical Records Department [address] [place] [address] Emergency Department Summary 10/25/22 MR#: [id number] Acct: [id number] Name: LANG CARIAS Rep #:[id number] : 1955 67 From: Dmitri Rapp MD PCP: Dr. Shreman Moise MD Status:REG E R Location: ED HPI History of Present Illness Chief Complaint: Stroke Alert Detail of Chief Complaint: With speech and facial asymmetry Informant: patient and spouse/S.O. Onset/Context/Timing Onset: - (Last known well 2030 last p.m.) Context: - (Unknown) Timing: - (Unknown) Quality and Location: Positive for Left Facial Droop Onset: , October 23 at 2030. 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 Suspect patient had [...] of the head neck was ordered. Contacted remediation technician. She informed that he is already [...] % (Auto) 58.9 Lymph % (Auto) 33.2 Barber % (Auto) 6.2 Eos % (Auto) 1.5 [...] (Auto) Neut % (Auto) Lymph % (Auto) Barber % (Auto) Eos % (Auto) Baso % [...] above Results were Read Back by Oz eKlly MD to Dr Dionte MD, and understanding confirmed on 10/25/2022 11:14:03 (ET). Electronically Signed: Oz Kelly MD at 11:15 EDT , Head/Neck CTA 10/25/22 11:07 IMPRESSION: 1. No demonstrated intraluminal thrombus or occlusion of the major intracranial arteries of the [place] or vertebrobasilar system on the current study. 2. 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 3. The right side of the [place] is supplied through the communicating [...] The above Results were Read Back by aCio Patiño MD to Dmitri Rapp MD, and understanding confirmed on 10/25/2022 12:04:40 (ET). Electronically Signed: Caio Ptaiño MD at 12:08 EDT , ADDENDUM: 10/25/22 1215 IMPRESSION: 1. No demonstrated intraluminal thrombus or occlusion of the major intracranial arteries of the [place] or vertebrobasilar system on the current study. 2. 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 3. The right side of the [place] is supplied through the communicating [...] 70. There are premature ventricular complexes noted. KS interval 290 ms per cures duration 98 ms. QT duration 406 ms. [place] is normal.) Management Discussion w/another healthcare provider: Telemetry Monitor (The neurologist at [facility] recommended aspirin and stroke work-up. If there is an LVO contact him and will arrange transfer.) and Radiologist (Received call from dough maker regarding unenhanced scan.) Critical Care Time Critical Care Time: Yes Critical care time (excluding procedures): 30-74 minutes (33), Including time spent: (History, physical, review of documentation from prior admissions, interpretation of laboratory results, discussion with dough maker for unenhanced scan, dough maker for and hand scan, neurologist and hospitalist), Discussing w/Patient &/or Family/Wholesale Account Executive, Discussing w/Consultants (Previously documented) and Arranging Admission [...] Provider] - Disposition Disposition: Acute Care Hospital [facility] What to do if you have Problems For any increased pain, shortness of breath, bleeding, nausea or vomiting, chestpain, or any unexpected problems, contact your Primary Care Provider. Call [facility] ([phone]) or report to the closest Emergency Room. Call 911 if necessary. 10/25/22 1224 <Electronically signed by Dmitri Rapp MD> Cosigner Signature (if applicable): CC: Dr. Sherman Moise MD ~ Signed [facility] Work Phone: Evaluation noteNo assessment information available [facility] Work Phone: Evaluation note* Diagnosis Onset Date Resolution Status Acute cerebrovascular accident (CVA) acute Occlusion of right internal carotid artery acute Sleep apnea acute COLD (chronic obstructive lung disease) chronic Depression chronic Gastroesophageal reflux disease chronic [facility] Work Phone: Evaluation note* Diagnosis Long-term use of Plaquenil- Primary Encounter for long-term (current) use of other medications Floaters, bilateral Pseudophakia of both eyes Lens replaced by other means [facility] Onset Date Resolution Status Admit Date Carotid artery disease noneactive Au gill 2024 10:37am [facility] Work Phone: Evaluation note* Diagnosis Long-term use of Plaquenil- Primary Encounter for long-term (current) use of other medications Floaters, bilateral Pseudophakia of both eyes Lens replaced by other means Glaucoma suspect of both eyes Preglaucoma, unspecified Dry eye syndrome of bilateral lacrimal glands Tear film insufficiency, unspecified documented in this encounter [facility] Discharge instructionsAdditional Instructions Your imaging studies today revealed no sign of brain bleed or broken bone. Your labs showed that your sodium level is slightly low and therefore please have this rechecked in the next week to ensure it is back to your normal range of approximately 130. Please continue all of your home medications as directed by your doctor and return to the ER should you have any further [facility] Work Phone: Reason for referral (narrative)No reason for referral information availableWMercy Health [facility] Work Phone: Family History Relationship Condition Age at Onset Recorded Date/T viry father Cardiac disease Unknown Myocardial infarction Unknown Malignant neoplasm Unknown mother Congestive heart failure Unknown Advance Directives Advance Directive Response Recorded Date/ Time Advance Directives Yes August 28 1:38pm Living Will No February 02, 2021 2:44pm Power of Tip Stretcher No February 02 2:44pm Advance Directive Response Recorded Date/ Time Advance Directives Yes August 28 12:38pm Living Will No February 02, 2021 1:44pm Power of Tip Stretcher No February 02 1:44pm Advance Directive Response Recorded Date/ Time Name of Medical Power of Tip Stretcher chela carias August 18, 2022 7:34am Advance Directives Yes August 28 12:38pm Living Will Yes August 18, 023 7:34am Power of Tip Stretcher Yes August 18, 2022 7:34am Advance Directive Response Recorded Date/ Time Name of Medical Power of Tip Stretcher chela carias August 18, 2022 8:34am Name of Medical Power of Tip Stretcher JEMMA CARIAS October 25, 2022 11:18am Advance Directives Yes August 28 1:38pm Living Will Yes October 25, 2022 11:18am Power of Tip Stretcher Yes October 25 11:18am Advance Directive Response Recorded Date/ Time Name of Medical Power of Tip Stretcher chela carias August 18, 2022 8:34am Name of Medical Power of Tip Stretcher JEMMA CARIAS October 25, 2022 1:27pm Advance Directives Yes August 28 1:38pm Living Will Yes October 25, 2022 1:27pm Power of Tip Stretcher Yes October 25 1:27pm Advance Directive Response Recorded Date/ Time Advance Directives Yes August 28 12:38pm Living Will Yes October 25, 2022 12:27pm Power of Tip Stretcher Yes October 25 12:27pm Advance Directive Response Recorded Date/ Time Advance Directives Yes August 28 1:38pm Living Will Yes October 25, 2022 1:27pm Power of Tip Stretcher Yes October 25 1:27pm Advance Directive Response Recorded Date/ Time Advance Directives Yes August 28 1:38pm Advance Directive Response Recorded Date/ Time Do you have a Healthcare Power of Tip Stretcher? No March 25, 2025 2:57am Advance Directives Yes August 28 1:38pm Chief [...] Carotid artery disease February 10, 2025 10:37am Chief Complaint Admit Date Occlusion and stenosis of right carotid artery January 18, 2025 12:51pm Carotid artery disease February 10, 2025 10:37am fall March 25, 2025 2:51am Summary Purpose Additional Source Comments Goals (unrecognized [...] MD Attending Provider, Refer ring Provider Active Senior Financial Consultant Relationship Specialty Start Date End Date Sherman Moise MD PCP - General Family Medicine 09/21/12 Ruben Hilton [address] [facility] [address] [id number] Physician Orthopedics 04/25/17 Team Status: Inactive Member [...] February 10, 2025 End: February 10, 2025 JAKE Romero Attending Provider Active Star t: February [...] February 02, 2025 End: February 02, 2025 Senior Financial Consultant Relationship Specialty Start Date End Date Sherman Moise MD PCP - General Family Medicine 09/21/12 Ruben Hilton [address] [facility] [address] [place] [id number] Physician Orthopedics 04/25/17 Team Status: Active Member [...] March 03, 2025 End: March 03, 2025 Team Status: Active Member Role/Relationship Status Dates Dr. Sherman Moise MD Primary care physician Active Team Status: Inactive Member Role/Relationship Status Dates Dr. Sherman Moise MD Primary care physician Active Start: January 18, 2025 End: January 18, 2025 Dr. John Sales MD Attending physician Active Start: January 18, 2025 End: January 18, 2025 Dr. John Sales MD Referring Provider Active S tart: January 18, 2025 End: January 18, 2025 Team Status: Active Member Role/Relationship Status Dates Dr. Sherman Moise MD Primary care physician Active Start: January 18, 2025 Dr. John Sales MD Attending physician Active Start: January 18, 2025 Dr. John Sales MD Referring Provider Active S tart: January 18, 2025 Team Status: Inactive Member Role/Relationship Status Dates Dr. Sherman Moise MD Primary care physician Active Start: February 02, 2025 End: February 02, 2025 Dr. Sherman Moise MD Attending physician Active Start: February 02, 2025 End: February 02, 2025 Dr. Sherman Moise MD Referring Provider Active Start: February 02, 2025 End: February 02, 2025 Team Status: Inactive Member Role/Relationship Status Dates Dr. Sherman Moise MD Primary care physician Active Start: February 10, 2025 End: February 10, 2025 Dr. Sherman Moise MD Referring Provider Active Start: February 10, 2025 End: February 10, 2025 JAKE Romero Attending physician Active Sta rt: February 10, 2025 End: February 10, 2025 Team Status: Inactive Member Role/Relationship Status Dates Dr. Sherman Moise MD Primary care physician Active Start: March 03, 2025 End: March 03, 2025 Dr. Gunnar Palmer MD Attending physician Active Start: March 03, 2025 End: March 03, 2025 Dr. Gunnar Palmer MD Referring Provider Active Start: March 03, 2025 End: March 03, 2025 Team Status: Inactive Member Role/Relationship Status Dates Dr. Sherman Moise MD Primary care physician Active Start: March 25, 2025 End: March 25, 2025 Dr. Devante Solares DO Emergency Departme nt Physician Active Start: March 25, 2025 End: March 25, 2025 Source Comments (unrecognize d section and content) In the event this informatio n is protected by the Federal Confidentiality of Alcohol and Drug Abuse Patient Records regulations: The Federal rules restrict any use of the information to criminally investigate or prosecute any alcohol or drug abuse patient.[facility] the event this information is protected by the Federal Confidentiality of Alcohol and Drug Abuse Patient Records regulations: The Federal rules restrict any use of the information to criminally investigate or prosecute any alcohol or drug abuse patient.[facility] Reason for Visit (unrecogniz ed section and content) Reason Comments Plaquenil Check 200mg twice a day / for Arthritis Dry Eye(s) Both Eyes Floaters Both Eyes Reason Comments Plaquenil Check (unrecognized sect ion and content) No Status Records FoundNo Status Records Found INFORMATION SOURCE (unrecogn ized section and content) DATE CREATED AUTHOR 02/24/2025 [facility] DATE CREATED AUTHOR 'S MARIA C PINEDA 04/01/2025 [facility] FOR RECORDS PERTAINING TO PATIENTS WHO [...] BE BASED ON THE PRIMARY CLINICAL RECORDS. [facility] [employer] [facility] provides no warranty or guarantee of the accuracy or completeness of information in this document.
== END | disposition home or self-care (01) ==
LOC: MTRAD 15:50
PROVIDERS: PCP Family Medicine; Referring Provider Family Medicine; Visit Provider Family Medicine
DX: M53.3 Sacrococcygeal disorders, not elsewhere classified (principal)
CPT/HCPCS: 72052; 72220